=== PATIENT | female | born 1945 | race Caucasian/White ===

== ENCOUNTER 2017-05-27 17:40 | Inpatient (IN) | payer MEDICARE, BC ==
[~2017-05-27] VITALS: Ht 172.7 cm; Wt 88.5 kg
[2017-05-27] MEDS ORDERED: POLY17PO5 PO (21:57)
[2017-05-27] MEDS ORDERED: PHEN30SP8 MM (21:57)
[2017-05-27] MEDS ORDERED: CHOL10003 PO (21:57)
[2017-05-27] MEDS ORDERED: LAMO200T3 PO (21:57)
[2017-05-27] MEDS ORDERED: PILO5TAB16 PO (21:57)
[2017-05-27] MEDS ORDERED: CRESTOR40 MG PO (21:57)
[2017-05-27] MEDS ORDERED: BISA10SU2 RC (21:57)
[2017-05-27] MEDS ORDERED: CARB15DR3 OU (21:57)
[2017-05-27] MEDS ORDERED: KETO120S TP (21:57)
[2017-05-27] MEDS ORDERED: MULT1TAB52 PO (21:57)
[2017-05-27] MEDS ORDERED: CYAN10005 PO (21:57)
[2017-05-27] MEDS ORDERED: MEMA5TAB PO (21:57)
[2017-05-27] MEDS ORDERED: LOPE2CAP88 PO (21:57)
[2017-05-27] MEDS ORDERED: [UNRECOGNIZED DRUG - CODE] OU (21:57)
[2017-05-27] MEDS ORDERED: DOCU-109 PO (21:57)
[2017-05-27] MEDS ORDERED: HYDR50CA2 PO (21:57)
[2017-05-27] MEDS ORDERED: ACET325T9 PO (21:57)
[2017-05-27] MEDS ORDERED: ROPI1TAB PO (21:57)
[2017-05-27] MEDS ORDERED: ASPI81TA50 PO (21:57)
[2017-05-27] MEDS ORDERED: LINA145C PO (21:57)
[2017-05-27] MEDS ORDERED: LISI2.5T PO (21:57)
[2017-05-27] MEDS ORDERED: HYDR25CA75 PO (21:57)
[2017-05-27] MEDS ORDERED: INSU100I17 SQ (21:57)
[2017-05-27] MEDS ORDERED: TRAM50TA PO (21:57)
[2017-05-27] MEDS ORDERED: OMEG-33 PO (21:57)
[2017-05-27] MEDS ORDERED: INSU200I4 SQ (21:57)
[2017-05-27] MEDS ORDERED: LEVO175T5 PO (21:57)
[2017-05-27] MEDS ORDERED: NYST60PO TP (21:57)
[2017-05-27] MEDS ORDERED: PANT40TA5 PO (21:57)
[2017-05-27] MEDS ORDERED: BACL10TA PO (21:57)
[2017-05-27] MEDS ORDERED: HYDR-2762 PO (21:57)
[2017-05-27] MEDS ORDERED: CALC1TAB64 PO (21:57)
[2017-05-27] MEDS ORDERED: DULA1.5P SQ (21:57)
[2017-05-27] MEDS ORDERED: ENOX40DI SQ (21:57)
[2017-05-27] MEDS ORDERED: GABA-586 PO ×2 (21:57)
[2017-05-27] MEDS ORDERED: OPIU1SUP2 RC (21:57)
[2017-05-27] MEDS ORDERED: OXYB10TA PO (21:57)
[2017-05-27] MEDS: OMEGA-3 FATTY ACIDS/FISH OIL 1,000 MG CAPSULE. PO SCH ×2 (22:30→23:05)
[2017-05-27] MEDS: OXYBUTYNIN CHLORIDE 5 MG TABLET PO SCH ×2 (22:30→23:05)
[2017-05-27] MEDS: lamoTRIgine 100 MG TABLET. PO SCH ×2 (22:30→23:06)
[2017-05-27] MEDS: ATORVASTATIN CALCIUM 20 MG TABLET PO SCH ×2 (22:30→23:05)
[2017-05-27] MEDS: ENOXAPARIN 40 MG/0.4 ML DISP.SYRIN. SQ SCH ×2 (22:30→23:06)
[2017-05-27] MEDS: hydrOXYzine PAMOATE 25 MG CAPSULE PO SCH ×2 (22:30→23:04)
[2017-05-27] MEDS: rOPINIRole 2 MG TABLET. PO SCH ×2 (22:30→23:05)
[2017-05-27] MEDS: MEMANTINE 5 MG TABLET. PO SCH ×2 (22:30→23:05)
[2017-05-27] MEDS: BACLOFEN 10 MG TABLET PO SCH ×2 (22:30→23:06)
[2017-05-27] MEDS: PILOCARPINE 5 MG TABLET. PO SCH (22:30)
[2017-05-27] MEDS: GABAPENTIN 300 MG CAPSULE. PO SCH ×2 (22:30→23:05)
[2017-05-28 00:11] VITALS: BP 119/67
[2017-05-28] MEDS: OMEGA-3 FATTY ACIDS/FISH OIL 1,000 MG CAPSULE. PO SCH ×4 (00:16→21:00)
[2017-05-28] MEDS: GABAPENTIN 300 MG CAPSULE. PO SCH ×3 (00:16→20:48)
[2017-05-28] MEDS: ENOXAPARIN 40 MG/0.4 ML DISP.SYRIN. SQ SCH ×2 (00:16→20:47)
[2017-05-28] MEDS: rOPINIRole 2 MG TABLET. PO SCH ×2 (00:17→20:48)
[2017-05-28] MEDS: OXYBUTYNIN CHLORIDE 5 MG TABLET PO SCH ×3 (00:17→20:48)
[2017-05-28] MEDS: ATORVASTATIN CALCIUM 20 MG TABLET PO SCH ×2 (00:17→20:48)
[2017-05-28] MEDS: lamoTRIgine 100 MG TABLET. PO SCH ×2 (00:17→20:48)
[2017-05-28] MEDS: PILOCARPINE 5 MG TABLET. PO SCH ×4 (00:17→20:51)
[2017-05-28] MEDS: hydrOXYzine PAMOATE 25 MG CAPSULE PO SCH ×4 (00:17→20:49)
[2017-05-28] MEDS: BACLOFEN 10 MG TABLET PO SCH ×4 (00:17→20:49)
[2017-05-28] MEDS: MEMANTINE 5 MG TABLET. PO SCH ×3 (00:18→20:48)
[2017-05-28 01:17] LABS: BILIRUBIN,URINE NEG (NEG); CLARITY,URINE CLOUDY; COLOR,URINE YELLOW; GLUCOSE,URINE NEG (NEG)
[2017-05-28 01:18] LABS: NITRITE,URINE NEG (NEG); UROBILINOGEN,URINE 1 mg/dL (0.2 mg/dL)
[2017-05-28 01:19] LABS: BACTERIA,URINE FEW /HPF (0-FEW); SQUAMOUS EPITHELIAL CELL,UR FEW /LPF; WBC,URINE 20-40 /HPF (0-4)
--- NOTE | 2017-05-28 07:02 | EKG ---
[address] [address] Test Date: 2017-05-28 Test Time: 06:06:08 Pat Name: GIAN PITTMAN Department: Room: [address] [place] [address] Gender: F Shot Lighter: RACHEL : 1945 Requested By: KURT DUARTE Order Number: [id number] Reading MD: Chris Estrella MD Measurements Intervals [place] Rate: 78 P: 12 WI: 188 QRS: 7 QRSD: 74 T: 25 QT: 376 QTc: 432 Interpretive Statements SINUS RHYTHM Electronically Signed On 06-13-2017 12:03:32 CDT by Chris Estrella MD
[2017-05-28 07:08] VITALS: BP 125/72
[2017-05-28] MEDS ORDERED: LOPERAMIDE 2 MG CAPSULE PO PRN (07:30)
[2017-05-28] MEDS ORDERED: DOCUSATE SODIUM 100 MG CAPSULE PO PRN (07:30)
[2017-05-28] MEDS ORDERED: NYSTATIN TOPICAL POWDER 15GM BOTTLE. TP PRN (07:30)
[2017-05-28] MEDS ORDERED: BISACODYL 10 MG SUPP.RECT RC PRN (07:30)
[2017-05-28] MEDS ORDERED: PHENOL ORAL SPRAY 177ML BOTTLE. MM PRN ×2 (08:00→14:31)
[2017-05-28] MEDS ORDERED: POLYVINYL ALCOHOL 1.4% OPHTH SOLUTION 15ML BOTTLE. OU PRN (08:00)
[2017-05-28] MEDS ORDERED: TETRAHYDROZOLINE 0.05% OPHTH SOLUTION 15ML BOTTLE. OU PRN ×2 (08:00→14:31)
[2017-05-28 08:25] LABS: BASO % 1 % (0-3); EOS # 0.3 x10^3/uL (0.0-0.7); EOS % 5 % (0-3); HEMATOCRIT 41.9 % (36.0-47.0); HEMOGLOBIN 14.3 g/dL (12.0-15.5); LYMPH # 2.5 x10^3/uL (1.0-4.8); LYMPH % 38 % (24-48); MEAN CORPUSCULAR HEMOGLOBIN 29 pg (25-35); MEAN CORPUSCULAR HGB CONC 34 g/dL (31-37); MEAN CORPUSCULAR VOLUME 86 fL (79-100); MONO # 0.5 x10^3/uL (0.0-1.1); MONO % 7 % (0-9); NEUT # 3.4 x10^3uL (1.8-7.7); NEUT % 50 % (31-73); PLATELET COUNT 216 x10^3/uL (140-400); RED BLOOD COUNT 4.87 x10^6/uL (3.50-5.40); RED CELL DISTRIBUTION WIDTH 14.2 % (11.5-14.5); WHITE BLOOD COUNT 6.7 x10^3/uL (4.0-11.0)
[2017-05-28 08:37] LABS: ALBUMIN 2.8 g/dL (3.4-5.0); ALBUMIN/GLOBULIN RATIO 0.8 (1.0-1.7); CREATININE 0.7 mg/dL (0.6-1.0); MAGNESIUM 1.9 mg/dL (1.8-2.4); POTASSIUM 3.5 mmol/L (3.5-5.1); TOTAL BILIRUBIN 0.3 mg/dL (0.2-1.0); TOTAL PROTEIN 6.5 g/dL (6.4-8.2)
[2017-05-28] MEDS ORDERED: GABAPENTIN 300 MG CAPSULE. PO PRN (09:00)
[2017-05-28] MEDS: LEVOTHYROXINE 175 MCG TABLET PO SCH (10:33)
[2017-05-28] MEDS: LINACLOTIDE 145 MCG CAPSULE. PO SCH (10:33)
[2017-05-28] MEDS: ASPIRIN ENTERIC COATED 81 MG TABLET.DR. PO SCH (10:33)
[2017-05-28] MEDS: LISINOPRIL 2.5 MG TABLET PO SCH (10:33)
[2017-05-28] MEDS: CALCIUM CARB/VIT D3 500/200 TABLET PO SCH ×2 (10:33→17:17)
[2017-05-28] MEDS: MULTIVITAMIN with MINERAL TABLET. PO SCH (10:34)
[2017-05-28] MEDS: CHOLECALCIFEROL (VITAMIN D3) 1,000 UNIT TABLET PO SCH (10:34)
[2017-05-28 11:21] LABS: THYROID STIM HORMONE (TSH) 3.476 uIU/mL (0.358-3.740)
[2017-05-28] MEDS: INSULIN ASPART 300 UNITS/3 ML INSULN.PEN SQ SCH ×4 (12:17→17:20)
[2017-05-28] MEDS ORDERED: FOSFOMYCIN TROMETHAMINE 3 GM PACKET PO ONE ×2 (12:45→14:00)
--- NOTE | 2017-05-28 12:56 | HP ---
ADMIT DATE: 05/27/2017 MEDICAL HISTORY AND PHYSICAL FOR THE SENIOR BEHAVIORAL UNIT REASON FOR ADMISSION TO THE SENIOR BEHAVIORAL UNIT: This is a 72-year-old female who came via [facility] where she was in the ICU due to an overdose of baclofen and hydrocodone. She just got depressed and just decided to try to take her life. Her daughter tried to call and was unable to reach her and her son found her in bed last Tuesday night. PAST MEDICAL HISTORY: Bipolar disorder with osiris, pelvic organ prolapse, chronic low back pain, hip pain, chronic groin and buttock pain, anxiety, diabetes, fibromyalgia, sleep apnea, cluster headaches, hepatitis B, hyperlipidemia, irritable bowel and currently undergoing a workup for myasthenia gravis. ALLERGIES: Multiple and include NONSTEROIDALS, ADHESIVE, ASPIRIN, ESTROGEN, LATEX, LURASIDONE, METFORMIN, METOCLOPRAMIDE, OLANZAPINE, ONDANSETRON, and TRAZODONE. MEDICATIONS: Reviewed and are available on the MAR. SOCIAL HISTORY: Never smoked, never drank. 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 She has at least 2 children. REVIEW OF SYSTEMS: Pelvic floor prolapse. She has been having some problems with drooping of her left eye later in the day and is undergoing a workup. Negative fever, negative sore throat, chronic back pain and hip pain. No shortness of breath or chest pain. OBJECTIVE: VITAL SIGNS: Blood pressure 125/72, pulse 105, temperature 97.5, pulse ox 95% on room air. Height 68 inches, weight 191.63 pounds. GENERAL: Pleasant female, who looks her stated age. She is sitting quietly in the chair, able to answer questions without difficulty. She is alert and oriented. Mood is slightly depressed. She is calm and cooperative. HEENT: Hearing was normal. Her pupils were equal, round, and react to light. Extraocular muscles were intact. There was no ptosis currently. Her nose was patent. Throat was clear. Tongue was midline. NECK: Supple, without adenopathy. LUNGS: Clear to auscultation. CARDIOVASCULAR: Regular rhythm and rate. ABDOMEN: Soft and nontender. EXTREMITIES: Without edema. She passes a get up and go test, but walks with a walker. She has some weakness in the left leg from surgery and reflexes were not elicited, but she does not drag the foot and she does not have footdrop. NEUROLOGIC: Cranial nerves were intact. LABORATORY DATA: Normal CBC. Glucose is in the 200s, triglycerides 326. Urinalysis: Large amount of leukocyte esterase, 20-40 white cells, specific gravity greater than 1.030. Other studies pending. ASSESSMENT: A 72-year-old with: 1. Status post overdose of baclofen and hydrocodone. 2. Major depressive disorder. 3. Bipolar disorder. 4. Type 2 diabetes with hyperglycemia. 5. Fibromyalgia. 6. Gastroesophageal reflux disease. 7. Sleep apnea. 8. Hepatitis B. 9. Chronic low back pain. 10. Multiple allergies. 11. Polypharmacy. 12. Urinary tract infection. PLAN: Follow along with Dr. Galvez. Treat her medical conditions. SUKH LISA DO DR: ADRIAN/jayro JOB#: [id number] / [id number]
[2017-05-28 16:18] LABS: HEMOGLOBIN A1C 6.6 % (4.8-5.6); T3 TOTAL 106 ng/dL (71-180); THYROXINE 9.6 ug/dL (4.5-12.0)
[2017-05-28 16:25] VITALS: BP 114/55
[2017-05-28] MEDS: CYANOCOBALAMIN (VITAMIN B-12) 1,000 MCG TABLET. PO SCH (17:17)
[2017-05-28] MEDS: PANTOPRAZOLE 40 MG TABLET. PO SCH (20:51)
--- NOTE | 2017-05-28 21:13 | PDOC ---
Exam Note: Jens Note: Please also refer to the separate dictated note~for this date of service dictated separately.~Patient seen individually. Discussed the patient with Nursing staff reviewed the chart.~Reviewed interim history and current functioning. Reviewed vital signs,~Labs/ Radiology~and current medications noted below. Continue current treatment with the changes noted in the dictated addendum note Assessment: Vital Signs: Vital Signs Date Time Temp Pulse Resp B/P (MAP) Pulse Ox O2 Delivery O2 Flow Rate FiO2 05/28/17 16:25 97.4 99 16 114/55 (74) 97 Room Air I&O Intake and Output 05/28/17 07:00 Intake Total 120 ml Balance 120 ml Intake Oral 120 ml Labs: Laboratory Tests Test 05/28/17 00:50 05/28/17 07:40 05/28/17 07:57 05/28/17 11:56 Urine Collection Type Unknown Urine Color Yellow Urine Clarity Cloudy Urine pH 5.5 Urine Specific [place] >=1.030 Urine Protein 100 mg/dl (NEG-TRACE) Urine Glucose (UA) Neg mg/dL (NEG) Urine Ketones (Stick) Neg mg/dL (NEG) Urine Blood Mod (NEG) Urine Nitrite Neg (NEG) Urine Bilirubin Neg (NEG) Urine Urobilinogen Dipstick 1 mg/dL (0.2 mg/dL) Urine Leukocyte Esterase Large (NEG) Urine RBC 3-5 /HPF (0-2) Urine WBC 20-40 /HPF (0-4) Urine Squamous Epithelial Cells Few /LPF Urine Bacteria Few /HPF (0-FEW) Urine Mucus Slight /LPF White Blood Count 6.7 x10^3/uL (4.0-11.0) Red Blood Count 4.87 x10^6/uL (3.50-5.40) Hemoglobin 14.3 g/dL (12.0-15.5) Hematocrit 41.9 % (36.0-47.0) Mean Corpuscular Volume 86 fL (79-100) Mean Corpuscular Hemoglobin 29 pg (25-35) Mean Corpuscular Hemoglobin Concent 34 g/dL (31-37) Red Cell Distribution Width 14.2 % (11.5-14.5) Platelet Count 216 x10^3/uL (140-400) Neutrophils (%) (Auto) 50 % (31-73) Lymphocytes (%) (Auto) 38 % (24-48) Monocytes (%) (Auto) 7 % (0-9) Eosinophils (%) (Auto) 5 % (0-3) H Basophils (%) (Auto) 1 % (0-3) Neutrophils # (Auto) 3.4 x10^3uL (1.8-7.7) Lymphocytes # (Auto) 2.5 x10^3/uL (1.0-4.8) Monocytes # (Auto) 0.5 x10^3/uL (0.0-1.1) Eosinophils # (Auto) 0.3 x10^3/uL (0.0-0.7) Basophils # (Auto) 0.0 x10^3/uL (0.0-0.2) Sodium Level 139 mmol/L (136-145) Potassium Level 3.5 mmol/L (3.5-5.1) Chloride Level 102 mmol/L (98-107) Carbon Dioxide Level 30 mmol/L (21-32) Anion Gap 7 (6-14) Blood Urea Nitrogen 7 mg/dL (7-20) Creatinine 0.7 mg/dL (0.6-1.0) Estimated GFR (Cockcroft-Gault) 82.0 BUN/Creatinine Ratio 10 (6-20) Glucose Level 276 mg/dL (70-99) H Hemoglobin A1c 6.6 % (4.8-5.6) H Calcium Level 9.0 mg/dL (8.5-10.1) Magnesium Level 1.9 mg/dL (1.8-2.4) Iron Level 51 ug/dL (50-170) Total Iron Binding Capacity 351 ug/dL (250-450) Iron Saturation 15 % (15-34) Total Bilirubin 0.3 mg/dL (0.2-1.0) Aspartate Amino Transferase (AST) 27 U/L (15-37) Alanine Aminotransferase (ALT) 37 U/L (14-59) Alkaline Phosphatase 141 U/L (46-116) H Total Protein 6.5 g/dL (6.4-8.2) Albumin 2.8 g/dL (3.4-5.0) L Albumin/Globulin Ratio 0.8 (1.0-1.7) L Triglycerides Level 326 mg/dL (0-150) H Cholesterol Level 118 mg/dL (0-200) LDL Cholesterol, Calculated 32 mg/dL (0-100) VLDL Cholesterol, Calculated 65 mg/dL (0-40) H Non-HDL Cholesterol Calculated 97 mg/dL (0-129) HDL Cholesterol 21 mg/dL (40-60) L Cholesterol/HDL Ratio 5.0 Thyroid Stimulating Hormone (TSH) 3.476 uIU/mL (0.358-3.740) Thyroxine (T4) 9.6 ug/dL (4.5-12.0) Total Triiodothyronine (TT3) 106 ng/dL (71-180) Rapid Plasma Reagin Pending Glucose (Fingerstick) 246 mg/dL (70-99) H 278 mg/dL (70-99) H Test 05/28/17 17:11 05/28/17 19:12 Glucose (Fingerstick) 159 mg/dL (70-99) H 178 mg/dL (70-99) H Current Medications: Meds: Current Medications Hydroxyzine Pamoate (Vistaril) 25 mg BID@0900,1300 PO Last administered on 05/28 13:52; Start 05/28/17 at 09:00 Memantine (Namenda) 5 mg BID PO Last administered on 05/28/17 20:48; Start 05/27/17 at 22:30 Hydroxyzine Pamoate (Vistaril) 50 mg QHS PO Last administered on 05/28/17 20: 49; Start 05/27/17 at 22:30 Lamotrigine (LaMICtal) 200 mg HS PO Last administered on 05/28/17 20:48; Start 05/27/17 at 22:30 Baclofen (Lioresal) 10 mg TID PO Last administered on 05/28/17 20:49; Start at 22:30 Enoxaparin Sodium (Lovenox) 40 mg QHS SQ Last administered on 05/28/17 20:47; Start 05/27/17 at 22:30 Gabapentin (Neurontin) 600 mg QHS PO Last administered on 05/28/17 20:48; Start 05/27/17 at 22:30 Pantoprazole Sodium (Protonix) 40 mg QPM PO Last administered on 05/28/17 20: 51; Start 05/28/17 at 18:00 Pilocarpine HCl (Salagen) 5 mg TID PO Last administered on 05/28/17 20:51; Start 05/27/17 at 22:30 Ropinirole HCl (Requip) 2 mg QHS PO Last administered on 05/28/17 20:48; Start 05/27/17 at 22:30 Calcium/Vitamin D (Oscal D 500mg/ 200uts) 1 tab BIDWMEALS PO Last administered on 05/28/17 17:17; Start 05/28/17 at 08:00 Fish Oil (Fish Oil) 2,000 mg BID PO Last administered on 05/28/17 20:48; Start 05/27/17 at 22:30 Oxybutynin Chloride (Ditropan) 5 mg BID PO Last administered on 05/28/17 20:48 ; Start 05/27/17 at 22:30 Atorvastatin Calcium (Lipitor) 80 mg QHS PO Last administered on 05/28/17 20: 48; Start 05/27/17 at 22:30 Acetaminophen (Tylenol) 650 mg PRN Q4HRS PRN PO PAIN / TEMP; Start 05/28/17 at 07:30 Aspirin (Aspirin Enteric Coated) 81 mg DAILY PO Last administered on 05/28/17 10:33; Start 05/28/17 at 09:00 Bisacodyl (Dulcolax Supp) 10 mg PRN DAILY PRN RC CONSTIPATION; Start 05/28/17 at 07:30 Vitamin D (Vitamin D3) 2,000 unit DAILY PO Last administered on 05/28/17at 10:34 ; Start 05/28/17 at 09:00 Cyanocobalamin (Vitamin B-12) 1,000 mcg QODAY@1700 PO Last administered on 05/28 17:17; Start 05/28/17 at 17:00 Docusate Sodium (Colace) 100 mg PRN BID PRN PO CONSTIPATION; Start 05/28/17 at 07:30 Gabapentin (Neurontin) 300 mg BID@0900,1300 PRN PO Neuropathy; Start 05/28/17 at 09:00 Acetaminophen/ Hydrocodone Bitart (Lortab 7.5/325) 1 tab PRN Q4HRS PRN PO PAIN ; Start 05/28/17 at 07:30 Levothyroxine Sodium (Synthroid) 175 mcg DAILY06 PO Last administered on at 10:33; Start 05/28/17 at 08:00 Lisinopril (Prinivil) 2.5 mg DAILY PO Last administered on 05/28/17at 10:33; Start 05/28/17 at 09:00 Loperamide HCl (Imodium) 2 mg TID PRN PRN PO DIARRHEA; Start 05/28/17 at 07:30 Nystatin (Nystop) 1 gene PRN TID PRN TP RASH; Start 05/28/17 at 07:30 Polyethylene Glycol (miraLAX) 17 gm PRN DAILY PRN PO CONSTIPATION; Start at 07:30 Tramadol HCl (Ultram) 50 mg PRN Q4HRS PRN PO PAIN; Start 05/28/17 at 07:30 Artificial Tears (Artificial Tears) 2 drop PRN BID PRN OU DRY EYE; Start at 08:00; Stop 05/28/17 at 14:31; Status DC Non-Formulary Medication (Dulaglutide (Trulicity)) 1.5 mg QTU SQ ; Start at 16:00; Status UNV Non-Formulary Medication (Insulin Degludec (Tresiba Flextouch U-200)) 90 unit DAILY SQ ; Start 05/28/17 at 09:00; Status UNV Multivitamins/ Calcium (Thera-M Plus) 1 tab DAILY PO Last administered on at 10:34; Start 05/28/17 at 09:00 Tetrahydrozoline HCl (Murine) 1 drop PRN QID PRN OU DRY EYE; Start 05/28/17 at 08:00; Stop 05/28/17 at 14:31; Status DC Throat Lozenges (Chloraseptic) 1 spray PRN Q4HRS PRN MM SORE THROAT; Start 01/05 at 08:00; Stop 05/28/17 at 14:31; Status DC Insulin Aspart (NovoLOG) 15 units TIDAC SQ Last administered on 05/28/17at 16:30 ; Start 05/28/17 at 11:30 Insulin Aspart (NovoLOG) 0-5 UNITS TIDWMEALS SQ Last administered on 05/28/17at 17:20; Start 05/28/17 at 12:00 Fosfomycin Tromethamine (Monurol) 3 gm 1X ONCE PO ; Start 05/28/17 at 12:45; Stop 05/28/17 at 12:46; Status DC Fosfomycin Tromethamine (Monurol) 3 gm 1X ONCE PO Last administered on at 13:42; Start 05/28/17 at 14:00; Stop 05/28/17 at 14:01; Status DC Throat Lozenges (Chloraseptic) 1 spray PRN Q4HRS PRN MM SORE THROAT; Start 01/05 at 14:31 Artificial Tears (Artificial Tears) 2 drop PRN BID PRN OU DRY EYE; Start at 14:31 Tetrahydrozoline HCl (Murine) 1 drop PRN QID PRN OU DRY EYE; Start 05/28/17 at 14:31 Active Scripts Active Reported Chloraseptic Max Caruthers (Phenol/Glycerin) 30 Ml Caruthers 1 Caruthers MM PRN Q4HRS PRN Miralax (Polyethylene Glycol 3350) 17 Gm Powd.pack 17 Gm PO PRN DAILY PRN Nystop (Nystatin) 60 Gm Powder 1 Gene TP PRN TID PRN Clear Eyes Itchy Eye Rlf Drops (Naphazoline Hcl/Zn Sulf/Gly) 15 Ml Drops 1 Drop OU PRN QID PRN Imodium A-D (Loperamide HCl) 2 Mg Capsule 2 Mg PO TID PRN PRN Colace (Docusate Sodium) 100 Mg Capsule 100 Mg PO PRN BID PRN Refresh Optive Eye Drops (Carboxymethylcellulos/Glycerin) 15 Ml Drops 2 Drop OU PRN BID PRN Bisacodyl 10 Mg Supp.rect 10 Mg RC PRN DAILY PRN Belladonna-Opium 16.2-30 Supp (Opium/Belladonna Alkaloids) 1 Each Supp.rect 1 Supp RC PRN Q12HR PRN Hydrocodone-Apap 7.5-325 (Hydrocodone Bit/Acetaminophen) 1 Each Tablet 1 Tab PO PRN Q4HRS PRN Tylenol (Acetaminophen) 325 Mg Tablet 650 Mg PO PRN Q4HRS PRN Tramadol Hcl (Tramadol HCl) 50 Mg Tablet 50 Mg PO PRN Q4HRS PRN Crestor (Rosuvastatin Calcium) 40 Mg Tablet 40 Mg PO HS Requip (Ropinirole Hcl) 1 Mg Tablet 2 Mg PO QHS Pilocarpine Hcl 5 Mg Tablet 5 Mg PO TID Pantoprazole Sodium 40 Mg Tablet.dr 40 Mg PO QPM Oxybutynin Chloride Er (Oxybutynin Chloride) 10 Mg Tab.er.24 10 Mg PO QHS Multivitamins (Multivitamin) 1 Each Tablet 1 Tab PO DAILY Namenda (Memantine Hcl) 5 Mg Tablet 5 Mg PO BID Lisinopril 2.5 Mg Tablet 2.5 Mg PO DAILY Linzess (Linaclotide) 145 Mcg Capsule 145 Mcg PO DAILY Levothyroxine Sodium 175 Mcg Tablet 175 Mcg PO DAILY07 Lamictal (Lamotrigine) 200 Mg Tablet 200 Mg PO QHS Ketoconazole 120 Ml Shampoo 120 Ml TP Q3DAYS Tresiba Flextouch U-200 (Insulin Degludec) 200 Unit/1 Ml Insuln.pen 90 Unit SQ DAILY Novolog Flexpen (Insulin Aspart) 100 Unit/1 Ml Insuln.pen 0-10 Unit SQ TIDWMEALS Hydroxyzine Pamoate 50 Mg Capsule 50 Mg PO QHS Hydroxyzine Pamoate 25 Mg Capsule 25 Mg PO BID@0900,1300 Neurontin (Gabapentin) 300 Mg Capsule 300 Mg PO BID@0900,1300 PRN Neurontin (Gabapentin) 300 Mg Capsule 600 Mg PO QHS Java 3 1,000 Mg Softgel (Java-3 Fatty Acids/Fish Oil) 1 Each Capsule 2,000 Mg PO BID Lovenox (Enoxaparin Sodium) 40 Mg/0.4 Ml Disp.syrin 40 Mg SQ QHS Trulicity (Dulaglutide) 1.5 Mg/0.5 Ml Pen.injctr 1.5 Mg SQ QTU Vitamin B-12 (Cyanocobalamin (Vitamin B-12)) 1,000 Mcg Tablet 1,000 Mcg PO QODAY @1700 Vitamin D3 (Cholecalciferol (Vitamin D3)) 1,000 Unit Tablet 2,000 Unit PO DAILY Calcium 600 + Vit D 400 Tablet (Calcium Carbonate/Vitamin D3) 1 Each Tablet 1 Tab PO BID Baclofen 10 Mg Tablet 10 Mg PO TID Aspir-Low (Aspirin) 81 Mg Tablet. 81 Mg PO DAILY I have reviewed the current psychotropics carefully including drug interactions. Risk benefit ratio favors no change other than as noted in my dictated progress note. Diagnosis: Problems: (1) Bipolar affective, mixed, sev w/ psych (2) Anxiety disorder (3) Major depressive disorder, recurrent episode KURT DUARTE MD May 28, 2017 21:13
--- NOTE | 2017-05-29 05:50 | HP ---
ADMIT DATE: 05/28/2017 IDENTIFYING DATA: The patient is a 72-year-old female who was referred to us from the Intensive Care Unit at [facility] where she was admitted following a very significant overdose on baclofen and [place] in a significant suicide attempt. The patient states she has not been able to get any relief from pain and has been miserable. She was having significant lower back pain, pelvic floor pain. She states she just wanted the pain to go away resulting in this suicide attempt. She is medically stabilized, continued to be depressed, has a diagnosis of bipolar 1 disorder, depressed, and had no regular psychiatric followup in the recent past thus resulting in this referral for stabilization as an inpatient. The patient was seen individually evening of 05/28/2017. Discussed with nursing staff several times prior to the patient's admission and since admission and this evening reviewed current and past records including records from [facility]. CHIEF COMPLAINT: "I have been treated for bipolar disorder for many years, but I have had no recent followup with a psychiatrist since I moved to [place] recently." HISTORY OF PRESENT ILLNESS: The patient has a long history reportedly of bipolar 1 disorder and she describes a manic episode, perhaps single in the past. Nevertheless, most of her relapses have been depressive episodes. She admits recently to worsening symptoms of depression consequent to her chronic pain, which has been exacerbating. She has sleep and appetite changes, paranoia and thereafter decided to make a suicide attempt due to the pain, which was exacerbating. No active homicidal ideation. PAST PSYCHIATRIC HISTORY: Positive for symptoms of bipolar disorder, single episode of osiris and recurrent episodes of depression. PAST MEDICAL HISTORY: Status post overdose baclofen, [place]; low back pain, pelvic floor pain, fibromyalgia, diabetes mellitus, GERD, hyperlipidemia, irritable bowel syndrome, hepatitis B secondary to transfusion, liver disease, hypothyroidism, chronic headaches, back pain, myasthenia gravis. Accu-Cheks a.c. and at bedtime. ALLERGIES: ADHESIVE, ASPIRIN, LATEX, LATUDA, METFORMIN, NONSTEROIDAL ANTI-INFLAMMATORIES, PREMARIN, REGLAN, TRAZODONE, ZOFRAN, ZYPREXA. MEDICATIONS: Takes her medications whole. DIET: No concentrated sweet. CODE STATUS: DNR. Ambulates with walker. UA was positive. Culture is pending. FAMILY HISTORY: Noncontributory. SOCIAL HISTORY: The patient did her college education at and apparently did some postgraduate courses after that. No alcohol or drug abuse, physical, sexual or elder abuse history is noted. Not known to be a perpetrator. She states she has 5 adult children, 3 of whom are in the [place] area, 1 in [place] and that is the reason she decided to move to [place] last year. She has had a fairly active working life prior to long-term. CURRENT PSYCHOTROPICS: Namenda 5 mg b.i.d., Lamictal 200 mg at bedtime, hydroxyzine 25 mg b.i.d. and 50 mg at bedtime. REVIEW OF SYSTEMS: No CV, , pulmonary, eye, ENT system symptoms on review. MENTAL STATUS EXAM: The patient was seen individually evening of 05/28/2017. She is well oriented. Speech is coherent. Thought processes goal directed. Mood is still depressed. She is distressed with the chronic pain. Denies active suicidal ideation, somewhat paranoid, suspicious, attention span fair. Language function intact. Intellect average. Insight fair. Judgment intact to standard questioning at this time. IMPRESSION: Bipolar 1 disorder, depressed; anxiety disorder, unspecified; impulse control disorder, unspecified. Rest as above. PLAN: Admit to Geropsychiatry Unit at [facility]. I will see the patient daily individually from a psychiatric standpoint, medical followup per Dr. Rojas/Dr. Ramirez. Continue current psychotropics, but increase the Lamictal to 250 mg p.o. at bedtime, add Wellbutrin-XL 150 mg a day as she has been on this in the past and did well, consider Cymbalta as an antidepressant which might help her pain as well. Make further adjustments as clinically indicated. MAN Ellis DUARTE MD DR: ROMA/jayro JOB#: [id number] / [id number]
[2017-05-29] MEDS: LEVOTHYROXINE 175 MCG TABLET PO SCH (06:07)
[2017-05-29 06:25] VITALS: BP 126/64
[2017-05-29] MEDS: CALCIUM CARB/VIT D3 500/200 TABLET PO SCH ×2 (08:11→17:12)
[2017-05-29] MEDS: ASPIRIN ENTERIC COATED 81 MG TABLET.DR. PO SCH (08:11)
[2017-05-29] MEDS: PILOCARPINE 5 MG TABLET. PO SCH ×3 (08:11→20:53)
[2017-05-29] MEDS: OMEGA-3 FATTY ACIDS/FISH OIL 1,000 MG CAPSULE. PO SCH ×2 (08:11→20:52)
[2017-05-29] MEDS: MULTIVITAMIN with MINERAL TABLET. PO SCH (08:11)
[2017-05-29] MEDS: BACLOFEN 10 MG TABLET PO SCH ×3 (08:11→20:53)
[2017-05-29] MEDS: CHOLECALCIFEROL (VITAMIN D3) 1,000 UNIT TABLET PO SCH (08:11)
[2017-05-29] MEDS: MEMANTINE 5 MG TABLET. PO SCH ×2 (08:11→20:52)
[2017-05-29] MEDS: OXYBUTYNIN CHLORIDE 5 MG TABLET PO SCH ×2 (08:11→20:53)
[2017-05-29] MEDS: LISINOPRIL 2.5 MG TABLET PO SCH (08:12)
[2017-05-29] MEDS: GABAPENTIN 300 MG CAPSULE. PO SCH ×3 (08:12→20:53)
[2017-05-29] MEDS: LINACLOTIDE 145 MCG CAPSULE. PO SCH (08:12)
[2017-05-29] MEDS: INSULIN ASPART 300 UNITS/3 ML INSULN.PEN SQ SCH ×6 (08:13→17:13)
[2017-05-29] MEDS: hydrOXYzine PAMOATE 25 MG CAPSULE PO SCH ×3 (08:14→20:53)
[2017-05-29] MEDS: POLYETHYLENE GLYCOL 3350 17 GM PACKET. PO PRN (10:36)
[2017-05-29] MEDS: buPROPion XL 150 MG TAB.ER.24H PO SCH (10:36)
[2017-05-29] MEDS: HYDROcodone/APAP 7.5/325MG 1 TAB TABLET PO PRN ×2 (10:36→20:51)
[2017-05-29 16:19] VITALS: BP 108/72
[2017-05-29] MEDS: CYANOCOBALAMIN (VITAMIN B-12) 1,000 MCG TABLET. PO SCH (17:12)
[2017-05-29] MEDS: PANTOPRAZOLE 40 MG TABLET. PO SCH (17:15)
[2017-05-29] MEDS ORDERED: MAGNESIUM HYDROXIDE 2,400 MG/30 ML ORAL.SUSP. PO PRN (20:45)
[2017-05-29] MEDS: rOPINIRole 2 MG TABLET. PO SCH (20:52)
[2017-05-29] MEDS: lamoTRIgine 100 MG TABLET. PO SCH (20:52)
[2017-05-29] MEDS: ATORVASTATIN CALCIUM 20 MG TABLET PO SCH (20:52)
--- NOTE | 2017-05-29 21:08 | PDOC ---
Exam Note: Jens Note: Please also refer to the separate dictated note~for this date of service dictated separately.~Patient seen individually. Discussed the patient with Nursing staff reviewed the chart.~Reviewed interim history and current functioning. Reviewed vital signs,~Labs/ Radiology~and current medications noted below. Continue current treatment with the changes noted in the dictated addendum note Assessment: Vital Signs: Vital Signs Date Time Temp Pulse Resp B/P (MAP) Pulse Ox O2 Delivery O2 Flow Rate FiO2 05/29/17 20:51 20 Room Air 05/29/17 16:19 97.6 82 108/72 (84) 95 I&O Intake and Output 05/29/17 07:00 Intake Total 960 ml Balance 960 ml Intake Oral 960 ml Labs: Laboratory Tests Test 05/29/17 07:32 05/29/17 11:40 05/29/17 16:35 05/29/17 19:14 Glucose (Fingerstick) 258 mg/dL (70-99) H 345 mg/dL (70-99) H 105 mg/dL (70-99) H 175 mg/dL (70-99) H Current Medications: Meds: Current Medications Hydroxyzine Pamoate (Vistaril) 25 mg BID@0900,1300 PO Last administered on 05/29at 12:00; Start 05/28/17 at 09:00 Memantine (Namenda) 5 mg BID PO Last administered on 05/29/17at 20:52; Start 05/27/17 at 22:30 Hydroxyzine Pamoate (Vistaril) 50 mg QHS PO Last administered on 05/29/17at 20: 53; Start 05/27/17 at 22:30 Lamotrigine (LaMICtal) 200 mg HS PO Last administered on 05/28/17 20:48; Start 05/27/17 at 22:30; Stop 05/29/17 at 09:53; Status DC Baclofen (Lioresal) 10 mg TID PO Last administered on 05/29/17 20:53; Start at 22:30 Enoxaparin Sodium (Lovenox) 40 mg QHS SQ Last administered on 05/28/17at 20:47; Start 05/27/17 at 22:30; Stop 05/29/17 at 19:00; Status DC Gabapentin (Neurontin) 600 mg QHS PO Last administered on 05/29/17 20:53; Start 05/27/17 at 22:30 Pantoprazole Sodium (Protonix) 40 mg QPM PO Last administered on 05/29/17 17: 15; Start 05/28/17 at 18:00 Pilocarpine HCl (Salagen) 5 mg TID PO Last administered on 05/29/17 20:53; Start 05/27/17 at 22:30 Ropinirole HCl (Requip) 2 mg QHS PO Last administered on 05/29/17 20:52; Start 05/27/17 at 22:30 Calcium/Vitamin D (Oscal D 500mg/ 200uts) 1 tab BIDWMEALS PO Last administered on 05/29/17 17:12; Start 05/28/17 at 08:00 Fish Oil (Fish Oil) 2,000 mg BID PO Last administered on 05/29/17 20:52; Start 05/27/17 at 22:30 Oxybutynin Chloride (Ditropan) 5 mg BID PO Last administered on 05/29/17 20:53 ; Start 05/27/17 at 22:30 Atorvastatin Calcium (Lipitor) 80 mg QHS PO Last administered on 05/29/17 20: 52; Start 05/27/17 at 22:30 Acetaminophen (Tylenol) 650 mg PRN Q4HRS PRN PO PAIN / TEMP; Start 05/28/17 at 07:30 Aspirin (Aspirin Enteric Coated) 81 mg DAILY PO Last administered on 05/29/17 08:11; Start 05/28/17 at 09:00 Bisacodyl (Dulcolax Supp) 10 mg PRN DAILY PRN RC CONSTIPATION; Start 05/28/17 at 07:30 Vitamin D (Vitamin D3) 2,000 unit DAILY PO Last administered on 05/29/17 08:11 ; Start 05/28/17 at 09:00 Cyanocobalamin (Vitamin B-12) 1,000 mcg QODAY@1700 PO Last administered on 05/29 17:12; Start 05/28/17 at 17:00 Docusate Sodium (Colace) 100 mg PRN BID PRN PO CONSTIPATION; Start 05/28/17 at 07:30 Gabapentin (Neurontin) 300 mg BID@0900,1300 PRN PO Neuropathy; Start 05/28/17 at 09:00; Stop 05/29/17 at 01:26; Status DC Acetaminophen/ Hydrocodone Bitart (Lortab 7.5/325) 1 tab PRN Q4HRS PRN PO PAIN Last administered on 05/29/17at 20:51; Start 05/28/17 at 07:30 Levothyroxine Sodium (Synthroid) 175 mcg DAILY06 PO Last administered on at 06:07; Start 05/28/17 at 08:00 Lisinopril (Prinivil) 2.5 mg DAILY PO Last administered on 05/29/17at 08:12; Start 05/28/17 at 09:00 Loperamide HCl (Imodium) 2 mg TID PRN PRN PO DIARRHEA; Start 05/28/17 at 07:30 Nystatin (Nystop) 1 gene PRN TID PRN TP RASH; Start 05/28/17 at 07:30 Polyethylene Glycol (miraLAX) 17 gm PRN DAILY PRN PO CONSTIPATION Last administered on 05/29/17at 10:36; Start 05/28/17 at 07:30 Tramadol HCl (Ultram) 50 mg PRN Q4HRS PRN PO PAIN; Start 05/28/17 at 07:30 Artificial Tears (Artificial Tears) 2 drop PRN BID PRN OU DRY EYE; Start at 08:00; Stop 05/28/17 at 14:31; Status DC Non-Formulary Medication (Dulaglutide (Trulicity)) 1.5 mg QTU SQ ; Start at 16:00; Status UNV Non-Formulary Medication (Insulin Degludec (Tresiba Flextouch U-200)) 90 unit DAILY SQ ; Start 05/28/17 at 09:00 Multivitamins/ Calcium (Thera-M Plus) 1 tab DAILY PO Last administered on at 08:11; Start 05/28/17 at 09:00 Tetrahydrozoline HCl (Murine) 1 drop PRN QID PRN OU DRY EYE; Start 05/28/17 at 08:00; Stop 05/28/17 at 14:31; Status DC Throat Lozenges (Chloraseptic) 1 spray PRN Q4HRS PRN MM SORE THROAT; Start 01/05 at 08:00; Stop 05/28/17 at 14:31; Status DC Insulin Aspart (NovoLOG) 15 units TIDAC SQ Last administered on 05/29/17at 17:13 ; Start 05/28/17 at 11:30 Insulin Aspart (NovoLOG) 0-5 UNITS TIDWMEALS SQ Last administered on 05/29/17at 11:57; Start 05/28/17 at 12:00 Fosfomycin Tromethamine (Monurol) 3 gm 1X ONCE PO ; Start 05/28/17 at 12:45; Stop 05/28/17 at 12:46; Status DC Fosfomycin Tromethamine (Monurol) 3 gm 1X ONCE PO Last administered on at 13:42; Start 05/28/17 at 14:00; Stop 05/28/17 at 14:01; Status DC Throat Lozenges (Chloraseptic) 1 spray PRN Q4HRS PRN MM SORE THROAT; Start 01/05 at 14:31 Artificial Tears (Artificial Tears) 2 drop PRN BID PRN OU DRY EYE; Start at 14:31 Tetrahydrozoline HCl (Murine) 1 drop PRN QID PRN OU DRY EYE; Start 05/28/17 at 14:31 Gabapentin (Neurontin) 300 mg BID@0900,1300 PO Last administered on 05/29/17at 12:00; Start 05/29/17 at 09:00 Lamotrigine (LaMICtal) 250 mg HS PO Last administered on 05/29/17at 20:52; Start 05/29/17 at 21:00 Bupropion HCl (Wellbutrin Xl) 150 mg DAILY PO Last administered on 05/29/17at 10 :36; Start 05/29/17 at 10:30 Magnesium Hydroxide (Milk Of Magnesia) 2,400 mg PRN DAILY PRN PO CONSTIPATION Last administered on 05/29/17at 20:51; Start 05/29/17 at 20:45 Active Scripts Active Reported Chloraseptic Max [place] (Phenol/Glycerin) 30 Ml [place] 1 [place] MM PRN Q4HRS PRN Miralax (Polyethylene Glycol 3350) 17 Gm Powd.pack 17 Gm PO PRN DAILY PRN Nystop (Nystatin) 60 Gm Powder 1 Gene TP PRN TID PRN Clear Eyes Itchy Eye Rlf Drops (Naphazoline Hcl/Zn Sulf/Gly) 15 Ml Drops 1 Drop OU PRN QID PRN Imodium A-D (Loperamide HCl) 2 Mg Capsule 2 Mg PO TID PRN PRN Colace (Docusate Sodium) 100 Mg Capsule 100 Mg PO PRN BID PRN Refresh Optive Eye Drops (Carboxymethylcellulos/Glycerin) 15 Ml Drops 2 Drop OU PRN BID PRN Bisacodyl 10 Mg Supp.rect 10 Mg RC PRN DAILY PRN Belladonna-Opium 16.2-30 Supp (Opium/Belladonna Alkaloids) 1 Each Supp.rect 1 Supp RC PRN Q12HR PRN Hydrocodone-Apap 7.5-325 (Hydrocodone Bit/Acetaminophen) 1 Each Tablet 1 Tab PO PRN Q4HRS PRN Tylenol (Acetaminophen) 325 Mg Tablet 650 Mg PO PRN Q4HRS PRN Tramadol Hcl (Tramadol HCl) 50 Mg Tablet 50 Mg PO PRN Q4HRS PRN Crestor (Rosuvastatin Calcium) 40 Mg Tablet 40 Mg PO HS Requip (Ropinirole Hcl) 1 Mg Tablet 2 Mg PO QHS [place] Hcl 5 Mg Tablet 5 Mg PO TID Pantoprazole Sodium 40 Mg Tablet.dr 40 Mg PO QPM Oxybutynin Chloride Er (Oxybutynin Chloride) 10 Mg Tab.er.24 10 Mg PO QHS Multivitamins (Multivitamin) 1 Each Tablet 1 Tab PO DAILY Namenda (Memantine Hcl) 5 Mg Tablet 5 Mg PO BID Lisinopril 2.5 Mg Tablet 2.5 Mg PO DAILY Linzess (Linaclotide) 145 Mcg Capsule 145 Mcg PO DAILY Levothyroxine Sodium 175 Mcg Tablet 175 Mcg PO DAILY07 Lamictal (Lamotrigine) 200 Mg Tablet 200 Mg PO QHS Ketoconazole 120 Ml Shampoo 120 Ml TP Q3DAYS Tresiba Flextouch U-200 (Insulin Degludec) 200 Unit/1 Ml Insuln.pen 90 Unit SQ DAILY Novolog Flexpen (Insulin Aspart) 100 Unit/1 Ml Insuln.pen 0-10 Unit SQ TIDWMEALS Hydroxyzine Pamoate 50 Mg Capsule 50 Mg PO QHS Hydroxyzine Pamoate 25 Mg Capsule 25 Mg PO BID@0900,1300 Neurontin (Gabapentin) 300 Mg Capsule 300 Mg PO BID@0900,1300 Neurontin (Gabapentin) 300 Mg Capsule 600 Mg PO QHS [place] 3 1,000 Mg Softgel ([place]-3 Fatty Acids/Fish Oil) 1 Each Capsule 2,000 Mg PO BID Lovenox (Enoxaparin Sodium) 40 Mg/0.4 Ml Disp.syrin 40 Mg SQ QHS Trulicity (Dulaglutide) 1.5 Mg/0.5 Ml Pen.injctr 1.5 Mg SQ QTU Vitamin B-12 (Cyanocobalamin (Vitamin B-12)) 1,000 Mcg Tablet 1,000 Mcg PO QODAY @1700 Vitamin D3 (Cholecalciferol (Vitamin D3)) 1,000 Unit Tablet 2,000 Unit PO DAILY Calcium 600 + Vit D 400 Tablet (Calcium Carbonate/Vitamin D3) 1 Each Tablet 1 Tab PO BID Baclofen 10 Mg Tablet 10 Mg PO TID Aspir-Low (Aspirin) 81 Mg Tablet. 81 Mg PO DAILY I have reviewed the current psychotropics carefully including drug interactions. Risk benefit ratio favors no change other than as noted in my dictated progress note. Diagnosis: Problems: (1) Bipolar affective, mixed, sev w/ psych (2) Anxiety disorder (3) Major depressive disorder, recurrent episode KURT DUARTE MD May 29, 2017 21:08
[2017-05-30] MEDS: LEVOTHYROXINE 175 MCG TABLET PO SCH (05:04)
[2017-05-30 05:55] VITALS: BP 126/73
[2017-05-30] MEDS: ASPIRIN ENTERIC COATED 81 MG TABLET.DR. PO SCH (09:18)
[2017-05-30] MEDS: hydrOXYzine PAMOATE 25 MG CAPSULE PO SCH ×3 (09:18→20:51)
[2017-05-30] MEDS: MEMANTINE 5 MG TABLET. PO SCH ×2 (09:18→20:51)
[2017-05-30] MEDS: CALCIUM CARB/VIT D3 500/200 TABLET PO SCH ×2 (09:18→17:46)
[2017-05-30] MEDS: LISINOPRIL 2.5 MG TABLET PO SCH (09:18)
[2017-05-30] MEDS: BACLOFEN 10 MG TABLET PO SCH ×3 (09:19→20:51)
[2017-05-30] MEDS: CHOLECALCIFEROL (VITAMIN D3) 1,000 UNIT TABLET PO SCH (09:19)
[2017-05-30] MEDS: OMEGA-3 FATTY ACIDS/FISH OIL 1,000 MG CAPSULE. PO SCH ×2 (09:19→20:50)
[2017-05-30] MEDS: MULTIVITAMIN with MINERAL TABLET. PO SCH (09:19)
[2017-05-30] MEDS: buPROPion XL 150 MG TAB.ER.24H PO SCH (09:19)
[2017-05-30] MEDS: GABAPENTIN 300 MG CAPSULE. PO SCH ×3 (09:19→20:51)
[2017-05-30] MEDS: OXYBUTYNIN CHLORIDE 5 MG TABLET PO SCH ×2 (09:19→20:51)
[2017-05-30] MEDS: LINACLOTIDE 145 MCG CAPSULE. PO SCH (09:21)
[2017-05-30] MEDS: PILOCARPINE 5 MG TABLET. PO SCH ×3 (09:21→20:51)
[2017-05-30] MEDS: INSULIN ASPART 300 UNITS/3 ML INSULN.PEN SQ SCH ×6 (09:22→17:47)
[2017-05-30] MEDS: HYDROcodone/APAP 7.5/325MG 1 TAB TABLET PO PRN ×2 (11:32→18:20)
[2017-05-30 16:08] VITALS: BP 118/76
[2017-05-30] MEDS: PANTOPRAZOLE 40 MG TABLET. PO SCH (17:45)
--- NOTE | 2017-05-30 20:32 | PDOC ---
Exam Note: Jens Note: Please also refer to the separate dictated note~for this date of service dictated separately.~Patient seen individually. Discussed the patient with Nursing staff reviewed the chart.~Reviewed interim history and current functioning. Reviewed vital signs,~Labs/ Radiology~and current medications noted below. Continue current treatment with the changes noted in the dictated addendum note Assessment: Vital Signs: Vital Signs Date Time Temp Pulse Resp B/P (MAP) Pulse Ox O2 Delivery O2 Flow Rate FiO2 05/30/17 18:20 96 05/30/17 16:08 97.5 83 18 118/76 (90) 05/29/17 21:52 Room Air I&O Intake and Output 05/30/17 07:00 Intake Total 1200 ml Balance 1200 ml Intake Oral 1200 ml Labs: Laboratory Tests Test 05/30/17 07:29 05/30/17 11:35 05/30/17 16:48 05/30/17 19:36 Glucose (Fingerstick) 180 mg/dL (70-99) H 203 mg/dL (70-99) H 156 mg/dL (70-99) H 140 mg/dL (70-99) H Current Medications: Meds: Current Medications Hydroxyzine Pamoate (Vistaril) 25 mg BID@0900,1300 PO Last administered on 05/30 14:37; Start 05/28/17 at 09:00 Memantine (Namenda) 5 mg BID PO Last administered on 05/30/17at 09:18; Start 05/27/17 at 22:30 Hydroxyzine Pamoate (Vistaril) 50 mg QHS PO Last administered on 05/29/17at 20: 53; Start 05/27/17 at 22:30 Lamotrigine (LaMICtal) 200 mg HS PO Last administered on 05/28/17 20:48; Start 05/27/17 at 22:30; Stop 05/29/17 at 09:53; Status DC Baclofen (Lioresal) 10 mg TID PO Last administered on 05/30/17at 14:37; Start at 22:30 Enoxaparin Sodium (Lovenox) 40 mg QHS SQ Last administered on 05/28/17at 20:47; Start 05/27/17 at 22:30; Stop 05/29/17 at 19:00; Status DC Gabapentin (Neurontin) 600 mg QHS PO Last administered on 05/29/17 20:53; Start 05/27/17 at 22:30 Pantoprazole Sodium (Protonix) 40 mg QPM PO Last administered on 05/30/17 17: 45; Start 05/28/17 at 18:00 Pilocarpine HCl (Salagen) 5 mg TID PO Last administered on 05/30/17 14:36; Start 05/27/17 at 22:30 Ropinirole HCl (Requip) 2 mg QHS PO Last administered on 05/29/17 20:52; Start 05/27/17 at 22:30 Calcium/Vitamin D (Oscal D 500mg/ 200uts) 1 tab BIDWMEALS PO Last administered on 05/30/17 17:46; Start 05/28/17 at 08:00 Fish Oil (Fish Oil) 2,000 mg BID PO Last administered on 05/30/17 09:19; Start 05/27/17 at 22:30 Oxybutynin Chloride (Ditropan) 5 mg BID PO Last administered on 05/30/17 09:19 ; Start 05/27/17 at 22:30 Atorvastatin Calcium (Lipitor) 80 mg QHS PO Last administered on 05/29/17 20: 52; Start 05/27/17 at 22:30 Acetaminophen (Tylenol) 650 mg PRN Q4HRS PRN PO PAIN / TEMP; Start 05/28/17 at 07:30 Aspirin (Aspirin Enteric Coated) 81 mg DAILY PO Last administered on 05/30/17 09:18; Start 05/28/17 at 09:00 Bisacodyl (Dulcolax Supp) 10 mg PRN DAILY PRN RC CONSTIPATION; Start 05/28/17 at 07:30 Vitamin D (Vitamin D3) 2,000 unit DAILY PO Last administered on 05/30/17 09:19 ; Start 05/28/17 at 09:00 Cyanocobalamin (Vitamin B-12) 1,000 mcg QODAY@1700 PO Last administered on 05/29 17:12; Start 05/28/17 at 17:00 Docusate Sodium (Colace) 100 mg PRN BID PRN PO CONSTIPATION; Start 05/28/17 at 07:30 Gabapentin (Neurontin) 300 mg BID@0900,1300 PRN PO Neuropathy; Start 05/28/17 at 09:00; Stop 05/29/17 at 01:26; Status DC Acetaminophen/ Hydrocodone Bitart (Lortab 7.5/325) 1 tab PRN Q4HRS PRN PO PAIN Last administered on 05/30/17at 18:20; Start 05/28/17 at 07:30 Levothyroxine Sodium (Synthroid) 175 mcg DAILY06 PO Last administered on at 05:04; Start 05/28/17 at 08:00 Lisinopril (Prinivil) 2.5 mg DAILY PO Last administered on 05/30/17at 09:18; Start 05/28/17 at 09:00 Loperamide HCl (Imodium) 2 mg TID PRN PRN PO DIARRHEA; Start 05/28/17 at 07:30 Nystatin (Nystop) 1 gene PRN TID PRN TP RASH; Start 05/28/17 at 07:30 Polyethylene Glycol (miraLAX) 17 gm PRN DAILY PRN PO CONSTIPATION Last administered on 05/29/17at 10:36; Start 05/28/17 at 07:30 Tramadol HCl (Ultram) 50 mg PRN Q4HRS PRN PO PAIN; Start 05/28/17 at 07:30 Artificial Tears (Artificial Tears) 2 drop PRN BID PRN OU DRY EYE; Start at 08:00; Stop 05/28/17 at 14:31; Status DC Non-Formulary Medication (Dulaglutide (Trulicity)) 1.5 mg QTU SQ ; Start at 16:00; Status UNV Non-Formulary Medication (Insulin Degludec (Tresiba Flextouch U-200)) 90 unit DAILY SQ Last administered on 05/30/17at 09:23; Start 05/28/17 at 09:00 Multivitamins/ Calcium (Thera-M Plus) 1 tab DAILY PO Last administered on at 09:19; Start 05/28/17 at 09:00 Tetrahydrozoline HCl (Murine) 1 drop PRN QID PRN OU DRY EYE; Start 05/28/17 at 08:00; Stop 05/28/17 at 14:31; Status DC Throat Lozenges (Chloraseptic) 1 spray PRN Q4HRS PRN MM SORE THROAT; Start 01/05 at 08:00; Stop 05/28/17 at 14:31; Status DC Insulin Aspart (NovoLOG) 15 units TIDAC SQ Last administered on 05/30/17at 17:47 ; Start 05/28/17 at 11:30 Insulin Aspart (NovoLOG) 0-5 UNITS TIDWMEALS SQ Last administered on 05/30/17at 17:47; Start 05/28/17 at 12:00 Fosfomycin Tromethamine (Monurol) 3 gm 1X ONCE PO ; Start 05/28/17 at 12:45; Stop 05/28/17 at 12:46; Status DC Fosfomycin Tromethamine (Monurol) 3 gm 1X ONCE PO Last administered on at 13:42; Start 05/28/17 at 14:00; Stop 05/28/17 at 14:01; Status DC Throat Lozenges (Chloraseptic) 1 spray PRN Q4HRS PRN MM SORE THROAT; Start 01/05 at 14:31 Artificial Tears (Artificial Tears) 2 drop PRN BID PRN OU DRY EYE; Start at 14:31 Tetrahydrozoline HCl (Murine) 1 drop PRN QID PRN OU DRY EYE; Start 05/28/17 at 14:31 Gabapentin (Neurontin) 300 mg BID@0900,1300 PO Last administered on 05/30/17at 14:37; Start 05/29/17 at 09:00 Lamotrigine (LaMICtal) 250 mg HS PO Last administered on 05/29/17at 20:52; Start 05/29/17 at 21:00 Bupropion HCl (Wellbutrin Xl) 150 mg DAILY PO Last administered on 05/30/17at 09 :19; Start 05/29/17 at 10:30 Magnesium Hydroxide (Milk Of Magnesia) 2,400 mg PRN DAILY PRN PO CONSTIPATION Last administered on 05/29/17at 20:51; Start 05/29/17 at 20:45 Mirtazapine (Remeron) 7.5 mg QHS PO ; Start 05/30/17 at 21:00 Active Scripts Active Reported Chloraseptic Max [place] (Phenol/Glycerin) 30 Ml [place] 1 [place] MM PRN Q4HRS PRN Miralax (Polyethylene Glycol 3350) 17 Gm Powd.pack 17 Gm PO PRN DAILY PRN Nystop (Nystatin) 60 Gm Powder 1 Gene TP PRN TID PRN Clear Eyes Itchy Eye Rlf Drops (Naphazoline Hcl/Zn Sulf/Gly) 15 Ml Drops 1 Drop OU PRN QID PRN Imodium A-D (Loperamide HCl) 2 Mg Capsule 2 Mg PO TID PRN PRN Colace (Docusate Sodium) 100 Mg Capsule 100 Mg PO PRN BID PRN Refresh Optive Eye Drops (Carboxymethylcellulos/Glycerin) 15 Ml Drops 2 Drop OU PRN BID PRN Bisacodyl 10 Mg Supp.rect 10 Mg RC PRN DAILY PRN Belladonna-Opium 16.2-30 Supp (Opium/Belladonna Alkaloids) 1 Each Supp.rect 1 Supp RC PRN Q12HR PRN Hydrocodone-Apap 7.5-325 (Hydrocodone Bit/Acetaminophen) 1 Each Tablet 1 Tab PO PRN Q4HRS PRN Tylenol (Acetaminophen) 325 Mg Tablet 650 Mg PO PRN Q4HRS PRN Tramadol Hcl (Tramadol HCl) 50 Mg Tablet 50 Mg PO PRN Q4HRS PRN Crestor (Rosuvastatin Calcium) 40 Mg Tablet 40 Mg PO HS Requip (Ropinirole Hcl) 1 Mg Tablet 2 Mg PO QHS [place] Hcl 5 Mg Tablet 5 Mg PO TID Pantoprazole Sodium 40 Mg Tablet.dr 40 Mg PO QPM Oxybutynin Chloride Er (Oxybutynin Chloride) 10 Mg Tab.er.24 10 Mg PO QHS Multivitamins (Multivitamin) 1 Each Tablet 1 Tab PO DAILY Namenda (Memantine Hcl) 5 Mg Tablet 5 Mg PO BID Lisinopril 2.5 Mg Tablet 2.5 Mg PO DAILY Linzess (Linaclotide) 145 Mcg Capsule 145 Mcg PO DAILY Levothyroxine Sodium 175 Mcg Tablet 175 Mcg PO DAILY07 Lamictal (Lamotrigine) 200 Mg Tablet 200 Mg PO QHS Ketoconazole 120 Ml Shampoo 120 Ml TP Q3DAYS Tresiba Flextouch U-200 (Insulin Degludec) 200 Unit/1 Ml Insuln.pen 90 Unit SQ DAILY Novolog Flexpen (Insulin Aspart) 100 Unit/1 Ml Insuln.pen 0-10 Unit SQ TIDWMEALS Hydroxyzine Pamoate 50 Mg Capsule 50 Mg PO QHS Hydroxyzine Pamoate 25 Mg Capsule 25 Mg PO BID@0900,1300 Neurontin (Gabapentin) 300 Mg Capsule 300 Mg PO BID@0900,1300 Neurontin (Gabapentin) 300 Mg Capsule 600 Mg PO QHS [place] 3 1,000 Mg Softgel ([place]-3 Fatty Acids/Fish Oil) 1 Each Capsule 2,000 Mg PO BID Lovenox (Enoxaparin Sodium) 40 Mg/0.4 Ml Disp.syrin 40 Mg SQ QHS Trulicity (Dulaglutide) 1.5 Mg/0.5 Ml Pen.injctr 1.5 Mg SQ QTU Vitamin B-12 (Cyanocobalamin (Vitamin B-12)) 1,000 Mcg Tablet 1,000 Mcg PO QODAY @1700 Vitamin D3 (Cholecalciferol (Vitamin D3)) 1,000 Unit Tablet 2,000 Unit PO DAILY Calcium 600 + Vit D 400 Tablet (Calcium Carbonate/Vitamin D3) 1 Each Tablet 1 Tab PO BID Baclofen 10 Mg Tablet 10 Mg PO TID Aspir-Low (Aspirin) 81 Mg Tablet. 81 Mg PO DAILY I have reviewed the current psychotropics carefully including drug interactions. Risk benefit ratio favors no change other than as noted in my dictated progress note. Diagnosis: Problems: (1) Bipolar affective, mixed, sev w/ psych (2) Anxiety disorder (3) Major depressive disorder, recurrent episode KURT DUARTE MD May 30, 2017 20:32
[2017-05-30] MEDS: ATORVASTATIN CALCIUM 20 MG TABLET PO SCH (20:50)
[2017-05-30] MEDS: traMADol 50 MG TABLET PO PRN (20:50)
[2017-05-30] MEDS: MIRTAZAPINE 7.5 MG TABLET. PO SCH (20:51)
[2017-05-30] MEDS: rOPINIRole 2 MG TABLET. PO SCH (20:51)
[2017-05-30] MEDS: lamoTRIgine 100 MG TABLET. PO SCH (20:51)
--- NOTE | 2017-05-30 21:56 | PN ---
DATE: 05/29/2017 PSYCHIATRIC PROGRESS NOTE This is a late entry for 05/29/2017, covers elements not covered in my initial note of 05/29/2017. SUBJECTIVE: I met with the patient the evening of 05/29/2017. The patient has been somewhat more cooperative. She is still sad, depressed and told the nursing staff she is sad that her son found her indicating that she wished she had completed the suicide and was successful. Processed at length with her. She wants her Lovenox. This was stopped and we will defer to Dr. Rojas. REVIEW OF SYSTEMS: Ambulation impaired with walker. No CV, , pulmonary, eye system symptoms on review. MENTAL STATUS EXAM: Reasonably oriented. Speech is coherent, abstraction fair, computation impaired, language function intact, attention span short. Mood and affect still depressed. LABORATORY DATA: Reviewed. IMPRESSION: Bipolar 1 disorder, depressed. Rest unchanged. PLAN: Continue current psychotropics, Lamictal was increased Wellbutrin-XL 150 mg a day, added. Maintain Namenda at current dosage. MAN Ellis DUARTE MD DR: ROMA/jayro JOB#: [id number] / [id number]
[2017-05-31] MEDS: LEVOTHYROXINE 175 MCG TABLET PO SCH (05:28)
[2017-05-31 06:03] VITALS: BP 119/72
[2017-05-31] MEDS: INSULIN ASPART 300 UNITS/3 ML INSULN.PEN SQ SCH ×6 (07:30→17:00)
[2017-05-31] MEDS: LISINOPRIL 2.5 MG TABLET PO SCH (08:31)
[2017-05-31] MEDS: OXYBUTYNIN CHLORIDE 5 MG TABLET PO SCH ×2 (08:31→20:55)
[2017-05-31] MEDS: CHOLECALCIFEROL (VITAMIN D3) 1,000 UNIT TABLET PO SCH (08:31)
[2017-05-31] MEDS: CALCIUM CARB/VIT D3 500/200 TABLET PO SCH ×2 (08:31→17:00)
[2017-05-31] MEDS: PILOCARPINE 5 MG TABLET. PO SCH ×3 (08:31→20:55)
[2017-05-31] MEDS: OMEGA-3 FATTY ACIDS/FISH OIL 1,000 MG CAPSULE. PO SCH ×2 (08:31→20:52)
[2017-05-31] MEDS: MEMANTINE 5 MG TABLET. PO SCH ×2 (08:31→20:53)
[2017-05-31] MEDS: ASPIRIN ENTERIC COATED 81 MG TABLET.DR. PO SCH (08:32)
[2017-05-31] MEDS: GABAPENTIN 300 MG CAPSULE. PO SCH ×3 (08:32→20:55)
[2017-05-31] MEDS: BACLOFEN 10 MG TABLET PO SCH ×3 (08:32→20:55)
[2017-05-31] MEDS: buPROPion XL 150 MG TAB.ER.24H PO SCH (08:32)
[2017-05-31] MEDS: MULTIVITAMIN with MINERAL TABLET. PO SCH (08:32)
[2017-05-31] MEDS: hydrOXYzine PAMOATE 25 MG CAPSULE PO SCH ×3 (08:32→20:54)
[2017-05-31] MEDS: DOCUSATE SODIUM 100 MG CAPSULE PO SCH ×2 (08:32→20:52)
[2017-05-31] MEDS: HYDROcodone/APAP 7.5/325MG 1 TAB TABLET PO PRN ×2 (08:36→20:54)
[2017-05-31] MEDS ORDERED: LINACLOTIDE 145 MCG CAPSULE. PO PRN (08:45)
[2017-05-31] MEDS: LINACLOTIDE 145 MCG CAPSULE. PO SCH (08:47)
[2017-05-31 16:00] VITALS: BP 101/61
[2017-05-31] MEDS: NON FORMULARY ITEM (Dulaglutide (Trulicity) 1.5 MG) SQ SCH (16:00)
[2017-05-31] MEDS: PANTOPRAZOLE 40 MG TABLET. PO SCH (18:00)
[2017-05-31] MEDS: TETRAHYDROZOLINE 0.05% OPHTH SOLUTION 15ML BOTTLE. OU SCH (20:52)
[2017-05-31] MEDS: MELATONIN 3 MG TABLET PO SCH (20:52)
[2017-05-31] MEDS: ATORVASTATIN CALCIUM 20 MG TABLET PO SCH (20:53)
[2017-05-31] MEDS: MIRTAZAPINE 7.5 MG TABLET. PO SCH (20:54)
[2017-05-31] MEDS: rOPINIRole 2 MG TABLET. PO SCH (20:54)
[2017-05-31] MEDS: lamoTRIgine 100 MG TABLET. PO SCH (20:56)
[2017-05-31] MEDS: POLYVINYL ALCOHOL 1.4% OPHTH SOLUTION 15ML BOTTLE. OU PRN (21:48)
--- NOTE | 2017-05-31 22:25 | PDOC ---
Exam Note: Jens Note: Please also refer to the separate dictated note~for this date of service dictated separately.~Patient seen individually. Discussed the patient with Nursing staff reviewed the chart.~Reviewed interim history and current functioning. Reviewed vital signs,~Labs/ Radiology~and current medications noted below. Continue current treatment with the changes noted in the dictated addendum note Assessment: Vital Signs: Vital Signs Date Time Temp Pulse Resp B/P (MAP) Pulse Ox O2 Delivery O2 Flow Rate FiO2 05/31/17 20:54 20 Room Air 05/31/17 16:00 97.1 86 101/61 (74) 97 I&O Intake and Output 05/31/17 07:00 Intake Total 1440 ml Balance 1440 ml Intake Oral 1440 ml # Voids 2 Labs: Laboratory Tests Test 05/31/17 12:11 05/31/17 17:14 05/31/17 19:12 Glucose (Fingerstick) 166 mg/dL (70-99) H 165 mg/dL (70-99) H 122 mg/dL (70-99) H Current Medications: Meds: Current Medications Hydroxyzine Pamoate (Vistaril) 25 mg BID@0900,1300 PO Last administered on 05/31 12:32; Start 05/28/17 at 09:00 Memantine (Namenda) 5 mg BID PO Last administered on 05/31/17 20:53; Start 05/27/17 at 22:30 Hydroxyzine Pamoate (Vistaril) 50 mg QHS PO Last administered on 05/31/17 20: 54; Start 05/27/17 at 22:30 Lamotrigine (LaMICtal) 200 mg HS PO Last administered on 05/28/17 20:48; Start 05/27/17 at 22:30; Stop 05/29/17 at 09:53; Status DC Baclofen (Lioresal) 10 mg TID PO Last administered on 05/31/17 20:55; Start at 22:30 Enoxaparin Sodium (Lovenox) 40 mg QHS SQ Last administered on 05/28/17 20:47; Start 05/27/17 at 22:30; Stop 05/29/17 at 19:00; Status DC Gabapentin (Neurontin) 600 mg QHS PO Last administered on 05/31/17 20:55; Start 05/27/17 at 22:30 Pantoprazole Sodium (Protonix) 40 mg QPM PO Last administered on 05/30/17 17: 45; Start 05/28/17 at 18:00 Pilocarpine HCl (Salagen) 5 mg TID PO Last administered on 05/31/17 20:55; Start 05/27/17 at 22:30 Ropinirole HCl (Requip) 2 mg QHS PO Last administered on 05/31/17 20:54; Start 05/27/17 at 22:30 Calcium/Vitamin D (Oscal D 500mg/ 200uts) 1 tab BIDWMEALS PO Last administered on 05/31/17 08:31; Start 05/28/17 at 08:00 Fish Oil (Fish Oil) 2,000 mg BID PO Last administered on 05/31/17 20:52; Start 05/27/17 at 22:30 Oxybutynin Chloride (Ditropan) 5 mg BID PO Last administered on 05/31/17 20:55 ; Start 05/27/17 at 22:30 Atorvastatin Calcium (Lipitor) 80 mg QHS PO Last administered on 05/31/17 20: 53; Start 05/27/17 at 22:30 Acetaminophen (Tylenol) 650 mg PRN Q4HRS PRN PO PAIN / TEMP; Start 05/28/17 at 07:30 Aspirin (Aspirin Enteric Coated) 81 mg DAILY PO Last administered on 05/31/17 08:32; Start 05/28/17 at 09:00 Bisacodyl (Dulcolax Supp) 10 mg PRN DAILY PRN RC CONSTIPATION; Start 05/28/17 at 07:30 Vitamin D (Vitamin D3) 2,000 unit DAILY PO Last administered on 05/31/17 08:31 ; Start 05/28/17 at 09:00 Cyanocobalamin (Vitamin B-12) 1,000 mcg QODAY@1700 PO Last administered on 05/29at 17:12; Start 05/28/17 at 17:00 Docusate Sodium (Colace) 100 mg PRN BID PRN PO CONSTIPATION; Start 05/28/17 at 07:30; Stop 05/30/17 at 23:12; Status DC Gabapentin (Neurontin) 300 mg BID@0900,1300 PRN PO Neuropathy; Start 05/28/17 at 09:00; Stop 05/29/17 at 01:26; Status DC Acetaminophen/ Hydrocodone Bitart (Lortab 7.5/325) 1 tab PRN Q4HRS PRN PO PAIN Last administered on 05/31/17 20:54; Start 05/28/17 at 07:30 Levothyroxine Sodium (Synthroid) 175 mcg DAILY06 PO Last administered on 05:28; Start 05/28/17 at 08:00 Lisinopril (Prinivil) 2.5 mg DAILY PO Last administered on 05/31/17 08:31; Start 05/28/17 at 09:00 Loperamide HCl (Imodium) 2 mg TID PRN PRN PO DIARRHEA; Start 05/28/17 at 07:30 Nystatin (Nystop) 1 gene PRN TID PRN TP RASH; Start 05/28/17 at 07:30 Polyethylene Glycol (miraLAX) 17 gm PRN DAILY PRN PO CONSTIPATION Last administered on 05/29/17 10:36; Start 05/28/17 at 07:30 Tramadol HCl (Ultram) 50 mg PRN Q4HRS PRN PO PAIN Last administered on 20:50; Start 05/28/17 at 07:30 Artificial Tears (Artificial Tears) 2 drop PRN BID PRN OU DRY EYE; Start at 08:00; Stop 05/28/17 at 14:31; Status DC Non-Formulary Medication (Dulaglutide (Trulicity)) 1.5 mg QTU SQ ; Start at 16:00; Status UNV Non-Formulary Medication (Insulin Degludec (Tresiba Flextouch U-200)) 90 unit DAILY SQ Last administered on 05/31/17 08:40; Start 05/28/17 at 09:00 Multivitamins/ Calcium (Thera-M Plus) 1 tab DAILY PO Last administered on 08:32; Start 05/28/17 at 09:00 Tetrahydrozoline HCl (Murine) 1 drop PRN QID PRN OU DRY EYE; Start 05/28/17 at 08:00; Stop 05/28/17 at 14:31; Status DC Throat Lozenges (Chloraseptic) 1 spray PRN Q4HRS PRN MM SORE THROAT; Start 01/05 at 08:00; Stop 05/28/17 at 14:31; Status DC Insulin Aspart (NovoLOG) 15 units TIDAC SQ Last administered on 05/31/17at 12:31 ; Start 05/28/17 at 11:30 Insulin Aspart (NovoLOG) 0-5 UNITS TIDWMEALS SQ Last administered on 05/31/17at 12:00; Start 05/28/17 at 12:00 Fosfomycin Tromethamine (Monurol) 3 gm 1X ONCE PO ; Start 05/28/17 at 12:45; Stop 05/28/17 at 12:46; Status DC Fosfomycin Tromethamine (Monurol) 3 gm 1X ONCE PO Last administered on at 13:42; Start 05/28/17 at 14:00; Stop 05/28/17 at 14:01; Status DC Throat Lozenges (Chloraseptic) 1 spray PRN Q4HRS PRN MM SORE THROAT Last administered on 05/31/17at 05:28; Start 05/28/17 at 14:31 Artificial Tears (Artificial Tears) 2 drop PRN BID PRN OU DRY EYE Last administered on 05/31/17at 21:48; Start 05/28/17 at 14:31 Tetrahydrozoline HCl (Murine) 1 drop PRN QID PRN OU DRY EYE; Start 05/28/17 at 14:31; Stop 05/31/17 at 19:31; Status DC Gabapentin (Neurontin) 300 mg BID@0900,1300 PO Last administered on 05/31/17at 12:32; Start 05/29/17 at 09:00 Lamotrigine (LaMICtal) 250 mg HS PO Last administered on 05/31/17at 20:56; Start 05/29/17 at 21:00 Bupropion HCl (Wellbutrin Xl) 150 mg DAILY PO Last administered on 05/31/17at 08 :32; Start 05/29/17 at 10:30; Stop 05/31/17 at 17:04; Status DC Magnesium Hydroxide (Milk Of Magnesia) 2,400 mg PRN DAILY PRN PO CONSTIPATION Last administered on 05/29/17at 20:51; Start 05/29/17 at 20:45 Mirtazapine (Remeron) 7.5 mg QHS PO Last administered on 05/31/17at 20:54; Start 05/30/17 at 21:00 Docusate Sodium (Colace) 100 mg BID PO Last administered on 05/31/17at 20:52; Start 05/31/17 at 09:00 Bupropion HCl (Wellbutrin Xl) 300 mg DAILY PO ; Start 06/01/17 at 09:00 Melatonin 3 mg QHS PO Last administered on 05/31/17at 20:52; Start 05/31/17 at 21:00 Tetrahydrozoline HCl (Murine) 1 drop QID OU ; Start 05/31/17 at 21:00 Active Scripts Active Reported Chloraseptic Max [place] (Phenol/Glycerin) 30 Ml [place] 1 [place] MM PRN Q4HRS PRN Miralax (Polyethylene Glycol 3350) 17 Gm Powd.pack 17 Gm PO PRN DAILY PRN Nystop (Nystatin) 60 Gm Powder 1 Gene TP PRN TID PRN Clear Eyes Itchy Eye Rlf Drops (Naphazoline Hcl/Zn Sulf/Gly) 15 Ml Drops 1 Drop OU PRN QID PRN Imodium A-D (Loperamide HCl) 2 Mg Capsule 2 Mg PO TID PRN PRN Colace (Docusate Sodium) 100 Mg Capsule 100 Mg PO PRN BID PRN Refresh Optive Eye Drops (Carboxymethylcellulos/Glycerin) 15 Ml Drops 2 Drop OU PRN BID PRN Bisacodyl 10 Mg Supp.rect 10 Mg RC PRN DAILY PRN Belladonna-Opium 16.2-30 Supp (Opium/Belladonna Alkaloids) 1 Each Supp.rect 1 Supp RC PRN Q12HR PRN Hydrocodone-Apap 7.5-325 (Hydrocodone Bit/Acetaminophen) 1 Each Tablet 1 Tab PO PRN Q4HRS PRN Tylenol (Acetaminophen) 325 Mg Tablet 650 Mg PO PRN Q4HRS PRN Tramadol Hcl (Tramadol HCl) 50 Mg Tablet 50 Mg PO PRN Q4HRS PRN Crestor (Rosuvastatin Calcium) 40 Mg Tablet 40 Mg PO HS Requip (Ropinirole Hcl) 1 Mg Tablet 2 Mg PO QHS [place] Hcl 5 Mg Tablet 5 Mg PO TID Pantoprazole Sodium 40 Mg Tablet.dr 40 Mg PO QPM Oxybutynin Chloride Er (Oxybutynin Chloride) 10 Mg Tab.er.24 10 Mg PO QHS Multivitamins (Multivitamin) 1 Each Tablet 1 Tab PO DAILY Namenda (Memantine Hcl) 5 Mg Tablet 5 Mg PO BID Lisinopril 2.5 Mg Tablet 2.5 Mg PO DAILY Linzess (Linaclotide) 145 Mcg Capsule 145 Mcg PO DAILY Levothyroxine Sodium 175 Mcg Tablet 175 Mcg PO DAILY07 Lamictal (Lamotrigine) 200 Mg Tablet 200 Mg PO QHS Ketoconazole 120 Ml Shampoo 120 Ml TP Q3DAYS Tresiba Flextouch U-200 (Insulin Degludec) 200 Unit/1 Ml Insuln.pen 90 Unit SQ DAILY Novolog Flexpen (Insulin Aspart) 100 Unit/1 Ml Insuln.pen 0-10 Unit SQ TIDWMEALS Hydroxyzine Pamoate 50 Mg Capsule 50 Mg PO QHS Hydroxyzine Pamoate 25 Mg Capsule 25 Mg PO BID@0900,1300 Neurontin (Gabapentin) 300 Mg Capsule 300 Mg PO BID@0900,1300 Neurontin (Gabapentin) 300 Mg Capsule 600 Mg PO QHS [place] 3 1,000 Mg Softgel ([place]-3 Fatty Acids/Fish Oil) 1 Each Capsule 2,000 Mg PO BID Lovenox (Enoxaparin Sodium) 40 Mg/0.4 Ml Disp.syrin 40 Mg SQ QHS Trulicity (Dulaglutide) 1.5 Mg/0.5 Ml Pen.injctr 1.5 Mg SQ QTU Vitamin B-12 (Cyanocobalamin (Vitamin B-12)) 1,000 Mcg Tablet 1,000 Mcg PO QODAY @1700 Vitamin D3 (Cholecalciferol (Vitamin D3)) 1,000 Unit Tablet 2,000 Unit PO DAILY Calcium 600 + Vit D 400 Tablet (Calcium Carbonate/Vitamin D3) 1 Each Tablet 1 Tab PO BID Baclofen 10 Mg Tablet 10 Mg PO TID Aspir-Low (Aspirin) 81 Mg Tablet.dr 81 Mg PO DAILY I have reviewed the current psychotropics carefully including drug interactions. Risk benefit ratio favors no change other than as noted in my dictated progress note. Diagnosis: Problems: (1) Bipolar affective, mixed, sev w/ psych (2) Anxiety disorder (3) Major depressive disorder, recurrent episode KURT DUARTE MD May 31, 2017 22:25
--- NOTE | 2017-05-31 22:35 | PN ---
DATE: 05/30/2017 This is a late entry for 05/30/2017 covers elements not covered in my initial note of 05/30/2017. SUBJECTIVE: I met with the patient evening of 05/30/2017. The patient slept 3-1/2 hours previous evening and we will add trazodone 50 mg p.o. at bedtime, may repeat x 1. She is still actively hallucinating, states she sees children at times. Denies active suicidal ideation. We will also add Remeron 7.5 mg at bedtime to help with insomnia and anxiety. She is constantly asking for pain meds every 4 hours. REVIEW OF SYSTEMS: Positive for the chronic pain. No CV, , pulmonary, eye system symptoms on review. MENTAL STATUS EXAM: Reasonably oriented. Speech coherent, abstraction fair, computation impaired, language function intact, attention span fair. Mood and affect still dysphoric, but denies active suicidal ideation. IMPRESSION: Major depressive disorder, recurrent, in partial remission; bipolar 2 disorder, depressed. PLAN: Continue psychotropics mentioned in my initial note with the changes noted above and starting 05/31/2017. We will increase the Wellbutrin-XL to 300 mg a day. KURT DUARTE MD DR: ROMA/jayro JOB#: [id number] / [id number]
[2017-06-01 00:25] VITALS: BP 130/73
[2017-06-01 06:15] VITALS: BP 116/65
[2017-06-01 06:20] VITALS: BP 123/76
[2017-06-01] MEDS: ACETAMINOPHEN 325 MG TABLET PO PRN (06:35)
[2017-06-01] MEDS: LEVOTHYROXINE 175 MCG TABLET PO SCH (06:35)
[2017-06-01] MEDS: INSULIN ASPART 300 UNITS/3 ML INSULN.PEN SQ SCH ×6 (08:00→17:27)
--- NOTE | 2017-06-01 08:00 | RAD ---
Right wrist, 2 views, 06/01/2017: History: Fall, wrist pain No fracture or dislocation is identified. A small sclerotic focus in the lunate bone is probably a bone island. There are moderate degenerative changes at the wrist, particularly at the first CMC level. IMPRESSION: No acute bony abnormality is detected.
--- NOTE | 2017-06-01 08:04 | RAD ---
CT head without contrast Technique: Noncontrast CT imaging skull base to vertex was acquired. HISTORY: Fell and hit posterior head, headache, dizziness. FINDINGS: Mild generalized brain atrophy. Extensive cerebral white matter heterogeneous hypoattenuation is nonspecific, statistically most likely represents changes of chronic microvascular ischemic disease. Streak artifact from the skull base may decrease sensitivity to detect subtle pathology at the middle and posterior cranial fossa. No intracranial hemorrhage, mass, hydrocephalus or infarction. No acute ischemic changes evident. Imaged orbits, mastoids, paranasal sinuses and bones are unremarkable. IMPRESSION: No acute intracranial CT abnormality. Exposure: One or more of the following individualized dose reduction techniques were utilized for this examination: 1. Automated exposure control 2. Adjustment of the mA and/or kV according to patient size 3. Use of iterative reconstruction technique Electronically signed by: Colby Dominguez MD (06/01/2017 8:01 AM) [facility]
--- NOTE | 2017-06-01 08:05 | RAD ---
Pelvis with both hips, 06/01/2017: History: Fall, pain No fracture or dislocation is identified. The hip joint spaces are fairly well preserved with only mild marginal spurring. There is moderate spurring along the lateral margins of both greater trochanters. IMPRESSION: No acute bony abnormality is detected.
[2017-06-01] MEDS: DOCUSATE SODIUM 100 MG CAPSULE PO SCH ×2 (08:29→19:58)
[2017-06-01] MEDS: hydrOXYzine PAMOATE 25 MG CAPSULE PO SCH ×3 (08:30→20:01)
[2017-06-01] MEDS: CALCIUM CARB/VIT D3 500/200 TABLET PO SCH ×2 (08:30→17:26)
[2017-06-01] MEDS: MULTIVITAMIN with MINERAL TABLET. PO SCH (08:31)
[2017-06-01] MEDS: ASPIRIN ENTERIC COATED 81 MG TABLET.DR. PO SCH (08:31)
[2017-06-01] MEDS: CHOLECALCIFEROL (VITAMIN D3) 1,000 UNIT TABLET PO SCH (08:31)
[2017-06-01] MEDS: BACLOFEN 10 MG TABLET PO SCH ×3 (08:31→19:59)
[2017-06-01] MEDS: OXYBUTYNIN CHLORIDE 5 MG TABLET PO SCH ×2 (08:31→19:58)
[2017-06-01] MEDS: MEMANTINE 5 MG TABLET. PO SCH ×2 (08:31→20:00)
[2017-06-01] MEDS: GABAPENTIN 300 MG CAPSULE. PO SCH ×3 (08:31→20:00)
[2017-06-01] MEDS: LISINOPRIL 2.5 MG TABLET PO SCH (08:32)
[2017-06-01] MEDS: OMEGA-3 FATTY ACIDS/FISH OIL 1,000 MG CAPSULE. PO SCH ×2 (08:32→19:58)
[2017-06-01] MEDS: PILOCARPINE 5 MG TABLET. PO SCH ×3 (08:33→20:02)
[2017-06-01] MEDS: TETRAHYDROZOLINE 0.05% OPHTH SOLUTION 15ML BOTTLE. OU SCH ×3 (08:34→17:00)
[2017-06-01] MEDS: buPROPion XL 300 MG TAB.ER.24H. PO SCH (08:35)
[2017-06-01] MEDS: LINACLOTIDE 145 MCG CAPSULE. PO SCH (08:35)
[2017-06-01 16:32] VITALS: BP 115/67
[2017-06-01] MEDS: HYDROcodone/APAP 7.5/325MG 1 TAB TABLET PO PRN ×2 (16:48→21:00)
[2017-06-01] MEDS: CYANOCOBALAMIN (VITAMIN B-12) 1,000 MCG TABLET. PO SCH (17:26)
[2017-06-01] MEDS: PANTOPRAZOLE 40 MG TABLET. PO SCH (17:28)
[2017-06-01] MEDS: MELATONIN 3 MG TABLET PO SCH (19:58)
[2017-06-01] MEDS: lamoTRIgine 100 MG TABLET. PO SCH (19:59)
[2017-06-01] MEDS: ATORVASTATIN CALCIUM 20 MG TABLET PO SCH (20:00)
[2017-06-01] MEDS: MIRTAZAPINE 7.5 MG TABLET. PO SCH (20:00)
[2017-06-01] MEDS: rOPINIRole 2 MG TABLET. PO SCH (20:01)
--- NOTE | 2017-06-01 20:48 | PDOC ---
Exam Note: Jens Note: Please also refer to the separate dictated note~for this date of service dictated separately.~Patient seen individually. Discussed the patient with Nursing staff reviewed the chart.~Reviewed interim history and current functioning. Reviewed vital signs,~Labs/ Radiology~and current medications noted below. Continue current treatment with the changes noted in the dictated addendum note Assessment: Vital Signs: Vital Signs Date Time Temp Pulse Resp B/P (MAP) Pulse Ox O2 Delivery O2 Flow Rate FiO2 06/01/17 18:15 97 06/01/17 16:32 97.0 81 18 115/67 (83) 05/31/17 22:00 Room Air I&O Intake and Output 06/01/17 07:00 Intake Total 1200 ml Balance 1200 ml Intake Oral 1200 ml # Voids 2 # Bowel Movements 1 Labs: Laboratory Tests Test 06/01/17 00:23 06/01/17 07:47 06/01/17 11:57 06/01/17 19:14 Glucose (Fingerstick) 171 mg/dL (70-99) H 128 mg/dL (70-99) H 158 mg/dL (70-99) H 219 mg/dL (70-99) H Current Medications: Meds: Current Medications Hydroxyzine Pamoate (Vistaril) 25 mg BID@0900,1300 PO Last administered on 06/01 13:30; Start 05/28/17 at 09:00 Memantine (Namenda) 5 mg BID PO Last administered on 06/01/17at 20:00; Start 05/27/17 at 22:30 Hydroxyzine Pamoate (Vistaril) 50 mg QHS PO Last administered on 06/01/17at 20: 01; Start 05/27/17 at 22:30 Lamotrigine (LaMICtal) 200 mg HS PO Last administered on 05/28/17 20:48; Start 05/27/17 at 22:30; Stop 05/29/17 at 09:53; Status DC Baclofen (Lioresal) 10 mg TID PO Last administered on 06/01/17 19:59; Start at 22:30 Enoxaparin Sodium (Lovenox) 40 mg QHS SQ Last administered on 05/28/17at 20:47; Start 05/27/17 at 22:30; Stop 05/29/17 at 19:00; Status DC Gabapentin (Neurontin) 600 mg QHS PO Last administered on 06/01/17 20:00; Start 05/27/17 at 22:30 Pantoprazole Sodium (Protonix) 40 mg QPM PO Last administered on 06/01/17 17: 28; Start 05/28/17 at 18:00 Pilocarpine HCl (Salagen) 5 mg TID PO Last administered on 06/01/17 20:02; Start 05/27/17 at 22:30 Ropinirole HCl (Requip) 2 mg QHS PO Last administered on 06/01/17 20:01; Start 05/27/17 at 22:30 Calcium/Vitamin D (Oscal D 500mg/ 200uts) 1 tab BIDWMEALS PO Last administered on 06/01/17 17:26; Start 05/28/17 at 08:00 Fish Oil (Fish Oil) 2,000 mg BID PO Last administered on 06/01/17 19:58; Start 05/27/17 at 22:30 Oxybutynin Chloride (Ditropan) 5 mg BID PO Last administered on 06/01/17 19:58 ; Start 05/27/17 at 22:30 Atorvastatin Calcium (Lipitor) 80 mg QHS PO Last administered on 06/01/17 20: 00; Start 05/27/17 at 22:30 Acetaminophen (Tylenol) 650 mg PRN Q4HRS PRN PO PAIN / TEMP Last administered on 06/01/17 06:35; Start 05/28/17 at 07:30 Aspirin (Aspirin Enteric Coated) 81 mg DAILY PO Last administered on 06/01/17 08:31; Start 05/28/17 at 09:00 Bisacodyl (Dulcolax Supp) 10 mg PRN DAILY PRN RC CONSTIPATION; Start 05/28/17 at 07:30 Vitamin D (Vitamin D3) 2,000 unit DAILY PO Last administered on 06/01/17 08:31 ; Start 05/28/17 at 09:00 Cyanocobalamin (Vitamin B-12) 1,000 mcg QODAY@1700 PO Last administered on 06/01 17:26; Start 05/28/17 at 17:00 Docusate Sodium (Colace) 100 mg PRN BID PRN PO CONSTIPATION; Start 05/28/17 at 07:30; Stop 05/30/17 at 23:12; Status DC Gabapentin (Neurontin) 300 mg BID@0900,1300 PRN PO Neuropathy; Start 05/28/17 at 09:00; Stop 05/29/17 at 01:26; Status DC Acetaminophen/ Hydrocodone Bitart (Lortab 7.5/325) 1 tab PRN Q4HRS PRN PO PAIN Last administered on 06/01/17at 16:48; Start 05/28/17 at 07:30 Levothyroxine Sodium (Synthroid) 175 mcg DAILY06 PO Last administered on 06:35; Start 05/28/17 at 08:00 Lisinopril (Prinivil) 2.5 mg DAILY PO Last administered on 06/01/17at 08:32; Start 05/28/17 at 09:00 Loperamide HCl (Imodium) 2 mg TID PRN PRN PO DIARRHEA; Start 05/28/17 at 07:30 Nystatin (Nystop) 1 gene PRN TID PRN TP RASH; Start 05/28/17 at 07:30 Polyethylene Glycol (miraLAX) 17 gm PRN DAILY PRN PO CONSTIPATION Last administered on 05/29/17at 10:36; Start 05/28/17 at 07:30 Tramadol HCl (Ultram) 50 mg PRN Q4HRS PRN PO PAIN Last administered on at 20:50; Start 05/28/17 at 07:30 Artificial Tears (Artificial Tears) 2 drop PRN BID PRN OU DRY EYE; Start at 08:00; Stop 05/28/17 at 14:31; Status DC Non-Formulary Medication (Dulaglutide (Trulicity)) 1.5 mg QTU SQ ; Start at 16:00; Status UNV Non-Formulary Medication (Insulin Degludec (Tresiba Flextouch U-200)) 90 unit DAILY SQ Last administered on 06/01/17at 08:38; Start 05/28/17 at 09:00 Multivitamins/ Calcium (Thera-M Plus) 1 tab DAILY PO Last administered on at 08:31; Start 05/28/17 at 09:00 Tetrahydrozoline HCl (Murine) 1 drop PRN QID PRN OU DRY EYE; Start 05/28/17 at 08:00; Stop 05/28/17 at 14:31; Status DC Throat Lozenges (Chloraseptic) 1 spray PRN Q4HRS PRN MM SORE THROAT; Start 01/05 at 08:00; Stop 05/28/17 at 14:31; Status DC Insulin Aspart (NovoLOG) 15 units TIDAC SQ Last administered on 06/01/17at 17:26 ; Start 05/28/17 at 11:30 Insulin Aspart (NovoLOG) 0-5 UNITS TIDWMEALS SQ Last administered on 06/01/17at 17:27; Start 05/28/17 at 12:00 Fosfomycin Tromethamine (Monurol) 3 gm 1X ONCE PO ; Start 05/28/17 at 12:45; Stop 05/28/17 at 12:46; Status DC Fosfomycin Tromethamine (Monurol) 3 gm 1X ONCE PO Last administered on at 13:42; Start 05/28/17 at 14:00; Stop 05/28/17 at 14:01; Status DC Throat Lozenges (Chloraseptic) 1 spray PRN Q4HRS PRN MM SORE THROAT Last administered on 05/31/17at 05:28; Start 05/28/17 at 14:31 Artificial Tears (Artificial Tears) 2 drop PRN BID PRN OU DRY EYE Last administered on 05/31/17at 21:48; Start 05/28/17 at 14:31 Tetrahydrozoline HCl (Murine) 1 drop PRN QID PRN OU DRY EYE; Start 05/28/17 at 14:31; Stop 05/31/17 at 19:31; Status DC Gabapentin (Neurontin) 300 mg BID@0900,1300 PO Last administered on 06/01/17at 13:30; Start 05/29/17 at 09:00 Lamotrigine (LaMICtal) 250 mg HS PO Last administered on 06/01/17at 19:59; Start 05/29/17 at 21:00 Bupropion HCl (Wellbutrin Xl) 150 mg DAILY PO Last administered on 05/31/17at 08 :32; Start 05/29/17 at 10:30; Stop 05/31/17 at 17:04; Status DC Magnesium Hydroxide (Milk Of Magnesia) 2,400 mg PRN DAILY PRN PO CONSTIPATION Last administered on 05/29/17at 20:51; Start 05/29/17 at 20:45 Mirtazapine (Remeron) 7.5 mg QHS PO Last administered on 06/01/17at 20:00; Start 05/30/17 at 21:00 Docusate Sodium (Colace) 100 mg BID PO Last administered on 06/01/17at 19:58; Start 05/31/17 at 09:00 Bupropion HCl (Wellbutrin Xl) 300 mg DAILY PO Last administered on 06/01/17at 08 :35; Start 06/01/17 at 09:00 Melatonin 3 mg QHS PO Last administered on 06/01/17at 19:58; Start 05/31/17 at 21:00 Tetrahydrozoline HCl (Murine) 1 drop QID OU Last administered on 06/01/17at 08: 34; Start 05/31/17 at 21:00; Stop 06/01/17 at 17:24; Status DC Tetrahydrozoline HCl (Murine) 1 drop PRN QID PRN OU DRY EYE; Start 06/01/17 at 21:00 Active Scripts Active Reported Chloraseptic Max [place] (Phenol/Glycerin) 30 Ml [place] 1 [place] MM PRN Q4HRS PRN Miralax (Polyethylene Glycol 3350) 17 Gm Powd.pack 17 Gm PO PRN DAILY PRN Nystop (Nystatin) 60 Gm Powder 1 Gene TP PRN TID PRN Clear Eyes Itchy Eye Rlf Drops (Naphazoline Hcl/Zn Sulf/Gly) 15 Ml Drops 1 Drop OU PRN QID PRN Imodium A-D (Loperamide HCl) 2 Mg Capsule 2 Mg PO TID PRN PRN Colace (Docusate Sodium) 100 Mg Capsule 100 Mg PO PRN BID PRN Refresh Optive Eye Drops (Carboxymethylcellulos/Glycerin) 15 Ml Drops 2 Drop OU PRN BID PRN Bisacodyl 10 Mg Supp.rect 10 Mg RC PRN DAILY PRN Belladonna-Opium 16.2-30 Supp (Opium/Belladonna Alkaloids) 1 Each Supp.rect 1 Supp RC PRN Q12HR PRN Hydrocodone-Apap 7.5-325 (Hydrocodone Bit/Acetaminophen) 1 Each Tablet 1 Tab PO PRN Q4HRS PRN Tylenol (Acetaminophen) 325 Mg Tablet 650 Mg PO PRN Q4HRS PRN Tramadol Hcl (Tramadol HCl) 50 Mg Tablet 50 Mg PO PRN Q4HRS PRN Crestor (Rosuvastatin Calcium) 40 Mg Tablet 40 Mg PO HS Requip (Ropinirole Hcl) 1 Mg Tablet 2 Mg PO QHS [place] Hcl 5 Mg Tablet 5 Mg PO TID Pantoprazole Sodium 40 Mg Tablet.dr 40 Mg PO QPM Oxybutynin Chloride Er (Oxybutynin Chloride) 10 Mg Tab.er.24 10 Mg PO QHS Multivitamins (Multivitamin) 1 Each Tablet 1 Tab PO DAILY Namenda (Memantine Hcl) 5 Mg Tablet 5 Mg PO BID Lisinopril 2.5 Mg Tablet 2.5 Mg PO DAILY Linzess (Linaclotide) 145 Mcg Capsule 145 Mcg PO DAILY Levothyroxine Sodium 175 Mcg Tablet 175 Mcg PO DAILY07 Lamictal (Lamotrigine) 200 Mg Tablet 200 Mg PO QHS Ketoconazole 120 Ml Shampoo 120 Ml TP Q3DAYS Tresiba Flextouch U-200 (Insulin Degludec) 200 Unit/1 Ml Insuln.pen 90 Unit SQ DAILY Novolog Flexpen (Insulin Aspart) 100 Unit/1 Ml Insuln.pen 0-10 Unit SQ TIDWMEALS Hydroxyzine Pamoate 50 Mg Capsule 50 Mg PO QHS Hydroxyzine Pamoate 25 Mg Capsule 25 Mg PO BID@0900,1300 Neurontin (Gabapentin) 300 Mg Capsule 300 Mg PO BID@0900,1300 Neurontin (Gabapentin) 300 Mg Capsule 600 Mg PO QHS [place] 3 1,000 Mg Softgel ([place]-3 Fatty Acids/Fish Oil) 1 Each Capsule 2,000 Mg PO BID Lovenox (Enoxaparin Sodium) 40 Mg/0.4 Ml Disp.syrin 40 Mg SQ QHS Trulicity (Dulaglutide) 1.5 Mg/0.5 Ml Pen.injctr 1.5 Mg SQ QTU Vitamin B-12 (Cyanocobalamin (Vitamin B-12)) 1,000 Mcg Tablet 1,000 Mcg PO QODAY @1700 Vitamin D3 (Cholecalciferol (Vitamin D3)) 1,000 Unit Tablet 2,000 Unit PO DAILY Calcium 600 + Vit D 400 Tablet (Calcium Carbonate/Vitamin D3) 1 Each Tablet 1 Tab PO BID Baclofen 10 Mg Tablet 10 Mg PO TID Aspir-Low (Aspirin) 81 Mg Tablet. 81 Mg PO DAILY I have reviewed the current psychotropics carefully including drug interactions. Risk benefit ratio favors no change other than as noted in my dictated progress note. Diagnosis: Problems: (1) Bipolar affective, mixed, sev w/ psych (2) Anxiety disorder (3) Major depressive disorder, recurrent episode KURT DUARTE MD Jun 01, 2017 20:48
[2017-06-01] MEDS ORDERED: TETRAHYDROZOLINE 0.05% OPHTH SOLUTION 15ML BOTTLE. OU PRN (21:00)
[2017-06-02] MEDS: LEVOTHYROXINE 175 MCG TABLET PO SCH (05:08)
[2017-06-02 06:22] VITALS: BP 124/66
[2017-06-02] MEDS: INSULIN ASPART 300 UNITS/3 ML INSULN.PEN SQ SCH ×6 (08:12→17:29)
[2017-06-02] MEDS: MULTIVITAMIN with MINERAL TABLET. PO SCH (08:13)
[2017-06-02] MEDS: buPROPion XL 300 MG TAB.ER.24H. PO SCH (08:14)
[2017-06-02] MEDS: LISINOPRIL 2.5 MG TABLET PO SCH (08:14)
[2017-06-02] MEDS: OXYBUTYNIN CHLORIDE 5 MG TABLET PO SCH ×2 (08:14→21:38)
[2017-06-02] MEDS: BACLOFEN 10 MG TABLET PO SCH ×3 (08:14→21:39)
[2017-06-02] MEDS: CALCIUM CARB/VIT D3 500/200 TABLET PO SCH ×3 (08:15→17:14)
[2017-06-02] MEDS: OMEGA-3 FATTY ACIDS/FISH OIL 1,000 MG CAPSULE. PO SCH ×2 (08:15→21:38)
[2017-06-02] MEDS: CHOLECALCIFEROL (VITAMIN D3) 1,000 UNIT TABLET PO SCH (08:15)
[2017-06-02] MEDS: DOCUSATE SODIUM 100 MG CAPSULE PO SCH ×2 (08:15→21:37)
[2017-06-02] MEDS: GABAPENTIN 300 MG CAPSULE. PO SCH ×3 (08:15→21:39)
[2017-06-02] MEDS: hydrOXYzine PAMOATE 25 MG CAPSULE PO SCH ×3 (08:16→21:40)
[2017-06-02] MEDS: ASPIRIN ENTERIC COATED 81 MG TABLET.DR. PO SCH (08:16)
[2017-06-02] MEDS: MEMANTINE 5 MG TABLET. PO SCH ×2 (08:16→21:39)
[2017-06-02] MEDS: LINACLOTIDE 145 MCG CAPSULE. PO SCH (08:17)
[2017-06-02] MEDS: PILOCARPINE 5 MG TABLET. PO SCH ×3 (08:18→21:44)
[2017-06-02 16:29] VITALS: BP 154/68
[2017-06-02] MEDS: PANTOPRAZOLE 40 MG TABLET. PO SCH (17:33)
--- NOTE | 2017-06-02 20:32 | PDOC ---
Exam Note: Jens Note: Please also refer to the separate dictated note~for this date of service dictated separately.~Patient seen individually. Discussed the patient with Nursing staff reviewed the chart.~Reviewed interim history and current functioning. Reviewed vital signs,~Labs/ Radiology~and current medications noted below. Continue current treatment with the changes noted in the dictated addendum note Assessment: Vital Signs: Vital Signs Date Time Temp Pulse Resp B/P (MAP) Pulse Ox O2 Delivery O2 Flow Rate FiO2 06/02/17 16:29 97.3 88 16 154/68 (96) 98 Room Air I&O Intake and Output 06/02/17 07:00 Intake Total 960 ml Balance 960 ml Intake Oral 960 ml # Voids 2 Labs: Laboratory Tests Test 06/02/17 07:34 06/02/17 11:49 06/02/17 16:54 06/02/17 19:25 Glucose (Fingerstick) 155 mg/dL (70-99) H 172 mg/dL (70-99) H 121 mg/dL (70-99) H 142 mg/dL (70-99) H Current Medications: Meds: Current Medications Hydroxyzine Pamoate (Vistaril) 25 mg BID@0900,1300 PO Last administered on 06/02 14:01; Start 05/28/17 at 09:00 Memantine (Namenda) 5 mg BID PO Last administered on 06/02/17at 08:16; Start 05/27/17 at 22:30 Hydroxyzine Pamoate (Vistaril) 50 mg QHS PO Last administered on 06/01/17at 20: 01; Start 05/27/17 at 22:30 Lamotrigine (LaMICtal) 200 mg HS PO Last administered on 05/28/17 20:48; Start 05/27/17 at 22:30; Stop 05/29/17 at 09:53; Status DC Baclofen (Lioresal) 10 mg TID PO Last administered on 06/02/17 14:02; Start at 22:30 Enoxaparin Sodium (Lovenox) 40 mg QHS SQ Last administered on 05/28/17at 20:47; Start 05/27/17 at 22:30; Stop 05/29/17 at 19:00; Status DC Gabapentin (Neurontin) 600 mg QHS PO Last administered on 06/01/17 20:00; Start 05/27/17 at 22:30 Pantoprazole Sodium (Protonix) 40 mg QPM PO Last administered on 06/02/17 17: 33; Start 05/28/17 at 18:00 Pilocarpine HCl (Salagen) 5 mg TID PO Last administered on 06/02/17 14:02; Start 05/27/17 at 22:30 Ropinirole HCl (Requip) 2 mg QHS PO Last administered on 06/01/17 20:01; Start 05/27/17 at 22:30 Calcium/Vitamin D (Oscal D 500mg/ 200uts) 1 tab BIDWMEALS PO Last administered on 06/02/17 17:14; Start 05/28/17 at 08:00 Fish Oil (Fish Oil) 2,000 mg BID PO Last administered on 06/02/17 08:15; Start 05/27/17 at 22:30 Oxybutynin Chloride (Ditropan) 5 mg BID PO Last administered on 06/02/17 08:14 ; Start 05/27/17 at 22:30 Atorvastatin Calcium (Lipitor) 80 mg QHS PO Last administered on 06/01/17 20: 00; Start 05/27/17 at 22:30 Acetaminophen (Tylenol) 650 mg PRN Q4HRS PRN PO PAIN / TEMP Last administered on 06/01/17 06:35; Start 05/28/17 at 07:30 Aspirin (Aspirin Enteric Coated) 81 mg DAILY PO Last administered on 06/02/17 08:16; Start 05/28/17 at 09:00 Bisacodyl (Dulcolax Supp) 10 mg PRN DAILY PRN RC CONSTIPATION; Start 05/28/17 at 07:30 Vitamin D (Vitamin D3) 2,000 unit DAILY PO Last administered on 06/02/17 08:15 ; Start 05/28/17 at 09:00 Cyanocobalamin (Vitamin B-12) 1,000 mcg QODAY@1700 PO Last administered on 06/01 17:26; Start 05/28/17 at 17:00 Docusate Sodium (Colace) 100 mg PRN BID PRN PO CONSTIPATION; Start 05/28/17 at 07:30; Stop 05/30/17 at 23:12; Status DC Gabapentin (Neurontin) 300 mg BID@0900,1300 PRN PO Neuropathy; Start 05/28/17 at 09:00; Stop 05/29/17 at 01:26; Status DC Acetaminophen/ Hydrocodone Bitart (Lortab 7.5/325) 1 tab PRN Q4HRS PRN PO PAIN Last administered on 06/01/17at 21:00; Start 05/28/17 at 07:30 Levothyroxine Sodium (Synthroid) 175 mcg DAILY06 PO Last administered on at 05:08; Start 05/28/17 at 08:00 Lisinopril (Prinivil) 2.5 mg DAILY PO Last administered on 06/02/17at 08:14; Start 05/28/17 at 09:00 Loperamide HCl (Imodium) 2 mg TID PRN PRN PO DIARRHEA; Start 05/28/17 at 07:30 Nystatin (Nystop) 1 gene PRN TID PRN TP RASH; Start 05/28/17 at 07:30 Polyethylene Glycol (miraLAX) 17 gm PRN DAILY PRN PO CONSTIPATION Last administered on 05/29/17at 10:36; Start 05/28/17 at 07:30 Tramadol HCl (Ultram) 50 mg PRN Q4HRS PRN PO PAIN Last administered on at 20:50; Start 05/28/17 at 07:30 Artificial Tears (Artificial Tears) 2 drop PRN BID PRN OU DRY EYE; Start at 08:00; Stop 05/28/17 at 14:31; Status DC Non-Formulary Medication (Dulaglutide (Trulicity)) 1.5 mg QTU SQ ; Start at 16:00; Status UNV Non-Formulary Medication (Insulin Degludec (Tresiba Flextouch U-200)) 90 unit DAILY SQ Last administered on 06/02/17at 08:28; Start 05/28/17 at 09:00 Multivitamins/ Calcium (Thera-M Plus) 1 tab DAILY PO Last administered on at 08:13; Start 05/28/17 at 09:00 Tetrahydrozoline HCl (Murine) 1 drop PRN QID PRN OU DRY EYE; Start 05/28/17 at 08:00; Stop 05/28/17 at 14:31; Status DC Throat Lozenges (Chloraseptic) 1 spray PRN Q4HRS PRN MM SORE THROAT; Start 01/05 at 08:00; Stop 05/28/17 at 14:31; Status DC Insulin Aspart (NovoLOG) 15 units TIDAC SQ Last administered on 06/02/17at 17:29 ; Start 05/28/17 at 11:30 Insulin Aspart (NovoLOG) 0-5 UNITS TIDWMEALS SQ Last administered on 06/02/17at 12:31; Start 05/28/17 at 12:00 Fosfomycin Tromethamine (Monurol) 3 gm 1X ONCE PO ; Start 05/28/17 at 12:45; Stop 05/28/17 at 12:46; Status DC Fosfomycin Tromethamine (Monurol) 3 gm 1X ONCE PO Last administered on at 13:42; Start 05/28/17 at 14:00; Stop 05/28/17 at 14:01; Status DC Throat Lozenges (Chloraseptic) 1 spray PRN Q4HRS PRN MM SORE THROAT Last administered on 05/31/17at 05:28; Start 05/28/17 at 14:31 Artificial Tears (Artificial Tears) 2 drop PRN BID PRN OU DRY EYE Last administered on 05/31/17at 21:48; Start 05/28/17 at 14:31 Tetrahydrozoline HCl (Murine) 1 drop PRN QID PRN OU DRY EYE; Start 05/28/17 at 14:31; Stop 05/31/17 at 19:31; Status DC Gabapentin (Neurontin) 300 mg BID@0900,1300 PO Last administered on 06/02/17at 14:01; Start 05/29/17 at 09:00 Lamotrigine (LaMICtal) 250 mg HS PO Last administered on 06/01/17at 19:59; Start 05/29/17 at 21:00 Bupropion HCl (Wellbutrin Xl) 150 mg DAILY PO Last administered on 05/31/17at 08 :32; Start 05/29/17 at 10:30; Stop 05/31/17 at 17:04; Status DC Magnesium Hydroxide (Milk Of Magnesia) 2,400 mg PRN DAILY PRN PO CONSTIPATION Last administered on 05/29/17at 20:51; Start 05/29/17 at 20:45 Mirtazapine (Remeron) 7.5 mg QHS PO Last administered on 06/01/17at 20:00; Start 05/30/17 at 21:00 Docusate Sodium (Colace) 100 mg BID PO Last administered on 06/02/17at 08:15; Start 05/31/17 at 09:00 Bupropion HCl (Wellbutrin Xl) 300 mg DAILY PO Last administered on 06/02/17at 08 :14; Start 06/01/17 at 09:00 Melatonin 3 mg QHS PO Last administered on 06/01/17at 19:58; Start 05/31/17 at 21:00; Stop 06/02/17 at 10:09; Status DC Tetrahydrozoline HCl (Murine) 1 drop QID OU Last administered on 06/01/17at 08: 34; Start 05/31/17 at 21:00; Stop 06/01/17 at 17:24; Status DC Tetrahydrozoline HCl (Murine) 1 drop PRN QID PRN OU DRY EYE; Start 06/01/17 at 21:00 Melatonin 3 mg PRN QHS PRN PO insomnia; Start 06/02/17 at 21:00 Amoxicillin (Amoxil) 500 mg [id number] PO ; Start 06/02/17 at 21:00 Active Scripts Active Reported Chloraseptic Max [place] (Phenol/Glycerin) 30 Ml [place] 1 [place] MM PRN Q4HRS PRN Miralax (Polyethylene Glycol 3350) 17 Gm Powd.pack 17 Gm PO PRN DAILY PRN Nystop (Nystatin) 60 Gm Powder 1 Gene TP PRN TID PRN Clear Eyes Itchy Eye Rlf Drops (Naphazoline Hcl/Zn Sulf/Gly) 15 Ml Drops 1 Drop OU PRN QID PRN Imodium A-D (Loperamide HCl) 2 Mg Capsule 2 Mg PO TID PRN PRN Colace (Docusate Sodium) 100 Mg Capsule 100 Mg PO PRN BID PRN Refresh Optive Eye Drops (Carboxymethylcellulos/Glycerin) 15 Ml Drops 2 Drop OU PRN BID PRN Bisacodyl 10 Mg Supp.rect 10 Mg RC PRN DAILY PRN Belladonna-Opium 16.2-30 Supp (Opium/Belladonna Alkaloids) 1 Each Supp.rect 1 Supp RC PRN Q12HR PRN Hydrocodone-Apap 7.5-325 (Hydrocodone Bit/Acetaminophen) 1 Each Tablet 1 Tab PO PRN Q4HRS PRN Tylenol (Acetaminophen) 325 Mg Tablet 650 Mg PO PRN Q4HRS PRN Tramadol Hcl (Tramadol HCl) 50 Mg Tablet 50 Mg PO PRN Q4HRS PRN Crestor (Rosuvastatin Calcium) 40 Mg Tablet 40 Mg PO HS Requip (Ropinirole Hcl) 1 Mg Tablet 2 Mg PO QHS [place]arp[place] Hcl 5 Mg Tablet 5 Mg PO TID Pantoprazole Sodium 40 Mg Tablet.dr 40 Mg PO QPM Oxybutynin Chloride Er (Oxybutynin Chloride) 10 Mg Tab.er.24 10 Mg PO QHS Multivitamins (Multivitamin) 1 Each Tablet 1 Tab PO DAILY Namenda (Memantine Hcl) 5 Mg Tablet 5 Mg PO BID Lisinopril 2.5 Mg Tablet 2.5 Mg PO DAILY Linzess (Linaclotide) 145 Mcg Capsule 145 Mcg PO DAILY Levothyroxine Sodium 175 Mcg Tablet 175 Mcg PO DAILY07 Lamictal (Lamotrigine) 200 Mg Tablet 200 Mg PO QHS Ketoconazole 120 Ml Shampoo 120 Ml TP Q3DAYS Tresiba Flextouch U-200 (Insulin Degludec) 200 Unit/1 Ml Insuln.pen 90 Unit SQ DAILY Novolog Flexpen (Insulin Aspart) 100 Unit/1 Ml Insuln.pen 0-10 Unit SQ TIDWMEALS Hydroxyzine Pamoate 50 Mg Capsule 50 Mg PO QHS Hydroxyzine Pamoate 25 Mg Capsule 25 Mg PO BID@0900,1300 Neurontin (Gabapentin) 300 Mg Capsule 300 Mg PO BID@0900,1300 Neurontin (Gabapentin) 300 Mg Capsule 600 Mg PO QHS [place] 3 1,000 Mg Softgel ([place]-3 Fatty Acids/Fish Oil) 1 Each Capsule 2,000 Mg PO BID Lovenox (Enoxaparin Sodium) 40 Mg/0.4 Ml Disp.syrin 40 Mg SQ QHS Trulicity (Dulaglutide) 1.5 Mg/0.5 Ml Pen.injctr 1.5 Mg SQ QTU Vitamin B-12 (Cyanocobalamin (Vitamin B-12)) 1,000 Mcg Tablet 1,000 Mcg PO QODAY @1700 Vitamin D3 (Cholecalciferol (Vitamin D3)) 1,000 Unit Tablet 2,000 Unit PO DAILY Calcium 600 + Vit D 400 Tablet (Calcium Carbonate/Vitamin D3) 1 Each Tablet 1 Tab PO BID Baclofen 10 Mg Tablet 10 Mg PO TID Aspir-Low (Aspirin) 81 Mg Tablet. 81 Mg PO DAILY I have reviewed the current psychotropics carefully including drug interactions. Risk benefit ratio favors no change other than as noted in my dictated progress note. Diagnosis: Problems: (1) Bipolar affective, mixed, sev w/ psych (2) Anxiety disorder (3) Major depressive disorder, recurrent episode KURT DUARTE MD Jun 02, 2017 20:32
[2017-06-02] MEDS ORDERED: MELATONIN 3 MG TABLET PO PRN (21:00)
[2017-06-02] MEDS: AMOXICILLIN 250 MG CAPSULE PO SCH (21:36)
[2017-06-02] MEDS: lamoTRIgine 100 MG TABLET. PO SCH (21:38)
[2017-06-02] MEDS: ATORVASTATIN CALCIUM 20 MG TABLET PO SCH (21:39)
[2017-06-02] MEDS: rOPINIRole 2 MG TABLET. PO SCH (21:39)
[2017-06-02] MEDS: MIRTAZAPINE 7.5 MG TABLET. PO SCH (21:39)
--- NOTE | 2017-06-02 21:47 | PN ---
DATE: 05/31/2017 This late entry of 05/31/2017 covers the elements not covered in my initial note 05/31/2017. I met with the patient in the evening of 05/31/2017 in her room individually. The patient remains somewhat anxious, labile, refused dinner. Nursing staff note, she has been quite anxious, a little paranoid about her medications questioning lot of things including procedures and protocols on the unit, sleeping poorly at night. REVIEW OF SYSTEMS: No CV, , pulmonary, eye system symptoms on review. MENTAL STATUS EXAM: The patient is reasonably oriented. Speech is coherent, abstraction fair, computation impaired, language function intact. Attention span. Denies active suicidal ideation. Discussed discharge plans and [facility] program as opposed to placement options and outpatient at [facility]. IMPRESSION: Unchanged from initial note. PLAN: Start melatonin 3 mg at bedtime for her insomnia. Increase Wellbutrin-XL to 300 mg a day. Continue Namenda, Lamictal along with hydroxyzine. KURT DUARTE MD DR: ROMA/jayro JOB#: [id number] / [id number]
[2017-06-03] MEDS: LEVOTHYROXINE 175 MCG TABLET PO SCH (05:32)
[2017-06-03 06:06] VITALS: BP 127/65
[2017-06-03] MEDS: INSULIN ASPART 300 UNITS/3 ML INSULN.PEN SQ SCH ×6 (08:00→17:36)
[2017-06-03] MEDS: AMOXICILLIN 250 MG CAPSULE PO SCH ×3 (09:35→19:08)
[2017-06-03] MEDS: OMEGA-3 FATTY ACIDS/FISH OIL 1,000 MG CAPSULE. PO SCH ×2 (09:35→19:08)
[2017-06-03] MEDS: GABAPENTIN 300 MG CAPSULE. PO SCH ×3 (09:35→19:09)
[2017-06-03] MEDS: buPROPion XL 300 MG TAB.ER.24H. PO SCH (09:35)
[2017-06-03] MEDS: ASPIRIN ENTERIC COATED 81 MG TABLET.DR. PO SCH (09:35)
[2017-06-03] MEDS: BACLOFEN 10 MG TABLET PO SCH ×3 (09:36→19:10)
[2017-06-03] MEDS: hydrOXYzine PAMOATE 25 MG CAPSULE PO SCH ×3 (09:36→19:10)
[2017-06-03] MEDS: CHOLECALCIFEROL (VITAMIN D3) 1,000 UNIT TABLET PO SCH (09:36)
[2017-06-03] MEDS: DOCUSATE SODIUM 100 MG CAPSULE PO SCH ×2 (09:36→19:10)
[2017-06-03] MEDS: LISINOPRIL 2.5 MG TABLET PO SCH (09:36)
[2017-06-03] MEDS: MEMANTINE 5 MG TABLET. PO SCH ×2 (09:36→19:09)
[2017-06-03] MEDS: OXYBUTYNIN CHLORIDE 5 MG TABLET PO SCH ×2 (09:36→19:09)
[2017-06-03] MEDS: CALCIUM CARB/VIT D3 500/200 TABLET PO SCH ×2 (09:36→17:17)
[2017-06-03] MEDS: MULTIVITAMIN with MINERAL TABLET. PO SCH (09:36)
[2017-06-03] MEDS: LACTOBACILLUS RHAMNOSUS GG 1 CAPSULE. PO SCH ×2 (09:41→19:10)
[2017-06-03] MEDS: HYDROcodone/APAP 7.5/325MG 1 TAB TABLET PO PRN (09:41)
[2017-06-03] MEDS: LINACLOTIDE 145 MCG CAPSULE. PO SCH (09:46)
[2017-06-03] MEDS: PILOCARPINE 5 MG TABLET. PO SCH ×3 (09:46→19:12)
[2017-06-03 16:05] VITALS: BP 112/63
[2017-06-03] MEDS: PANTOPRAZOLE 40 MG TABLET. PO SCH (17:17)
[2017-06-03] MEDS: CYANOCOBALAMIN (VITAMIN B-12) 1,000 MCG TABLET. PO SCH (17:18)
[2017-06-03] MEDS: lamoTRIgine 100 MG TABLET. PO SCH (19:08)
[2017-06-03] MEDS: rOPINIRole 2 MG TABLET. PO SCH (19:09)
[2017-06-03] MEDS: MIRTAZAPINE 7.5 MG TABLET. PO SCH (19:09)
[2017-06-03] MEDS: ATORVASTATIN CALCIUM 20 MG TABLET PO SCH (19:10)
--- NOTE | 2017-06-03 20:38 | PDOC ---
Exam Note: Jens Note: Please also refer to the separate dictated note~for this date of service dictated separately.~Patient seen individually. Discussed the patient with Nursing staff reviewed the chart.~Reviewed interim history and current functioning. Reviewed vital signs,~Labs/ Radiology~and current medications noted below. Continue current treatment with the changes noted in the dictated addendum note Assessment: Vital Signs: Vital Signs Date Time Temp Pulse Resp B/P (MAP) Pulse Ox O2 Delivery O2 Flow Rate FiO2 06/03/17 16:05 98.1 84 18 112/63 (79) 96 06/03/17 11:00 Room Air I&O Intake and Output 06/03/17 07:00 Intake Total 1320 ml Balance 1320 ml Intake Oral 1320 ml # Voids 2 # Bowel Movements 1 Labs: Laboratory Tests Test 06/03/17 07:32 06/03/17 11:47 06/03/17 17:07 06/03/17 19:29 Glucose (Fingerstick) 122 mg/dL (70-99) H 188 mg/dL (70-99) H 135 mg/dL (70-99) H 163 mg/dL (70-99) H Current Medications: Meds: Current Medications Hydroxyzine Pamoate (Vistaril) 25 mg BID@0900,1300 PO Last administered on 06/03at 14:09; Start 05/28/17 at 09:00 Memantine (Namenda) 5 mg BID PO Last administered on 06/03/17at 19:09; Start 05/27/17 at 22:30 Hydroxyzine Pamoate (Vistaril) 50 mg QHS PO Last administered on 06/03/17 19: 10; Start 05/27/17 at 22:30 Lamotrigine (LaMICtal) 200 mg HS PO Last administered on 05/28/17 20:48; Start 05/27/17 at 22:30; Stop 05/29/17 at 09:53; Status DC Baclofen (Lioresal) 10 mg TID PO Last administered on 06/03/17 19:10; Start at 22:30 Enoxaparin Sodium (Lovenox) 40 mg QHS SQ Last administered on 05/28/17at 20:47; Start 05/27/17 at 22:30; Stop 05/29/17 at 19:00; Status DC Gabapentin (Neurontin) 600 mg QHS PO Last administered on 06/03/17 19:09; Start 05/27/17 at 22:30 Pantoprazole Sodium (Protonix) 40 mg QPM PO Last administered on 06/03/17 17: 17; Start 05/28/17 at 18:00 Pilocarpine HCl (Salagen) 5 mg TID PO Last administered on 06/03/17 19:12; Start 05/27/17 at 22:30 Ropinirole HCl (Requip) 2 mg QHS PO Last administered on 06/03/17 19:09; Start 05/27/17 at 22:30 Calcium/Vitamin D (Oscal D 500mg/ 200uts) 1 tab BIDWMEALS PO Last administered on 06/03/17 17:17; Start 05/28/17 at 08:00 Fish Oil (Fish Oil) 2,000 mg BID PO Last administered on 06/03/17 19:08; Start 05/27/17 at 22:30 Oxybutynin Chloride (Ditropan) 5 mg BID PO Last administered on 06/03/17 19:09 ; Start 05/27/17 at 22:30 Atorvastatin Calcium (Lipitor) 80 mg QHS PO Last administered on 06/03/17 19: 10; Start 05/27/17 at 22:30 Acetaminophen (Tylenol) 650 mg PRN Q4HRS PRN PO PAIN / TEMP Last administered on 06/01/17 06:35; Start 05/28/17 at 07:30 Aspirin (Aspirin Enteric Coated) 81 mg DAILY PO Last administered on 06/03/17 09:35; Start 05/28/17 at 09:00 Bisacodyl (Dulcolax Supp) 10 mg PRN DAILY PRN RC CONSTIPATION; Start 05/28/17 at 07:30 Vitamin D (Vitamin D3) 2,000 unit DAILY PO Last administered on 06/03/17 09:36 ; Start 05/28/17 at 09:00 Cyanocobalamin (Vitamin B-12) 1,000 mcg QODAY@1700 PO Last administered on 06/03 17:18; Start 05/28/17 at 17:00 Docusate Sodium (Colace) 100 mg PRN BID PRN PO CONSTIPATION; Start 05/28/17 at 07:30; Stop 05/30/17 at 23:12; Status DC Gabapentin (Neurontin) 300 mg BID@0900,1300 PRN PO Neuropathy; Start 05/28/17 at 09:00; Stop 05/29/17 at 01:26; Status DC Acetaminophen/ Hydrocodone Bitart (Lortab 7.5/325) 1 tab PRN Q4HRS PRN PO PAIN Last administered on 06/03/17at 09:41; Start 05/28/17 at 07:30 Levothyroxine Sodium (Synthroid) 175 mcg DAILY06 PO Last administered on at 05:32; Start 05/28/17 at 08:00 Lisinopril (Prinivil) 2.5 mg DAILY PO Last administered on 06/03/17at 09:36; Start 05/28/17 at 09:00 Loperamide HCl (Imodium) 2 mg TID PRN PRN PO DIARRHEA; Start 05/28/17 at 07:30 Nystatin (Nystop) 1 gene PRN TID PRN TP RASH; Start 05/28/17 at 07:30 Polyethylene Glycol (miraLAX) 17 gm PRN DAILY PRN PO CONSTIPATION Last administered on 05/29/17at 10:36; Start 05/28/17 at 07:30 Tramadol HCl (Ultram) 50 mg PRN Q4HRS PRN PO PAIN Last administered on at 20:50; Start 05/28/17 at 07:30 Artificial Tears (Artificial Tears) 2 drop PRN BID PRN OU DRY EYE; Start at 08:00; Stop 05/28/17 at 14:31; Status DC Non-Formulary Medication (Dulaglutide (Trulicity)) 1.5 mg QTU SQ ; Start at 16:00; Status UNV Non-Formulary Medication (Insulin Degludec (Tresiba Flextouch U-200)) 90 unit DAILY SQ Last administered on 06/03/17at 09:42; Start 05/28/17 at 09:00 Multivitamins/ Calcium (Thera-M Plus) 1 tab DAILY PO Last administered on at 09:36; Start 05/28/17 at 09:00 Tetrahydrozoline HCl (Murine) 1 drop PRN QID PRN OU DRY EYE; Start 05/28/17 at 08:00; Stop 05/28/17 at 14:31; Status DC Throat Lozenges (Chloraseptic) 1 spray PRN Q4HRS PRN MM SORE THROAT; Start 01/05 at 08:00; Stop 05/28/17 at 14:31; Status DC Insulin Aspart (NovoLOG) 15 units TIDAC SQ Last administered on 06/03/17at 17:36 ; Start 05/28/17 at 11:30 Insulin Aspart (NovoLOG) 0-5 UNITS TIDWMEALS SQ Last administered on 06/03/17at 17:35; Start 05/28/17 at 12:00 Fosfomycin Tromethamine (Monurol) 3 gm 1X ONCE PO ; Start 05/28/17 at 12:45; Stop 05/28/17 at 12:46; Status DC Fosfomycin Tromethamine (Monurol) 3 gm 1X ONCE PO Last administered on at 13:42; Start 05/28/17 at 14:00; Stop 05/28/17 at 14:01; Status DC Throat Lozenges (Chloraseptic) 1 spray PRN Q4HRS PRN MM SORE THROAT Last administered on 05/31/17at 05:28; Start 05/28/17 at 14:31 Artificial Tears (Artificial Tears) 2 drop PRN BID PRN OU DRY EYE Last administered on 05/31/17at 21:48; Start 05/28/17 at 14:31 Tetrahydrozoline HCl (Murine) 1 drop PRN QID PRN OU DRY EYE; Start 05/28/17 at 14:31; Stop 05/31/17 at 19:31; Status DC Gabapentin (Neurontin) 300 mg BID@0900,1300 PO Last administered on 06/03/17at 14:08; Start 05/29/17 at 09:00 Lamotrigine (LaMICtal) 250 mg HS PO Last administered on 06/03/17at 19:08; Start 05/29/17 at 21:00 Bupropion HCl (Wellbutrin Xl) 150 mg DAILY PO Last administered on 05/31/17at 08 :32; Start 05/29/17 at 10:30; Stop 05/31/17 at 17:04; Status DC Magnesium Hydroxide (Milk Of Magnesia) 2,400 mg PRN DAILY PRN PO CONSTIPATION Last administered on 05/29/17at 20:51; Start 05/29/17 at 20:45 Mirtazapine (Remeron) 7.5 mg QHS PO Last administered on 06/03/17 19:09; Start 05/30/17 at 21:00 Docusate Sodium (Colace) 100 mg BID PO Last administered on 06/03/17 19:10; Start 05/31/17 at 09:00 Bupropion HCl (Wellbutrin Xl) 300 mg DAILY PO Last administered on 06/03/17 09 :35; Start 06/01/17 at 09:00 Melatonin 3 mg QHS PO Last administered on 06/01/17 19:58; Start 05/31/17 at 21:00; Stop 06/02/17 at 10:09; Status DC Tetrahydrozoline HCl (Murine) 1 drop QID OU Last administered on 06/01/17at 08: 34; Start 05/31/17 at 21:00; Stop 06/01/17 at 17:24; Status DC Tetrahydrozoline HCl (Murine) 1 drop PRN QID PRN OU DRY EYE; Start 06/01/17 at 21:00 Melatonin 3 mg PRN QHS PRN PO insomnia; Start 06/02/17 at 21:00 Amoxicillin (Amoxil) 500 mg [id number] PO Last administered on 06/03/17 19:08; Start 06/02/17 at 21:00 Lactobacillus Rhamnosus (Culturelle) 1 cap BID PO Last administered on at 19:10; Start 06/03/17 at 09:00 Active Scripts Active Reported Chloraseptic Max [place] (Phenol/Glycerin) 30 Ml [place] 1 [place] MM PRN Q4HRS PRN Miralax (Polyethylene Glycol 3350) 17 Gm Powd.pack 17 Gm PO PRN DAILY PRN Nystop (Nystatin) 60 Gm Powder 1 Gene TP PRN TID PRN Clear Eyes Itchy Eye Rlf Drops (Naphazoline Hcl/Zn Sulf/Gly) 15 Ml Drops 1 Drop OU PRN QID PRN Imodium A-D (Loperamide HCl) 2 Mg Capsule 2 Mg PO TID PRN PRN Colace (Docusate Sodium) 100 Mg Capsule 100 Mg PO PRN BID PRN Refresh Optive Eye Drops (Carboxymethylcellulos/Glycerin) 15 Ml Drops 2 Drop OU PRN BID PRN Bisacodyl 10 Mg Supp.rect 10 Mg RC PRN DAILY PRN Belladonna-Opium 16.2-30 Supp (Opium/Belladonna Alkaloids) 1 Each Supp.rect 1 Supp RC PRN Q12HR PRN Hydrocodone-Apap 7.5-325 (Hydrocodone Bit/Acetaminophen) 1 Each Tablet 1 Tab PO PRN Q4HRS PRN Tylenol (Acetaminophen) 325 Mg Tablet 650 Mg PO PRN Q4HRS PRN Tramadol Hcl (Tramadol HCl) 50 Mg Tablet 50 Mg PO PRN Q4HRS PRN Crestor (Rosuvastatin Calcium) 40 Mg Tablet 40 Mg PO HS Requip (Ropinirole Hcl) 1 Mg Tablet 2 Mg PO QHS [place] Hcl 5 Mg Tablet 5 Mg PO TID Pantoprazole Sodium 40 Mg Tablet.dr 40 Mg PO QPM Oxybutynin Chloride Er (Oxybutynin Chloride) 10 Mg Tab.er.24 10 Mg PO QHS Multivitamins (Multivitamin) 1 Each Tablet 1 Tab PO DAILY Namenda (Memantine Hcl) 5 Mg Tablet 5 Mg PO BID Lisinopril 2.5 Mg Tablet 2.5 Mg PO DAILY Linzess (Linaclotide) 145 Mcg Capsule 145 Mcg PO DAILY Levothyroxine Sodium 175 Mcg Tablet 175 Mcg PO DAILY07 Lamictal (Lamotrigine) 200 Mg Tablet 200 Mg PO QHS Ketoconazole 120 Ml Shampoo 120 Ml TP Q3DAYS Tresiba Flextouch U-200 (Insulin Degludec) 200 Unit/1 Ml Insuln.pen 90 Unit SQ DAILY Novolog Flexpen (Insulin Aspart) 100 Unit/1 Ml Insuln.pen 0-10 Unit SQ TIDWMEALS Hydroxyzine Pamoate 50 Mg Capsule 50 Mg PO QHS Hydroxyzine Pamoate 25 Mg Capsule 25 Mg PO BID@0900,1300 Neurontin (Gabapentin) 300 Mg Capsule 300 Mg PO BID@0900,1300 Neurontin (Gabapentin) 300 Mg Capsule 600 Mg PO QHS [place] 3 1,000 Mg Softgel ([place]-3 Fatty Acids/Fish Oil) 1 Each Capsule 2,000 Mg PO BID Lovenox (Enoxaparin Sodium) 40 Mg/0.4 Ml Disp.syrin 40 Mg SQ QHS Trulicity (Dulaglutide) 1.5 Mg/0.5 Ml Pen.injctr 1.5 Mg SQ QTU Vitamin B-12 (Cyanocobalamin (Vitamin B-12)) 1,000 Mcg Tablet 1,000 Mcg PO QODAY @1700 Vitamin D3 (Cholecalciferol (Vitamin D3)) 1,000 Unit Tablet 2,000 Unit PO DAILY Calcium 600 + Vit D 400 Tablet (Calcium Carbonate/Vitamin D3) 1 Each Tablet 1 Tab PO BID Baclofen 10 Mg Tablet 10 Mg PO TID Aspir-Low (Aspirin) 81 Mg Tablet. 81 Mg PO DAILY I have reviewed the current psychotropics carefully including drug interactions. Risk benefit ratio favors no change other than as noted in my dictated progress note. Diagnosis: Problems: (1) Bipolar affective, mixed, sev w/ psych (2) Anxiety disorder (3) Major depressive disorder, recurrent episode KURT DUARTE MD Jun 03, 2017 20:38
[2017-06-04] MEDS: traMADol 50 MG TABLET PO PRN ×3 (00:31→21:55)
--- NOTE | 2017-06-04 03:50 | PN ---
DATE: 06/01/2017 This is a late entry for 06/01/2017 covers elements not covered in my initial note of 06/01/2017. SUBJECTIVE: I met with the patient at some length in her room. She has been quite withdrawn. She did have a fall and x-ray was negative. At times, she is somewhat short and irritable then apologizes to nursing staff. States she is still depressed, gets to crying at times, slept for 3/4 hours previous evening. REVIEW OF SYSTEMS: Ambulation impaired with walker. No CV, , pulmonary, eye system symptoms on review, somewhat suspicious, refused the Seroquel. We will start melatonin for insomnia. MENTAL STATUS EXAM: Reasonably oriented. Speech is coherent, has some latency. Abstraction fair, computation impaired, language function intact. Attention span short, somewhat obsessive, anxious. LABORATORY DATA: Reviewed. No suicidal or homicidal ideation. IMPRESSION: Unchanged from initial note. PLAN: Continue psychotropics mentioned in my initial note. Adjust as clinically indicated. KURT DUARTE MD DR: ROMA/jayro JOB#: [id number] / [id number]
[2017-06-04 06:11] VITALS: BP 120/65
[2017-06-04] MEDS: LEVOTHYROXINE 175 MCG TABLET PO SCH (06:16)
[2017-06-04] MEDS: INSULIN ASPART 300 UNITS/3 ML INSULN.PEN SQ SCH ×6 (07:46→17:30)
[2017-06-04] MEDS: CALCIUM CARB/VIT D3 500/200 TABLET PO SCH ×2 (08:03→17:31)
[2017-06-04] MEDS: AMOXICILLIN 250 MG CAPSULE PO SCH ×3 (08:03→21:24)
[2017-06-04] MEDS: LACTOBACILLUS RHAMNOSUS GG 1 CAPSULE. PO SCH ×2 (08:03→21:24)
[2017-06-04] MEDS: DOCUSATE SODIUM 100 MG CAPSULE PO SCH ×2 (08:03→21:25)
[2017-06-04] MEDS: OXYBUTYNIN CHLORIDE 5 MG TABLET PO SCH ×2 (08:03→21:24)
[2017-06-04] MEDS: ASPIRIN ENTERIC COATED 81 MG TABLET.DR. PO SCH (08:03)
[2017-06-04] MEDS: OMEGA-3 FATTY ACIDS/FISH OIL 1,000 MG CAPSULE. PO SCH ×2 (08:04→21:24)
[2017-06-04] MEDS: GABAPENTIN 300 MG CAPSULE. PO SCH ×3 (08:05→21:24)
[2017-06-04] MEDS: MEMANTINE 5 MG TABLET. PO SCH ×2 (08:05→21:24)
[2017-06-04] MEDS: BACLOFEN 10 MG TABLET PO SCH ×3 (08:05→21:23)
[2017-06-04] MEDS: LINACLOTIDE 145 MCG CAPSULE. PO SCH (08:05)
[2017-06-04] MEDS: MULTIVITAMIN with MINERAL TABLET. PO SCH (08:08)
[2017-06-04] MEDS: LISINOPRIL 2.5 MG TABLET PO SCH (08:08)
[2017-06-04] MEDS: PILOCARPINE 5 MG TABLET. PO SCH ×3 (08:08→21:26)
[2017-06-04] MEDS: CHOLECALCIFEROL (VITAMIN D3) 1,000 UNIT TABLET PO SCH (08:09)
[2017-06-04] MEDS: hydrOXYzine PAMOATE 25 MG CAPSULE PO SCH ×3 (08:09→21:25)
[2017-06-04] MEDS: buPROPion XL 300 MG TAB.ER.24H. PO SCH (08:09)
[2017-06-04 09:41] LABS: BASO % 1 % (0-3); EOS # 0.2 x10^3/uL (0.0-0.7); EOS % 3 % (0-3); HEMATOCRIT 42.3 % (36.0-47.0); HEMOGLOBIN 14.4 g/dL (12.0-15.5); LYMPH # 2.5 x10^3/uL (1.0-4.8); LYMPH % 34 % (24-48); MEAN CORPUSCULAR HEMOGLOBIN 30 pg (25-35); MEAN CORPUSCULAR HGB CONC 34 g/dL (31-37); MEAN CORPUSCULAR VOLUME 87 fL (79-100); MONO # 0.4 x10^3/uL (0.0-1.1); MONO % 6 % (0-9); NEUT # 4.1 x10^3uL (1.8-7.7); NEUT % 56 % (31-73); PLATELET COUNT 228 x10^3/uL (140-400); RED BLOOD COUNT 4.88 x10^6/uL (3.50-5.40); RED CELL DISTRIBUTION WIDTH 14.4 % (11.5-14.5); WHITE BLOOD COUNT 7.3 x10^3/uL (4.0-11.0)
[2017-06-04 09:53] LABS: ALBUMIN 3.6 g/dL (3.4-5.0); ALBUMIN/GLOBULIN RATIO 0.9 (1.0-1.7); CALCIUM 9.6 mg/dL (8.5-10.1); CREATININE 0.7 mg/dL (0.6-1.0); POTASSIUM 3.9 mmol/L (3.5-5.1); TOTAL BILIRUBIN 0.6 mg/dL (0.2-1.0); TOTAL PROTEIN 7.5 g/dL (6.4-8.2)
[2017-06-04 16:01] VITALS: BP 102/68
[2017-06-04] MEDS: PANTOPRAZOLE 40 MG TABLET. PO SCH (17:31)
[2017-06-04] MEDS: MIRTAZAPINE 7.5 MG TABLET. PO SCH (21:24)
[2017-06-04] MEDS: rOPINIRole 2 MG TABLET. PO SCH (21:24)
[2017-06-04] MEDS: ATORVASTATIN CALCIUM 20 MG TABLET PO SCH (21:25)
[2017-06-04] MEDS: lamoTRIgine 100 MG TABLET. PO SCH (21:25)
--- NOTE | 2017-06-04 22:52 | PDOC ---
Exam Note: Jens Note: Please also refer to the separate dictated note~for this date of service dictated separately.~Patient seen individually. Discussed the patient with Nursing staff reviewed the chart.~Reviewed interim history and current functioning. Reviewed vital signs,~Labs/ Radiology~and current medications noted below. Continue current treatment with the changes noted in the dictated addendum note Assessment: Vital Signs: Vital Signs Date Time Temp Pulse Resp B/P (MAP) Pulse Ox O2 Delivery O2 Flow Rate FiO2 06/04/17 21:55 18 Room Air 06/04/17 16:01 97.6 79 102/68 (79) 99 I&O Intake and Output 06/04/17 07:00 Intake Total 960 ml Balance 960 ml Intake Oral 960 ml Labs: Laboratory Tests Test 06/04/17 07:25 06/04/17 09:25 06/04/17 11:28 06/04/17 16:21 Glucose (Fingerstick) 147 mg/dL (70-99) H 189 mg/dL (70-99) H 166 mg/dL (70-99) H White Blood Count 7.3 x10^3/uL (4.0-11.0) Red Blood Count 4.88 x10^6/uL (3.50-5.40) Hemoglobin 14.4 g/dL (12.0-15.5) Hematocrit 42.3 % (36.0-47.0) Mean Corpuscular Volume 87 fL (79-100) Mean Corpuscular Hemoglobin 30 pg (25-35) Mean Corpuscular Hemoglobin Concent 34 g/dL (31-37) Red Cell Distribution Width 14.4 % (11.5-14.5) Platelet Count 228 x10^3/uL (140-400) Neutrophils (%) (Auto) 56 % (31-73) Lymphocytes (%) (Auto) 34 % (24-48) Monocytes (%) (Auto) 6 % (0-9) Eosinophils (%) (Auto) 3 % (0-3) Basophils (%) (Auto) 1 % (0-3) Neutrophils # (Auto) 4.1 x10^3uL (1.8-7.7) Lymphocytes # (Auto) 2.5 x10^3/uL (1.0-4.8) Monocytes # (Auto) 0.4 x10^3/uL (0.0-1.1) Eosinophils # (Auto) 0.2 x10^3/uL (0.0-0.7) Basophils # (Auto) 0.0 x10^3/uL (0.0-0.2) Sodium Level 139 mmol/L (136-145) Potassium Level 3.9 mmol/L (3.5-5.1) Chloride Level 101 mmol/L (98-107) Carbon Dioxide Level 31 mmol/L (21-32) Anion Gap 7 (6-14) Blood Urea Nitrogen 10 mg/dL (7-20) Creatinine 0.7 mg/dL (0.6-1.0) Estimated GFR (Cockcroft-Gault) 82.0 BUN/Creatinine Ratio 14 (6-20) Glucose Level 167 mg/dL (70-99) H Calcium Level 9.6 mg/dL (8.5-10.1) Total Bilirubin 0.6 mg/dL (0.2-1.0) Aspartate Amino Transferase (AST) 32 U/L (15-37) Alanine Aminotransferase (ALT) 32 U/L (14-59) Alkaline Phosphatase 143 U/L (46-116) H Total Protein 7.5 g/dL (6.4-8.2) Albumin 3.6 g/dL (3.4-5.0) Albumin/Globulin Ratio 0.9 (1.0-1.7) L Test 06/04/17 19:10 Glucose (Fingerstick) 141 mg/dL (70-99) H Current Medications: Meds: Current Medications Hydroxyzine Pamoate (Vistaril) 25 mg BID@0900,1300 PO Last administered on 06/04at 13:40; Start 05/28/17 at 09:00 Memantine (Namenda) 5 mg BID PO Last administered on 06/04/17at 21:24; Start 05/27/17 at 22:30 Hydroxyzine Pamoate (Vistaril) 50 mg QHS PO Last administered on 06/04/17at 21: 25; Start 05/27/17 at 22:30 Lamotrigine (LaMICtal) 200 mg HS PO Last administered on 05/28/17at 20:48; Start 05/27/17 at 22:30; Stop 05/29/17 at 09:53; Status DC Baclofen (Lioresal) 10 mg TID PO Last administered on 06/04/17 21:23; Start at 22:30 Enoxaparin Sodium (Lovenox) 40 mg QHS SQ Last administered on 05/28/17 20:47; Start 05/27/17 at 22:30; Stop 05/29/17 at 19:00; Status DC Gabapentin (Neurontin) 600 mg QHS PO Last administered on 06/04/17 21:24; Start 05/27/17 at 22:30 Pantoprazole Sodium (Protonix) 40 mg QPM PO Last administered on 06/04/17 17: 31; Start 05/28/17 at 18:00 Pilocarpine HCl (Salagen) 5 mg TID PO Last administered on 06/04/17 21:26; Start 05/27/17 at 22:30 Ropinirole HCl (Requip) 2 mg QHS PO Last administered on 06/04/17 21:24; Start 05/27/17 at 22:30 Calcium/Vitamin D (Oscal D 500mg/ 200uts) 1 tab BIDWMEALS PO Last administered on 06/04/17 17:31; Start 05/28/17 at 08:00 Fish Oil (Fish Oil) 2,000 mg BID PO Last administered on 06/04/17 21:24; Start 05/27/17 at 22:30 Oxybutynin Chloride (Ditropan) 5 mg BID PO Last administered on 06/04/17 21:24 ; Start 05/27/17 at 22:30 Atorvastatin Calcium (Lipitor) 80 mg QHS PO Last administered on 06/04/17 21: 25; Start 05/27/17 at 22:30 Acetaminophen (Tylenol) 650 mg PRN Q4HRS PRN PO PAIN / TEMP Last administered on 06/01/17 06:35; Start 05/28/17 at 07:30 Aspirin (Aspirin Enteric Coated) 81 mg DAILY PO Last administered on 06/04/17 08:03; Start 05/28/17 at 09:00 Bisacodyl (Dulcolax Supp) 10 mg PRN DAILY PRN RC CONSTIPATION; Start 05/28/17 at 07:30 Vitamin D (Vitamin D3) 2,000 unit DAILY PO Last administered on 06/04/17at 08:09 ; Start 05/28/17 at 09:00 Cyanocobalamin (Vitamin B-12) 1,000 mcg QODAY@1700 PO Last administered on 06/03at 17:18; Start 05/28/17 at 17:00 Docusate Sodium (Colace) 100 mg PRN BID PRN PO CONSTIPATION; Start 05/28/17 at 07:30; Stop 05/30/17 at 23:12; Status DC Gabapentin (Neurontin) 300 mg BID@0900,1300 PRN PO Neuropathy; Start 05/28/17 at 09:00; Stop 05/29/17 at 01:26; Status DC Acetaminophen/ Hydrocodone Bitart (Lortab 7.5/325) 1 tab PRN Q4HRS PRN PO PAIN Last administered on 06/03/17at 09:41; Start 05/28/17 at 07:30 Levothyroxine Sodium (Synthroid) 175 mcg DAILY06 PO Last administered on at 06:16; Start 05/28/17 at 08:00 Lisinopril (Prinivil) 2.5 mg DAILY PO Last administered on 06/04/17at 08:08; Start 05/28/17 at 09:00 Loperamide HCl (Imodium) 2 mg TID PRN PRN PO DIARRHEA; Start 05/28/17 at 07:30 Nystatin (Nystop) 1 gene PRN TID PRN TP RASH; Start 05/28/17 at 07:30 Polyethylene Glycol (miraLAX) 17 gm PRN DAILY PRN PO CONSTIPATION Last administered on 05/29/17at 10:36; Start 05/28/17 at 07:30 Tramadol HCl (Ultram) 50 mg PRN Q4HRS PRN PO PAIN Last administered on at 21:55; Start 05/28/17 at 07:30 Artificial Tears (Artificial Tears) 2 drop PRN BID PRN OU DRY EYE; Start at 08:00; Stop 05/28/17 at 14:31; Status DC Non-Formulary Medication (Dulaglutide (Trulicity)) 1.5 mg QTU SQ ; Start at 16:00; Status UNV Non-Formulary Medication (Insulin Degludec (Tresiba Flextouch U-200)) 90 unit DAILY SQ Last administered on 06/04/17at 08:00; Start 05/28/17 at 09:00 Multivitamins/ Calcium (Thera-M Plus) 1 tab DAILY PO Last administered on at 08:08; Start 05/28/17 at 09:00 Tetrahydrozoline HCl (Murine) 1 drop PRN QID PRN OU DRY EYE; Start 05/28/17 at 08:00; Stop 05/28/17 at 14:31; Status DC Throat Lozenges (Chloraseptic) 1 spray PRN Q4HRS PRN MM SORE THROAT; Start 01/05 at 08:00; Stop 05/28/17 at 14:31; Status DC Insulin Aspart (NovoLOG) 15 units TIDAC SQ Last administered on 06/04/17at 17:30 ; Start 05/28/17 at 11:30 Insulin Aspart (NovoLOG) 0-5 UNITS TIDWMEALS SQ Last administered on 06/04/17at 17:30; Start 05/28/17 at 12:00 Fosfomycin Tromethamine (Monurol) 3 gm 1X ONCE PO ; Start 05/28/17 at 12:45; Stop 05/28/17 at 12:46; Status DC Fosfomycin Tromethamine (Monurol) 3 gm 1X ONCE PO Last administered on at 13:42; Start 05/28/17 at 14:00; Stop 05/28/17 at 14:01; Status DC Throat Lozenges (Chloraseptic) 1 spray PRN Q4HRS PRN MM SORE THROAT Last administered on 05/31/17at 05:28; Start 05/28/17 at 14:31 Artificial Tears (Artificial Tears) 2 drop PRN BID PRN OU DRY EYE Last administered on 05/31/17at 21:48; Start 05/28/17 at 14:31 Tetrahydrozoline HCl (Murine) 1 drop PRN QID PRN OU DRY EYE; Start 05/28/17 at 14:31; Stop 05/31/17 at 19:31; Status DC Gabapentin (Neurontin) 300 mg BID@0900,1300 PO Last administered on 06/04/17at 13:40; Start 05/29/17 at 09:00 Lamotrigine (LaMICtal) 250 mg HS PO Last administered on 06/04/17 21:25; Start 05/29/17 at 21:00 Bupropion HCl (Wellbutrin Xl) 150 mg DAILY PO Last administered on 05/31/17at 08 :32; Start 05/29/17 at 10:30; Stop 05/31/17 at 17:04; Status DC Magnesium Hydroxide (Milk Of Magnesia) 2,400 mg PRN DAILY PRN PO CONSTIPATION Last administered on 05/29/17at 20:51; Start 05/29/17 at 20:45 Mirtazapine (Remeron) 7.5 mg QHS PO Last administered on 06/04/17 21:24; Start 05/30/17 at 21:00 Docusate Sodium (Colace) 100 mg BID PO Last administered on 06/04/17 21:25; Start 05/31/17 at 09:00 Bupropion HCl (Wellbutrin Xl) 300 mg DAILY PO Last administered on 06/04/17at 08 :09; Start 06/01/17 at 09:00 Melatonin 3 mg QHS PO Last administered on 06/01/17at 19:58; Start 05/31/17 at 21:00; Stop 06/02/17 at 10:09; Status DC Tetrahydrozoline HCl (Murine) 1 drop QID OU Last administered on 06/01/17at 08: 34; Start 05/31/17 at 21:00; Stop 06/01/17 at 17:24; Status DC Tetrahydrozoline HCl (Murine) 1 drop PRN QID PRN OU DRY EYE; Start 06/01/17 at 21:00 Melatonin 3 mg PRN QHS PRN PO insomnia; Start 06/02/17 at 21:00 Amoxicillin (Amoxil) 500 mg [id number] PO Last administered on 06/04/17at 21:24; Start 06/02/17 at 21:00 Lactobacillus Rhamnosus (Culturelle) 1 cap BID PO Last administered on at 21:24; Start 06/03/17 at 09:00 Active Scripts Active Reported Chloraseptic Max Julian (Phenol/Glycerin) 30 Ml Julian 1 Julian MM PRN Q4HRS PRN Miralax (Polyethylene Glycol 3350) 17 Gm Powd.pack 17 Gm PO PRN DAILY PRN Nystop (Nystatin) 60 Gm Powder 1 Gene TP PRN TID PRN Clear Eyes Itchy Eye Rlf Drops (Naphazoline Hcl/Zn Sulf/Gly) 15 Ml Drops 1 Drop OU PRN QID PRN Imodium A-D (Loperamide HCl) 2 Mg Capsule 2 Mg PO TID PRN PRN Colace (Docusate Sodium) 100 Mg Capsule 100 Mg PO PRN BID PRN Refresh Optive Eye Drops (Carboxymethylcellulos/Glycerin) 15 Ml Drops 2 Drop OU PRN BID PRN Bisacodyl 10 Mg Supp.rect 10 Mg RC PRN DAILY PRN Belladonna-Opium 16.2-30 Supp (Opium/Belladonna Alkaloids) 1 Each Supp.rect 1 Supp RC PRN Q12HR PRN Hydrocodone-Apap 7.5-325 (Hydrocodone Bit/Acetaminophen) 1 Each Tablet 1 Tab PO PRN Q4HRS PRN Tylenol (Acetaminophen) 325 Mg Tablet 650 Mg PO PRN Q4HRS PRN Tramadol Hcl (Tramadol HCl) 50 Mg Tablet 50 Mg PO PRN Q4HRS PRN Crestor (Rosuvastatin Calcium) 40 Mg Tablet 40 Mg PO HS Requip (Ropinirole Hcl) 1 Mg Tablet 2 Mg PO QHS [place]arp[place] Hcl 5 Mg Tablet 5 Mg PO TID Pantoprazole Sodium 40 Mg Tablet.dr 40 Mg PO QPM Oxybutynin Chloride Er (Oxybutynin Chloride) 10 Mg Tab.er.24 10 Mg PO QHS Multivitamins (Multivitamin) 1 Each Tablet 1 Tab PO DAILY Namenda (Memantine Hcl) 5 Mg Tablet 5 Mg PO BID Lisinopril 2.5 Mg Tablet 2.5 Mg PO DAILY Linzess (Linaclotide) 145 Mcg Capsule 145 Mcg PO DAILY Levothyroxine Sodium 175 Mcg Tablet 175 Mcg PO DAILY07 Lamictal (Lamotrigine) 200 Mg Tablet 200 Mg PO QHS Ketoconazole 120 Ml Shampoo 120 Ml TP Q3DAYS Tresiba Flextouch U-200 (Insulin Degludec) 200 Unit/1 Ml Insuln.pen 90 Unit SQ DAILY Novolog Flexpen (Insulin Aspart) 100 Unit/1 Ml Insuln.pen 0-10 Unit SQ TIDWMEALS Hydroxyzine Pamoate 50 Mg Capsule 50 Mg PO QHS Hydroxyzine Pamoate 25 Mg Capsule 25 Mg PO BID@0900,1300 Neurontin (Gabapentin) 300 Mg Capsule 300 Mg PO BID@0900,1300 Neurontin (Gabapentin) 300 Mg Capsule 600 Mg PO QHS [place] 3 1,000 Mg Softgel ([place]-3 Fatty Acids/Fish Oil) 1 Each Capsule 2,000 Mg PO BID Lovenox (Enoxaparin Sodium) 40 Mg/0.4 Ml Disp.syrin 40 Mg SQ QHS Trulicity (Dulaglutide) 1.5 Mg/0.5 Ml Pen.injctr 1.5 Mg SQ QTU Vitamin B-12 (Cyanocobalamin (Vitamin B-12)) 1,000 Mcg Tablet 1,000 Mcg PO QODAY @1700 Vitamin D3 (Cholecalciferol (Vitamin D3)) 1,000 Unit Tablet 2,000 Unit PO DAILY Calcium 600 + Vit D 400 Tablet (Calcium Carbonate/Vitamin D3) 1 Each Tablet 1 Tab PO BID Baclofen 10 Mg Tablet 10 Mg PO TID Aspir-Low (Aspirin) 81 Mg Tablet. 81 Mg PO DAILY I have reviewed the current psychotropics carefully including drug interactions. Risk benefit ratio favors no change other than as noted in my dictated progress note. Diagnosis: Problems: (1) Bipolar affective, mixed, sev w/ psych (2) Anxiety disorder (3) Major depressive disorder, recurrent episode KURT DUARTE MD Jun 04, 2017 22:52
--- NOTE | 2017-06-04 23:41 | PN ---
DATE: 06/02/2017 This is a late entry, 06/02/2017, covers the elements not covered in my initial note, 06/02/2017. SUBJECTIVE: The patient was staffed at the treatment team meeting with the entire team in the morning and seen individually in her room at some length in the evening. She is quite suspicious of her medications, checking, rechecking, and again checking with the nursing staff before she takes any medications, only takes them if they are still in the packing. She did take the melatonin the previous evening, complains of being dizzy with that. Refuses to take anymore and we will change it to p.r.n. Get suspicious belief people are going into her room, no one is . We discussed adding Seroquel, but she is not agreeable to it as I processed with her at length individually and nursing staff did as well. REVIEW OF SYSTEMS: No CV, , pulmonary, eye system symptoms on review. MENTAL STATUS EXAM: Reasonably oriented. Speech coherent, abstraction fair, computation impaired, language function intact. Mood and affect somewhat anxious, labile, slightly obsessive at times. LABORATORY DATA: Reviewed. IMPRESSION: Unchanged from initial note. PLAN: No change from an initial note. Seroquel has been refused and melatonin will be changed to as needed. KURT DUARTE MD DR: ROMA/jayro JOB#: [id number] / [id number]
[2017-06-05] MEDS: LEVOTHYROXINE 175 MCG TABLET PO SCH (05:57)
[2017-06-05 06:03] VITALS: BP 137/53
--- NOTE | 2017-06-05 07:42 | PN ---
DATE: 06/03/2017 This late entry, 06/03/2017, covers elements not covered in my initial note of 06/03/2017. SUBJECTIVE: The patient slept 4-1/2 hours previous evening. Has been demanding, anxious, repeatedly wants to know about her medications, questions the menu of the food, manipulative per nursing staff, interactive with another demented patient. Does have UTI, started on Amoxil. REVIEW OF SYSTEMS: No CV, , pulmonary, eye system symptoms on review. MENTAL STATUS EXAM: Reasonably oriented. Speech is coherent, abstraction fair, computation impaired, language function intact. Attention span short. Mood and affect still somewhat anxious, labile, but showing improvement. LABORATORY DATA: Reviewed. IMPRESSION: Major depressive disorder, recurrent; anxiety disorder, unspecified; urinary tract infection. Rest unchanged. PLAN: Treat the UTI. Continue rest unchanged per initial note. MAN Ellis DUARTE MD DR: ROMA/jayro JOB#: [id number] / [id number]
[2017-06-05] MEDS: INSULIN ASPART 300 UNITS/3 ML INSULN.PEN SQ SCH ×6 (08:00→17:32)
[2017-06-05] MEDS: buPROPion XL 300 MG TAB.ER.24H. PO SCH (09:31)
[2017-06-05] MEDS: AMOXICILLIN 250 MG CAPSULE PO SCH ×3 (09:31→19:51)
[2017-06-05] MEDS: MEMANTINE 5 MG TABLET. PO SCH ×2 (09:32→19:53)
[2017-06-05] MEDS: hydrOXYzine PAMOATE 25 MG CAPSULE PO SCH ×3 (09:32→19:53)
[2017-06-05] MEDS: OMEGA-3 FATTY ACIDS/FISH OIL 1,000 MG CAPSULE. PO SCH ×2 (09:32→19:51)
[2017-06-05] MEDS: LACTOBACILLUS RHAMNOSUS GG 1 CAPSULE. PO SCH ×2 (09:32→19:52)
[2017-06-05] MEDS: OXYBUTYNIN CHLORIDE 5 MG TABLET PO SCH ×2 (09:32→19:54)
[2017-06-05] MEDS: CHOLECALCIFEROL (VITAMIN D3) 1,000 UNIT TABLET PO SCH (09:32)
[2017-06-05] MEDS: MULTIVITAMIN with MINERAL TABLET. PO SCH (09:32)
[2017-06-05] MEDS: LISINOPRIL 2.5 MG TABLET PO SCH (09:33)
[2017-06-05] MEDS: CALCIUM CARB/VIT D3 500/200 TABLET PO SCH ×2 (09:33→17:30)
[2017-06-05] MEDS: DOCUSATE SODIUM 100 MG CAPSULE PO SCH ×2 (09:33→19:53)
[2017-06-05] MEDS: BACLOFEN 10 MG TABLET PO SCH ×3 (09:33→19:53)
[2017-06-05] MEDS: ASPIRIN ENTERIC COATED 81 MG TABLET.DR. PO SCH (09:33)
[2017-06-05] MEDS: GABAPENTIN 300 MG CAPSULE. PO SCH ×3 (09:33→19:52)
[2017-06-05] MEDS: PILOCARPINE 5 MG TABLET. PO SCH ×3 (09:35→19:57)
[2017-06-05] MEDS: LINACLOTIDE 145 MCG CAPSULE. PO SCH (09:36)
[2017-06-05] MEDS: traMADol 50 MG TABLET PO PRN (10:09)
[2017-06-05] MEDS: POLYVINYL ALCOHOL 1.4% OPHTH SOLUTION 15ML BOTTLE. OU PRN (10:09)
--- NOTE | 2017-06-05 12:53 | RAD ---
Ultrasound venous Doppler Indication:left lower extremity swelling Technique: Grayscale, color Doppler and spectral waveform ultrasound images of the left lower extremity deep veins. Comparison: None Findings: The interrogated lower extremity veins are compressible and demonstrate evidence of blood flow with normal respiratory variation and response to augmentation. Impression: No sonographic evidence of acute DVT of the interrogated lower extremity deep veins.
[2017-06-05] MEDS: HYDROcodone/APAP 7.5/325MG 1 TAB TABLET PO PRN (15:52)
[2017-06-05 16:07] VITALS: BP 116/64
[2017-06-05] MEDS: CYANOCOBALAMIN (VITAMIN B-12) 1,000 MCG TABLET. PO SCH (17:30)
[2017-06-05] MEDS: PANTOPRAZOLE 40 MG TABLET. PO SCH (17:30)
[2017-06-05] MEDS: lamoTRIgine 100 MG TABLET. PO SCH (19:52)
[2017-06-05] MEDS: rOPINIRole 2 MG TABLET. PO SCH (19:52)
[2017-06-05] MEDS: ATORVASTATIN CALCIUM 20 MG TABLET PO SCH (19:52)
[2017-06-05] MEDS: MIRTAZAPINE 7.5 MG TABLET. PO SCH (19:53)
--- NOTE | 2017-06-05 20:51 | PDOC ---
Exam Note: Jens Note: Please also refer to the separate dictated note~for this date of service dictated separately.~Patient seen individually. Discussed the patient with Nursing staff reviewed the chart.~Reviewed interim history and current functioning. Reviewed vital signs,~Labs/ Radiology~and current medications noted below. Continue current treatment with the changes noted in the dictated addendum note Assessment: Vital Signs: Vital Signs Date Time Temp Pulse Resp B/P (MAP) Pulse Ox O2 Delivery O2 Flow Rate FiO2 06/05/17 17:40 16 99 06/05/17 16:07 97.7 86 116/64 (81) 06/04/17 22:55 Room Air I&O Intake and Output 06/05/17 07:00 Intake Total 600 ml Balance 600 ml Intake Oral 600 ml Labs: Laboratory Tests Test 06/05/17 07:28 06/05/17 12:32 06/05/17 17:19 06/05/17 19:15 Glucose (Fingerstick) 111 mg/dL (70-99) H 122 mg/dL (70-99) H 128 mg/dL (70-99) H 124 mg/dL (70-99) H Current Medications: Meds: Current Medications Hydroxyzine Pamoate (Vistaril) 25 mg BID@0900,1300 PO Last administered on 06/05at 12:25; Start 05/28/17 at 09:00 Memantine (Namenda) 5 mg BID PO Last administered on 06/05/17at 19:53; Start 05/27/17 at 22:30 Hydroxyzine Pamoate (Vistaril) 50 mg QHS PO Last administered on 06/05/17 19: 53; Start 05/27/17 at 22:30 Lamotrigine (LaMICtal) 200 mg HS PO Last administered on 05/28/17 20:48; Start 05/27/17 at 22:30; Stop 05/29/17 at 09:53; Status DC Baclofen (Lioresal) 10 mg TID PO Last administered on 06/05/17 19:53; Start at 22:30 Enoxaparin Sodium (Lovenox) 40 mg QHS SQ Last administered on 05/28/17at 20:47; Start 05/27/17 at 22:30; Stop 05/29/17 at 19:00; Status DC Gabapentin (Neurontin) 600 mg QHS PO Last administered on 06/05/17 19:52; Start 05/27/17 at 22:30 Pantoprazole Sodium (Protonix) 40 mg QPM PO Last administered on 06/05/17 17: 30; Start 05/28/17 at 18:00 Pilocarpine HCl (Salagen) 5 mg TID PO Last administered on 06/05/17 19:57; Start 05/27/17 at 22:30 Ropinirole HCl (Requip) 2 mg QHS PO Last administered on 06/05/17 19:52; Start 05/27/17 at 22:30 Calcium/Vitamin D (Oscal D 500mg/ 200uts) 1 tab BIDWMEALS PO Last administered on 06/05/17 17:30; Start 05/28/17 at 08:00 Fish Oil (Fish Oil) 2,000 mg BID PO Last administered on 06/05/17 19:51; Start 05/27/17 at 22:30 Oxybutynin Chloride (Ditropan) 5 mg BID PO Last administered on 06/05/17 19:54 ; Start 05/27/17 at 22:30 Atorvastatin Calcium (Lipitor) 80 mg QHS PO Last administered on 06/05/17 19: 52; Start 05/27/17 at 22:30 Acetaminophen (Tylenol) 650 mg PRN Q4HRS PRN PO PAIN / TEMP Last administered on 06/01/17at 06:35; Start 05/28/17 at 07:30 Aspirin (Aspirin Enteric Coated) 81 mg DAILY PO Last administered on 06/05/17at 09:33; Start 05/28/17 at 09:00 Bisacodyl (Dulcolax Supp) 10 mg PRN DAILY PRN RC CONSTIPATION; Start 05/28/17 at 07:30 Vitamin D (Vitamin D3) 2,000 unit DAILY PO Last administered on 06/05/17at 09:32 ; Start 05/28/17 at 09:00 Cyanocobalamin (Vitamin B-12) 1,000 mcg QODAY@1700 PO Last administered on 06/05 17:30; Start 05/28/17 at 17:00 Docusate Sodium (Colace) 100 mg PRN BID PRN PO CONSTIPATION; Start 05/28/17 at 07:30; Stop 05/30/17 at 23:12; Status DC Gabapentin (Neurontin) 300 mg BID@0900,1300 PRN PO Neuropathy; Start 05/28/17 at 09:00; Stop 05/29/17 at 01:26; Status DC Acetaminophen/ Hydrocodone Bitart (Lortab 7.5/325) 1 tab PRN Q4HRS PRN PO PAIN Last administered on 06/05/17at 15:52; Start 05/28/17 at 07:30 Levothyroxine Sodium (Synthroid) 175 mcg DAILY06 PO Last administered on at 05:57; Start 05/28/17 at 08:00 Lisinopril (Prinivil) 2.5 mg DAILY PO Last administered on 06/05/17at 09:33; Start 05/28/17 at 09:00 Loperamide HCl (Imodium) 2 mg TID PRN PRN PO DIARRHEA; Start 05/28/17 at 07:30 Nystatin (Nystop) 1 gene PRN TID PRN TP RASH; Start 05/28/17 at 07:30 Polyethylene Glycol (miraLAX) 17 gm PRN DAILY PRN PO CONSTIPATION Last administered on 05/29/17at 10:36; Start 05/28/17 at 07:30 Tramadol HCl (Ultram) 50 mg PRN Q4HRS PRN PO PAIN Last administered on at 10:09; Start 05/28/17 at 07:30 Artificial Tears (Artificial Tears) 2 drop PRN BID PRN OU DRY EYE; Start at 08:00; Stop 05/28/17 at 14:31; Status DC Non-Formulary Medication (Dulaglutide (Trulicity)) 1.5 mg QTU SQ ; Start at 16:00; Status UNV Non-Formulary Medication (Insulin Degludec (Tresiba Flextouch U-200)) 90 unit DAILY SQ Last administered on 06/05/17at 09:43; Start 05/28/17 at 09:00 Multivitamins/ Calcium (Thera-M Plus) 1 tab DAILY PO Last administered on at 09:32; Start 05/28/17 at 09:00 Tetrahydrozoline HCl (Murine) 1 drop PRN QID PRN OU DRY EYE; Start 05/28/17 at 08:00; Stop 05/28/17 at 14:31; Status DC Throat Lozenges (Chloraseptic) 1 spray PRN Q4HRS PRN MM SORE THROAT; Start 01/05 at 08:00; Stop 05/28/17 at 14:31; Status DC Insulin Aspart (NovoLOG) 15 units TIDAC SQ Last administered on 06/05/17at 17:32 ; Start 05/28/17 at 11:30 Insulin Aspart (NovoLOG) 0-5 UNITS TIDWMEALS SQ Last administered on 06/04/17at 17:30; Start 05/28/17 at 12:00 Fosfomycin Tromethamine (Monurol) 3 gm 1X ONCE PO ; Start 05/28/17 at 12:45; Stop 05/28/17 at 12:46; Status DC Fosfomycin Tromethamine (Monurol) 3 gm 1X ONCE PO Last administered on at 13:42; Start 05/28/17 at 14:00; Stop 05/28/17 at 14:01; Status DC Throat Lozenges (Chloraseptic) 1 spray PRN Q4HRS PRN MM SORE THROAT Last administered on 05/31/17at 05:28; Start 05/28/17 at 14:31 Artificial Tears (Artificial Tears) 2 drop PRN BID PRN OU DRY EYE Last administered on 06/05/17at 10:09; Start 05/28/17 at 14:31 Tetrahydrozoline HCl (Murine) 1 drop PRN QID PRN OU DRY EYE; Start 05/28/17 at 14:31; Stop 05/31/17 at 19:31; Status DC Gabapentin (Neurontin) 300 mg BID@0900,1300 PO Last administered on 06/05/17at 12:25; Start 05/29/17 at 09:00 Lamotrigine (LaMICtal) 250 mg HS PO Last administered on 06/05/17at 19:52; Start 05/29/17 at 21:00 Bupropion HCl (Wellbutrin Xl) 150 mg DAILY PO Last administered on 05/31/17at 08 :32; Start 05/29/17 at 10:30; Stop 05/31/17 at 17:04; Status DC Magnesium Hydroxide (Milk Of Magnesia) 2,400 mg PRN DAILY PRN PO CONSTIPATION Last administered on 05/29/17at 20:51; Start 05/29/17 at 20:45 Mirtazapine (Remeron) 7.5 mg QHS PO Last administered on 06/05/17 19:53; Start 05/30/17 at 21:00 Docusate Sodium (Colace) 100 mg BID PO Last administered on 06/05/17 19:53; Start 05/31/17 at 09:00 Bupropion HCl (Wellbutrin Xl) 300 mg DAILY PO Last administered on 06/05/17 09 :31; Start 06/01/17 at 09:00 Melatonin 3 mg QHS PO Last administered on 06/01/17 19:58; Start 05/31/17 at 21:00; Stop 06/02/17 at 10:09; Status DC Tetrahydrozoline HCl (Murine) 1 drop QID OU Last administered on 06/01/17at 08: 34; Start 05/31/17 at 21:00; Stop 06/01/17 at 17:24; Status DC Tetrahydrozoline HCl (Murine) 1 drop PRN QID PRN OU DRY EYE; Start 06/01/17 at 21:00 Melatonin 3 mg PRN QHS PRN PO insomnia; Start 06/02/17 at 21:00 Amoxicillin (Amoxil) 500 mg [id number] PO Last administered on 06/05/17 19:51; Start 06/02/17 at 21:00 Lactobacillus Rhamnosus (Culturelle) 1 cap BID PO Last administered on 19:52; Start 06/03/17 at 09:00 Active Scripts Active Reported Chloraseptic Max [place] (Phenol/Glycerin) 30 Ml [place] 1 [place] MM PRN Q4HRS PRN Miralax (Polyethylene Glycol 3350) 17 Gm Powd.pack 17 Gm PO PRN DAILY PRN Nystop (Nystatin) 60 Gm Powder 1 Gene TP PRN TID PRN Clear Eyes Itchy Eye Rlf Drops (Naphazoline Hcl/Zn Sulf/Gly) 15 Ml Drops 1 Drop OU PRN QID PRN Imodium A-D (Loperamide HCl) 2 Mg Capsule 2 Mg PO TID PRN PRN Colace (Docusate Sodium) 100 Mg Capsule 100 Mg PO PRN BID PRN Refresh Optive Eye Drops (Carboxymethylcellulos/Glycerin) 15 Ml Drops 2 Drop OU PRN BID PRN Bisacodyl 10 Mg Supp.rect 10 Mg RC PRN DAILY PRN Belladonna-Opium 16.2-30 Supp (Opium/Belladonna Alkaloids) 1 Each Supp.rect 1 Supp RC PRN Q12HR PRN Hydrocodone-Apap 7.5-325 (Hydrocodone Bit/Acetaminophen) 1 Each Tablet 1 Tab PO PRN Q4HRS PRN Tylenol (Acetaminophen) 325 Mg Tablet 650 Mg PO PRN Q4HRS PRN Tramadol Hcl (Tramadol HCl) 50 Mg Tablet 50 Mg PO PRN Q4HRS PRN Crestor (Rosuvastatin Calcium) 40 Mg Tablet 40 Mg PO HS Requip (Ropinirole Hcl) 1 Mg Tablet 2 Mg PO QHS [place] Hcl 5 Mg Tablet 5 Mg PO TID Pantoprazole Sodium 40 Mg Tablet.dr 40 Mg PO QPM Oxybutynin Chloride Er (Oxybutynin Chloride) 10 Mg Tab.er.24 10 Mg PO QHS Multivitamins (Multivitamin) 1 Each Tablet 1 Tab PO DAILY Namenda (Memantine Hcl) 5 Mg Tablet 5 Mg PO BID Lisinopril 2.5 Mg Tablet 2.5 Mg PO DAILY Linzess (Linaclotide) 145 Mcg Capsule 145 Mcg PO DAILY Levothyroxine Sodium 175 Mcg Tablet 175 Mcg PO DAILY07 Lamictal (Lamotrigine) 200 Mg Tablet 200 Mg PO QHS Ketoconazole 120 Ml Shampoo 120 Ml TP Q3DAYS Tresiba Flextouch U-200 (Insulin Degludec) 200 Unit/1 Ml Insuln.pen 90 Unit SQ DAILY Novolog Flexpen (Insulin Aspart) 100 Unit/1 Ml Insuln.pen 0-10 Unit SQ TIDWMEALS Hydroxyzine Pamoate 50 Mg Capsule 50 Mg PO QHS Hydroxyzine Pamoate 25 Mg Capsule 25 Mg PO BID@0900,1300 Neurontin (Gabapentin) 300 Mg Capsule 300 Mg PO BID@0900,1300 Neurontin (Gabapentin) 300 Mg Capsule 600 Mg PO QHS [place] 3 1,000 Mg Softgel ([place]-3 Fatty Acids/Fish Oil) 1 Each Capsule 2,000 Mg PO BID Lovenox (Enoxaparin Sodium) 40 Mg/0.4 Ml Disp.syrin 40 Mg SQ QHS Trulicity (Dulaglutide) 1.5 Mg/0.5 Ml Pen.injctr 1.5 Mg SQ QTU Vitamin B-12 (Cyanocobalamin (Vitamin B-12)) 1,000 Mcg Tablet 1,000 Mcg PO QODAY @1700 Vitamin D3 (Cholecalciferol (Vitamin D3)) 1,000 Unit Tablet 2,000 Unit PO DAILY Calcium 600 + Vit D 400 Tablet (Calcium Carbonate/Vitamin D3) 1 Each Tablet 1 Tab PO BID Baclofen 10 Mg Tablet 10 Mg PO TID Aspir-Low (Aspirin) 81 Mg Tablet. 81 Mg PO DAILY I have reviewed the current psychotropics carefully including drug interactions. Risk benefit ratio favors no change other than as noted in my dictated progress note. Diagnosis: Problems: (1) Bipolar affective, mixed, sev w/ psych (2) Anxiety disorder (3) Major depressive disorder, recurrent episode KURT DUARTE MD Jun 05, 2017 20:51
--- NOTE | 2017-06-05 21:31 | PN ---
DATE: 06/04/2017 PSYCHIATRIC PROGRESS NOTE This late entry 06/04/2017 covers elements not covered in my initial note of 06/04/2017. SUBJECTIVE: Met with the patient at length in her room. The patient did well. The previous evening had a good day, per nursing report, less withdrawn, coming out more for groups, less irritable, still little anxious, obsessive, but we processed this during the individual visit. She was very appreciative of me sitting down with her, somewhat ruminative about being at the same level then we talked and prefers to not feel intimidated. We processed how her perception of certain situations might make her interpretation of the situations much worse than they are and she showed some insight. REVIEW OF SYSTEMS: No CV, , pulmonary, eye system symptoms on review. MENTAL STATUS EXAM: Reasonably oriented. Speech is coherent, abstraction fair, computation impaired, language function intact, attention is span short. Mood and affect is improved. IMPRESSION: Major depressive disorder, recurrent, in partial remission; anxiety disorder, unspecified. PLAN: Continue psychotropics mentioned in my initial note. MAN Ellis DUARTE MD DR: ROMA/jayro JOB#: [id number] / [id number]
[2017-06-06] MEDS: HYDROcodone/APAP 7.5/325MG 1 TAB TABLET PO PRN ×2 (02:19→15:32)
[2017-06-06] MEDS: LEVOTHYROXINE 175 MCG TABLET PO SCH (05:50)
[2017-06-06 06:18] VITALS: BP 134/72
[2017-06-06] MEDS: INSULIN ASPART 300 UNITS/3 ML INSULN.PEN SQ SCH ×6 (08:00→17:10)
--- NOTE | 2017-06-06 08:35 | RAD ---
Left ankle, 3 views, 06/06/2017: History: Ankle swelling There is mild patchy bony demineralization. No fracture or dislocation is identified. There is mild spurring at the ankle joint. Mild degenerative changes are present midfoot level. There is a small inferior calcaneal spur. Moderate diffuse soft tissue swelling is present. IMPRESSION: 1. Mild degenerative change. 2. No acute bony abnormality is detected.
[2017-06-06] MEDS: CHOLECALCIFEROL (VITAMIN D3) 1,000 UNIT TABLET PO SCH (08:55)
[2017-06-06] MEDS: CALCIUM CARB/VIT D3 500/200 TABLET PO SCH ×2 (08:55→16:59)
[2017-06-06] MEDS: OMEGA-3 FATTY ACIDS/FISH OIL 1,000 MG CAPSULE. PO SCH ×2 (08:55→19:24)
[2017-06-06] MEDS: AMOXICILLIN 250 MG CAPSULE PO SCH ×3 (08:55→19:23)
[2017-06-06] MEDS: GABAPENTIN 300 MG CAPSULE. PO SCH ×3 (08:56→19:25)
[2017-06-06] MEDS: BACLOFEN 10 MG TABLET PO SCH ×3 (08:56→19:25)
[2017-06-06] MEDS: MULTIVITAMIN with MINERAL TABLET. PO SCH (08:56)
[2017-06-06] MEDS: DOCUSATE SODIUM 100 MG CAPSULE PO SCH ×2 (08:56→19:23)
[2017-06-06] MEDS: MEMANTINE 5 MG TABLET. PO SCH ×2 (08:56→19:25)
[2017-06-06] MEDS: OXYBUTYNIN CHLORIDE 5 MG TABLET PO SCH ×2 (08:56→19:23)
[2017-06-06] MEDS: ASPIRIN ENTERIC COATED 81 MG TABLET.DR. PO SCH (08:56)
[2017-06-06] MEDS: hydrOXYzine PAMOATE 25 MG CAPSULE PO SCH ×3 (08:56→19:26)
[2017-06-06] MEDS: buPROPion XL 300 MG TAB.ER.24H. PO SCH (08:56)
[2017-06-06] MEDS: LISINOPRIL 2.5 MG TABLET PO SCH (08:57)
[2017-06-06] MEDS: LINACLOTIDE 145 MCG CAPSULE. PO SCH (08:57)
[2017-06-06] MEDS: PILOCARPINE 5 MG TABLET. PO SCH ×3 (08:57→19:26)
[2017-06-06] MEDS: LACTOBACILLUS RHAMNOSUS GG 1 CAPSULE. PO SCH ×2 (09:03→19:23)
[2017-06-06 15:18] VITALS: BP 121/80
[2017-06-06] MEDS: PANTOPRAZOLE 40 MG TABLET. PO SCH (17:51)
[2017-06-06] MEDS: lamoTRIgine 100 MG TABLET. PO SCH (19:25)
[2017-06-06] MEDS: rOPINIRole 2 MG TABLET. PO SCH (19:25)
[2017-06-06] MEDS: ATORVASTATIN CALCIUM 20 MG TABLET PO SCH (19:25)
[2017-06-06] MEDS: MIRTAZAPINE 7.5 MG TABLET. PO SCH (19:25)
--- NOTE | 2017-06-06 20:42 | PN ---
DATE: 06/05/2017 This is a late entry for 06/05/2017 and covers the elements not covered in my initial note of 06/05/2017. SUBJECTIVE: I met with the patient in the evening of 06/05/2017 at length in her room. The patient had a reasonable day, but in the evening she was extremely agitated, angry, upset at staff for having brought everyone into the day room for medication administration. She felt this was totally unfair, they should come to her room and given her medications. She did have lower extremity Doppler per Dr. Ramirez for VTE and this is negative. She does complain of swelling, left ankle. We will have an x-ray done. REVIEW OF SYSTEMS: Ambulation impaired. No CV, , pulmonary, eye system symptoms on review. MENTAL STATUS EXAM: Reasonably oriented. Speech is coherent, very verbal, angry, labile initially during the visit, much calmer at the end. Abstraction fair, computation impaired, language function intact. Mood and affect remains labile. LABORATORY DATA: Reviewed. IMPRESSION: Unchanged from initial note. PLAN: Continue current psychotropics and x-ray as noted. MAN Ellis DUARTE MD DR: ROMA/jayro JOB#: [id number] / [id number]
--- NOTE | 2017-06-06 20:59 | PDOC ---
Exam Note: Jens Note: Please also refer to the separate dictated note~for this date of service dictated separately.~Patient seen individually. Discussed the patient with Nursing staff reviewed the chart.~Reviewed interim history and current functioning. Reviewed vital signs,~Labs/ Radiology~and current medications noted below. Continue current treatment with the changes noted in the dictated addendum note Assessment: Vital Signs: Vital Signs Date Time Temp Pulse Resp B/P (MAP) Pulse Ox O2 Delivery O2 Flow Rate FiO2 06/06/17 17:46 16 97 06/06/17 15:18 96.9 79 121/80 (94) Room Air I&O Intake and Output 06/06/17 07:00 Intake Total 1320 ml Balance 1320 ml Intake Oral 1320 ml # Bowel Movements 1 Labs: Laboratory Tests Test 06/06/17 07:23 06/06/17 11:46 06/06/17 16:28 06/06/17 19:17 Glucose (Fingerstick) 142 mg/dL (70-99) H 66 mg/dL (70-99) L 152 mg/dL (70-99) H 170 mg/dL (70-99) H Current Medications: Meds: Current Medications Hydroxyzine Pamoate (Vistaril) 25 mg BID@0900,1300 PO Last administered on 06/06at 12:36; Start 05/28/17 at 09:00 Memantine (Namenda) 5 mg BID PO Last administered on 06/06/17at 19:25; Start 05/27/17 at 22:30 Hydroxyzine Pamoate (Vistaril) 50 mg QHS PO Last administered on 06/06/17at 19: 26; Start 05/27/17 at 22:30 Lamotrigine (LaMICtal) 200 mg HS PO Last administered on 05/28/17 20:48; Start 05/27/17 at 22:30; Stop 05/29/17 at 09:53; Status DC Baclofen (Lioresal) 10 mg TID PO Last administered on 06/06/17at 19:25; Start at 22:30 Enoxaparin Sodium (Lovenox) 40 mg QHS SQ Last administered on 05/28/17at 20:47; Start 05/27/17 at 22:30; Stop 05/29/17 at 19:00; Status DC Gabapentin (Neurontin) 600 mg QHS PO Last administered on 06/06/17 19:25; Start 05/27/17 at 22:30 Pantoprazole Sodium (Protonix) 40 mg QPM PO Last administered on 06/06/17 17: 51; Start 05/28/17 at 18:00 Pilocarpine HCl (Salagen) 5 mg TID PO Last administered on 06/06/17 19:26; Start 05/27/17 at 22:30 Ropinirole HCl (Requip) 2 mg QHS PO Last administered on 06/06/17 19:25; Start 05/27/17 at 22:30 Calcium/Vitamin D (Oscal D 500mg/ 200uts) 1 tab BIDWMEALS PO Last administered on 06/06/17 16:59; Start 05/28/17 at 08:00 Fish Oil (Fish Oil) 2,000 mg BID PO Last administered on 06/06/17 19:24; Start 05/27/17 at 22:30 Oxybutynin Chloride (Ditropan) 5 mg BID PO Last administered on 06/06/17 19:23 ; Start 05/27/17 at 22:30 Atorvastatin Calcium (Lipitor) 80 mg QHS PO Last administered on 06/06/17 19: 25; Start 05/27/17 at 22:30 Acetaminophen (Tylenol) 650 mg PRN Q4HRS PRN PO PAIN / TEMP Last administered on 06/01/17 06:35; Start 05/28/17 at 07:30 Aspirin (Aspirin Enteric Coated) 81 mg DAILY PO Last administered on 06/06/17 08:56; Start 05/28/17 at 09:00 Bisacodyl (Dulcolax Supp) 10 mg PRN DAILY PRN RC CONSTIPATION; Start 05/28/17 at 07:30 Vitamin D (Vitamin D3) 2,000 unit DAILY PO Last administered on 06/06/17 08:55 ; Start 05/28/17 at 09:00 Cyanocobalamin (Vitamin B-12) 1,000 mcg QODAY@1700 PO Last administered on 06/05 17:30; Start 05/28/17 at 17:00 Docusate Sodium (Colace) 100 mg PRN BID PRN PO CONSTIPATION; Start 05/28/17 at 07:30; Stop 05/30/17 at 23:12; Status DC Gabapentin (Neurontin) 300 mg BID@0900,1300 PRN PO Neuropathy; Start 05/28/17 at 09:00; Stop 05/29/17 at 01:26; Status DC Acetaminophen/ Hydrocodone Bitart (Lortab 7.5/325) 1 tab PRN Q4HRS PRN PO PAIN Last administered on 06/06/17at 15:32; Start 05/28/17 at 07:30 Levothyroxine Sodium (Synthroid) 175 mcg DAILY06 PO Last administered on at 05:50; Start 05/28/17 at 08:00 Lisinopril (Prinivil) 2.5 mg DAILY PO Last administered on 06/06/17at 08:57; Start 05/28/17 at 09:00 Loperamide HCl (Imodium) 2 mg TID PRN PRN PO DIARRHEA; Start 05/28/17 at 07:30 Nystatin (Nystop) 1 gene PRN TID PRN TP RASH; Start 05/28/17 at 07:30 Polyethylene Glycol (miraLAX) 17 gm PRN DAILY PRN PO CONSTIPATION Last administered on 05/29/17at 10:36; Start 05/28/17 at 07:30 Tramadol HCl (Ultram) 50 mg PRN Q4HRS PRN PO PAIN Last administered on at 10:09; Start 05/28/17 at 07:30 Artificial Tears (Artificial Tears) 2 drop PRN BID PRN OU DRY EYE; Start at 08:00; Stop 05/28/17 at 14:31; Status DC Non-Formulary Medication (Dulaglutide (Trulicity)) 1.5 mg QTU SQ ; Start at 16:00; Status UNV Non-Formulary Medication (Insulin Degludec (Tresiba Flextouch U-200)) 90 unit DAILY SQ Last administered on 06/06/17at 09:04; Start 05/28/17 at 09:00 Multivitamins/ Calcium (Thera-M Plus) 1 tab DAILY PO Last administered on at 08:56; Start 05/28/17 at 09:00 Tetrahydrozoline HCl (Murine) 1 drop PRN QID PRN OU DRY EYE; Start 05/28/17 at 08:00; Stop 05/28/17 at 14:31; Status DC Throat Lozenges (Chloraseptic) 1 spray PRN Q4HRS PRN MM SORE THROAT; Start 01/05 at 08:00; Stop 05/28/17 at 14:31; Status DC Insulin Aspart (NovoLOG) 15 units TIDAC SQ Last administered on 06/06/17at 17:09 ; Start 05/28/17 at 11:30 Insulin Aspart (NovoLOG) 0-5 UNITS TIDWMEALS SQ Last administered on 06/06/17at 17:10; Start 05/28/17 at 12:00 Fosfomycin Tromethamine (Monurol) 3 gm 1X ONCE PO ; Start 05/28/17 at 12:45; Stop 05/28/17 at 12:46; Status DC Fosfomycin Tromethamine (Monurol) 3 gm 1X ONCE PO Last administered on at 13:42; Start 05/28/17 at 14:00; Stop 05/28/17 at 14:01; Status DC Throat Lozenges (Chloraseptic) 1 spray PRN Q4HRS PRN MM SORE THROAT Last administered on 05/31/17at 05:28; Start 05/28/17 at 14:31 Artificial Tears (Artificial Tears) 2 drop PRN BID PRN OU DRY EYE Last administered on 06/05/17at 10:09; Start 05/28/17 at 14:31 Tetrahydrozoline HCl (Murine) 1 drop PRN QID PRN OU DRY EYE; Start 05/28/17 at 14:31; Stop 05/31/17 at 19:31; Status DC Gabapentin (Neurontin) 300 mg BID@0900,1300 PO Last administered on 06/06/17at 12:36; Start 05/29/17 at 09:00 Lamotrigine (LaMICtal) 250 mg HS PO Last administered on 06/06/17at 19:25; Start 05/29/17 at 21:00 Bupropion HCl (Wellbutrin Xl) 150 mg DAILY PO Last administered on 05/31/17at 08 :32; Start 05/29/17 at 10:30; Stop 05/31/17 at 17:04; Status DC Magnesium Hydroxide (Milk Of Magnesia) 2,400 mg PRN DAILY PRN PO CONSTIPATION Last administered on 05/29/17at 20:51; Start 05/29/17 at 20:45 Mirtazapine (Remeron) 7.5 mg QHS PO Last administered on 06/06/17 19:25; Start 05/30/17 at 21:00 Docusate Sodium (Colace) 100 mg BID PO Last administered on 06/06/17 19:23; Start 05/31/17 at 09:00 Bupropion HCl (Wellbutrin Xl) 300 mg DAILY PO Last administered on 06/06/17 08 :56; Start 06/01/17 at 09:00 Melatonin 3 mg QHS PO Last administered on 06/01/17 19:58; Start 05/31/17 at 21:00; Stop 06/02/17 at 10:09; Status DC Tetrahydrozoline HCl (Murine) 1 drop QID OU Last administered on 06/01/17at 08: 34; Start 05/31/17 at 21:00; Stop 06/01/17 at 17:24; Status DC Tetrahydrozoline HCl (Murine) 1 drop PRN QID PRN OU DRY EYE; Start 06/01/17 at 21:00 Melatonin 3 mg PRN QHS PRN PO insomnia; Start 06/02/17 at 21:00 Amoxicillin (Amoxil) 500 mg PSH654 PO Last administered on 06/06/17 19:23; Start 06/02/17 at 21:00 Lactobacillus Rhamnosus (Culturelle) 1 cap BID PO Last administered on 19:23; Start 06/03/17 at 09:00 Active Scripts Active Reported Chloraseptic Max Dutton (Phenol/Glycerin) 30 Ml Dutton 1 Dutton MM PRN Q4HRS PRN Miralax (Polyethylene Glycol 3350) 17 Gm Powd.pack 17 Gm PO PRN DAILY PRN Nystop (Nystatin) 60 Gm Powder 1 Gene TP PRN TID PRN Clear Eyes Itchy Eye Rlf Drops (Naphazoline Hcl/Zn Sulf/Gly) 15 Ml Drops 1 Drop OU PRN QID PRN Imodium A-D (Loperamide HCl) 2 Mg Capsule 2 Mg PO TID PRN PRN Colace (Docusate Sodium) 100 Mg Capsule 100 Mg PO PRN BID PRN Refresh Optive Eye Drops (Carboxymethylcellulos/Glycerin) 15 Ml Drops 2 Drop OU PRN BID PRN Bisacodyl 10 Mg Supp.rect 10 Mg RC PRN DAILY PRN Belladonna-Opium 16.2-30 Supp (Opium/Belladonna Alkaloids) 1 Each Supp.rect 1 Supp RC PRN Q12HR PRN Hydrocodone-Apap 7.5-325 (Hydrocodone Bit/Acetaminophen) 1 Each Tablet 1 Tab PO PRN Q4HRS PRN Tylenol (Acetaminophen) 325 Mg Tablet 650 Mg PO PRN Q4HRS PRN Tramadol Hcl (Tramadol HCl) 50 Mg Tablet 50 Mg PO PRN Q4HRS PRN Crestor (Rosuvastatin Calcium) 40 Mg Tablet 40 Mg PO HS Requip (Ropinirole Hcl) 1 Mg Tablet 2 Mg PO QHS Pilocarpine Hcl 5 Mg Tablet 5 Mg PO TID Pantoprazole Sodium 40 Mg Tablet.dr 40 Mg PO QPM Oxybutynin Chloride Er (Oxybutynin Chloride) 10 Mg Tab.er.24 10 Mg PO QHS Multivitamins (Multivitamin) 1 Each Tablet 1 Tab PO DAILY Namenda (Memantine Hcl) 5 Mg Tablet 5 Mg PO BID Lisinopril 2.5 Mg Tablet 2.5 Mg PO DAILY Linzess (Linaclotide) 145 Mcg Capsule 145 Mcg PO DAILY Levothyroxine Sodium 175 Mcg Tablet 175 Mcg PO DAILY07 Lamictal (Lamotrigine) 200 Mg Tablet 200 Mg PO QHS Ketoconazole 120 Ml Shampoo 120 Ml TP Q3DAYS Tresiba Flextouch U-200 (Insulin Degludec) 200 Unit/1 Ml Insuln.pen 90 Unit SQ DAILY Novolog Flexpen (Insulin Aspart) 100 Unit/1 Ml Insuln.pen 0-10 Unit SQ TIDWMEALS Hydroxyzine Pamoate 50 Mg Capsule 50 Mg PO QHS Hydroxyzine Pamoate 25 Mg Capsule 25 Mg PO BID@0900,1300 Neurontin (Gabapentin) 300 Mg Capsule 300 Mg PO BID@0900,1300 Neurontin (Gabapentin) 300 Mg Capsule 600 Mg PO QHS Bryan 3 1,000 Mg Softgel (Bryan-3 Fatty Acids/Fish Oil) 1 Each Capsule 2,000 Mg PO BID Lovenox (Enoxaparin Sodium) 40 Mg/0.4 Ml Disp.syrin 40 Mg SQ QHS Trulicity (Dulaglutide) 1.5 Mg/0.5 Ml Pen.injctr 1.5 Mg SQ QTU Vitamin B-12 (Cyanocobalamin (Vitamin B-12)) 1,000 Mcg Tablet 1,000 Mcg PO QODAY @1700 Vitamin D3 (Cholecalciferol (Vitamin D3)) 1,000 Unit Tablet 2,000 Unit PO DAILY Calcium 600 + Vit D 400 Tablet (Calcium Carbonate/Vitamin D3) 1 Each Tablet 1 Tab PO BID Baclofen 10 Mg Tablet 10 Mg PO TID Aspir-Low (Aspirin) 81 Mg Tablet. 81 Mg PO DAILY I have reviewed the current psychotropics carefully including drug interactions. Risk benefit ratio favors no change other than as noted in my dictated progress note. Diagnosis: Problems: (1) Bipolar affective, mixed, sev w/ psych (2) Anxiety disorder (3) Major depressive disorder, recurrent episode KURT DUARTE MD Jun 06, 2017 20:59
[2017-06-07] MEDS: HYDROcodone/APAP 7.5/325MG 1 TAB TABLET PO PRN ×2 (00:17→22:38)
[2017-06-07] MEDS: traMADol 50 MG TABLET PO PRN (03:17)
[2017-06-07] MEDS: LEVOTHYROXINE 175 MCG TABLET PO SCH (05:41)
[2017-06-07 05:47] VITALS: BP 125/87
[2017-06-07 05:52] VITALS: BP 125/87
[2017-06-07 05:56] VITALS: BP 136/66
[2017-06-07] MEDS: INSULIN ASPART 300 UNITS/3 ML INSULN.PEN SQ SCH ×6 (08:00→16:59)
[2017-06-07] MEDS: AMOXICILLIN 250 MG CAPSULE PO SCH ×3 (08:47→19:29)
[2017-06-07] MEDS: LISINOPRIL 2.5 MG TABLET PO SCH (08:50)
[2017-06-07] MEDS: OMEGA-3 FATTY ACIDS/FISH OIL 1,000 MG CAPSULE. PO SCH ×2 (08:50→19:31)
[2017-06-07] MEDS: BACLOFEN 10 MG TABLET PO SCH ×3 (08:50→19:32)
[2017-06-07] MEDS: buPROPion XL 300 MG TAB.ER.24H. PO SCH (08:51)
[2017-06-07] MEDS: MEMANTINE 5 MG TABLET. PO SCH (08:51)
[2017-06-07] MEDS: ASPIRIN ENTERIC COATED 81 MG TABLET.DR. PO SCH (08:51)
[2017-06-07] MEDS: GABAPENTIN 300 MG CAPSULE. PO SCH ×3 (08:51→19:34)
[2017-06-07] MEDS: OXYBUTYNIN CHLORIDE 5 MG TABLET PO SCH ×2 (08:51→19:31)
[2017-06-07] MEDS: LACTOBACILLUS RHAMNOSUS GG 1 CAPSULE. PO SCH ×2 (08:51→19:30)
[2017-06-07] MEDS: DOCUSATE SODIUM 100 MG CAPSULE PO SCH ×2 (08:51→19:30)
[2017-06-07] MEDS: CALCIUM CARB/VIT D3 500/200 TABLET PO SCH ×2 (08:51→16:56)
[2017-06-07] MEDS: MULTIVITAMIN with MINERAL TABLET. PO SCH (08:51)
[2017-06-07] MEDS: hydrOXYzine PAMOATE 25 MG CAPSULE PO SCH ×3 (08:51→19:34)
[2017-06-07] MEDS: CHOLECALCIFEROL (VITAMIN D3) 1,000 UNIT TABLET PO SCH (08:51)
[2017-06-07] MEDS: PILOCARPINE 5 MG TABLET. PO SCH ×3 (08:52→19:36)
[2017-06-07] MEDS: LINACLOTIDE 145 MCG CAPSULE. PO SCH (08:52)
[2017-06-07 15:48] VITALS: BP 117/72
[2017-06-07] MEDS: NON FORMULARY ITEM (Dulaglutide (Trulicity) 1.5 MG) SQ SCH (15:57)
[2017-06-07] MEDS: CYANOCOBALAMIN (VITAMIN B-12) 1,000 MCG TABLET. PO SCH (16:56)
[2017-06-07] MEDS: PANTOPRAZOLE 40 MG TABLET. PO SCH (16:56)
--- NOTE | 2017-06-07 17:56 | PN ---
DATE: 06/06/2017 This is a late entry, 06/06/2017, covers the elements not covered in my initial note, 06/06/2017. SUBJECTIVE: I met with the patient in the evening of 06/06/2017. The patient is compliant with her medications per nursing report and assessments. Towards the evening per nursing report, she was somewhat rude. I met with her at length in her room and sat on her bed as part of the visit. Earlier in the day, I did also discussed with social service staff about possible returning home with [facility] services to be initiated after medicate comes through. The patient has been more cooperative on the unit. REVIEW OF SYSTEMS: No CV, , pulmonary, eye system symptoms on review. Ambulation impaired with a walker. MENTAL STATUS EXAM: Oriented, reasonably well. Speech is coherent, abstraction fair, computation somewhat impaired, language function intact, attention span short. Mood and affect is improved. No suicidal or homicidal ideation. LABORATORY DATA: Reviewed. IMPRESSION: Major depressive disorder with psychotic features; anxiety disorder, unspecified. PLAN: X-ray left ankle shows degenerative changes, no acute fracture. The patient is somewhat ruminating about getting records from Dr. Robel LYLE for her myasthenia Nursing staff informed me they have requested these records, none received so far as they do not have a record in the system. We will be recommending the patient follow up with a neurologist post-discharge anyway. We will continue current psychotropics as mentioned in my initial note. Transition plans being coordinated by social service staff with the patient. KURT DUARTE MD DR: ROMA/jayro JOB#: [id number] / [id number]
[2017-06-07] MEDS: SALIVA STIMULANT AGENT 44ML SPRAY BOTTLE. PO PRN (18:46)
[2017-06-07] MEDS: lamoTRIgine 100 MG TABLET. PO SCH (19:31)
[2017-06-07] MEDS: ATORVASTATIN CALCIUM 20 MG TABLET PO SCH (19:32)
[2017-06-07] MEDS: rOPINIRole 2 MG TABLET. PO SCH (19:34)
[2017-06-07] MEDS: MEMANTINE 10 MG TABLET. PO SCH (19:36)
[2017-06-07] MEDS: MIRTAZAPINE 15 MG TABLET PO SCH (19:36)
--- NOTE | 2017-06-07 20:41 | PDOC ---
Exam Note: Jens Note: Please also refer to the separate dictated note~for this date of service dictated separately.~Patient seen individually. Discussed the patient with Nursing staff reviewed the chart.~Reviewed interim history and current functioning. Reviewed vital signs,~Labs/ Radiology~and current medications noted below. Continue current treatment with the changes noted in the dictated addendum note Assessment: Vital Signs: Vital Signs Date Time Temp Pulse Resp B/P (MAP) Pulse Ox O2 Delivery O2 Flow Rate FiO2 06/07/17 15:48 97.0 89 18 117/72 (87) 100 06/07/17 04:17 Room Air I&O Intake and Output 06/07/17 07:00 Intake Total 1320 ml Balance 1320 ml Intake Oral 1320 ml Labs: Laboratory Tests Test 06/07/17 01:16 06/07/17 07:10 06/07/17 11:41 06/07/17 16:21 Glucose (Fingerstick) 127 mg/dL (70-99) H 149 mg/dL (70-99) H 154 mg/dL (70-99) H 152 mg/dL (70-99) H Test 06/07/17 19:15 Glucose (Fingerstick) 117 mg/dL (70-99) H Current Medications: Meds: Current Medications Hydroxyzine Pamoate (Vistaril) 25 mg BID@0900,1300 PO Last administered on 06/07at 14:11; Start 05/28/17 at 09:00 Memantine (Namenda) 5 mg BID PO Last administered on 06/07/17at 08:51; Start 05/27/17 at 22:30; Stop 06/07/17 at 18:22; Status DC Hydroxyzine Pamoate (Vistaril) 50 mg QHS PO Last administered on 06/07/17at 19: 34; Start 05/27/17 at 22:30 Lamotrigine (LaMICtal) 200 mg HS PO Last administered on 05/28/17at 20:48; Start 05/27/17 at 22:30; Stop 05/29/17 at 09:53; Status DC Baclofen (Lioresal) 10 mg TID PO Last administered on 06/07/17at 19:32; Start at 22:30 Enoxaparin Sodium (Lovenox) 40 mg QHS SQ Last administered on 05/28/17 20:47; Start 05/27/17 at 22:30; Stop 05/29/17 at 19:00; Status DC Gabapentin (Neurontin) 600 mg QHS PO Last administered on 06/07/17 19:34; Start 05/27/17 at 22:30 Pantoprazole Sodium (Protonix) 40 mg QPM PO Last administered on 06/07/17 16: 56; Start 05/28/17 at 18:00 [place] HCl (Salagen) 5 mg TID PO Last administered on 06/07/17 19:36; Start 05/27/17 at 22:30 Ropinirole HCl (Requip) 2 mg QHS PO Last administered on 06/07/17 19:34; Start 05/27/17 at 22:30 Calcium/Vitamin D (Oscal D 500mg/ 200uts) 1 tab BIDWMEALS PO Last administered on 06/07/17 16:56; Start 05/28/17 at 08:00 Fish Oil (Fish Oil) 2,000 mg BID PO Last administered on 06/07/17 19:31; Start 05/27/17 at 22:30 Oxybutynin Chloride (Ditropan) 5 mg BID PO Last administered on 06/07/17 19:31 ; Start 05/27/17 at 22:30 Atorvastatin Calcium (Lipitor) 80 mg QHS PO Last administered on 06/07/17 19: 32; Start 05/27/17 at 22:30 Acetaminophen (Tylenol) 650 mg PRN Q4HRS PRN PO PAIN / TEMP Last administered on 06/01/17 06:35; Start 05/28/17 at 07:30 Aspirin (Aspirin Enteric Coated) 81 mg DAILY PO Last administered on 06/07/17 08:51; Start 05/28/17 at 09:00 Bisacodyl (Dulcolax Supp) 10 mg PRN DAILY PRN RC CONSTIPATION; Start 05/28/17 at 07:30 Vitamin D (Vitamin D3) 2,000 unit DAILY PO Last administered on 06/07/17 08:51 ; Start 05/28/17 at 09:00 Cyanocobalamin (Vitamin B-12) 1,000 mcg QODAY@1700 PO Last administered on 3/20 /18at 16:56; Start 05/28/17 at 17:00 Docusate Sodium (Colace) 100 mg PRN BID PRN PO CONSTIPATION; Start 05/28/17 at 07:30; Stop 05/30/17 at 23:12; Status DC Gabapentin (Neurontin) 300 mg BID@0900,1300 PRN PO Neuropathy; Start 05/28/17 at 09:00; Stop 05/29/17 at 01:26; Status DC Acetaminophen/ Hydrocodone Bitart (Lortab 7.5/325) 1 tab PRN Q4HRS PRN PO PAIN Last administered on 06/07/17at 00:17; Start 05/28/17 at 07:30 Levothyroxine Sodium (Synthroid) 175 mcg DAILY06 PO Last administered on at 05:41; Start 05/28/17 at 08:00 Lisinopril (Prinivil) 2.5 mg DAILY PO Last administered on 06/07/17at 08:50; Start 05/28/17 at 09:00 Loperamide HCl (Imodium) 2 mg TID PRN PRN PO DIARRHEA; Start 05/28/17 at 07:30 Nystatin (Nystop) 1 gene PRN TID PRN TP RASH; Start 05/28/17 at 07:30 Polyethylene Glycol (miraLAX) 17 gm PRN DAILY PRN PO CONSTIPATION Last administered on 05/29/17at 10:36; Start 05/28/17 at 07:30 Tramadol HCl (Ultram) 50 mg PRN Q4HRS PRN PO PAIN Last administered on at 03:17; Start 05/28/17 at 07:30 Artificial Tears (Artificial Tears) 2 drop PRN BID PRN OU DRY EYE; Start at 08:00; Stop 05/28/17 at 14:31; Status DC Non-Formulary Medication (Dulaglutide (Trulicity)) 1.5 mg QTU SQ ; Start at 16:00; Status UNV Non-Formulary Medication (Insulin Degludec (Tresiba Flextouch U-200)) 90 unit DAILY SQ Last administered on 06/07/17at 08:54; Start 05/28/17 at 09:00 Multivitamins/ Calcium (Thera-M Plus) 1 tab DAILY PO Last administered on at 08:51; Start 05/28/17 at 09:00 Tetrahydrozoline HCl (Murine) 1 drop PRN QID PRN OU DRY EYE; Start 05/28/17 at 08:00; Stop 05/28/17 at 14:31; Status DC Throat Lozenges (Chloraseptic) 1 spray PRN Q4HRS PRN MM SORE THROAT; Start 01/05 at 08:00; Stop 05/28/17 at 14:31; Status DC Insulin Aspart (NovoLOG) 15 units TIDAC SQ Last administered on 06/07/17at 16:57 ; Start 05/28/17 at 11:30 Insulin Aspart (NovoLOG) 0-5 UNITS TIDWMEALS SQ Last administered on 06/07/17at 16:59; Start 05/28/17 at 12:00 Fosfomycin Tromethamine (Monurol) 3 gm 1X ONCE PO ; Start 05/28/17 at 12:45; Stop 05/28/17 at 12:46; Status DC Fosfomycin Tromethamine (Monurol) 3 gm 1X ONCE PO Last administered on at 13:42; Start 05/28/17 at 14:00; Stop 05/28/17 at 14:01; Status DC Throat Lozenges (Chloraseptic) 1 spray PRN Q4HRS PRN MM SORE THROAT Last administered on 05/31/17at 05:28; Start 05/28/17 at 14:31 Artificial Tears (Artificial Tears) 2 drop PRN BID PRN OU DRY EYE Last administered on 06/05/17at 10:09; Start 05/28/17 at 14:31 Tetrahydrozoline HCl (Murine) 1 drop PRN QID PRN OU DRY EYE; Start 05/28/17 at 14:31; Stop 05/31/17 at 19:31; Status DC Gabapentin (Neurontin) 300 mg BID@0900,1300 PO Last administered on 06/07/17at 14:11; Start 05/29/17 at 09:00 Lamotrigine (LaMICtal) 250 mg HS PO Last administered on 06/07/17at 19:31; Start 05/29/17 at 21:00 Bupropion HCl (Wellbutrin Xl) 150 mg DAILY PO Last administered on 05/31/17 08 :32; Start 05/29/17 at 10:30; Stop 05/31/17 at 17:04; Status DC Magnesium Hydroxide (Milk Of Magnesia) 2,400 mg PRN DAILY PRN PO CONSTIPATION Last administered on 05/29/17 20:51; Start 05/29/17 at 20:45 Mirtazapine (Remeron) 7.5 mg QHS PO Last administered on 06/06/17 19:25; Start 05/30/17 at 21:00; Stop 06/07/17 at 18:22; Status DC Docusate Sodium (Colace) 100 mg BID PO Last administered on 06/07/17 19:30; Start 05/31/17 at 09:00 Bupropion HCl (Wellbutrin Xl) 300 mg DAILY PO Last administered on 06/07/17 08 :51; Start 06/01/17 at 09:00 Melatonin 3 mg QHS PO Last administered on 06/01/17 19:58; Start 05/31/17 at 21:00; Stop 06/02/17 at 10:09; Status DC Tetrahydrozoline HCl (Murine) 1 drop QID OU Last administered on 06/01/17 08: 34; Start 05/31/17 at 21:00; Stop 06/01/17 at 17:24; Status DC Tetrahydrozoline HCl (Murine) 1 drop PRN QID PRN OU DRY EYE Last administered on 06/07/17at 09:30; Start 06/01/17 at 21:00 Melatonin 3 mg PRN QHS PRN PO insomnia; Start 06/02/17 at 21:00 Amoxicillin (Amoxil) 500 mg [id number] PO Last administered on 06/07/17 19:29; Start 06/02/17 at 21:00; Stop 06/12/17 at 23:59 Lactobacillus Rhamnosus (Culturelle) 1 cap BID PO Last administered on at 19:30; Start 06/03/17 at 09:00 Saliva Substitute (Biotene Moisturizing Mouth) 2 spray PRN Q15MIN PRN PO DRY MOUTH Last administered on 06/07/17at 18:46; Start 06/07/17 at 15:00 Memantine (Namenda) 10 mg BID PO Last administered on 06/07/17at 19:36; Start at 21:00 Mirtazapine (Remeron) 15 mg QHS PO Last administered on 06/07/17at 19:36; Start 06/07/17 at 21:00 Active Scripts Active Reported Chloraseptic Max [place] (Phenol/Glycerin) 30 Ml [place] 1 [place] MM PRN Q4HRS PRN Miralax (Polyethylene Glycol 3350) 17 Gm Powd.pack 17 Gm PO PRN DAILY PRN Nystop (Nystatin) 60 Gm Powder 1 Gene TP PRN TID PRN Clear Eyes Itchy Eye Rlf Drops (Naphazoline Hcl/Zn Sulf/Gly) 15 Ml Drops 1 Drop OU PRN QID PRN Imodium A-D (Loperamide HCl) 2 Mg Capsule 2 Mg PO TID PRN PRN Colace (Docusate Sodium) 100 Mg Capsule 100 Mg PO PRN BID PRN Refresh Optive Eye Drops (Carboxymethylcellulos/Glycerin) 15 Ml Drops 2 Drop OU PRN BID PRN Bisacodyl 10 Mg Supp.rect 10 Mg RC PRN DAILY PRN Belladonna-Opium 16.2-30 Supp (Opium/Belladonna Alkaloids) 1 Each Supp.rect 1 Supp RC PRN Q12HR PRN Hydrocodone-Apap 7.5-325 (Hydrocodone Bit/Acetaminophen) 1 Each Tablet 1 Tab PO PRN Q4HRS PRN Tylenol (Acetaminophen) 325 Mg Tablet 650 Mg PO PRN Q4HRS PRN Tramadol Hcl (Tramadol HCl) 50 Mg Tablet 50 Mg PO PRN Q4HRS PRN Crestor (Rosuvastatin Calcium) 40 Mg Tablet 40 Mg PO HS Requip (Ropinirole Hcl) 1 Mg Tablet 2 Mg PO QHS [place] Hcl 5 Mg Tablet 5 Mg PO TID Pantoprazole Sodium 40 Mg Tablet.dr 40 Mg PO QPM Oxybutynin Chloride Er (Oxybutynin Chloride) 10 Mg Tab.er.24 10 Mg PO QHS Multivitamins (Multivitamin) 1 Each Tablet 1 Tab PO DAILY Namenda (Memantine Hcl) 5 Mg Tablet 5 Mg PO BID Lisinopril 2.5 Mg Tablet 2.5 Mg PO DAILY Linzess (Linaclotide) 145 Mcg Capsule 145 Mcg PO DAILY Levothyroxine Sodium 175 Mcg Tablet 175 Mcg PO DAILY07 Lamictal (Lamotrigine) 200 Mg Tablet 200 Mg PO QHS Ketoconazole 120 Ml Shampoo 120 Ml TP Q3DAYS Tresiba Flextouch U-200 (Insulin Degludec) 200 Unit/1 Ml Insuln.pen 90 Unit SQ DAILY Novolog Flexpen (Insulin Aspart) 100 Unit/1 Ml Insuln.pen 0-10 Unit SQ TIDWMEALS Hydroxyzine Pamoate 50 Mg Capsule 50 Mg PO QHS Hydroxyzine Pamoate 25 Mg Capsule 25 Mg PO BID@0900,1300 Neurontin (Gabapentin) 300 Mg Capsule 300 Mg PO BID@0900,1300 Neurontin (Gabapentin) 300 Mg Capsule 600 Mg PO QHS [place] 3 1,000 Mg Softgel ([place]-3 Fatty Acids/Fish Oil) 1 Each Capsule 2,000 Mg PO BID Lovenox (Enoxaparin Sodium) 40 Mg/0.4 Ml Disp.syrin 40 Mg SQ QHS Trulicity (Dulaglutide) 1.5 Mg/0.5 Ml Pen.injctr 1.5 Mg SQ QTU Vitamin B-12 (Cyanocobalamin (Vitamin B-12)) 1,000 Mcg Tablet 1,000 Mcg PO QODAY @1700 Vitamin D3 (Cholecalciferol (Vitamin D3)) 1,000 Unit Tablet 2,000 Unit PO DAILY Calcium 600 + Vit D 400 Tablet (Calcium Carbonate/Vitamin D3) 1 Each Tablet 1 Tab PO BID Baclofen 10 Mg Tablet 10 Mg PO TID Aspir-Low (Aspirin) 81 Mg Tablet. 81 Mg PO DAILY I have reviewed the current psychotropics carefully including drug interactions. Risk benefit ratio favors no change other than as noted in my dictated progress note. KURT DUARTE MD Jun 07, 2017 20:41
[2017-06-08] MEDS: ACETAMINOPHEN 325 MG TABLET PO PRN (04:39)
[2017-06-08] MEDS: traMADol 50 MG TABLET PO PRN (04:45)
[2017-06-08] MEDS: LEVOTHYROXINE 175 MCG TABLET PO SCH (05:30)
[2017-06-08 05:41] VITALS: BP 129/69
[2017-06-08] MEDS: SALIVA STIMULANT AGENT 44ML SPRAY BOTTLE. PO PRN (07:10)
[2017-06-08] MEDS: INSULIN ASPART 300 UNITS/3 ML INSULN.PEN SQ SCH ×6 (08:00→17:03)
[2017-06-08] MEDS: ASPIRIN ENTERIC COATED 81 MG TABLET.DR. PO SCH (08:20)
[2017-06-08] MEDS: DOCUSATE SODIUM 100 MG CAPSULE PO SCH ×2 (08:20→19:58)
[2017-06-08] MEDS: BACLOFEN 10 MG TABLET PO SCH ×3 (08:20→19:59)
[2017-06-08] MEDS: MEMANTINE 10 MG TABLET. PO SCH ×2 (08:21→20:00)
[2017-06-08] MEDS: MULTIVITAMIN with MINERAL TABLET. PO SCH (08:21)
[2017-06-08] MEDS: LISINOPRIL 2.5 MG TABLET PO SCH (08:21)
[2017-06-08] MEDS: hydrOXYzine PAMOATE 25 MG CAPSULE PO SCH ×3 (08:21→20:01)
[2017-06-08] MEDS: AMOXICILLIN 250 MG CAPSULE PO SCH ×3 (08:21→19:58)
[2017-06-08] MEDS: OMEGA-3 FATTY ACIDS/FISH OIL 1,000 MG CAPSULE. PO SCH ×2 (08:21→19:59)
[2017-06-08] MEDS: CHOLECALCIFEROL (VITAMIN D3) 1,000 UNIT TABLET PO SCH (08:21)
[2017-06-08] MEDS: CALCIUM CARB/VIT D3 500/200 TABLET PO SCH ×2 (08:21→17:03)
[2017-06-08] MEDS: LACTOBACILLUS RHAMNOSUS GG 1 CAPSULE. PO SCH ×2 (08:22→19:58)
[2017-06-08] MEDS: buPROPion XL 300 MG TAB.ER.24H. PO SCH (08:22)
[2017-06-08] MEDS: GABAPENTIN 300 MG CAPSULE. PO SCH ×3 (08:22→20:00)
[2017-06-08] MEDS: PILOCARPINE 5 MG TABLET. PO SCH ×3 (08:27→20:00)
[2017-06-08] MEDS: LINACLOTIDE 145 MCG CAPSULE. PO SCH (08:27)
[2017-06-08] MEDS: OXYBUTYNIN CHLORIDE 5 MG TABLET PO SCH ×2 (09:00→19:59)
[2017-06-08] MEDS: POLYETHYLENE GLYCOL 3350 17 GM PACKET. PO PRN (09:02)
[2017-06-08] MEDS: HYDROcodone/APAP 7.5/325MG 1 TAB TABLET PO PRN ×2 (11:25→21:55)
[2017-06-08 15:51] VITALS: BP 124/71
[2017-06-08] MEDS: PANTOPRAZOLE 40 MG TABLET. PO SCH ×2 (17:03→20:02)
[2017-06-08] MEDS: lamoTRIgine 100 MG TABLET. PO SCH (19:59)
[2017-06-08] MEDS: ATORVASTATIN CALCIUM 20 MG TABLET PO SCH (20:00)
[2017-06-08] MEDS: rOPINIRole 2 MG TABLET. PO SCH (20:00)
[2017-06-08] MEDS: MIRTAZAPINE 15 MG TABLET PO SCH (20:00)
--- NOTE | 2017-06-08 20:29 | PN ---
DATE: 06/07/2017 PSYCHIATRIC PROGRESS NOTE This is a late entry for date of service 06/07/2017, covers elements not covered in my initial note of 06/07/2017. SUBJECTIVE: Per nursing report, the patient has had a better day, but towards the evening, she was extremely attention-seeking. She slept just 2 hours previous evening, was disturbed by her roommate and her room has been changed; also discussed with social service staff earlier in the day about discharge plans. The patient was seen at length in her room. She is quite agitated, angry at me for not seeing me before I met with the nursing staff to get the nursing report. In fact, she was in the dining room having her supper, and I had given her extra time to finish a supper while I took a nursing report, but then she was back in her room before I finished the nursing report with the nurses and she was angry that did not attend to her right away. I addressed this at great length with her, trying to have her balance her expectations and frustrations it may result if these are not met, especially if she raises these expectations very high. REVIEW OF SYSTEMS: No CV, , pulmonary, eye system symptoms on review. Ambulates with a walker. MENTAL STATUS EXAM: Reasonably oriented. Speech is coherent. She is angry, irritable, twisting of fingers and pain in her hand with poor eye contact because she was upset at me for not attending to her as noted above right when she wanted that to happen. No suicidal or homicidal ideation, remains somewhat anxious, labile, inattentive. LABORATORY DATA: Reviewed. IMPRESSION: Unchanged. PLAN: We will increase the Remeron to 15 mg at bedtime. She refuses to take Seroquel or the melatonin. We will also increase Namenda to 10 mg b.i.d., continue Lamictal, hydroxyzine, Wellbutrin and Neurontin at current dosage. Adjust as clinically indicated. KURT DUARTE MD DR: ROMA/jayro JOB#: [id number] / [id number]
--- NOTE | 2017-06-08 20:49 | PDOC ---
Exam Note: Jens Note: Please also refer to the separate dictated note~for this date of service dictated separately.~Patient seen individually. Discussed the patient with Nursing staff reviewed the chart.~Reviewed interim history and current functioning. Reviewed vital signs,~Labs/ Radiology~and current medications noted below. Continue current treatment with the changes noted in the dictated addendum note Assessment: Vital Signs: Vital Signs Date Time Temp Pulse Resp B/P (MAP) Pulse Ox O2 Delivery O2 Flow Rate FiO2 06/08/17 15:51 97.5 86 18 124/71 (88) 96 06/08/17 14:28 Room Air I&O Intake and Output 06/08/17 07:00 Intake Total 1200 ml Balance 1200 ml Intake Oral 1200 ml Labs: Laboratory Tests Test 06/08/17 07:23 06/08/17 11:45 06/08/17 16:52 06/08/17 19:24 Glucose (Fingerstick) 150 mg/dL (70-99) H 95 mg/dL (70-99) 122 mg/dL (70-99) H 151 mg/dL (70-99) H Current Medications: Meds: Current Medications Hydroxyzine Pamoate (Vistaril) 25 mg BID@0900,1300 PO Last administered on 06/08at 13:44; Start 05/28/17 at 09:00 Memantine (Namenda) 5 mg BID PO Last administered on 06/07/17at 08:51; Start 05/27/17 at 22:30; Stop 06/07/17 at 18:22; Status DC Hydroxyzine Pamoate (Vistaril) 50 mg QHS PO Last administered on 06/08/17at 20: 01; Start 05/27/17 at 22:30 Lamotrigine (LaMICtal) 200 mg HS PO Last administered on 05/28/17at 20:48; Start 05/27/17 at 22:30; Stop 05/29/17 at 09:53; Status DC Baclofen (Lioresal) 10 mg TID PO Last administered on 06/08/17at 19:59; Start at 22:30 Enoxaparin Sodium (Lovenox) 40 mg QHS SQ Last administered on 05/28/17at 20:47; Start 05/27/17 at 22:30; Stop 05/29/17 at 19:00; Status DC Gabapentin (Neurontin) 600 mg QHS PO Last administered on 06/08/17 20:00; Start 05/27/17 at 22:30 Pantoprazole Sodium (Protonix) 40 mg QPM PO Last administered on 06/08/17 20: 02; Start 05/28/17 at 18:00 Pilocarpine HCl (Salagen) 5 mg TID PO Last administered on 06/08/17 20:00; Start 05/27/17 at 22:30 Ropinirole HCl (Requip) 2 mg QHS PO Last administered on 06/08/17 20:00; Start 05/27/17 at 22:30 Calcium/Vitamin D (Oscal D 500mg/ 200uts) 1 tab BIDWMEALS PO Last administered on 06/08/17 17:03; Start 05/28/17 at 08:00 Fish Oil (Fish Oil) 2,000 mg BID PO Last administered on 06/08/17 19:59; Start 05/27/17 at 22:30 Oxybutynin Chloride (Ditropan) 5 mg BID PO Last administered on 06/07/17 19:31 ; Start 05/27/17 at 22:30; Stop 06/08/17 at 16:11; Status DC Atorvastatin Calcium (Lipitor) 80 mg QHS PO Last administered on 06/08/17 20: 00; Start 05/27/17 at 22:30 Acetaminophen (Tylenol) 650 mg PRN Q4HRS PRN PO PAIN / TEMP Last administered on 06/01/17 06:35; Start 05/28/17 at 07:30 Aspirin (Aspirin Enteric Coated) 81 mg DAILY PO Last administered on 06/08/17 08:20; Start 05/28/17 at 09:00 Bisacodyl (Dulcolax Supp) 10 mg PRN DAILY PRN RC CONSTIPATION; Start 05/28/17 at 07:30 Vitamin D (Vitamin D3) 2,000 unit DAILY PO Last administered on 06/08/17 08:21 ; Start 05/28/17 at 09:00 Cyanocobalamin (Vitamin B-12) 1,000 mcg QODAY@1700 PO Last administered on 06/07 16:56; Start 05/28/17 at 17:00 Docusate Sodium (Colace) 100 mg PRN BID PRN PO CONSTIPATION; Start 05/28/17 at 07:30; Stop 05/30/17 at 23:12; Status DC Gabapentin (Neurontin) 300 mg BID@0900,1300 PRN PO Neuropathy; Start 05/28/17 at 09:00; Stop 05/29/17 at 01:26; Status DC Acetaminophen/ Hydrocodone Bitart (Lortab 7.5/325) 1 tab PRN Q4HRS PRN PO PAIN Last administered on 06/08/17at 11:25; Start 05/28/17 at 07:30 Levothyroxine Sodium (Synthroid) 175 mcg DAILY06 PO Last administered on at 05:30; Start 05/28/17 at 08:00 Lisinopril (Prinivil) 2.5 mg DAILY PO Last administered on 06/08/17at 08:21; Start 05/28/17 at 09:00 Loperamide HCl (Imodium) 2 mg TID PRN PRN PO DIARRHEA; Start 05/28/17 at 07:30 Nystatin (Nystop) 1 gene PRN TID PRN TP RASH; Start 05/28/17 at 07:30 Polyethylene Glycol (miraLAX) 17 gm PRN DAILY PRN PO CONSTIPATION Last administered on 06/08/17at 09:02; Start 05/28/17 at 07:30 Tramadol HCl (Ultram) 50 mg PRN Q4HRS PRN PO PAIN Last administered on at 04:45; Start 05/28/17 at 07:30 Artificial Tears (Artificial Tears) 2 drop PRN BID PRN OU DRY EYE; Start at 08:00; Stop 05/28/17 at 14:31; Status DC Non-Formulary Medication (Dulaglutide (Trulicity)) 1.5 mg QTU SQ ; Start at 16:00; Stop 06/08/17 at 16:20; Status DC Non-Formulary Medication (Insulin Degludec (Tresiba Flextouch U-200)) 90 unit DAILY SQ Last administered on 06/08/17at 08:31; Start 05/28/17 at 09:00 Multivitamins/ Calcium (Thera-M Plus) 1 tab DAILY PO Last administered on at 08:21; Start 05/28/17 at 09:00 Tetrahydrozoline HCl (Murine) 1 drop PRN QID PRN OU DRY EYE; Start 05/28/17 at 08:00; Stop 05/28/17 at 14:31; Status DC Throat Lozenges (Chloraseptic) 1 spray PRN Q4HRS PRN MM SORE THROAT; Start 01/05 at 08:00; Stop 05/28/17 at 14:31; Status DC Insulin Aspart (NovoLOG) 15 units TIDAC SQ Last administered on 06/08/17at 17:03 ; Start 05/28/17 at 11:30 Insulin Aspart (NovoLOG) 0-5 UNITS TIDWMEALS SQ Last administered on 06/07/17at 16:59; Start 05/28/17 at 12:00 Fosfomycin Tromethamine (Monurol) 3 gm 1X ONCE PO ; Start 05/28/17 at 12:45; Stop 05/28/17 at 12:46; Status DC Fosfomycin Tromethamine (Monurol) 3 gm 1X ONCE PO Last administered on at 13:42; Start 05/28/17 at 14:00; Stop 05/28/17 at 14:01; Status DC Throat Lozenges (Chloraseptic) 1 spray PRN Q4HRS PRN MM SORE THROAT Last administered on 05/31/17at 05:28; Start 05/28/17 at 14:31 Artificial Tears (Artificial Tears) 2 drop PRN BID PRN OU DRY EYE Last administered on 06/05/17at 10:09; Start 05/28/17 at 14:31 Tetrahydrozoline HCl (Murine) 1 drop PRN QID PRN OU DRY EYE; Start 05/28/17 at 14:31; Stop 05/31/17 at 19:31; Status DC Gabapentin (Neurontin) 300 mg BID@0900,1300 PO Last administered on 06/08/17at 13:44; Start 05/29/17 at 09:00 Lamotrigine (LaMICtal) 250 mg HS PO Last administered on 06/08/17at 19:59; Start 05/29/17 at 21:00 Bupropion HCl (Wellbutrin Xl) 150 mg DAILY PO Last administered on 05/31/17 08 :32; Start 05/29/17 at 10:30; Stop 05/31/17 at 17:04; Status DC Magnesium Hydroxide (Milk Of Magnesia) 2,400 mg PRN DAILY PRN PO CONSTIPATION Last administered on 05/29/17at 20:51; Start 05/29/17 at 20:45 Mirtazapine (Remeron) 7.5 mg QHS PO Last administered on 06/06/17 19:25; Start 05/30/17 at 21:00; Stop 06/07/17 at 18:22; Status DC Docusate Sodium (Colace) 100 mg BID PO Last administered on 06/08/17 19:58; Start 05/31/17 at 09:00 Bupropion HCl (Wellbutrin Xl) 300 mg DAILY PO Last administered on 06/08/17 08 :22; Start 06/01/17 at 09:00 Melatonin 3 mg QHS PO Last administered on 06/01/17 19:58; Start 05/31/17 at 21:00; Stop 06/02/17 at 10:09; Status DC Tetrahydrozoline HCl (Murine) 1 drop QID OU Last administered on 06/01/17at 08: 34; Start 05/31/17 at 21:00; Stop 06/01/17 at 17:24; Status DC Tetrahydrozoline HCl (Murine) 1 drop PRN QID PRN OU DRY EYE Last administered on 06/07/17at 09:30; Start 06/01/17 at 21:00 Melatonin 3 mg PRN QHS PRN PO insomnia; Start 06/02/17 at 21:00 Amoxicillin (Amoxil) 500 mg PPM242 PO Last administered on 06/08/17 19:58; Start 06/02/17 at 21:00; Stop 06/12/17 at 23:59 Lactobacillus Rhamnosus (Culturelle) 1 cap BID PO Last administered on at 19:58; Start 06/03/17 at 09:00 Saliva Substitute (Biotene Moisturizing Mouth) 2 spray PRN Q15MIN PRN PO DRY MOUTH Last administered on 06/08/17at 07:10; Start 06/07/17 at 15:00 Memantine (Namenda) 10 mg BID PO Last administered on 06/08/17at 20:00; Start at 21:00 Mirtazapine (Remeron) 15 mg QHS PO Last administered on 06/08/17at 20:00; Start 06/07/17 at 21:00 Oxybutynin Chloride (Ditropan) 5 mg QHS PO Last administered on 06/08/17at 19:59 ; Start 06/08/17 at 21:00 Active Scripts Active Reported Chloraseptic Max [place] (Phenol/Glycerin) 30 Ml [place] 1 [place] MM PRN Q4HRS PRN Miralax (Polyethylene Glycol 3350) 17 Gm Powd.pack 17 Gm PO PRN DAILY PRN Nystop (Nystatin) 60 Gm Powder 1 Gene TP PRN TID PRN Clear Eyes Itchy Eye Rlf Drops (Naphazoline Hcl/Zn Sulf/Gly) 15 Ml Drops 1 Drop OU PRN QID PRN Imodium A-D (Loperamide HCl) 2 Mg Capsule 2 Mg PO TID PRN PRN Colace (Docusate Sodium) 100 Mg Capsule 100 Mg PO PRN BID PRN Refresh Optive Eye Drops (Carboxymethylcellulos/Glycerin) 15 Ml Drops 2 Drop OU PRN BID PRN Bisacodyl 10 Mg Supp.rect 10 Mg RC PRN DAILY PRN Belladonna-Opium 16.2-30 Supp (Opium/Belladonna Alkaloids) 1 Each Supp.rect 1 Supp RC PRN Q12HR PRN Hydrocodone-Apap 7.5-325 (Hydrocodone Bit/Acetaminophen) 1 Each Tablet 1 Tab PO PRN Q4HRS PRN Tylenol (Acetaminophen) 325 Mg Tablet 650 Mg PO PRN Q4HRS PRN Tramadol Hcl (Tramadol HCl) 50 Mg Tablet 50 Mg PO PRN Q4HRS PRN Crestor (Rosuvastatin Calcium) 40 Mg Tablet 40 Mg PO HS Requip (Ropinirole Hcl) 1 Mg Tablet 2 Mg PO QHS [place] Hcl 5 Mg Tablet 5 Mg PO TID Pantoprazole Sodium 40 Mg Tablet.dr 40 Mg PO QPM Oxybutynin Chloride Er (Oxybutynin Chloride) 10 Mg Tab.er.24 10 Mg PO QHS Multivitamins (Multivitamin) 1 Each Tablet 1 Tab PO DAILY Namenda (Memantine Hcl) 5 Mg Tablet 5 Mg PO BID Lisinopril 2.5 Mg Tablet 2.5 Mg PO DAILY Linzess (Linaclotide) 145 Mcg Capsule 145 Mcg PO DAILY Levothyroxine Sodium 175 Mcg Tablet 175 Mcg PO DAILY07 Lamictal (Lamotrigine) 200 Mg Tablet 200 Mg PO QHS Ketoconazole 120 Ml Shampoo 120 Ml TP Q3DAYS Tresiba Flextouch U-200 (Insulin Degludec) 200 Unit/1 Ml Insuln.pen 90 Unit SQ DAILY Novolog Flexpen (Insulin Aspart) 100 Unit/1 Ml Insuln.pen 0-10 Unit SQ TIDWMEALS Hydroxyzine Pamoate 50 Mg Capsule 50 Mg PO QHS Hydroxyzine Pamoate 25 Mg Capsule 25 Mg PO BID@0900,1300 Neurontin (Gabapentin) 300 Mg Capsule 300 Mg PO BID@0900,1300 Neurontin (Gabapentin) 300 Mg Capsule 600 Mg PO QHS [place] 3 1,000 Mg Softgel ([place]-3 Fatty Acids/Fish Oil) 1 Each Capsule 2,000 Mg PO BID Lovenox (Enoxaparin Sodium) 40 Mg/0.4 Ml Disp.syrin 40 Mg SQ QHS Trulicity (Dulaglutide) 1.5 Mg/0.5 Ml Pen.injctr 1.5 Mg SQ QTU Vitamin B-12 (Cyanocobalamin (Vitamin B-12)) 1,000 Mcg Tablet 1,000 Mcg PO QODAY @1700 Vitamin D3 (Cholecalciferol (Vitamin D3)) 1,000 Unit Tablet 2,000 Unit PO DAILY Calcium 600 + Vit D 400 Tablet (Calcium Carbonate/Vitamin D3) 1 Each Tablet 1 Tab PO BID Baclofen 10 Mg Tablet 10 Mg PO TID Aspir-Low (Aspirin) 81 Mg Tablet.dr 81 Mg PO DAILY I have reviewed the current psychotropics carefully including drug interactions. Risk benefit ratio favors no change other than as noted in my dictated progress note. Diagnosis: Problems: (1) Bipolar affective, mixed, sev w/ psych (2) Anxiety disorder (3) Major depressive disorder, recurrent episode KURT DUARTE MD Jun 08, 2017 20:49
[2017-06-09] MEDS: traMADol 50 MG TABLET PO PRN ×2 (00:16→06:08)
[2017-06-09] MEDS: SALIVA STIMULANT AGENT 44ML SPRAY BOTTLE. PO PRN (04:07)
[2017-06-09 05:45] VITALS: BP 117/65
[2017-06-09] MEDS: LEVOTHYROXINE 175 MCG TABLET PO SCH (06:05)
[2017-06-09] MEDS: INSULIN ASPART 300 UNITS/3 ML INSULN.PEN SQ SCH ×6 (08:00→17:01)
[2017-06-09] MEDS: CALCIUM CARB/VIT D3 500/200 TABLET PO SCH ×2 (08:15→16:59)
[2017-06-09] MEDS: buPROPion XL 300 MG TAB.ER.24H. PO SCH (08:15)
[2017-06-09] MEDS: OMEGA-3 FATTY ACIDS/FISH OIL 1,000 MG CAPSULE. PO SCH ×2 (08:15→21:31)
[2017-06-09] MEDS: MULTIVITAMIN with MINERAL TABLET. PO SCH (08:16)
[2017-06-09] MEDS: hydrOXYzine PAMOATE 25 MG CAPSULE PO SCH ×3 (08:16→21:35)
[2017-06-09] MEDS: BACLOFEN 10 MG TABLET PO SCH ×3 (08:20→21:34)
[2017-06-09] MEDS: MEMANTINE 10 MG TABLET. PO SCH ×2 (08:20→21:34)
[2017-06-09] MEDS: AMOXICILLIN 250 MG CAPSULE PO SCH ×3 (08:20→21:31)
[2017-06-09] MEDS: LISINOPRIL 2.5 MG TABLET PO SCH (08:20)
[2017-06-09] MEDS: ASPIRIN ENTERIC COATED 81 MG TABLET.DR. PO SCH (08:20)
[2017-06-09] MEDS: DOCUSATE SODIUM 100 MG CAPSULE PO SCH ×2 (08:20→21:32)
[2017-06-09] MEDS: PILOCARPINE 5 MG TABLET. PO SCH ×3 (08:21→21:37)
[2017-06-09] MEDS: LACTOBACILLUS RHAMNOSUS GG 1 CAPSULE. PO SCH ×2 (08:21→21:32)
[2017-06-09] MEDS: GABAPENTIN 300 MG CAPSULE. PO SCH ×3 (08:21→21:32)
[2017-06-09] MEDS: CHOLECALCIFEROL (VITAMIN D3) 1,000 UNIT TABLET PO SCH (08:21)
[2017-06-09] MEDS: LINACLOTIDE 145 MCG CAPSULE. PO SCH (08:22)
--- NOTE | 2017-06-09 11:33 | PDOC ---
PROGRESS NOTES Assessment 1. Bilateral LE edema: Pt reports she usually has her feet up in a recline at home. Exam does not show sign of cellulitis. XRay on Tuesday was negative for anything other than OA. Doppler on Tuesday neg for DVT. Recommend compression stockings and elevate feet when possible. Pt being d/c'd tomorrow, may need to d/w PCP about cutting back gabapentin, which is known to cause edema. Pt has no other sx's of heart failure like SOA or JVD. Problems: Plan of Care: see other orders Subjective Asked to see pt due to c/o BLE edema and pain. Had xray Tuesday that was negative and doppler Tuesday that was also negative. Denies SOA, weight gain. Pt states she normally puts her feet up in a recliner at home, but has her feet down all the time here. Pt able to walk w/ a walker without obvious pain or limping. Objective Vital Signs Date Time Temp Pulse Resp B/P (MAP) Pulse Ox O2 Delivery O2 Flow Rate FiO2 06/09/17 08:20 76 117/65 06/09/17 07:09 18 94 Room Air 06/09/17 05:45 97.3 Intake and Output 06/09/17 07:00 Intake Total 940 ml Balance 940 ml Intake Oral 940 ml Abdomen: Soft, No tenderness Heart: Regular rate, Normal S1, Normal S2, No murmurs Extremities: Other (Mild ankle edema bilaterally, more lateral than medial, no redness, induration, or open sores.) General: Alert, Cooperative, No acute distress HEENT: Mucous membr. moist/pink Lungs: Clear to auscultation, Normal air movement Neck: No JVD Neuro: Normal gait (walks w/ walker), Normal tone Psych/Mental Status: Mood NL Skin: No rashes, No breakdown Review of Relevant I have reviewed the following items yue (where applicable) has been applied. Labs Laboratory Tests Test 06/07/17 11:41 06/07/17 16:21 06/07/17 19:15 06/08/17 07:23 Glucose (Fingerstick) 154 mg/dL (70-99) 152 mg/dL (70-99) 117 mg/dL (70-99) 150 mg/dL (70-99) Test 06/08/17 11:45 06/08/17 16:52 06/08/17 19:24 06/09/17 07:19 Glucose (Fingerstick) 95 mg/dL (70-99) 122 mg/dL (70-99) 151 mg/dL (70-99) 127 mg/dL (70-99) Microbiology 05/28/17 Urine Culture - Final, Complete 05/28/17 Urine Culture Result 1 (MERT) - Final, Complete 05/28/17 Antimicrobic Susceptibility - Final, Complete Medications Current Medications Hydroxyzine Pamoate (Vistaril) 25 mg BID@0900,1300 PO Last administered on 06/09 08:16; Start 05/28/17 at 09:00 Memantine (Namenda) 5 mg BID PO Last administered on 06/07/17 08:51; Start 05/27/17 at 22:30; Stop 06/07/17 at 18:22; Status DC Hydroxyzine Pamoate (Vistaril) 50 mg QHS PO Last administered on 06/08/17 20: 01; Start 05/27/17 at 22:30 Lamotrigine (LaMICtal) 200 mg HS PO Last administered on 05/28/17 20:48; Start 05/27/17 at 22:30; Stop 05/29/17 at 09:53; Status DC Baclofen (Lioresal) 10 mg TID PO Last administered on 06/09/17 08:20; Start at 22:30 Enoxaparin Sodium (Lovenox) 40 mg QHS SQ Last administered on 05/28/17 20:47; Start 05/27/17 at 22:30; Stop 05/29/17 at 19:00; Status DC Gabapentin (Neurontin) 600 mg QHS PO Last administered on 06/08/17 20:00; Start 05/27/17 at 22:30 Pantoprazole Sodium (Protonix) 40 mg QPM PO Last administered on 06/08/17 20: 02; Start 05/28/17 at 18:00 Pilocarpine HCl (Salagen) 5 mg TID PO Last administered on 06/09/17 08:21; Start 05/27/17 at 22:30 Ropinirole HCl (Requip) 2 mg QHS PO Last administered on 06/08/17 20:00; Start 05/27/17 at 22:30 Calcium/Vitamin D (Oscal D 500mg/ 200uts) 1 tab BIDWMEALS PO Last administered on 06/09/17 08:15; Start 05/28/17 at 08:00 Fish Oil (Fish Oil) 2,000 mg BID PO Last administered on 06/09/17 08:15; Start 05/27/17 at 22:30 Oxybutynin Chloride (Ditropan) 5 mg BID PO Last administered on 06/07/17 19:31 ; Start 05/27/17 at 22:30; Stop 06/08/17 at 16:11; Status DC Atorvastatin Calcium (Lipitor) 80 mg QHS PO Last administered on 06/08/17at 20: 00; Start 05/27/17 at 22:30 Acetaminophen (Tylenol) 650 mg PRN Q4HRS PRN PO PAIN / TEMP Last administered on 06/01/17at 06:35; Start 05/28/17 at 07:30 Aspirin (Aspirin Enteric Coated) 81 mg DAILY PO Last administered on 06/09/17at 08:20; Start 05/28/17 at 09:00 Bisacodyl (Dulcolax Supp) 10 mg PRN DAILY PRN RC CONSTIPATION; Start 05/28/17 at 07:30 Vitamin D (Vitamin D3) 2,000 unit DAILY PO Last administered on 06/09/17at 08:21 ; Start 05/28/17 at 09:00 Cyanocobalamin (Vitamin B-12) 1,000 mcg QODAY@1700 PO Last administered on 06/07at 16:56; Start 05/28/17 at 17:00 Docusate Sodium (Colace) 100 mg PRN BID PRN PO CONSTIPATION; Start 05/28/17 at 07:30; Stop 05/30/17 at 23:12; Status DC Gabapentin (Neurontin) 300 mg BID@0900,1300 PRN PO Neuropathy; Start 05/28/17 at 09:00; Stop 05/29/17 at 01:26; Status DC Acetaminophen/ Hydrocodone Bitart (Lortab 7.5/325) 1 tab PRN Q4HRS PRN PO PAIN Last administered on 06/08/17at 21:55; Start 05/28/17 at 07:30 Levothyroxine Sodium (Synthroid) 175 mcg DAILY06 PO Last administered on at 06:05; Start 05/28/17 at 08:00 Lisinopril (Prinivil) 2.5 mg DAILY PO Last administered on 06/09/17at 08:20; Start 05/28/17 at 09:00 Loperamide HCl (Imodium) 2 mg TID PRN PRN PO DIARRHEA; Start 05/28/17 at 07:30 Nystatin (Nystop) 1 gene PRN TID PRN TP RASH; Start 05/28/17 at 07:30 Polyethylene Glycol (miraLAX) 17 gm PRN DAILY PRN PO CONSTIPATION Last administered on 06/08/17at 09:02; Start 05/28/17 at 07:30 Tramadol HCl (Ultram) 50 mg PRN Q4HRS PRN PO PAIN Last administered on at 06:08; Start 05/28/17 at 07:30 Artificial Tears (Artificial Tears) 2 drop PRN BID PRN OU DRY EYE; Start at 08:00; Stop 05/28/17 at 14:31; Status DC Non-Formulary Medication (Dulaglutide (Trulicity)) 1.5 mg QTU SQ ; Start at 16:00; Stop 06/08/17 at 16:20; Status DC Non-Formulary Medication (Insulin Degludec (Tresiba Flextouch U-200)) 90 unit DAILY SQ Last administered on 06/09/17at 08:23; Start 05/28/17 at 09:00 Multivitamins/ Calcium (Thera-M Plus) 1 tab DAILY PO Last administered on at 08:16; Start 05/28/17 at 09:00 Tetrahydrozoline HCl (Murine) 1 drop PRN QID PRN OU DRY EYE; Start 05/28/17 at 08:00; Stop 05/28/17 at 14:31; Status DC Throat Lozenges (Chloraseptic) 1 spray PRN Q4HRS PRN MM SORE THROAT; Start 01/05 at 08:00; Stop 05/28/17 at 14:31; Status DC Insulin Aspart (NovoLOG) 15 units TIDAC SQ Last administered on 06/09/17at 08:15 ; Start 05/28/17 at 11:30 Insulin Aspart (NovoLOG) 0-5 UNITS TIDWMEALS SQ Last administered on 06/07/17at 16:59; Start 05/28/17 at 12:00 Fosfomycin Tromethamine (Monurol) 3 gm 1X ONCE PO ; Start 05/28/17 at 12:45; Stop 05/28/17 at 12:46; Status DC Fosfomycin Tromethamine (Monurol) 3 gm 1X ONCE PO Last administered on at 13:42; Start 05/28/17 at 14:00; Stop 05/28/17 at 14:01; Status DC Throat Lozenges (Chloraseptic) 1 spray PRN Q4HRS PRN MM SORE THROAT Last administered on 05/31/17at 05:28; Start 05/28/17 at 14:31 Artificial Tears (Artificial Tears) 2 drop PRN BID PRN OU DRY EYE Last administered on 06/05/17at 10:09; Start 05/28/17 at 14:31 Tetrahydrozoline HCl (Murine) 1 drop PRN QID PRN OU DRY EYE; Start 05/28/17 at 14:31; Stop 05/31/17 at 19:31; Status DC Gabapentin (Neurontin) 300 mg BID@0900,1300 PO Last administered on 06/09/17at 08:21; Start 05/29/17 at 09:00 Lamotrigine (LaMICtal) 250 mg HS PO Last administered on 06/08/17at 19:59; Start 05/29/17 at 21:00 Bupropion HCl (Wellbutrin Xl) 150 mg DAILY PO Last administered on 05/31/17at 08 :32; Start 05/29/17 at 10:30; Stop 05/31/17 at 17:04; Status DC Magnesium Hydroxide (Milk Of Magnesia) 2,400 mg PRN DAILY PRN PO CONSTIPATION Last administered on 05/29/17at 20:51; Start 05/29/17 at 20:45 Mirtazapine (Remeron) 7.5 mg QHS PO Last administered on 06/06/17at 19:25; Start 05/30/17 at 21:00; Stop 06/07/17 at 18:22; Status DC Docusate Sodium (Colace) 100 mg BID PO Last administered on 06/09/17 08:20; Start 05/31/17 at 09:00 Bupropion HCl (Wellbutrin Xl) 300 mg DAILY PO Last administered on 06/09/17 08 :15; Start 06/01/17 at 09:00 Melatonin 3 mg QHS PO Last administered on 06/01/17 19:58; Start 05/31/17 at 21:00; Stop 06/02/17 at 10:09; Status DC Tetrahydrozoline HCl (Murine) 1 drop QID OU Last administered on 06/01/17 08: 34; Start 05/31/17 at 21:00; Stop 06/01/17 at 17:24; Status DC Tetrahydrozoline HCl (Murine) 1 drop PRN QID PRN OU DRY EYE Last administered on 06/07/17 09:30; Start 06/01/17 at 21:00 Melatonin 3 mg PRN QHS PRN PO insomnia; Start 06/02/17 at 21:00 Amoxicillin (Amoxil) 500 mg [id number] PO Last administered on 06/09/17 08:20; Start 06/02/17 at 21:00; Stop 06/12/17 at 23:59 Lactobacillus Rhamnosus (Culturelle) 1 cap BID PO Last administered on 08:21; Start 06/03/17 at 09:00 Saliva Substitute (Biotene Moisturizing Mouth) 2 spray PRN Q15MIN PRN PO DRY MOUTH Last administered on 06/09/17 04:07; Start 06/07/17 at 15:00 Memantine (Namenda) 10 mg BID PO Last administered on 06/09/17 08:20; Start at 21:00 Mirtazapine (Remeron) 15 mg QHS PO Last administered on 06/08/17 20:00; Start 06/07/17 at 21:00 Oxybutynin Chloride (Ditropan) 5 mg QHS PO Last administered on 06/08/17at 19:59 ; Start 06/08/17 at 21:00 Active Scripts Active Reported Chloraseptic Max [place] (Phenol/Glycerin) 30 Ml [place] 1 [place] MM PRN Q4HRS PRN Miralax (Polyethylene Glycol 3350) 17 Gm Powd.pack 17 Gm PO PRN DAILY PRN Nystop (Nystatin) 60 Gm Powder 1 Gene TP PRN TID PRN Clear Eyes Itchy Eye Rlf Drops (Naphazoline Hcl/Zn Sulf/Gly) 15 Ml Drops 1 Drop OU PRN QID PRN Imodium A-D (Loperamide HCl) 2 Mg Capsule 2 Mg PO TID PRN PRN Colace (Docusate Sodium) 100 Mg Capsule 100 Mg PO PRN BID PRN Refresh Optive Eye Drops (Carboxymethylcellulos/Glycerin) 15 Ml Drops 2 Drop OU PRN BID PRN Bisacodyl 10 Mg Supp.rect 10 Mg RC PRN DAILY PRN Belladonna-Opium 16.2-30 Supp (Opium/Belladonna Alkaloids) 1 Each Supp.rect 1 Supp RC PRN Q12HR PRN Hydrocodone-Apap 7.5-325 (Hydrocodone Bit/Acetaminophen) 1 Each Tablet 1 Tab PO PRN Q4HRS PRN Tylenol (Acetaminophen) 325 Mg Tablet 650 Mg PO PRN Q4HRS PRN Tramadol Hcl (Tramadol HCl) 50 Mg Tablet 50 Mg PO PRN Q4HRS PRN Crestor (Rosuvastatin Calcium) 40 Mg Tablet 40 Mg PO HS Requip (Ropinirole Hcl) 1 Mg Tablet 2 Mg PO QHS [place] Hcl 5 Mg Tablet 5 Mg PO TID Pantoprazole Sodium 40 Mg Tablet.dr 40 Mg PO QPM Oxybutynin Chloride Er (Oxybutynin Chloride) 10 Mg Tab.er.24 10 Mg PO QHS Multivitamins (Multivitamin) 1 Each Tablet 1 Tab PO DAILY Namenda (Memantine Hcl) 5 Mg Tablet 5 Mg PO BID Lisinopril 2.5 Mg Tablet 2.5 Mg PO DAILY Linzess (Linaclotide) 145 Mcg Capsule 145 Mcg PO DAILY Levothyroxine Sodium 175 Mcg Tablet 175 Mcg PO DAILY07 Lamictal (Lamotrigine) 200 Mg Tablet 200 Mg PO QHS Ketoconazole 120 Ml Shampoo 120 Ml TP Q3DAYS Tresiba Flextouch U-200 (Insulin Degludec) 200 Unit/1 Ml Insuln.pen 90 Unit SQ DAILY Novolog Flexpen (Insulin Aspart) 100 Unit/1 Ml Insuln.pen 0-10 Unit SQ TIDWMEALS Hydroxyzine Pamoate 50 Mg Capsule 50 Mg PO QHS Hydroxyzine Pamoate 25 Mg Capsule 25 Mg PO BID@0900,1300 Neurontin (Gabapentin) 300 Mg Capsule 300 Mg PO BID@0900,1300 Neurontin (Gabapentin) 300 Mg Capsule 600 Mg PO QHS [place] 3 1,000 Mg Softgel ([place]-3 Fatty Acids/Fish Oil) 1 Each Capsule 2,000 Mg PO BID Lovenox (Enoxaparin Sodium) 40 Mg/0.4 Ml Disp.syrin 40 Mg SQ QHS Trulicity (Dulaglutide) 1.5 Mg/0.5 Ml Pen.injctr 1.5 Mg SQ QTU Vitamin B-12 (Cyanocobalamin (Vitamin B-12)) 1,000 Mcg Tablet 1,000 Mcg PO QODAY @1700 Vitamin D3 (Cholecalciferol (Vitamin D3)) 1,000 Unit Tablet 2,000 Unit PO DAILY Calcium 600 + Vit D 400 Tablet (Calcium Carbonate/Vitamin D3) 1 Each Tablet 1 Tab PO BID Baclofen 10 Mg Tablet 10 Mg PO TID Aspir-Low (Aspirin) 81 Mg Tablet.dr 81 Mg PO DAILY Vitals/I & O Vital Sign - Last 24 Hours 06/08/17 06/08/17 06/08/17 06/08/17 14:28 15:51 21:55 22:55 Temp 97.5 Pulse 86 Resp 18 18 20 B/P (MAP) 124/71 (88) Pulse Ox 96 96 96 O2 Delivery Room Air Room Air 06/09/17 06/09/17 06/09/17 06/09/17 00:16 05:45 06:08 07:09 Temp 97.3 Pulse 76 Resp 18 20 20 18 B/P (MAP) 117/65 (82) Pulse Ox 96 94 94 O2 Delivery Room Air Room Air Room Air 06/09/17 08:20 Pulse 76 B/P (MAP) 117/65 Intake and Output 06/08/17 06/08/17 06/09/17 15:00 23:00 07:00 Intake Total 220 ml 480 ml 240 ml Balance 220 ml 480 ml 240 ml REJI DRUMMOND MD Jun 09, 2017 11:32
[2017-06-09] MEDS: HYDROcodone/APAP 7.5/325MG 1 TAB TABLET PO PRN ×2 (11:44→21:38)
[2017-06-09 15:57] VITALS: BP 125/83
[2017-06-09] MEDS: CYANOCOBALAMIN (VITAMIN B-12) 1,000 MCG TABLET. PO SCH (16:59)
--- NOTE | 2017-06-09 20:52 | PDOC ---
Exam Note: Jens Note: Please also refer to the separate dictated note~for this date of service dictated separately.~Patient seen individually. Discussed the patient with Nursing staff reviewed the chart.~Reviewed interim history and current functioning. Reviewed vital signs,~Labs/ Radiology~and current medications noted below. Continue current treatment with the changes noted in the dictated addendum note Assessment: Vital Signs: Vital Signs Date Time Temp Pulse Resp B/P (MAP) Pulse Ox O2 Delivery O2 Flow Rate FiO2 06/09/17 15:57 96.3 72 18 125/83 (97) 97 06/09/17 14:20 Room Air I&O Intake and Output 06/09/17 07:00 Intake Total 940 ml Balance 940 ml Intake Oral 940 ml Labs: Laboratory Tests Test 06/09/17 07:19 06/09/17 11:27 06/09/17 16:57 06/09/17 19:00 Glucose (Fingerstick) 127 mg/dL (70-99) H 157 mg/dL (70-99) H 145 mg/dL (70-99) H 219 mg/dL (70-99) H Current Medications: Meds: Current Medications Hydroxyzine Pamoate (Vistaril) 25 mg BID@0900,1300 PO Last administered on 06/09at 14:05; Start 05/28/17 at 09:00 Memantine (Namenda) 5 mg BID PO Last administered on 06/07/17at 08:51; Start 05/27/17 at 22:30; Stop 06/07/17 at 18:22; Status DC Hydroxyzine Pamoate (Vistaril) 50 mg QHS PO Last administered on 06/08/17at 20: 01; Start 05/27/17 at 22:30 Lamotrigine (LaMICtal) 200 mg HS PO Last administered on 05/28/17at 20:48; Start 05/27/17 at 22:30; Stop 05/29/17 at 09:53; Status DC Baclofen (Lioresal) 10 mg TID PO Last administered on 06/09/17at 14:06; Start at 22:30 Enoxaparin Sodium (Lovenox) 40 mg QHS SQ Last administered on 05/28/17at 20:47; Start 05/27/17 at 22:30; Stop 05/29/17 at 19:00; Status DC Gabapentin (Neurontin) 600 mg QHS PO Last administered on 06/08/17 20:00; Start 05/27/17 at 22:30 Pantoprazole Sodium (Protonix) 40 mg QPM PO Last administered on 06/08/17 20: 02; Start 05/28/17 at 18:00 Pilocarpine HCl (Salagen) 5 mg TID PO Last administered on 06/09/17 14:05; Start 05/27/17 at 22:30 Ropinirole HCl (Requip) 2 mg QHS PO Last administered on 06/08/17 20:00; Start 05/27/17 at 22:30 Calcium/Vitamin D (Oscal D 500mg/ 200uts) 1 tab BIDWMEALS PO Last administered on 06/09/17 16:59; Start 05/28/17 at 08:00 Fish Oil (Fish Oil) 2,000 mg BID PO Last administered on 06/09/17 08:15; Start 05/27/17 at 22:30 Oxybutynin Chloride (Ditropan) 5 mg BID PO Last administered on 06/07/17 19:31 ; Start 05/27/17 at 22:30; Stop 06/08/17 at 16:11; Status DC Atorvastatin Calcium (Lipitor) 80 mg QHS PO Last administered on 06/08/17 20: 00; Start 05/27/17 at 22:30 Acetaminophen (Tylenol) 650 mg PRN Q4HRS PRN PO PAIN / TEMP Last administered on 06/01/17at 06:35; Start 05/28/17 at 07:30 Aspirin (Aspirin Enteric Coated) 81 mg DAILY PO Last administered on 06/09/17 08:20; Start 05/28/17 at 09:00 Bisacodyl (Dulcolax Supp) 10 mg PRN DAILY PRN RC CONSTIPATION; Start 05/28/17 at 07:30 Vitamin D (Vitamin D3) 2,000 unit DAILY PO Last administered on 06/09/17 08:21 ; Start 05/28/17 at 09:00 Cyanocobalamin (Vitamin B-12) 1,000 mcg QODAY@1700 PO Last administered on 06/09 16:59; Start 05/28/17 at 17:00 Docusate Sodium (Colace) 100 mg PRN BID PRN PO CONSTIPATION; Start 05/28/17 at 07:30; Stop 05/30/17 at 23:12; Status DC Gabapentin (Neurontin) 300 mg BID@0900,1300 PRN PO Neuropathy; Start 05/28/17 at 09:00; Stop 05/29/17 at 01:26; Status DC Acetaminophen/ Hydrocodone Bitart (Lortab 7.5/325) 1 tab PRN Q4HRS PRN PO PAIN Last administered on 06/09/17at 11:44; Start 05/28/17 at 07:30 Levothyroxine Sodium (Synthroid) 175 mcg DAILY06 PO Last administered on at 06:05; Start 05/28/17 at 08:00 Lisinopril (Prinivil) 2.5 mg DAILY PO Last administered on 06/09/17at 08:20; Start 05/28/17 at 09:00 Loperamide HCl (Imodium) 2 mg TID PRN PRN PO DIARRHEA; Start 05/28/17 at 07:30 Nystatin (Nystop) 1 gene PRN TID PRN TP RASH; Start 05/28/17 at 07:30 Polyethylene Glycol (miraLAX) 17 gm PRN DAILY PRN PO CONSTIPATION Last administered on 06/08/17at 09:02; Start 05/28/17 at 07:30 Tramadol HCl (Ultram) 50 mg PRN Q4HRS PRN PO PAIN Last administered on at 06:08; Start 05/28/17 at 07:30 Artificial Tears (Artificial Tears) 2 drop PRN BID PRN OU DRY EYE; Start at 08:00; Stop 05/28/17 at 14:31; Status DC Non-Formulary Medication (Dulaglutide (Trulicity)) 1.5 mg QTU SQ ; Start at 16:00; Stop 06/08/17 at 16:20; Status DC Non-Formulary Medication (Insulin Degludec (Tresiba Flextouch U-200)) 90 unit DAILY SQ Last administered on 06/09/17at 08:23; Start 05/28/17 at 09:00 Multivitamins/ Calcium (Thera-M Plus) 1 tab DAILY PO Last administered on at 08:16; Start 05/28/17 at 09:00 Tetrahydrozoline HCl (Murine) 1 drop PRN QID PRN OU DRY EYE; Start 05/28/17 at 08:00; Stop 05/28/17 at 14:31; Status DC Throat Lozenges (Chloraseptic) 1 spray PRN Q4HRS PRN MM SORE THROAT; Start 01/05 at 08:00; Stop 05/28/17 at 14:31; Status DC Insulin Aspart (NovoLOG) 15 units TIDAC SQ Last administered on 06/09/17at 17:01 ; Start 05/28/17 at 11:30 Insulin Aspart (NovoLOG) 0-5 UNITS TIDWMEALS SQ Last administered on 06/09/17at 11:48; Start 05/28/17 at 12:00 Fosfomycin Tromethamine (Monurol) 3 gm 1X ONCE PO ; Start 05/28/17 at 12:45; Stop 05/28/17 at 12:46; Status DC Fosfomycin Tromethamine (Monurol) 3 gm 1X ONCE PO Last administered on at 13:42; Start 05/28/17 at 14:00; Stop 05/28/17 at 14:01; Status DC Throat Lozenges (Chloraseptic) 1 spray PRN Q4HRS PRN MM SORE THROAT Last administered on 05/31/17at 05:28; Start 05/28/17 at 14:31 Artificial Tears (Artificial Tears) 2 drop PRN BID PRN OU DRY EYE Last administered on 06/05/17at 10:09; Start 05/28/17 at 14:31 Tetrahydrozoline HCl (Murine) 1 drop PRN QID PRN OU DRY EYE; Start 05/28/17 at 14:31; Stop 05/31/17 at 19:31; Status DC Gabapentin (Neurontin) 300 mg BID@0900,1300 PO Last administered on 06/09/17at 14:06; Start 05/29/17 at 09:00 Lamotrigine (LaMICtal) 250 mg HS PO Last administered on 06/08/17at 19:59; Start 05/29/17 at 21:00 Bupropion HCl (Wellbutrin Xl) 150 mg DAILY PO Last administered on 05/31/17 08 :32; Start 05/29/17 at 10:30; Stop 05/31/17 at 17:04; Status DC Magnesium Hydroxide (Milk Of Magnesia) 2,400 mg PRN DAILY PRN PO CONSTIPATION Last administered on 05/29/17 20:51; Start 05/29/17 at 20:45 Mirtazapine (Remeron) 7.5 mg QHS PO Last administered on 06/06/17at 19:25; Start 05/30/17 at 21:00; Stop 06/07/17 at 18:22; Status DC Docusate Sodium (Colace) 100 mg BID PO Last administered on 06/09/17 08:20; Start 05/31/17 at 09:00 Bupropion HCl (Wellbutrin Xl) 300 mg DAILY PO Last administered on 06/09/17 08 :15; Start 06/01/17 at 09:00 Melatonin 3 mg QHS PO Last administered on 06/01/17at 19:58; Start 05/31/17 at 21:00; Stop 06/02/17 at 10:09; Status DC Tetrahydrozoline HCl (Murine) 1 drop QID OU Last administered on 06/01/17 08: 34; Start 05/31/17 at 21:00; Stop 06/01/17 at 17:24; Status DC Tetrahydrozoline HCl (Murine) 1 drop PRN QID PRN OU DRY EYE Last administered on 06/07/17at 09:30; Start 06/01/17 at 21:00 Melatonin 3 mg PRN QHS PRN PO insomnia; Start 06/02/17 at 21:00 Amoxicillin (Amoxil) 500 mg [id number] PO Last administered on 06/09/17at 14:05; Start 06/02/17 at 21:00; Stop 06/12/17 at 23:59 Lactobacillus Rhamnosus (Culturelle) 1 cap BID PO Last administered on at 08:21; Start 06/03/17 at 09:00 Saliva Substitute (Biotene Moisturizing Mouth) 2 spray PRN Q15MIN PRN PO DRY MOUTH Last administered on 06/09/17at 04:07; Start 06/07/17 at 15:00 Memantine (Namenda) 10 mg BID PO Last administered on 06/09/17at 08:20; Start at 21:00 Mirtazapine (Remeron) 15 mg QHS PO Last administered on 06/08/17at 20:00; Start 06/07/17 at 21:00 Oxybutynin Chloride (Ditropan) 5 mg QHS PO Last administered on 06/08/17at 19:59 ; Start 06/08/17 at 21:00 Active Scripts Active Reported Chloraseptic Max [place] (Phenol/Glycerin) 30 Ml [place] 1 [place] MM PRN Q4HRS PRN Miralax (Polyethylene Glycol 3350) 17 Gm Powd.pack 17 Gm PO PRN DAILY PRN Nystop (Nystatin) 60 Gm Powder 1 Gene TP PRN TID PRN Clear Eyes Itchy Eye Rlf Drops (Naphazoline Hcl/Zn Sulf/Gly) 15 Ml Drops 1 Drop OU PRN QID PRN Imodium A-D (Loperamide HCl) 2 Mg Capsule 2 Mg PO TID PRN PRN Colace (Docusate Sodium) 100 Mg Capsule 100 Mg PO PRN BID PRN Refresh Optive Eye Drops (Carboxymethylcellulos/Glycerin) 15 Ml Drops 2 Drop OU PRN BID PRN Bisacodyl 10 Mg Supp.rect 10 Mg RC PRN DAILY PRN Belladonna-Opium 16.2-30 Supp (Opium/Belladonna Alkaloids) 1 Each Supp.rect 1 Supp RC PRN Q12HR PRN Hydrocodone-Apap 7.5-325 (Hydrocodone Bit/Acetaminophen) 1 Each Tablet 1 Tab PO PRN Q4HRS PRN Tylenol (Acetaminophen) 325 Mg Tablet 650 Mg PO PRN Q4HRS PRN Tramadol Hcl (Tramadol HCl) 50 Mg Tablet 50 Mg PO PRN Q4HRS PRN Crestor (Rosuvastatin Calcium) 40 Mg Tablet 40 Mg PO HS Requip (Ropinirole Hcl) 1 Mg Tablet 2 Mg PO QHS [place] Hcl 5 Mg Tablet 5 Mg PO TID Pantoprazole Sodium 40 Mg Tablet.dr 40 Mg PO QPM Oxybutynin Chloride Er (Oxybutynin Chloride) 10 Mg Tab.er.24 10 Mg PO QHS Multivitamins (Multivitamin) 1 Each Tablet 1 Tab PO DAILY Namenda (Memantine Hcl) 5 Mg Tablet 5 Mg PO BID Lisinopril 2.5 Mg Tablet 2.5 Mg PO DAILY Linzess (Linaclotide) 145 Mcg Capsule 145 Mcg PO DAILY Levothyroxine Sodium 175 Mcg Tablet 175 Mcg PO DAILY07 Lamictal (Lamotrigine) 200 Mg Tablet 200 Mg PO QHS Ketoconazole 120 Ml Shampoo 120 Ml TP Q3DAYS Tresiba Flextouch U-200 (Insulin Degludec) 200 Unit/1 Ml Insuln.pen 90 Unit SQ DAILY Novolog Flexpen (Insulin Aspart) 100 Unit/1 Ml Insuln.pen 0-10 Unit SQ TIDWMEALS Hydroxyzine Pamoate 50 Mg Capsule 50 Mg PO QHS Hydroxyzine Pamoate 25 Mg Capsule 25 Mg PO BID@0900,1300 Neurontin (Gabapentin) 300 Mg Capsule 300 Mg PO BID@0900,1300 Neurontin (Gabapentin) 300 Mg Capsule 600 Mg PO QHS [place] 3 1,000 Mg Softgel ([place]-3 Fatty Acids/Fish Oil) 1 Each Capsule 2,000 Mg PO BID Lovenox (Enoxaparin Sodium) 40 Mg/0.4 Ml Disp.syrin 40 Mg SQ QHS Trulicity (Dulaglutide) 1.5 Mg/0.5 Ml Pen.injctr 1.5 Mg SQ QTU Vitamin B-12 (Cyanocobalamin (Vitamin B-12)) 1,000 Mcg Tablet 1,000 Mcg PO QODAY @1700 Vitamin D3 (Cholecalciferol (Vitamin D3)) 1,000 Unit Tablet 2,000 Unit PO DAILY Calcium 600 + Vit D 400 Tablet (Calcium Carbonate/Vitamin D3) 1 Each Tablet 1 Tab PO BID Baclofen 10 Mg Tablet 10 Mg PO TID Aspir-Low (Aspirin) 81 Mg Tablet.dr 81 Mg PO DAILY I have reviewed the current psychotropics carefully including drug interactions. Risk benefit ratio favors no change other than as noted in my dictated progress note. Diagnosis: Problems: (1) Bipolar affective, mixed, sev w/ psych (2) Anxiety disorder (3) Major depressive disorder, recurrent episode KURT DUARTE MD Jun 09, 2017 20:52
[2017-06-09] MEDS: ATORVASTATIN CALCIUM 20 MG TABLET PO SCH (21:31)
[2017-06-09] MEDS: OXYBUTYNIN CHLORIDE 5 MG TABLET PO SCH (21:32)
[2017-06-09] MEDS: MIRTAZAPINE 15 MG TABLET PO SCH (21:32)
[2017-06-09] MEDS: rOPINIRole 2 MG TABLET. PO SCH (21:32)
[2017-06-09] MEDS: lamoTRIgine 100 MG TABLET. PO SCH (21:33)
[2017-06-10] MEDS ORDERED: AMOX500C PO (03:53)
[2017-06-10] MEDS ORDERED: ATORVASTATIN CA80 MG PO (03:54)
[2017-06-10] MEDS ORDERED: LACT1CAP21 PO (04:14)
[2017-06-10] MEDS ORDERED: MELA3TAB2 PO (04:19)
[2017-06-10] MEDS ORDERED: MEMA10TA PO (04:21)
[2017-06-10] MEDS ORDERED: MIRT15TA3 PO (04:22)
[2017-06-10] MEDS ORDERED: BUPR300T3 PO (04:26)
[2017-06-10 05:43] VITALS: BP 124/70
[2017-06-10] MEDS: LEVOTHYROXINE 175 MCG TABLET PO SCH (05:47)
[2017-06-10] MEDS: INSULIN ASPART 300 UNITS/3 ML INSULN.PEN SQ SCH ×4 (08:00→11:52)
[2017-06-10 08:08] VITALS: BP 124/70
[2017-06-10] MEDS: AMOXICILLIN 250 MG CAPSULE PO SCH ×2 (08:08→13:24)
[2017-06-10] MEDS: LISINOPRIL 2.5 MG TABLET PO SCH (08:08)
[2017-06-10] MEDS: buPROPion XL 300 MG TAB.ER.24H. PO SCH (08:09)
[2017-06-10] MEDS: OMEGA-3 FATTY ACIDS/FISH OIL 1,000 MG CAPSULE. PO SCH (08:09)
[2017-06-10] MEDS: DOCUSATE SODIUM 100 MG CAPSULE PO SCH (08:09)
[2017-06-10] MEDS: LACTOBACILLUS RHAMNOSUS GG 1 CAPSULE. PO SCH (08:09)
[2017-06-10] MEDS: CHOLECALCIFEROL (VITAMIN D3) 1,000 UNIT TABLET PO SCH (08:09)
[2017-06-10] MEDS: GABAPENTIN 300 MG CAPSULE. PO SCH ×2 (08:09→13:24)
[2017-06-10] MEDS: MULTIVITAMIN with MINERAL TABLET. PO SCH (08:09)
[2017-06-10] MEDS: hydrOXYzine PAMOATE 25 MG CAPSULE PO SCH ×2 (08:09→13:25)
[2017-06-10] MEDS: MEMANTINE 10 MG TABLET. PO SCH (08:10)
[2017-06-10] MEDS: BACLOFEN 10 MG TABLET PO SCH ×2 (08:10→13:24)
[2017-06-10] MEDS: CALCIUM CARB/VIT D3 500/200 TABLET PO SCH (08:10)
[2017-06-10] MEDS: ASPIRIN ENTERIC COATED 81 MG TABLET.DR. PO SCH (08:10)
[2017-06-10] MEDS: LINACLOTIDE 145 MCG CAPSULE. PO SCH (08:12)
[2017-06-10] MEDS: PILOCARPINE 5 MG TABLET. PO SCH ×2 (08:12→13:24)
--- NOTE | 2017-06-10 09:27 | PN ---
DATE: 06/08/2017 This late entry, 06/08/2017, covers elements not covered in my initial note of 06/08/2017. SUBJECTIVE: I met with the patient the evening of 06/08/2017. The patient slept 3-1/4 hours previous evening. The patient remains somewhat withdrawn, comes out for some groups at times. In the evening, she stormed out of the day room per nursing staff. He was irritated because one of the other patients was making bird noises. I met with her individually at some length in her room. She was irritable that I had not come to see her on rounds before I met with the nursing staff to get the nursing report and I explained to her that this was the situation where the nurses were free to give the reports and therefore my visit was with her right after the nursing report. She had a difficult time understanding initially, but later accepted it. Processed at length. MENTAL STATUS EXAM: Speech is coherent, abstraction fair, computation reasonable, language function intact, attention span short. Mood and affect showing improvement. Otherwise, no active suicidal or homicidal: ideations. REVIEW OF SYSTEMS: Ambulation is impaired with walker. No CV, , pulmonary, eye system symptoms on review. IMPRESSION: Unchanged from initial note. PLAN: Continue current psychotropics. She prefers not using anything different for the insomnia and we have gone ahead and increased the Remeron to 15 mg at bedtime, but she refuses the Seroquel or melatonin. Namenda was also increased to 10 mg twice a day. KURT DUARTE MD DR: ROMA/jayro JOB#: [id number] / [id number]
--- NOTE | 2017-06-10 12:53 | PN ---
DATE: 06/09/2017 This late entry 06/09/2017 covers elements not covered in my initial note of 06/09/2017. SUBJECTIVE: I met with the patient at length individually in her room, evening of 06/09/2017. The patient slept 2-1/4 hours previous evening, but states she does not want anything different for her insomnia and believes this was a consequence of her anxiety about discharge back home and should stabilize when she is home. She also has some pain symptoms at night that awaken her and I will defer to Dr. Durbin. REVIEW OF SYSTEMS: Ambulation impaired with walker. No CV, , pulmonary, eye system symptoms on review. MENTAL STATUS EXAM: Reasonably oriented. Speech is coherent, quite interactive, less anxious. Abstraction fair, computation impaired, language function intact. Mood and affect improved. We discussed at length activity she can do to keep herself active and busy at home. She is not much into gardening, but was able to elaborate several specific activities and games she will be involving herself in to keep her mind busy rather than ruminating about negative ____ ideation whatsoever. No homicidal ideation, no psychotic symptoms. Mood is improved. Affect is much brighter, less anxious. IMPRESSION: Unchanged from initial note. PLAN: Continue current psychotropics. Possible discharge home with outpatient followup at [facility] starting 06/10/2017. I have discussed with Maryjo, social service staff and nursing staff that she should just have 3 days of her medications available to her at home at any one time and the family should dispense it every 3 days rather than every week. When she starts at the [facility], they can decide to increase this duration. MAN Ellis DUARTE MD DR: ROMA/jayro JOB#: [id number] / [id number]
[2017-06-10] MEDS: HYDROcodone/APAP 7.5/325MG 1 TAB TABLET PO PRN (14:49)
--- NOTE | 2017-06-10 17:58 | PDOC ---
Exam Note: Jens Note: Please also refer to the separate dictated note~for this date of service dictated separately.~Patient seen individually. Discussed the patient with Nursing staff reviewed the chart.~Reviewed interim history and current functioning. Reviewed vital signs,~Labs/ Radiology~and current medications noted below. Continue current treatment with the changes noted in the dictated addendum note Assessment: Vital Signs: Vital Signs Date Time Temp Pulse Resp B/P (MAP) Pulse Ox O2 Delivery O2 Flow Rate FiO2 06/10/17 14:49 18 96 Room Air 06/10/17 08:08 82 124/70 06/10/17 05:43 97.0 I&O Intake and Output 06/10/17 07:00 Intake Total 1440 ml Balance 1440 ml Intake Oral 1440 ml Labs: Laboratory Tests Test 06/09/17 19:00 06/10/17 07:28 06/10/17 11:36 Glucose (Fingerstick) 219 mg/dL (70-99) H 132 mg/dL (70-99) H 120 mg/dL (70-99) H Current Medications: Meds: Current Medications Hydroxyzine Pamoate (Vistaril) 25 mg BID@0900,1300 PO Last administered on 06/10at 13:25; Start 05/28/17 at 09:00; Stop 06/10/17 at 15:44; Status DC Memantine (Namenda) 5 mg BID PO Last administered on 06/07/17at 08:51; Start 05/27/17 at 22:30; Stop 06/07/17 at 18:22; Status DC Hydroxyzine Pamoate (Vistaril) 50 mg QHS PO Last administered on 06/09/17at 21: 35; Start 05/27/17 at 22:30; Stop 06/10/17 at 15:44; Status DC Lamotrigine (LaMICtal) 200 mg HS PO Last administered on 05/28/17at 20:48; Start 05/27/17 at 22:30; Stop 05/29/17 at 09:53; Status DC Baclofen (Lioresal) 10 mg TID PO Last administered on 06/10/17at 13:24; Start at 22:30; Stop 06/10/17 at 15:44; Status DC Enoxaparin Sodium (Lovenox) 40 mg QHS SQ Last administered on 05/28/17at 20:47; Start 05/27/17 at 22:30; Stop 05/29/17 at 19:00; Status DC Gabapentin (Neurontin) 600 mg QHS PO Last administered on 06/09/17at 21:32; Start 05/27/17 at 22:30; Stop 06/10/17 at 15:44; Status DC Pantoprazole Sodium (Protonix) 40 mg QPM PO Last administered on 06/08/17 20: 02; Start 05/28/17 at 18:00; Stop 06/10/17 at 15:44; Status DC Pilocarpine HCl (Salagen) 5 mg TID PO Last administered on 06/10/17 13:24; Start 05/27/17 at 22:30; Stop 06/10/17 at 15:44; Status DC Ropinirole HCl (Requip) 2 mg QHS PO Last administered on 06/09/17 21:32; Start 05/27/17 at 22:30; Stop 06/10/17 at 15:44; Status DC Calcium/Vitamin D (Oscal D 500mg/ 200uts) 1 tab BIDWMEALS PO Last administered on 06/10/17 08:10; Start 05/28/17 at 08:00; Stop 06/10/17 at 15:44; Status DC Fish Oil (Fish Oil) 2,000 mg BID PO Last administered on 06/10/17 08:09; Start 05/27/17 at 22:30; Stop 06/10/17 at 15:44; Status DC Oxybutynin Chloride (Ditropan) 5 mg BID PO Last administered on 06/07/17at 19:31 ; Start 05/27/17 at 22:30; Stop 06/08/17 at 16:11; Status DC Atorvastatin Calcium (Lipitor) 80 mg QHS PO Last administered on 06/09/17 21: 31; Start 05/27/17 at 22:30; Stop 06/10/17 at 15:44; Status DC Acetaminophen (Tylenol) 650 mg PRN Q4HRS PRN PO PAIN / TEMP Last administered on 06/01/17at 06:35; Start 05/28/17 at 07:30; Stop 06/10/17 at 15:44; Status DC Aspirin (Aspirin Enteric Coated) 81 mg DAILY PO Last administered on 06/10/17at 08:10; Start 05/28/17 at 09:00; Stop 06/10/17 at 15:44; Status DC Bisacodyl (Dulcolax Supp) 10 mg PRN DAILY PRN RC CONSTIPATION; Start 05/28/17 at 07:30; Stop 06/10/17 at 15:44; Status DC Vitamin D (Vitamin D3) 2,000 unit DAILY PO Last administered on 06/10/17at 08:09 ; Start 05/28/17 at 09:00; Stop 06/10/17 at 15:44; Status DC Cyanocobalamin (Vitamin B-12) 1,000 mcg QODAY@1700 PO Last administered on 06/09at 16:59; Start 05/28/17 at 17:00; Stop 06/10/17 at 15:44; Status DC Docusate Sodium (Colace) 100 mg PRN BID PRN PO CONSTIPATION; Start 05/28/17 at 07:30; Stop 05/30/17 at 23:12; Status DC Gabapentin (Neurontin) 300 mg BID@0900,1300 PRN PO Neuropathy; Start 05/28/17 at 09:00; Stop 05/29/17 at 01:26; Status DC Acetaminophen/ Hydrocodone Bitart (Lortab 7.5/325) 1 tab PRN Q4HRS PRN PO PAIN Last administered on 06/10/17at 14:49; Start 05/28/17 at 07:30; Stop 06/10/17 at 15:44; Status DC Levothyroxine Sodium (Synthroid) 175 mcg DAILY06 PO Last administered on at 05:47; Start 05/28/17 at 08:00; Stop 06/10/17 at 15:44; Status DC Lisinopril (Prinivil) 2.5 mg DAILY PO Last administered on 06/10/17at 08:08; Start 05/28/17 at 09:00; Stop 06/10/17 at 15:44; Status DC Loperamide HCl (Imodium) 2 mg TID PRN PRN PO DIARRHEA; Start 05/28/17 at 07:30 ; Stop 06/10/17 at 15:44; Status DC Nystatin (Nystop) 1 gene PRN TID PRN TP RASH; Start 05/28/17 at 07:30; Stop at 15:44; Status DC Polyethylene Glycol (miraLAX) 17 gm PRN DAILY PRN PO CONSTIPATION Last administered on 06/08/17at 09:02; Start 05/28/17 at 07:30; Stop 06/10/17 at 15:44 ; Status DC Tramadol HCl (Ultram) 50 mg PRN Q4HRS PRN PO PAIN Last administered on at 06:08; Start 05/28/17 at 07:30; Stop 06/10/17 at 15:44; Status DC Artificial Tears (Artificial Tears) 2 drop PRN BID PRN OU DRY EYE; Start at 08:00; Stop 05/28/17 at 14:31; Status DC Non-Formulary Medication (Dulaglutide (Trulicity)) 1.5 mg QTU SQ ; Start at 16:00; Stop 06/08/17 at 16:20; Status DC Non-Formulary Medication (Insulin Degludec (Tresiba Flextouch U-200)) 90 unit DAILY SQ Last administered on 06/10/17at 08:11; Start 05/28/17 at 09:00; Stop at 15:44; Status DC Multivitamins/ Calcium (Thera-M Plus) 1 tab DAILY PO Last administered on at 08:09; Start 05/28/17 at 09:00; Stop 06/10/17 at 15:44; Status DC Tetrahydrozoline HCl (Murine) 1 drop PRN QID PRN OU DRY EYE; Start 05/28/17 at 08:00; Stop 05/28/17 at 14:31; Status DC Throat Lozenges (Chloraseptic) 1 spray PRN Q4HRS PRN MM SORE THROAT; Start 01/05 at 08:00; Stop 05/28/17 at 14:31; Status DC Insulin Aspart (NovoLOG) 15 units TIDAC SQ Last administered on 06/10/17at 11:30 ; Start 05/28/17 at 11:30; Stop 06/10/17 at 15:44; Status DC Insulin Aspart (NovoLOG) 0-5 UNITS TIDWMEALS SQ Last administered on 06/09/17at 11:48; Start 05/28/17 at 12:00; Stop 06/10/17 at 15:44; Status DC Fosfomycin Tromethamine (Monurol) 3 gm 1X ONCE PO ; Start 05/28/17 at 12:45; Stop 05/28/17 at 12:46; Status DC Fosfomycin Tromethamine (Monurol) 3 gm 1X ONCE PO Last administered on at 13:42; Start 05/28/17 at 14:00; Stop 05/28/17 at 14:01; Status DC Throat Lozenges (Chloraseptic) 1 spray PRN Q4HRS PRN MM SORE THROAT Last administered on 05/31/17at 05:28; Start 05/28/17 at 14:31; Stop 06/10/17 at 15:44 ; Status DC Artificial Tears (Artificial Tears) 2 drop PRN BID PRN OU DRY EYE Last administered on 06/05/17at 10:09; Start 05/28/17 at 14:31; Stop 06/10/17 at 15:44 ; Status DC Tetrahydrozoline HCl (Murine) 1 drop PRN QID PRN OU DRY EYE; Start 05/28/17 at 14:31; Stop 05/31/17 at 19:31; Status DC Gabapentin (Neurontin) 300 mg BID@0900,1300 PO Last administered on 06/10/17at 13:24; Start 05/29/17 at 09:00; Stop 06/10/17 at 15:44; Status DC Lamotrigine (LaMICtal) 250 mg HS PO Last administered on 06/09/17at 21:33; Start 05/29/17 at 21:00; Stop 06/10/17 at 15:44; Status DC Bupropion HCl (Wellbutrin Xl) 150 mg DAILY PO Last administered on 05/31/17at 08 :32; Start 05/29/17 at 10:30; Stop 05/31/17 at 17:04; Status DC Magnesium Hydroxide (Milk Of Magnesia) 2,400 mg PRN DAILY PRN PO CONSTIPATION Last administered on 05/29/17at 20:51; Start 05/29/17 at 20:45; Stop 06/10/17 at 15:44; Status DC Mirtazapine (Remeron) 7.5 mg QHS PO Last administered on 06/06/17at 19:25; Start 05/30/17 at 21:00; Stop 06/07/17 at 18:22; Status DC Docusate Sodium (Colace) 100 mg BID PO Last administered on 06/10/17at 08:09; Start 05/31/17 at 09:00; Stop 06/10/17 at 15:44; Status DC Bupropion HCl (Wellbutrin Xl) 300 mg DAILY PO Last administered on 06/10/17at 08 :09; Start 06/01/17 at 09:00; Stop 06/10/17 at 15:44; Status DC Melatonin 3 mg QHS PO Last administered on 06/01/17at 19:58; Start 05/31/17 at 21:00; Stop 06/02/17 at 10:09; Status DC Tetrahydrozoline HCl (Murine) 1 drop QID OU Last administered on 06/01/17at 08: 34; Start 05/31/17 at 21:00; Stop 06/01/17 at 17:24; Status DC Tetrahydrozoline HCl (Murine) 1 drop PRN QID PRN OU DRY EYE Last administered on 06/07/17at 09:30; Start 06/01/17 at 21:00; Stop 06/10/17 at 15:44; Status DC Melatonin 3 mg PRN QHS PRN PO insomnia; Start 06/02/17 at 21:00; Stop 06/10/17 at 15:44; Status DC Amoxicillin (Amoxil) 500 mg HRO177 PO Last administered on 06/10/17at 13:24; Start 06/02/17 at 21:00; Stop 06/10/17 at 15:44; Status DC Lactobacillus Rhamnosus (Culturelle) 1 cap BID PO Last administered on at 08:09; Start 06/03/17 at 09:00; Stop 06/10/17 at 15:44; Status DC Saliva Substitute (Biotene Moisturizing Mouth) 2 spray PRN Q15MIN PRN PO DRY MOUTH Last administered on 06/09/17at 04:07; Start 06/07/17 at 15:00; Stop at 15:44; Status DC Memantine (Namenda) 10 mg BID PO Last administered on 06/10/17at 08:10; Start at 21:00; Stop 06/10/17 at 15:44; Status DC Mirtazapine (Remeron) 15 mg QHS PO Last administered on 06/09/17at 21:32; Start 06/07/17 at 21:00; Stop 06/10/17 at 15:44; Status DC Oxybutynin Chloride (Ditropan) 5 mg QHS PO Last administered on 06/09/17at 21:32 ; Start 06/08/17 at 21:00; Stop 06/10/17 at 15:44; Status DC Active Scripts Active Reported Wellbutrin Xl (Bupropion Hcl) 300 Mg Tab.er.24h 300 Mg PO DAILY Mirtazapine 15 Mg Tablet 15 Mg PO QHS Namenda (Memantine Hcl) 10 Mg Tablet 10 Mg PO BID Melatonin 3 Mg Tablet 3 Mg PO PRN QHS PRN Culturelle (Lactobacillus Rhamnosus Gg) 1 Each Capsule 1 Cap PO BID Amoxicillin 500 Mg Capsule 500 Mg PO [id number] Last dose 06/12/17 evening. Chloraseptic [place] (Phenol/Glycerin) 30 Ml [place] 1 [place] MM PRN Q4HRS PRN Miralax (Polyethylene Glycol 3350) 17 Gm Powd.pack 17 Gm PO PRN DAILY PRN Nystop (Nystatin) 60 Gm Powder 1 Gene TP PRN TID PRN Clear Eyes Itchy Eye Rlf Drops (Naphazoline Hcl/Zn Sulf/Gly) 15 Ml Drops 1 Drop OU PRN QID PRN Imodium A-D (Loperamide HCl) 2 Mg Capsule 2 Mg PO TID PRN PRN Colace (Docusate Sodium) 100 Mg Capsule 100 Mg PO PRN BID PRN Refresh Optive Eye Drops (Carboxymethylcellulos/Glycerin) 15 Ml Drops 2 Drop OU PRN BID PRN Bisacodyl 10 Mg Supp.rect 10 Mg RC PRN DAILY PRN Hydrocodone-Apap 7.5-325 (Hydrocodone Bit/Acetaminophen) 1 Each Tablet 1 Tab PO PRN Q4HRS PRN Tylenol (Acetaminophen) 325 Mg Tablet 650 Mg PO PRN Q4HRS PRN Tramadol Hcl (Tramadol HCl) 50 Mg Tablet 50 Mg PO PRN Q4HRS PRN Crestor (Rosuvastatin Calcium) 40 Mg Tablet 40 Mg PO HS Requip (Ropinirole Hcl) 1 Mg Tablet 2 Mg PO QHS Pilocarpine Hcl 5 Mg Tablet 5 Mg PO TID Pantoprazole Sodium 40 Mg Tablet.dr 40 Mg PO QPM Oxybutynin Chloride Er (Oxybutynin Chloride) 10 Mg Tab.er.24 10 Mg PO QHS Multivitamins (Multivitamin) 1 Each Tablet 1 Tab PO DAILY Lisinopril 2.5 Mg Tablet 2.5 Mg PO DAILY Linzess (Linaclotide) 145 Mcg Capsule 145 Mcg PO DAILY Levothyroxine Sodium 175 Mcg Tablet 175 Mcg PO DAILY07 Lamictal (Lamotrigine) 200 Mg Tablet 250 Mg PO QHS Tresiba Flextouch U-200 (Insulin Degludec) 200 Unit/1 Ml Insuln.pen 90 Unit SQ DAILY Novolog Flexpen (Insulin Aspart) 100 Unit/1 Ml Insuln.pen 0-10 Unit SQ TIDWMEALS Hydroxyzine Pamoate 50 Mg Capsule 50 Mg PO QHS Hydroxyzine Pamoate 25 Mg Capsule 25 Mg PO BID@0900,1300 Neurontin (Gabapentin) 300 Mg Capsule 300 Mg PO BID@0900,1300 Neurontin (Gabapentin) 300 Mg Capsule 600 Mg PO QHS [place] 3 1,000 Mg Softgel ([place]-3 Fatty Acids/Fish Oil) 1 Each Capsule 2,000 Mg PO BID Lovenox (Enoxaparin Sodium) 40 Mg/0.4 Ml Disp.syrin 40 Mg SQ QHS Trulicity (Dulaglutide) 1.5 Mg/0.5 Ml Pen.injctr 1.5 Mg SQ QTU Vitamin B-12 (Cyanocobalamin (Vitamin B-12)) 1,000 Mcg Tablet 1,000 Mcg PO QODAY @1700 Vitamin D3 (Cholecalciferol (Vitamin D3)) 1,000 Unit Tablet 2,000 Unit PO DAILY Calcium 600 + Vit D 400 Tablet (Calcium Carbonate/Vitamin D3) 1 Each Tablet 1 Tab PO BID Baclofen 10 Mg Tablet 10 Mg PO TID Aspir-Low (Aspirin) 81 Mg Tablet. 81 Mg PO DAILY I have reviewed the current psychotropics carefully including drug interactions. Risk benefit ratio favors no change other than as noted in my dictated progress note. Diagnosis: Problems: (1) Major depressive disorder, recurrent episode (2) Anxiety disorder (3) Bipolar affective, mixed, sev w/ psych KURT DUARTE MD Jun 10, 2017 17:58
--- NOTE | 2017-06-11 13:37 | DS ---
DATE OF DISCHARGE: 06/10/2017 DISCHARGE SUMMARY/PSYCHIATRIC PROGRESS NOTE REASON FOR ADMISSION: Please refer to the admission history for details. Briefly, the patient is a 72-year-old female who was admitted from [facility] where she was hospitalized after a very significant overdose with a suicide attempt on baclofen and [place]. Reportedly, the patient had not been able to get any relief from pain, said she was miserable, decided to end her life, took a heavy overdose in an attempt to end her life. She was hospitalized, medically stabilized, felt to need inpatient psychiatric stabilization and then referred to us. She has a history of significant low back pain, pelvic floor pain and stated she just wanted to get away from the pain. SIGNIFICANT FINDINGS AND CLINICAL COURSE: Following admission, the patient was seen daily individually in her room by myself, followed medically by Dr. Ramirez, Dr. Rojas/Dr Durbin. She was quite depressed, anxious, somewhat paranoid, suspicious. Adjustments were made in her psychotropics and she seemed to do better on a combination of Lamictal 250 mg at bedtime, which was adjusted as she was taking this previously for diagnosis of bipolar 2 disorder along with hydroxyzine 25 mg twice a day and 50 mg at bedtime, Wellbutrin-XL 300 mg in the morning, melatonin 3 mg at bedtime p.r.n., which she preferred not to take because of dizziness, Remeron 15 mg at bedtime, Neurontin 300 mg b.i.d. and 600 mg at bedtime, Namenda 10 mg b.i.d. Gradually, her mood appeared to improve. She was much less anxious, able to come up with the discharge, aftercare plans, especially activities that could keep herself busy and being involved with the [facility]. We had recommended that the family keep all her medications and only dispense 3 days at a time to her since she lives alone. She had explored attending the [facility], but said this involved her getting and qualifying for Medicaid then she would be paying $600 each month out of pocket and she was not sure if she would be able to do that. Nevertheless, the social service staff addressed all of this at length prior to discharge. REVIEW OF SYSTEMS: Ambulation impaired with walker. Still complains of some pain, but better. No CV, , pulmonary, eye system symptoms on review. MENTAL STATUS EXAM: Reasonably oriented. Speech coherent, abstraction fair, computation reasonable, language function intact, attention span fair. Mood and affect is improved. No suicidal or homicidal ideation at discharge. The patient was assessed very carefully for any ongoing suicidal ideation, none was evident at discharge. CONDITION AT DISCHARGE: Improved. FINAL DIAGNOSES: Bipolar 2 disorder, depressed, in partial remission; history of major depressive disorder; anxiety disorder, unspecified. Rest unchanged from admission. DISCHARGE MEDICATIONS: Please refer to the MRAD. DISCHARGE INSTRUCTIONS: Outpatient psychiatric followup at [facility]. Medical follow up with the primary care physician. Time for discharge day management greater than 30 minutes. KURT DUARTE MD DR: ROMA/jayro JOB#: [id number] / [id number]
== END 2017-06-10 15:30 | disposition home or self-care (01) | DRG 885 ==
LOC: GEROPSY 20:46
PROVIDERS: ADMIT Psychiatry & Neurology Psychiatry; ATTEND Psychiatry & Neurology Psychiatry
DX: F31.81 Bipolar II disorder (principal); E11.65 Type 2 diabetes mellitus with hyperglycemia; G70.00 Myasthenia gravis without (acute) exacerbation; B19.10 Unspecified viral hepatitis B without hepatic coma; N39.0 Urinary tract infection, site not specified; F41.9 Anxiety disorder, unspecified; G89.29 Other chronic pain; M79.7 Fibromyalgia; G47.30 Sleep apnea, unspecified; E78.5 Hyperlipidemia, unspecified; M54.5 Low back pain; K58.9 Irritable bowel syndrome, unspecified; E03.9 Hypothyroidism, unspecified; K21.9 Gastro-esophageal reflux disease without esophagitis; F63.9 Impulse disorder, unspecified; G47.00 Insomnia, unspecified; R60.0 Localized edema; Z66 Do not resuscitate; Z79.899 Other long term (current) drug therapy; Z91.5 Personal history of self-harm; Z88.8 Allergy status to other drugs, medicaments and biological substances; Z88.6 Allergy status to analgesic agent; Z91.040 Latex allergy status
CPT/HCPCS: 36415; 70450; 73100; 73521; 73610; 80053; 80061; 81001; 82306; 82607; 82947; 83036; 83540; 83550; 83735; 84436; 84443; 84480; 85025; 86593; 87086; 87186; 93005; 93971; J1650; J1815; Q0177

== ENCOUNTER 2019-04-29 02:24 | Inpatient (IN) | payer MEDICARE ==
[~2019-04-29] VITALS: Ht 162.6 cm; Wt 91.6 kg
[~2019-04-29 02:24] MED LIST: ACET325T9 PO; AMOX500C PO; ASPI81TA50 PO; ATORVASTATIN CA80 MG PO; BACL10TA PO; BISA10SU4 RC; BUPR300T3 PO; CALC1TAB64 PO; CARB15DR3 OU; CHOL10003 PO; CRESTOR40 MG PO; CYAN-25 PO; DOCU-109 PO; DULA1.5P SQ; ENOX40DI SQ; GABA-586 PO; HYDR-2765 PO; HYDR25CA75 PO; HYDR50CA2 PO; INSU100I17 SQ; INSU200I4 SQ; KETO120S2 TP; LACT1CAP21 PO; LAMO200T3 PO; LEVO175T5 PO; LINA145C PO; LISI2.5T PO; LOPE-101 PO; MELA3TAB56 PO; MEMA10TA PO; MEMA5TAB PO; MIRT15TA3 PO; MULT1TAB52 PO; NYST60PO TP; OMEG-33 PO; OPIU1SUP2 RC; OXYB10TA26 PO; PANT40TA5 PO; PHEN30SP8 MM; PILO5TAB16 PO; POLY17PO5 PO; ROPI1TAB PO; TRAM50TA PO; [UNRECOGNIZED DRUG - CODE] OU
[2019-04-29] MEDS ORDERED: LAMO50TA3 PO (02:54)
[2019-04-29] MEDS ORDERED: TRAM1TAB56 PO (03:01)
[2019-04-29] MEDS ORDERED: LEVE10007 PO (03:01)
[2019-04-29] MEDS ORDERED: INSU100V31 SQ (03:01)
[2019-04-29] MEDS ORDERED: NORT10CA PO (03:01)
[2019-04-29] MEDS ORDERED: PRAV20TA2 PO (03:01)
[2019-04-29] MEDS ORDERED: BEPO10DR EACHEYE (03:01)
[2019-04-29] MEDS ORDERED: DULO60CA6 PO (03:01)
[2019-04-29] MEDS ORDERED: MAGN250T9 PO (03:01)
[2019-04-29] MEDS ORDERED: DICL100G28 TP (03:01)
[2019-04-29] MEDS ORDERED: FENO160T PO (03:01)
[2019-04-29] MEDS ORDERED: ROPI0.5T4 PO (03:01)
[2019-04-29 09:06] VITALS: BP 127/70
[2019-04-29] MEDS ORDERED: MAGNESIUM HYDROXIDE 2,400 MG/30 ML ORAL.SUSP. PO PRN (09:30)
[2019-04-29] MEDS ORDERED: MAG HYDROX/AL HYDROX/SIMETH 30 ML ORAL.SUSP PO PRN (09:30)
[2019-04-29] MEDS ORDERED: traMADol 50 MG TABLET PO PRN (10:00)
[2019-04-29] MEDS ORDERED: FLU VAX QS 2019-20 (36MOS+)/PF 0.5 ML SYRINGE. VAX IM ONE (10:00)
[2019-04-29] MEDS ORDERED: ACETAMINOPHEN PO PRN (10:00)
[2019-04-29] MEDS ORDERED: TRAMADOL HCL PO PRN (10:00)
[2019-04-29] MEDS ORDERED: DEXTROSE 50% 25 GM / 50ML DISP.SYRIN. IV PRN (10:15)
[2019-04-29] MEDS ORDERED: POLYVINYL ALCOHOL/POVIDONE/PF OPHTH SOLUTION DROPERETTE. OU PRN (10:30)
--- NOTE | 2019-04-29 11:12 | RAD ---
Exam performed: CT scan of the head without contrast. Date of Service: August 28, 2019. Comparison: None available. Clinical History: Change in mental status. Technique: Helical acquisitions are obtained from the foramen magnum to the vertex without intravenous administration of contrast. Findings: The ventricles are midline without evidence of dilatation. Normal rocha-white differentiation is maintained. There is no extra axial fluid collection, intraparenchymal hemorrhage or mass lesion. The visualized portions of the orbits, paranasal sinuses and the mastoid air cells appear clear. The calvarium is intact. Impression: 1. No acute intracranial process detected. PQRS Compliance Statement: One or more of the following individualized dose reduction techniques were utilized for this examination: 1. Automated exposure control 2. Adjustment of the mA and/or kV according to patient size 3. Use of iterative reconstruction technique Electronically signed by: Belia Jiang MD (04/29/2019 11:09 AM) [facility]
[2019-04-29] MEDS: rOPINIRole 0.5 MG TABLET. PO SCH (12:00)
[2019-04-29] MEDS: INSULIN LISPRO 300 UNITS/3 ML VIAL. SQ SCH ×3 (12:00→17:00)
[2019-04-29] MEDS: DICLOFENAC SODIUM 1% TOPICAL GEL 100GM TUBE. TP SCH ×3 (12:44→20:54)
[2019-04-29 16:02] VITALS: BP 111/71
[2019-04-29] MEDS ORDERED: lamoTRIgine 25 MG TABLET. PO SCH (17:00)
[2019-04-29] MEDS: levETIRAcetam 500 MG TABLET PO SCH (17:00)
--- NOTE | 2019-04-29 17:34 | EKG ---
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
[2019-04-29] MEDS: ATORVASTATIN CALCIUM 10 MG TABLET. PO SCH (20:52)
[2019-04-29] MEDS: NORTRIPTYLINE 10 MG CAPSULE PO SCH (20:52)
[2019-04-29] MEDS: GABAPENTIN 300 MG CAPSULE. PO SCH (20:53)
[2019-04-29] MEDS: CROMOLYN 4% OPHTH SOLUTION 10ML BOTTLE. OU SCH (20:53)
[2019-04-29] MEDS: rOPINIRole 1 MG TABLET. PO SCH (20:53)
[2019-04-29] MEDS ORDERED: BEPOTASTINE BESILATE EACHEYE SCH (21:00)
[2019-04-29] MEDS: ACETAMINOPHEN 325 MG TABLET PO PRN (21:16)
--- NOTE | 2019-04-29 21:55 | PDOC ---
Exam Note: Jens Note: Please also refer to the separate dictated note~for this date of service dictated separately. Discussed the patient with Nursing staff reviewed the chart.~Reviewed interim history and current functioning. Reviewed vital signs,~Labs/ Radiology~and current medications noted below. Continue current treatment with the changes noted in the dictated addendum note Assessment: Vital Signs/I&O: Vital Signs Date Time Temp Pulse Resp B/P (MAP) Pulse Ox O2 Delivery O2 Flow Rate FiO2 04/29/19 16:02 98.2 68 18 111/71 (84) 97 Labs: Laboratory Tests Test 04/29/19 12:06 04/29/19 17:05 04/29/19 20:11 Glucose (Fingerstick) 297 mg/dL (70-99) H 262 mg/dL (70-99) H 186 mg/dL (70-99) H Current Medications: Meds: Current Medications Medications (Trade) Dose Ordered Sig/Shannan Route PRN Reason Start Time Stop Time Status Last Admin Dose Admin Acetaminophen (Tylenol) 650 mg PRN Q6HRS PRN PO PAIN / TEMP 04/29/19 09:30 04/29/19 21:16 Influenza Virus Vaccine Quadrival (Afluria Quad 2019-20 (3yr Up) Syringe) 0.5 ml ONCE ONCE VAX IM 04/29/19 10:00 04/29/19 10:04 DC 04/29/19 10:00 Diclofenac Sodium (Voltaren) 1 gina QID TP 04/29/19 13:00 04/29/19 20:54 Gabapentin (Neurontin) 600 mg QHS PO 04/29/19 21:00 04/29/19 20:53 Nortriptyline HCl (Pamelor) 10 mg HS PO 04/29/19 21:00 04/29/19 20:52 Ropinirole HCl (Requip) 0.5 mg DAILYWLUN PO 04/29/19 12:00 04/29/19 12:00 Ropinirole HCl (Requip) 2 mg QHS PO 04/29/19 21:00 04/29/19 20:53 Insulin Human Lispro (HumaLOG) 12 units BIDWMEALS SQ 04/29/19 17:00 04/29/19 17:00 Lamotrigine (LaMICtal) 50 mg DAILYWSUP PO 04/29/19 17:00 04/29/19 17:00 Levetiracetam (Keppra) 1,000 mg BIDWMEALS PO 04/29/19 17:00 04/29/19 17:00 Atorvastatin Calcium (Lipitor) 5 mg QHS PO 04/29/19 21:00 04/29/19 20:52 Insulin Human Lispro (HumaLOG) 0-9 UNITS TIDWMEALS SQ 04/29/19 12:00 04/29/19 17:00 Cromolyn Sodium (Opticrom) 1 drop BID OU 04/29/19 21:00 04/29/19 20:53 I have reviewed the current psychotropics carefully including drug interactions. Risk benefit ratio favors no change other than as noted in my dictated progress note. Diagnosis: Problems: (1) Bipolar affective, mixed, sev w/ psych (2) Anxiety disorder (3) Major depressive disorder, recurrent episode KURT DUARTE MD Apr 29, 2019 21:55
[2019-04-30] MEDS: LEVOTHYROXINE 175 MCG TABLET PO SCH (05:45)
[2019-04-30 06:31] VITALS: BP 117/71
[2019-04-30 06:43] LABS: BASO % 1 % (0-3); EOS # 0.2 x10^3/uL (0.0-0.7); EOS % 3 % (0-3); HEMATOCRIT 46.3 % (36.0-47.0); HEMOGLOBIN 15.2 g/dL (12.0-15.5); LYMPH # 3.2 x10^3/uL (1.0-4.8); LYMPH % 50 % (24-48); MEAN CORPUSCULAR HEMOGLOBIN 29 pg (25-35); MEAN CORPUSCULAR HGB CONC 33 g/dL (31-37); MEAN CORPUSCULAR VOLUME 89 fL (79-100); MONO # 0.4 x10^3/uL (0.0-1.1); MONO % 6 % (0-9); NEUT # 2.6 x10^3uL (1.8-7.7); NEUT % 40 % (31-73); PLATELET COUNT 193 x10^3/uL (140-400); RED BLOOD COUNT 5.23 x10^6/uL (3.50-5.40); RED CELL DISTRIBUTION WIDTH 14.2 % (11.5-14.5); WHITE BLOOD COUNT 6.5 x10^3/uL (4.0-11.0)
[2019-04-30 07:00] LABS: ALBUMIN 3.6 g/dL (3.4-5.0); ALBUMIN/GLOBULIN RATIO 0.9 (1.0-1.7); CALCIUM 9.1 mg/dL (8.5-10.1); CREATININE 0.6 mg/dL (0.6-1.0); GFR 97.5; MAGNESIUM 1.9 mg/dL (1.8-2.4); POTASSIUM 3.7 mmol/L (3.5-5.1); TOTAL BILIRUBIN 0.5 mg/dL (0.2-1.0); TOTAL PROTEIN 7.5 g/dL (6.4-8.2)
[2019-04-30] MEDS: FENOFIBRATE NANOCRYSTALLIZED 145 MG TABLET PO SCH (08:58)
[2019-04-30] MEDS: CROMOLYN 4% OPHTH SOLUTION 10ML BOTTLE. OU SCH ×2 (08:59→19:36)
[2019-04-30] MEDS: DULoxetine HCL 60 MG CAPSULE.DR PO SCH (08:59)
[2019-04-30] MEDS: MAGNESIUM OXIDE 400 MG TABLET PO SCH (08:59)
[2019-04-30] MEDS: LACTOBACILLUS RHAMNOSUS GG 1 CAPSULE. PO SCH (08:59)
[2019-04-30] MEDS: levETIRAcetam 500 MG TABLET PO SCH ×2 (09:01→17:23)
[2019-04-30] MEDS: DICLOFENAC SODIUM 1% TOPICAL GEL 100GM TUBE. TP SCH ×4 (09:02→19:36)
[2019-04-30] MEDS: INSULIN LISPRO 300 UNITS/3 ML VIAL. SQ SCH ×5 (09:04→17:31)
[2019-04-30] MEDS: INSULIN GLARGINE SYRINGE. SQ SCH (09:33)
[2019-04-30] MEDS: rOPINIRole 0.5 MG TABLET. PO SCH (12:33)
[2019-04-30 14:55] LABS: THYROID STIM HORMONE (TSH) 5.849 uIU/mL (0.358-3.740)
--- NOTE | 2019-04-30 15:55 | CONS ---
DATE OF CONSULTATION: 04/30/2019 REASON FOR CONSULTATION: Medical management. HISTORY OF PRESENT ILLNESS: The patient is a 74-year-old female patient who resides in [facility] and who was apparently evaluated at [facility] and was admitted to [facility] in [facility]. She reportedly attempted suicide on , 04/26/2019 by taking 70-80 tramadol and all this in a background of bipolar affective mixed, severe with psychosis, anxiety disorder, major depressive disorder, recurrent episode. PAST MEDICAL HISTORY: Significant for type 2 diabetes mellitus; gastroesophageal reflux disease; myasthenia gravis; irritable bowel syndrome; hyperlipidemia; sleep apnea; hepatitis B; fibromyalgia; chronic low back pain; hip, groin and buttock pain; cluster headache and pelvic prolapse. PAST PSYCHIATRIC HISTORY: Significant for anxiety, major depressive disorder, bipolar disorder. PAST SURGICAL HISTORY: Significant for numerous surgical procedures including cervical laminectomy, multiple back surgeries, nerve stimulator placement. ALLERGIES: She is allergic to NONSTEROIDAL ANTI-INFLAMMATORY MEDICATION, ADHESIVES, ASPIRIN, ESTROGEN, CONJUGATED LATEX, LATUDA, METFORMIN, METOCLOPRAMIDE, OLANZAPINE, ONDANSETRON and TRAZODONE. MEDICATIONS: She is currently on following medications: She is on fenofibrate 160 mg once a day, pravastatin sodium 20 mg at bedtime, diclofenac sodium 100 grams gel 1 gram topically 4 times a day. She is on tramadol 100 mg every 12 hours, tramadol/acetaminophen 1 tablet every 12 hours and gabapentin 600 mg at bedtime. She is on lamotrigine 50 mg with supper, Keppra 1000 mg twice a day, duloxetine 60 mg for Cymbalta daily, nortriptyline 10 mg at bedtime. She is on Requip 2 mg at bedtime, Requip 0.5 mg daily. She was on bepotastine besilate 10 mg 1 drop to both eyes twice a day. She is on carboxymethylcellulose for Refresh optic eyedrops 1 drop to both eyes twice a day. She is on magnesium oxide ____ mg once a day, lactobacillus rhamnosus 1 capsule daily. She is on NovoLog FlexPen 0-10 units before meals and NovoLog 12 units twice a day scheduled, and Tresiba FlexTouch 40 units daily. She is on levothyroxine sodium 175 mcg once a day. FAMILY HISTORY: Noncontributory. SOCIAL HISTORY: She lives alone. She has 5 children. She never smoked, does not drink alcohol. 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 PHYSICAL EXAMINATION: GENERAL: When I examined her, she was sitting comfortably in her chair, in no apparent respiratory distress, slightly pale, but no jaundice, cyanosis or thyromegaly. No jugular venous distention. No limb edema. VITAL SIGNS: Her heart rate was 80, blood pressure 117/71, temperature 97.1, respiratory rate was 16, and oxygen saturation was 95% on room air. HEAD, EYES, EARS, NOSE AND THROAT: Normocephalic, atraumatic. NECK: Supple. HEART: Showed normal first and second heart sounds. No gallop or murmur. CHEST: Clear to auscultation. No crepitation or rhonchi. ABDOMEN: Distended, soft, nontender. NEUROLOGIC: She is awake, alert, responding appropriately. EXTREMITIES: Cranial nerves intact. She moves extremities without difficulty. She ambulates with a walker. LABORATORY DATA: Her lab work on admission showed a white cell count of 6500, hemoglobin 15, hematocrit 46, MCV 89 and platelet count of 193,000. Her chemistry showed a serum sodium 140, potassium 3.7, chloride 104, bicarbonate 26, anion gap of 10, BUN 15, creatinine 0.6, estimated GFR was 97 mL per minute. Her glucose was 102, calcium was 9.1, magnesium was 1.9. Total bilirubin, AST, ALT, alkaline phosphatase were normal. Her total protein 7.5, albumin was 3.6. IMPRESSION: In summary, this is a 74-year-old female patient who was admitted to [facility] on account of attempting suicide on , 04/26/2019 by taking 70-80 tramadol tablets, all this in a background of bipolar affective mixed, severe with psychosis, anxiety disorder, major depressive disorder, recurrent episode. Medically, she has multiple medical problems including hyperlipidemia, type 2 diabetes, myasthenia gravis, gastroesophageal reflux disease, obstructive sleep apnea, hepatitis B, fibromyalgia, chronic lower back pain and cluster headaches. Past psychiatric history is significant for anxiety, major depressive disorder and bipolar disorder. Medically, all in all, she seemed to be stable. Her vital signs are within acceptable range. Her lab works are all within acceptable range. PLAN: My plan is obviously to follow all her lab work that are still pending at the time of this dictation and make any necessary recommendation. Thank you, Dr. Galvez, for allowing me to participate in the care of this patient. URSULA VALERO MD DR: PINEDA/jayro JOB#: [id number] / [id number]
[2019-04-30 16:07] VITALS: BP 122/7
[2019-04-30] MEDS: lamoTRIgine 25 MG TABLET. PO SCH (17:26)
--- NOTE | 2019-04-30 17:43 | HP ---
ADMIT DATE: 04/29/2019 PSYCHIATRIC ADMISSION HISTORY AND EVALUATION This late entry date of service 04/29/2019 covers elements not covered in my initial note. I met with the patient evening of 04/29/2019 previously, discussed with nursing staff. IDENTIFYING DATA: The patient is a 74-year-old female, referred back to us from [facility] where she presented from home after attempting suicide on 04/26/2019 by taking 70-80 tramadol. She has a diagnosis of bipolar disorder, lives alone in an apartment by herself, has been recently more depressed, hopeless, helpless, worthless and paranoid. Additionally, she has a personality disorder diagnosis, which complicates her presentation. Nevertheless, she has failed outpatient psychiatric interventions, potential danger to herself as noted, referred for inpatient psychiatric stabilization. CHIEF COMPLAINT: "I have been upset about my health issues. There have been a lot of problems. I can't go on like this." HISTORY OF PRESENT ILLNESS: The patient has a history of bipolar disorder. She has a history of mood swings with periods of elation, racing thoughts alternating with being depressed. More recently, she has been feeling more helpless, hopeless, worthless with sleep and appetite changes, worsening paranoia, decreased ability to take care of herself at home. She had failed outpatient psychiatric interventions resulting in this referral, status post overdose in a suicide attempt. PAST PSYCHIATRIC HISTORY: As above. MEDICAL HISTORY: Positive for diabetes mellitus, UTI, GERD, myasthenia gravis, irritable bowel syndrome, hyperlipidemia, sleep apnea, hepatitis B positive, fibromyalgia, low back pain, groin and buttock pains, cluster headaches, pelvic prolapse. ACCU-CHEKS: A.c and at bedtime. DIET: Regular, diabetic. ALLERGIES: NONSTEROIDAL ANTI-INFLAMMATORY DRUGS, ASPIRIN, TRAZODONE, ADHESIVE, LATEX, ESTROGEN, LATUDA, ZYPREXA, ZOFRAN, REGLAN. Ambulates with a walker. CURRENT PSYCHOTROPICS: Cymbalta 60 mg a day, Lamictal 50 mg a day. FAMILY HISTORY: Noncontributory. SOCIAL HISTORY: The patient lives alone in an apartment and states she gets home health to help with her including other services. She has family members in the vicinity who assist as well. No physical, sexual or elder abuse history is noted. She is not known to be a perpetrator. REACTION TO HOSPITALIZATION: The patient accepting of it. ASSETS: Supportive living at home with outpatient treatment. REVIEW OF SYSTEMS: Ambulation impaired with walker. No CV, , pulmonary, eye system symptoms on review. MENTAL STATUS EXAMINATION: The patient is reasonably oriented. Speech coherent, abstraction fair, computation impaired, language function intact, attention span short. Mood and affect depressed. She is somewhat paranoid, suspicious. Does have some mood lability, both consistent with a primary psychiatric disorder and personality disorder. No active suicidal or homicidal ideation when I interviewed her evening of 04/29/2019. IMPRESSION: Bipolar disorder, depressed, with history of psychotic features; anxiety disorder, unspecified; impulse control disorder, unspecified. Rest unchanged from admission. PLAN: Admit to Geropsychiatry Unit at [facility]. I will see the patient daily individually from a psychiatric standpoint. Medical followup per Dr. Ramirez. Continue the patient on her current medications, consider increasing the Lamictal, get past psychiatric records. She has been with us in the past and I will review those records as well additionally from other facilities and outpatient treatment. Estimated length of stay 10-12 days. DISPOSITION PLANS: Possibly home with outpatient services or a higher level of care depending on how she responds to inpatient treatment. KURT DUARTE MD DR: ROMA/jayro JOB#: [id number] / [id number]
[2019-04-30 18:07] LABS: THYROXINE 7.3 ug/dL (4.5-12.0)
[2019-04-30 18:31] LABS: CLARITY,URINE CLEAR; COLOR,URINE AMBER
[2019-04-30 18:32] LABS: BACTERIA,URINE 0 /HPF (0-FEW); BILIRUBIN,URINE NEG (NEG); GLUCOSE,URINE >=1000 mg/dL (NEG); NITRITE,URINE NEG (NEG); RBC,URINE RARE /HPF (0-2); SQUAMOUS EPITHELIAL CELL,UR FEW /LPF; UROBILINOGEN,URINE 0.2 mg/dL (0.2 mg/dL); YEAST,URINE PRESENT /HPF
[2019-04-30] MEDS: GABAPENTIN 300 MG CAPSULE. PO SCH (19:36)
[2019-04-30] MEDS: rOPINIRole 1 MG TABLET. PO SCH (19:36)
[2019-04-30] MEDS: ATORVASTATIN CALCIUM 10 MG TABLET. PO SCH (19:37)
[2019-04-30] MEDS: NORTRIPTYLINE 10 MG CAPSULE PO SCH (19:37)
--- NOTE | 2019-04-30 21:23 | PDOC ---
Exam Note: Jens Note: Please also refer to the separate dictated note~for this date of service dictated separately.~Patient seen individually. Discussed the patient with Nursing staff reviewed the chart.~Reviewed interim history and current functioning. Reviewed vital signs,~Labs/ Radiology~and current medications noted below. Continue current treatment with the changes noted in the dictated addendum note Assessment: Vital Signs/I&O: Vital Signs Date Time Temp Pulse Resp B/P (MAP) Pulse Ox O2 Delivery O2 Flow Rate FiO2 04/30/19 16:07 98.2 88 16 122/7 (45) 98 I & O 04/29/19 04/29/19 04/30/19 15:00 23:00 07:00 Intake Total 720 ml 360 ml Balance 720 ml 360 ml Labs: Laboratory Tests Test 04/30/19 06:20 04/30/19 07:44 04/30/19 11:55 04/30/19 17:00 White Blood Count 6.5 x10^3/uL (4.0-11.0) Red Blood Count 5.23 x10^6/uL (3.50-5.40) Hemoglobin 15.2 g/dL (12.0-15.5) Hematocrit 46.3 % (36.0-47.0) Mean Corpuscular Volume 89 fL (79-100) Mean Corpuscular Hemoglobin 29 pg (25-35) Mean Corpuscular Hemoglobin Concent 33 g/dL (31-37) Red Cell Distribution Width 14.2 % (11.5-14.5) Platelet Count 193 x10^3/uL (140-400) Neutrophils (%) (Auto) 40 % (31-73) Lymphocytes (%) (Auto) 50 % (24-48) H Monocytes (%) (Auto) 6 % (0-9) Eosinophils (%) (Auto) 3 % (0-3) Basophils (%) (Auto) 1 % (0-3) Neutrophils # (Auto) 2.6 x10^3uL (1.8-7.7) Lymphocytes # (Auto) 3.2 x10^3/uL (1.0-4.8) Monocytes # (Auto) 0.4 x10^3/uL (0.0-1.1) Eosinophils # (Auto) 0.2 x10^3/uL (0.0-0.7) Basophils # (Auto) 0.0 x10^3/uL (0.0-0.2) Sodium Level 140 mmol/L (136-145) Potassium Level 3.7 mmol/L (3.5-5.1) Chloride Level 104 mmol/L (98-107) Carbon Dioxide Level 26 mmol/L (21-32) Anion Gap 10 (6-14) Blood Urea Nitrogen 15 mg/dL (7-20) Creatinine 0.6 mg/dL (0.6-1.0) Estimated GFR (Cockcroft-Gault) 97.5 BUN/Creatinine Ratio 25 (6-20) H Glucose Level 202 mg/dL (70-99) H Calcium Level 9.1 mg/dL (8.5-10.1) Magnesium Level 1.9 mg/dL (1.8-2.4) Iron Level 81 ug/dL (50-170) Total Iron Binding Capacity 446 ug/dL (250-450) Iron Saturation 18 % (15-34) Total Bilirubin 0.5 mg/dL (0.2-1.0) Aspartate Amino Transferase (AST) 28 U/L (15-37) Alanine Aminotransferase (ALT) 51 U/L (14-59) Alkaline Phosphatase 100 U/L (46-116) Total Protein 7.5 g/dL (6.4-8.2) Albumin 3.6 g/dL (3.4-5.0) Albumin/Globulin Ratio 0.9 (1.0-1.7) L Triglycerides Level 396 mg/dL (0-150) H Cholesterol Level 220 mg/dL (0-200) H LDL Cholesterol, Calculated 114 mg/dL (0-100) H VLDL Cholesterol, Calculated 79 mg/dL (0-40) H Non-HDL Cholesterol Calculated 193 mg/dL (0-129) H HDL Cholesterol 27 mg/dL (40-60) L Cholesterol/HDL Ratio 8.0 Vitamin B12 Level 659 pg/mL (247-911) 25-Hydroxy Vitamin D Total 15.8 ng/mL (30-100) L Thyroid Stimulating Hormone (TSH) 5.849 uIU/mL (0.358-3.740) Thyroxine (T4) 7.3 ug/dL (4.5-12.0) Total Triiodothyronine (TT3) 80 ng/dL (71-180) Treponema pallidum Antibody Nonreactive (Nonreactive) Glucose (Fingerstick) 267 mg/dL (70-99) H 197 mg/dL (70-99) H 201 mg/dL (70-99) H Test 04/30/19 18:15 04/30/19 19:11 Urine Collection Type Unknown Urine Color Livier Urine Clarity Clear Urine pH 5.5 Urine Specific [place] 1.025 Urine Protein Neg (NEG-TRACE) Urine Glucose (UA) >=1000 mg/dL (NEG) Urine Ketones (Stick) Trace mg/dL (NEG) Urine Blood Neg (NEG) Urine Nitrite Neg (NEG) Urine Bilirubin Neg (NEG) Urine Urobilinogen Dipstick 0.2 mg/dL (0.2 mg/dL) Urine Leukocyte Esterase Neg (NEG) Urine RBC Rare /HPF (0-2) Urine WBC 5-10 /HPF (0-4) Urine Squamous Epithelial Cells Few /LPF Urine Bacteria 0 /HPF (0-FEW) Urine Mucus Slight /LPF Urine Yeast Present /HPF Glucose (Fingerstick) 235 mg/dL (70-99) H Current Medications: Meds: Current Medications Medications (Trade) Dose Ordered Sig/Shannan Route PRN Reason Start Time Stop Time Status Last Admin Dose Admin Duloxetine HCl (Cymbalta) 60 mg DAILY PO 04/30/19 09:00 04/30/19 08:59 Levothyroxine Sodium (Synthroid) 175 mcg DAILY06 PO 04/30/19 06:00 04/30/19 05:45 Fenofibrate (Tricor) 145 mg DAILY PO 04/30/19 09:00 04/30/19 08:58 Insulin Glargine (Lantus Syringe) 40 unit DAILY SQ 04/30/19 09:00 04/30/19 09:33 Lactobacillus Rhamnosus (Culturelle) 1 cap DAILY PO 04/30/19 09:00 04/30/19 08:59 Magnesium Oxide (Magnesium Oxide) 200 mg DAILY PO 04/30/19 09:00 04/30/19 08:59 Lamotrigine (LaMICtal) 75 mg DAILYWSUP PO 04/30/19 17:00 04/30/19 17:26 I have reviewed the current psychotropics carefully including drug interactions. Risk benefit ratio favors no change other than as noted in my dictated progress note. Diagnosis: Problems: (1) Bipolar affective, mixed, sev w/ psych (2) Anxiety disorder (3) Major depressive disorder, recurrent episode (4) Impulse control disorder KURT DUARTE MD Apr 30, 2019 21:23
[2019-04-30 23:06] LABS: HEMOGLOBIN A1C 9.5 % (4.8-5.6)
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
[2019-05-01] MEDS: LEVOTHYROXINE 175 MCG TABLET PO SCH (05:08)
[2019-05-01 05:57] VITALS: BP 107/60
[2019-05-01] MEDS: CROMOLYN 4% OPHTH SOLUTION 10ML BOTTLE. OU SCH ×2 (08:18→20:02)
[2019-05-01] MEDS: DICLOFENAC SODIUM 1% TOPICAL GEL 100GM TUBE. TP SCH ×4 (08:18→20:03)
[2019-05-01] MEDS: FENOFIBRATE NANOCRYSTALLIZED 145 MG TABLET PO SCH (08:19)
[2019-05-01] MEDS: levETIRAcetam 500 MG TABLET PO SCH ×2 (08:19→17:32)
[2019-05-01] MEDS: GABAPENTIN 300 MG CAPSULE. PO SCH ×2 (08:20→20:00)
[2019-05-01] MEDS: MAGNESIUM OXIDE 400 MG TABLET PO SCH (08:20)
[2019-05-01] MEDS: LACTOBACILLUS RHAMNOSUS GG 1 CAPSULE. PO SCH (08:21)
[2019-05-01] MEDS: DULoxetine HCL 60 MG CAPSULE.DR PO SCH (08:21)
[2019-05-01] MEDS: INSULIN LISPRO 300 UNITS/3 ML VIAL. SQ SCH ×5 (08:26→17:38)
[2019-05-01] MEDS: INSULIN GLARGINE SYRINGE. SQ SCH (08:27)
[2019-05-01] MEDS ORDERED: traMADol 50 MG TABLET PO SCH (09:00)
--- NOTE | 2019-05-01 09:26 | PN ---
DATE: 04/30/2019 PSYCHIATRIC PROGRESS NOTE This late entry of 04/30 covers elements not covered in my initial note. SUBJECTIVE: I met with the patient the evening of 04/30. Per nursing report, the patient slept 6-3/4 hours the previous night. She denies active suicidal ideation, compliant with her medications. REVIEW OF SYSTEMS: Ambulation impaired, with walker. Complains of pain around her arm and shoulder, but no CV, , pulmonary, eye, ENT system symptoms on review. She continues to have some mood lability. MENTAL STATUS EXAMINATION: Oriented reasonably. Speech coherent, less pressured. Abstraction fair, computation somewhat impaired, language function intact, attention span fair. Mood and affect remain somewhat anxious, labile at times. The patient was wanting daily individual psychotherapy with me in a private setting. I addressed with her that social service staff would be seeing her for individual visits as appropriate, and I could certainly see her in a private setting, but would not be doing the 1 hour psychotherapy sessions as she was expecting to be done. She denies active suicidal ideation. Continues to have some mood lability. LABORATORY DATA: Reviewed. IMPRESSION: Bipolar disorder, mixed with psychotic features, in partial remission; anxiety disorder, unspecified; history of major depressive disorder. PLAN: Continue psychotropics from initial note. Lamictal is 50 mg daily; we will increase to 75 mg daily and then gradually weekly up to about 150 mg a day. Maintain Cymbalta 60 mg a day. Rest unchanged for now. KURT DUARTE MD DR: ROMA/jayro JOB#: [id number] / [id number]
[2019-05-01] MEDS: rOPINIRole 0.5 MG TABLET. PO SCH (12:30)
[2019-05-01] MEDS ORDERED: NYSTATIN TOPICAL POWDER 15GM BOTTLE. TP SCH (15:30)
[2019-05-01 15:46] VITALS: BP 96/60
[2019-05-01] MEDS: traMADol 50 MG TABLET PO SCH (17:31)
[2019-05-01] MEDS: lamoTRIgine 25 MG TABLET. PO SCH (17:32)
[2019-05-01] MEDS: NORTRIPTYLINE 10 MG CAPSULE PO SCH (20:00)
[2019-05-01] MEDS: rOPINIRole 1 MG TABLET. PO SCH (20:01)
[2019-05-01] MEDS: ATORVASTATIN CALCIUM 10 MG TABLET. PO SCH (20:01)
--- NOTE | 2019-05-01 21:15 | PDOC ---
Exam Note: Jens Note: Please also refer to the separate dictated note~for this date of service dictated separately.~Patient seen individually. Discussed the patient with Nursing staff reviewed the chart.~Reviewed interim history and current functioning. Reviewed vital signs,~Labs/ Radiology~and current medications noted below. Continue current treatment with the changes noted in the dictated addendum note Assessment: Vital Signs/I&O: Vital Signs Date Time Temp Pulse Resp B/P (MAP) Pulse Ox O2 Delivery O2 Flow Rate FiO2 05/01/19 18:32 94 05/01/19 15:46 97.8 88 16 96/60 (72) I & O 04/30/19 04/30/19 05/01/19 15:00 23:00 07:00 Intake Total 720 ml 480 ml Balance 720 ml 480 ml Labs: Laboratory Tests Test 05/01/19 06:33 05/01/19 07:49 05/01/19 11:47 05/01/19 17:10 Creatine Kinase 49 U/L (26-192) Glucose (Fingerstick) 156 mg/dL (70-99) H 192 mg/dL (70-99) H 219 mg/dL (70-99) H Test 05/01/19 19:36 Glucose (Fingerstick) 227 mg/dL (70-99) H Current Medications: Meds: Current Medications Medications (Trade) Dose Ordered Sig/Shannan Route PRN Reason Start Time Stop Time Status Last Admin Dose Admin Tramadol HCl (Ultram) 100 mg BID PO 05/01/19 09:00 05/01/19 15:25 DC 05/01/19 08:19 Gabapentin (Neurontin) 300 mg DAILY PO 05/01/19 09:00 05/01/19 08:20 Tramadol HCl (Ultram) 100 mg BIDWMEALS PO 05/01/19 17:00 05/01/19 17:31 I have reviewed the current psychotropics carefully including drug interactions. Risk benefit ratio favors no change other than as noted in my dictated progress note. Diagnosis: Problems: (1) Impulse control disorder (2) Bipolar affective, mixed, sev w/ psych (3) Anxiety disorder (4) Major depressive disorder, recurrent episode KURT DUARTE MD May 01, 2019 21:15
[2019-05-02] MEDS: LEVOTHYROXINE 175 MCG TABLET PO SCH (05:30)
[2019-05-02 05:41] VITALS: BP 105/65
[2019-05-02] MEDS: levETIRAcetam 500 MG TABLET PO SCH ×2 (08:11→17:35)
[2019-05-02] MEDS: LACTOBACILLUS RHAMNOSUS GG 1 CAPSULE. PO SCH (08:11)
[2019-05-02] MEDS: GABAPENTIN 300 MG CAPSULE. PO SCH ×2 (08:11→20:37)
[2019-05-02] MEDS: DICLOFENAC SODIUM 1% TOPICAL GEL 100GM TUBE. TP SCH ×4 (08:11→20:40)
[2019-05-02] MEDS: FENOFIBRATE NANOCRYSTALLIZED 145 MG TABLET PO SCH (08:11)
[2019-05-02] MEDS: DULoxetine HCL 60 MG CAPSULE.DR PO SCH (08:12)
[2019-05-02] MEDS: traMADol 50 MG TABLET PO SCH ×2 (08:12→17:35)
[2019-05-02] MEDS: CROMOLYN 4% OPHTH SOLUTION 10ML BOTTLE. OU SCH ×2 (08:12→20:34)
[2019-05-02] MEDS: MAGNESIUM OXIDE 400 MG TABLET PO SCH (08:12)
[2019-05-02] MEDS: INSULIN LISPRO 300 UNITS/3 ML VIAL. SQ SCH ×5 (08:21→17:40)
[2019-05-02] MEDS: INSULIN GLARGINE SYRINGE. SQ SCH (08:24)
[2019-05-02] MEDS: rOPINIRole 1 MG TABLET. PO SCH ×2 (12:13→20:36)
[2019-05-02 15:50] VITALS: BP 99/63
[2019-05-02] MEDS ORDERED: traZODone 50 MG TABLET. PO PRN (17:15)
[2019-05-02] MEDS: lamoTRIgine 25 MG TABLET. PO SCH (17:34)
[2019-05-02] MEDS: MIRTAZAPINE 7.5 MG TABLET. PO SCH (20:36)
[2019-05-02] MEDS: NORTRIPTYLINE 10 MG CAPSULE PO SCH (20:36)
[2019-05-02] MEDS: ATORVASTATIN CALCIUM 10 MG TABLET. PO SCH (20:38)
--- NOTE | 2019-05-02 21:18 | PDOC ---
Exam Note: Jens Note: Please also refer to the separate dictated note~for this date of service dictated separately.~Patient seen individually. Discussed the patient with Nursing staff reviewed the chart.~Reviewed interim history and current functioning. Reviewed vital signs,~Labs/ Radiology~and current medications noted below. Continue current treatment with the changes noted in the dictated addendum note Assessment: Vital Signs/I&O: Vital Signs Date Time Temp Pulse Resp B/P (MAP) Pulse Ox O2 Delivery O2 Flow Rate FiO2 05/02/19 18:35 94 05/02/19 15:50 98.6 82 16 99/63 (75) I & O 05/01/19 05/01/19 05/02/19 15:00 23:00 07:00 Intake Total 720 ml 480 ml Balance 720 ml 480 ml Labs: Laboratory Tests Test 05/02/19 07:19 05/02/19 12:04 05/02/19 17:13 05/02/19 19:06 Glucose (Fingerstick) 153 mg/dL (70-99) H 165 mg/dL (70-99) H 233 mg/dL (70-99) H 272 mg/dL (70-99) H Current Medications: Meds: Current Medications Medications (Trade) Dose Ordered Sig/Shannan Route PRN Reason Start Time Stop Time Status Last Admin Dose Admin Ropinirole HCl (Requip) 1 mg DAILYWLUN PO 05/02/19 12:00 05/02/19 12:13 Mirtazapine (Remeron) 7.5 mg QHS PO 05/02/19 21:00 05/02/19 20:36 I have reviewed the current psychotropics carefully including drug interactions. Risk benefit ratio favors no change other than as noted in my dictated progress note. Diagnosis: Problems: (1) Impulse control disorder (2) Bipolar affective, mixed, sev w/ psych (3) Anxiety disorder (4) Major depressive disorder, recurrent episode KURT DUARTE MD May 02, 2019 21:18
--- NOTE | 2019-05-02 22:15 | PN ---
DATE: 05/01/2019 PSYCHIATRIC PROGRESS NOTE This late entry 05/01/2019 covers elements not covered in my initial note. SUBJECTIVE: I met with the patient evening of 05/01/2019. Per MINGO Martinez, the patient slept 5-1/4 hours previous night. Overall, she has been doing a little bit somewhat anxious, still gets labile, depressed at times. Denies active suicidal ideation. She is wanting her Requip changed to the noontime and increase dosage for her restless leg since she states this is what she was taking at home. We will increase the Requip from 0.5 mg to 1 mg at noon. REVIEW OF SYSTEMS: Other than the restless leg symptoms, impaired ambulation with walker, no CV, , pulmonary, eye, ENT system symptoms on review. MENTAL STATUS EXAM: Reasonably oriented. Speech is coherent, abstraction fair, computation impaired, language function intact, attention span short. Mood and affect is improved. No suicidal ideation. LABORATORY DATA: Reviewed. IMPRESSION: Bipolar disorder, mixed with psychotic features. Rest unchanged. PLAN: Increase Lamictal to 100 mg a day after she has been on 75 mg for 5 days. Increase the Requip as noted. Maintain Neurontin and Cymbalta for now. Adjust further as clinically indicated. KURT DUARTE MD DR: ROMA/jayro JOB#: [id number] / [id number]
[2019-05-03] MEDS: traMADol 50 MG TABLET PO PRN (00:41)
[2019-05-03] MEDS: LEVOTHYROXINE 175 MCG TABLET PO SCH (05:35)
[2019-05-03 06:04] VITALS: BP 119/70
[2019-05-03] MEDS: INSULIN LISPRO 300 UNITS/3 ML VIAL. SQ SCH ×5 (07:41→17:37)
[2019-05-03] MEDS: FENOFIBRATE NANOCRYSTALLIZED 145 MG TABLET PO SCH (08:17)
[2019-05-03] MEDS: LACTOBACILLUS RHAMNOSUS GG 1 CAPSULE. PO SCH (08:18)
[2019-05-03] MEDS: MAGNESIUM OXIDE 400 MG TABLET PO SCH (08:18)
[2019-05-03] MEDS: GABAPENTIN 300 MG CAPSULE. PO SCH ×3 (08:18→20:52)
[2019-05-03] MEDS: DULoxetine HCL 60 MG CAPSULE.DR PO SCH (08:18)
[2019-05-03] MEDS: traMADol 50 MG TABLET PO SCH ×2 (08:18→17:32)
[2019-05-03] MEDS: levETIRAcetam 500 MG TABLET PO SCH ×2 (08:18→17:32)
[2019-05-03] MEDS: POLYETHYLENE GLYCOL 3350 17 GM PACKET. PO SCH (08:19)
[2019-05-03] MEDS: CROMOLYN 4% OPHTH SOLUTION 10ML BOTTLE. OU SCH ×3 (08:20→20:52)
[2019-05-03] MEDS: INSULIN GLARGINE SYRINGE. SQ SCH (08:27)
[2019-05-03] MEDS: DICLOFENAC SODIUM 1% TOPICAL GEL 100GM TUBE. TP SCH ×4 (09:14→20:52)
--- NOTE | 2019-05-03 11:58 | TX PLAN ---
Interdisciplinary Tx Plan Admission Information Apr 29, 2019 at 08:51 Legal Status (on Admission): Voluntary, DPOA DPOA/Guardian Name: Elva Laureano-daughter Contact Other Contact Verified Code Status: DNR Allergies: Coded Allergies: NSAIDS (Non-Steroidal Anti-Inflamma (Verified Allergy, Intermediate, 05/28/17) adhesive (Verified Allergy, Intermediate, 05/28/17) aspirin (Verified Allergy, Intermediate, 05/28/17) estrogens, conjugated (Verified Allergy, Intermediate, 05/28/17) latex (Verified Allergy, Intermediate, 05/28/17) lurasidone (Verified Allergy, Intermediate, 05/28/17) metformin (Verified Allergy, Intermediate, 05/28/17) metoclopramide (Verified Allergy, Intermediate, 05/28/17) olanzapine (Verified Allergy, Intermediate, 05/28/17) ondansetron (Verified Allergy, Intermediate, 05/28/17) trazodone (Verified Allergy, Intermediate, 05/28/17) Diagnoses Primary Diagnosis: Bipolar affective, mixed, severe with psychosis, anxiety d/o, MDD recurrent episode Reasons for Admission: Depressed, Sig. Change Appetite, Sig. Change Sleep, Suicidal attempt, Suicidal ideation, Isolating Problem in Patient's Words: Jessica reports she had not slet for four nights and the overdose brought her to the [facility]. Additional Admission Comments: Per intake record, Pt. claims to have taken 70-80 Tramadol on 04/26/19, [facility] picked up on 04/27/19, Pt. called ambulance [facility] (04/28/19) to transport to [facility]. Problems Active Problems: depressed mood anxious recent overdose Inactive Problems: medication compliant Pt Strengths/Limitations Ability for Ciales: Fair Cognitive Functioning/Ability: Good Communication Skills/Ability: Good Financial Resources: Poor Insight/Judgement: Fair Intellectual Ability: Good Physical Health: Fair Social Skills: Good Stability in Family: Fair Verbal Skills: Good Discharge Criteria Discharge Criteria: Able meet basic life need, No need for close observ., Able to meet health needs, Adequate arrangements @DC, Verbal commit aftercare, Improved mood/thought Preliminary Discharge Plan Preliminary DC Plan: Home Special Precautions Special Precautions: Suicide Risk Fall Risk: High Initial D/C Plan Jessica prefers to return to her apartment with the supports of [facility] program. Identified Discharge Needs: Continued services and support through [facility] program, f/u with [facility] for medication management and counseling, and f/u with PCP. Additional Needs Jessica will be attending a weekly DBT group therapy session thru [facility]. Jessica will need to have a medication administration system in place to ensure safety. Currently Utilized Resources Currently Utilized Resources/P: [facility] program, [facility] day program, [facility] homemaking support PCP, Dr. Loo, thru [facility] Counseling and medication management thru [facility] Support with meals and weekend visit from family and mandaen family Referrals Community Resources: Follow up appointments to be scheduled at time of d/c with PCP, therapist, and medication prescriber at [facility]. Identified Problems/Hx/Goals Objectives/Short-Term Goals Short Term Goals: Decrease Isolation, Dec. Symp. Depression, Medication Stabilization, Monitor Med Effects, No Suicidal/Kayleigh. ideation, Promote Coping Skill Short Term Goals in Patient's: "To be stable, not suicidal." Interventions/Frequency Staff Interventions/Frequency&: Nursing to provide routine safety checks, medication adminstration, suport with adl's, and assessments Psychiatrist to visit 3-5 times per week. SW support twice weekly. SW and recerational therapy groups as Jessica will participate. 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 Education: Jessica graduated high school. Later in life, she obtained an associates degree in social work. Community Follow-up PCP, [facility], [facility] program Community Provider/Family Inpu: Jessica participated in treatment team meeting on 05/03/19. Treatment Plan Explained Patient/Ski Maker Wood had this treatment plan explained to him/her as indicated by the signature below and has been given the opportunity to ask questions and make suggestions: Date: Patient/Ski Maker Wood Signature: CHRISTI ORTEGA May 03, 2019 11:58
[2019-05-03] MEDS: rOPINIRole 1 MG TABLET. PO SCH ×2 (12:33→20:52)
[2019-05-03 16:13] VITALS: BP 116/72
[2019-05-03] MEDS: lamoTRIgine 25 MG TABLET. PO SCH (17:32)
[2019-05-03] MEDS: ATORVASTATIN CALCIUM 10 MG TABLET. PO SCH (20:51)
[2019-05-03] MEDS: MIRTAZAPINE 7.5 MG TABLET. PO SCH (20:51)
--- NOTE | 2019-05-03 21:25 | PDOC ---
Exam Note: Jens Note: Please also refer to the separate dictated note~for this date of service dictated separately.~Patient seen individually. Discussed the patient with Nursing staff reviewed the chart.~Reviewed interim history and current functioning. Reviewed vital signs,~Labs/ Radiology~and current medications noted below. Continue current treatment with the changes noted in the dictated addendum note Assessment: Vital Signs/I&O: Vital Signs Date Time Temp Pulse Resp B/P (MAP) Pulse Ox O2 Delivery O2 Flow Rate FiO2 05/03/19 17:32 97 05/03/19 16:13 97.6 86 16 116/72 (87) 05/03/19 01:41 Room Air I & O 05/02/19 05/02/19 05/03/19 15:00 23:00 07:00 Intake Total 960 ml 480 ml Balance 960 ml 480 ml Labs: Laboratory Tests Test 05/03/19 07:33 05/03/19 12:08 05/03/19 17:07 05/03/19 19:37 Glucose (Fingerstick) 144 mg/dL (70-99) H 210 mg/dL (70-99) H 231 mg/dL (70-99) H 327 mg/dL (70-99) H Current Medications: Meds: Current Medications Medications (Trade) Dose Ordered Sig/Shannan Route PRN Reason Start Time Stop Time Status Last Admin Dose Admin Gabapentin (Neurontin) 300 mg BID92 PO 05/03/19 09:00 05/03/19 14:16 Polyethylene Glycol (miraLAX) 17 gm DAILY PO 05/03/19 09:00 05/03/19 08:19 I have reviewed the current psychotropics carefully including drug interactions. Risk benefit ratio favors no change other than as noted in my dictated progress note. Diagnosis: Problems: (1) Impulse control disorder (2) Bipolar affective, mixed, sev w/ psych (3) Anxiety disorder (4) Major depressive disorder, recurrent episode KURT DUARTE MD May 03, 2019 21:25
[2019-05-04] MEDS: LEVOTHYROXINE 175 MCG TABLET PO SCH (05:47)
[2019-05-04 06:13] VITALS: BP 102/51
[2019-05-04] MEDS: POLYETHYLENE GLYCOL 3350 17 GM PACKET. PO SCH (08:55)
[2019-05-04] MEDS: DICLOFENAC SODIUM 1% TOPICAL GEL 100GM TUBE. TP SCH ×4 (08:55→20:30)
[2019-05-04] MEDS: FENOFIBRATE NANOCRYSTALLIZED 145 MG TABLET PO SCH (08:56)
[2019-05-04] MEDS: LACTOBACILLUS RHAMNOSUS GG 1 CAPSULE. PO SCH (08:56)
[2019-05-04] MEDS: traMADol 50 MG TABLET PO SCH ×2 (08:56→17:20)
[2019-05-04] MEDS: GABAPENTIN 300 MG CAPSULE. PO SCH ×3 (08:56→20:29)
[2019-05-04] MEDS: DULoxetine HCL 60 MG CAPSULE.DR PO SCH (08:56)
[2019-05-04] MEDS: levETIRAcetam 500 MG TABLET PO SCH ×2 (08:58→17:20)
[2019-05-04] MEDS: MAGNESIUM OXIDE 400 MG TABLET PO SCH (08:58)
[2019-05-04] MEDS: INSULIN GLARGINE SYRINGE. SQ SCH (08:59)
[2019-05-04] MEDS: CROMOLYN 4% OPHTH SOLUTION 10ML BOTTLE. OU SCH ×3 (09:00→20:34)
[2019-05-04] MEDS: INSULIN LISPRO 300 UNITS/3 ML VIAL. SQ SCH ×5 (09:02→17:38)
[2019-05-04] MEDS: rOPINIRole 1 MG TABLET. PO SCH ×2 (12:14→20:29)
[2019-05-04] MEDS: ACETAMINOPHEN 325 MG TABLET PO PRN ×2 (13:35→22:27)
[2019-05-04 16:06] VITALS: BP 130/73
[2019-05-04] MEDS: lamoTRIgine 25 MG TABLET. PO SCH (17:19)
--- NOTE | 2019-05-04 19:42 | PN ---
DATE: 05/02/2019 PSYCHIATRIC PROGRESS NOTE This late entry 05/02/2019 covers the elements not covered in my initial note. SUBJECTIVE: I met with the patient in the evening. Per MINGO Martinez, the patient slept 3 hours previous night, though she subjectively states she slept fine. The director of the [facility] services and social service staff had met with her on the unit and this is going to be an integral part of her outpatient followup. [facility] [place] [facility]. REVIEW OF SYSTEMS: Ambulation impaired with walker. No CV, , pulmonary, eye, ENT system symptoms on review. MENTAL STATUS EXAM: Oriented reasonably. Speech is coherent, abstraction fair, computation impaired, language function intact, attention span short. Mood and affect remain somewhat anxious, labile. LABORATORY DATA: Reviewed. IMPRESSION: Bipolar disorder, mixed with psychotic features, anxiety disorder, unspecified; impulse control disorder, unspecified. Rest unchanged. PLAN: She does complain of pedal edema bilaterally and has been raising her legs to compensate for this. We will use the knee high DANIEL hose, which is something she has done at the home. She has had some insomnia. I wanted to start her on trazodone, but she has an allergy to it and was hypotensive on it in the past. We will change it to Remeron 7.5 mg at bedtime. Continue Cymbalta, Lamictal, and Neurontin at current dosage. Lamictal is being gradually increased. KURT DUARTE MD DR: ROMA/jayro JOB#: [id number] / [id number]
--- NOTE | 2019-05-04 19:54 | PN ---
DATE: 05/03/2019 This late entry, 05/03, covers elements not covered in my initial note. SUBJECTIVE: I met with the patient evening of 05/03 and staffed at a treatment team meeting with the entire team in the morning and the patient attended the treatment team meeting. We had a lengthy review of her history. She has been followed at [facility] in [place] and has the [facility] services program providing for her 4 times a week. She has been reportedly on pain medication since 02/2019 and sees a therapist weekly. She gave a history that she had been stockpiling her pain medications again since 02/2019 with a plan to overdose at home. We have discussed at length how the family should keep her medications and she should be administered her medications in front of family or staff from the [facility] services or other agencies and not have the option of keeping any of her medications to be taken later which she tends to stockpile. Also addressed this at length with the patient and reasons for this. She states she has been suicidal since her teenage years and that is part of her personality. REVIEW OF SYSTEMS: Ambulation impaired with walker. No CV, , pulmonary, eye system symptoms on review, still complains of some pedal edema. MENTAL STATUS EXAM: Reasonably oriented. Speech is coherent, abstraction fair, computation impaired, language function intact, attention span short. Mood and affect still labile, but improved. No active suicidal ideation. LABORATORY DATA: Reviewed. IMPRESSION: Bipolar disorder, mixed with psychotic features, in partial remission; anxiety disorder, unspecified; personality disorder; impulse control disorder. PLAN: Continue psychotropics from initial note. Gradually increase the Lamictal. Maintain Neurontin. Continue Cymbalta. Remeron was added for insomnia. She has been on nortriptyline at night for insomnia and we will stop it. Adjust further as clinically indicated. May need to increase Remeron if insomnia persists despite the above. She slept 5 hours previous night, which is an improvement. MAN Ellis DUARTE MD DR: ROMA/jayro JOB#: [id number] / [id number]
[2019-05-04] MEDS: MIRTAZAPINE 15 MG TABLET PO SCH (20:28)
[2019-05-04] MEDS: ATORVASTATIN CALCIUM 10 MG TABLET. PO SCH (20:28)
--- NOTE | 2019-05-04 22:31 | PDOC ---
Exam Note: Jens Note: Please also refer to the separate dictated note~for this date of service dictated separately.~Patient seen individually. Discussed the patient with Nursing staff reviewed the chart.~Reviewed interim history and current functioning. Reviewed vital signs,~Labs/ Radiology~and current medications noted below. Continue current treatment with the changes noted in the dictated addendum note Assessment: Vital Signs/I&O: Vital Signs Date Time Temp Pulse Resp B/P (MAP) Pulse Ox O2 Delivery O2 Flow Rate FiO2 05/04/19 17:20 96 05/04/19 16:06 97.9 100 18 130/73 (92) Room Air 98.0 I & O 05/03/19 05/03/19 05/04/19 15:00 23:00 07:00 Intake Total 240 ml 240 ml 240 ml Balance 240 ml 240 ml 240 ml Labs: Laboratory Tests Test 05/04/19 07:05 05/04/19 11:37 05/04/19 16:58 05/04/19 19:21 Glucose (Fingerstick) 261 mg/dL (70-99) H 252 mg/dL (70-99) H 272 mg/dL (70-99) H 324 mg/dL (70-99) H Current Medications: Meds: Current Medications Medications (Trade) Dose Ordered Sig/Shannan Route PRN Reason Start Time Stop Time Status Last Admin Dose Admin Mirtazapine (Remeron) 15 mg QHS PO 05/04/19 21:00 05/04/19 20:28 I have reviewed the current psychotropics carefully including drug interactions. Risk benefit ratio favors no change other than as noted in my dictated progress note. Diagnosis: Problems: (1) Impulse control disorder (2) Bipolar affective, mixed, sev w/ psych (3) Anxiety disorder (4) Major depressive disorder, recurrent episode KURT DUARTE MD May 04, 2019 22:31
[2019-05-05] MEDS: traMADol 50 MG TABLET PO PRN (00:16)
[2019-05-05 05:29] VITALS: BP 133/74
[2019-05-05] MEDS: LEVOTHYROXINE 175 MCG TABLET PO SCH (05:34)
[2019-05-05] MEDS: levETIRAcetam 500 MG TABLET PO SCH ×2 (08:00→17:36)
[2019-05-05] MEDS: POLYETHYLENE GLYCOL 3350 17 GM PACKET. PO SCH (08:39)
[2019-05-05] MEDS: LACTOBACILLUS RHAMNOSUS GG 1 CAPSULE. PO SCH (08:39)
[2019-05-05] MEDS: GABAPENTIN 300 MG CAPSULE. PO SCH ×3 (08:40→20:01)
[2019-05-05] MEDS: FENOFIBRATE NANOCRYSTALLIZED 145 MG TABLET PO SCH (08:40)
[2019-05-05] MEDS: traMADol 50 MG TABLET PO SCH ×2 (08:40→17:36)
[2019-05-05] MEDS: DULoxetine HCL 60 MG CAPSULE.DR PO SCH (08:40)
[2019-05-05] MEDS: MAGNESIUM OXIDE 400 MG TABLET PO SCH (08:40)
[2019-05-05] MEDS: DICLOFENAC SODIUM 1% TOPICAL GEL 100GM TUBE. TP SCH ×4 (08:41→20:01)
[2019-05-05] MEDS: INSULIN LISPRO 300 UNITS/3 ML VIAL. SQ SCH ×5 (08:49→17:42)
[2019-05-05] MEDS: CROMOLYN 4% OPHTH SOLUTION 10ML BOTTLE. OU SCH ×2 (09:00→20:01)
[2019-05-05] MEDS: INSULIN GLARGINE SYRINGE. SQ SCH (10:01)
[2019-05-05] MEDS: rOPINIRole 1 MG TABLET. PO SCH ×2 (12:24→20:00)
[2019-05-05 15:41] VITALS: BP 103/66
[2019-05-05] MEDS: lamoTRIgine 100 MG TABLET. PO SCH (17:37)
[2019-05-05] MEDS: MIRTAZAPINE 15 MG TABLET PO SCH (20:00)
[2019-05-05] MEDS: ATORVASTATIN CALCIUM 10 MG TABLET. PO SCH (20:00)
--- NOTE | 2019-05-05 21:19 | PDOC ---
Exam Note: Jens Note: Please also refer to the separate dictated note~for this date of service dictated separately.~Patient seen individually. Discussed the patient with Nursing staff reviewed the chart.~Reviewed interim history and current functioning. Reviewed vital signs,~Labs/ Radiology~and current medications noted below. Continue current treatment with the changes noted in the dictated addendum note Assessment: Vital Signs/I&O: Vital Signs Date Time Temp Pulse Resp B/P (MAP) Pulse Ox O2 Delivery O2 Flow Rate FiO2 05/05/19 19:17 94 05/05/19 15:41 97.5 90 16 103/66 (78) 05/04/19 16:06 Room Air 98.0 I & O 05/04/19 05/04/19 05/05/19 15:00 23:00 07:00 Intake Total 840 ml 480 ml Balance 840 ml 480 ml Labs: Laboratory Tests Test 05/05/19 07:51 05/05/19 11:57 05/05/19 17:20 05/05/19 19:26 Glucose (Fingerstick) 225 mg/dL (70-99) H 305 mg/dL (70-99) H 280 mg/dL (70-99) H 306 mg/dL (70-99) H Current Medications: Meds: Current Medications Medications (Trade) Dose Ordered Sig/Shannan Route PRN Reason Start Time Stop Time Status Last Admin Dose Admin Lamotrigine (LaMICtal) 100 mg DAILYWSUP PO 05/05/19 17:00 05/05/19 17:37 I have reviewed the current psychotropics carefully including drug interactions. Risk benefit ratio favors no change other than as noted in my dictated progress note. Diagnosis: Problems: (1) Impulse control disorder (2) Bipolar affective, mixed, sev w/ psych (3) Anxiety disorder (4) Major depressive disorder, recurrent episode KURT DUARTE MD May 05, 2019 21:19
[2019-05-06] MEDS: traMADol 50 MG TABLET PO PRN (00:58)
[2019-05-06 05:38] VITALS: BP 130/72
[2019-05-06] MEDS: LEVOTHYROXINE 175 MCG TABLET PO SCH (05:53)
[2019-05-06] MEDS: INSULIN LISPRO 300 UNITS/3 ML VIAL. SQ SCH ×5 (08:53→17:41)
[2019-05-06] MEDS: INSULIN GLARGINE SYRINGE. SQ SCH (08:55)
[2019-05-06] MEDS: LACTOBACILLUS RHAMNOSUS GG 1 CAPSULE. PO SCH (08:59)
[2019-05-06] MEDS: POLYETHYLENE GLYCOL 3350 17 GM PACKET. PO SCH (08:59)
[2019-05-06] MEDS: GABAPENTIN 300 MG CAPSULE. PO SCH ×3 (08:59→20:44)
[2019-05-06] MEDS: MAGNESIUM OXIDE 400 MG TABLET PO SCH (08:59)
[2019-05-06] MEDS: DULoxetine HCL 60 MG CAPSULE.DR PO SCH (08:59)
[2019-05-06] MEDS: FENOFIBRATE NANOCRYSTALLIZED 145 MG TABLET PO SCH (08:59)
[2019-05-06] MEDS: DICLOFENAC SODIUM 1% TOPICAL GEL 100GM TUBE. TP SCH ×4 (09:00→20:44)
[2019-05-06] MEDS: traMADol 50 MG TABLET PO SCH ×2 (09:00→17:38)
[2019-05-06] MEDS: levETIRAcetam 500 MG TABLET PO SCH ×2 (09:00→17:37)
[2019-05-06] MEDS: CROMOLYN 4% OPHTH SOLUTION 10ML BOTTLE. OU SCH (09:00)
[2019-05-06] MEDS: POLYVINYL ALCOHOL/POVIDONE/PF OPHTH SOLUTION DROPERETTE. OU SCH ×2 (10:33→20:43)
[2019-05-06] MEDS: rOPINIRole 1 MG TABLET. PO SCH ×2 (12:51→20:44)
[2019-05-06 15:24] VITALS: BP 116/72
[2019-05-06] MEDS: lamoTRIgine 100 MG TABLET. PO SCH (17:37)
[2019-05-06] MEDS: MIRTAZAPINE 15 MG TABLET PO SCH (20:43)
[2019-05-06] MEDS: ATORVASTATIN CALCIUM 10 MG TABLET. PO SCH (20:43)
[2019-05-06] MEDS: ACETAMINOPHEN 325 MG TABLET PO PRN (20:56)
--- NOTE | 2019-05-06 21:14 | PDOC ---
Exam Note: Jens Note: Please also refer to the separate dictated note~for this date of service dictated separately.~Patient seen individually. Discussed the patient with Nursing staff reviewed the chart.~Reviewed interim history and current functioning. Reviewed vital signs,~Labs/ Radiology~and current medications noted below. Continue current treatment with the changes noted in the dictated addendum note Assessment: Vital Signs/I&O: Vital Signs Date Time Temp Pulse Resp B/P (MAP) Pulse Ox O2 Delivery O2 Flow Rate FiO2 05/06/19 18:38 100 05/06/19 15:24 97.1 93 16 116/72 (87) 05/04/19 16:06 Room Air 98.0 I & O 05/05/19 05/05/19 05/06/19 15:00 23:00 07:00 Intake Total 840 ml 740 ml Balance 840 ml 740 ml Labs: Laboratory Tests Test 05/06/19 07:18 05/06/19 12:05 05/06/19 17:07 05/06/19 19:15 Glucose (Fingerstick) 192 mg/dL (70-99) H 237 mg/dL (70-99) H 245 mg/dL (70-99) H 303 mg/dL (70-99) H Current Medications: Meds: Current Medications Medications (Trade) Dose Ordered Sig/Shannan Route PRN Reason Start Time Stop Time Status Last Admin Dose Admin Artificial Tears (Refresh Classic) 1 drop BID OU 05/06/19 09:00 05/06/19 20:43 I have reviewed the current psychotropics carefully including drug interactions. Risk benefit ratio favors no change other than as noted in my dictated progress note. Diagnosis: Problems: (1) Impulse control disorder (2) Bipolar affective, mixed, sev w/ psych (3) Anxiety disorder (4) Major depressive disorder, recurrent episode KURT DUARTE MD May 06, 2019 21:14
--- NOTE | 2019-05-06 22:19 | PN ---
DATE: 05/05/2019 PSYCHIATRIC PROGRESS NOTE This late entry 05/05/2019 covers elements not covered in my initial note. SUBJECTIVE: I met with the patient in the evening of 05/05/2019. The patient slept 4-1/2 hours previous night. She remains somewhat anxious with fewer dissociative episodes on 05/05/2019 as compared to the day earlier. REVIEW OF SYSTEMS: Ambulation impaired with walker. No CV, , pulmonary, eye system symptoms on review. MENTAL STATUS EXAM: Reasonably oriented. Speech is coherent, abstraction fair, computation impaired, language function intact, and attention span short. Mood and affect somewhat anxious, labile at times. LABORATORY DATA: Reviewed. IMPRESSION: Unchanged from initial note. PLAN: No change from initial note. KURT DUARTE MD DR: ROMA/jayro JOB#: [id number] / [id number]
--- NOTE | 2019-05-06 22:20 | PN ---
DATE: 05/04/2019 PSYCHIATRIC PROGRESS NOTE This late entry 05/04/2019 covers elements not covered in my initial note. SUBJECTIVE: I met with the patient evening of 05/04/2019. Per Lana RN, the patient slept 4 hours previous night. I was called by the nursing staff as an emergency during the day as the patient stated she was dissociating. She is talking about having 3 personalities, upset regarding having to go to an assisted living, stating she had difficulty writing, which was part of her other personalities. We did add Zyprexa p.r.n. REVIEW OF SYSTEMS: Ambulation impaired with walker. No CV, , pulmonary, eye system symptoms on review. MENTAL STATUS EXAM: Oriented reasonably. Speech is coherent, abstraction fair, computation impaired, language function intact, attention span short. Mood and affect remain somewhat labile. LABORATORY DATA: Reviewed. IMPRESSION: Bipolar disorder, mixed with psychotic features, rule out dissociative identity disorder; major depressive disorder, recurrent; anxiety disorder, unspecified. PLAN: The patient is sleeping poorly. We will increase Remeron from 7.5 mg at bedtime to 15 mg at bedtime, use the Zyprexa p.r.n. for psychosis. Continue rest of the psychotropics. Discussed at length with the patient. KURT DUARTE MD DR: ROMA/jayro JOB#: [id number] / [id number]
[2019-05-07] MEDS: traMADol 50 MG TABLET PO PRN (00:41)
[2019-05-07] MEDS: LEVOTHYROXINE 175 MCG TABLET PO SCH (05:36)
[2019-05-07 06:13] VITALS: BP 95/56
[2019-05-07 07:01] LABS: BASO % 1 % (0-3); EOS # 0.2 x10^3/uL (0.0-0.7); EOS % 4 % (0-3); HEMATOCRIT 39.7 % (36.0-47.0); LYMPH # 2.5 x10^3/uL (1.0-4.8); LYMPH % 49 % (24-48); MEAN CORPUSCULAR HEMOGLOBIN 29 pg (25-35); MEAN CORPUSCULAR HGB CONC 33 g/dL (31-37); MEAN CORPUSCULAR VOLUME 89 fL (79-100); MONO # 0.4 x10^3/uL (0.0-1.1); MONO % 8 % (0-9); NEUT % 39 % (31-73); PLATELET COUNT 171 x10^3/uL (140-400); RED BLOOD COUNT 4.45 x10^6/uL (3.50-5.40); RED CELL DISTRIBUTION WIDTH 14.4 % (11.5-14.5); WHITE BLOOD COUNT 5.1 x10^3/uL (4.0-11.0)
[2019-05-07 07:29] LABS: ALBUMIN 3.2 g/dL (3.4-5.0); ALBUMIN/GLOBULIN RATIO 0.9 (1.0-1.7); CALCIUM 8.9 mg/dL (8.5-10.1); CREATININE 0.7 mg/dL (0.6-1.0); GFR 81.6; POTASSIUM 4.2 mmol/L (3.5-5.1); TOTAL BILIRUBIN 0.3 mg/dL (0.2-1.0); TOTAL PROTEIN 6.7 g/dL (6.4-8.2)
[2019-05-07] MEDS ORDERED: INSULIN LISPRO 300 UNITS/3 ML VIAL. SQ SCH (08:00)
[2019-05-07] MEDS: FENOFIBRATE NANOCRYSTALLIZED 145 MG TABLET PO SCH (08:08)
[2019-05-07] MEDS: levETIRAcetam 500 MG TABLET PO SCH ×2 (08:08→17:24)
[2019-05-07] MEDS: DULoxetine HCL 60 MG CAPSULE.DR PO SCH (08:08)
[2019-05-07] MEDS: POLYETHYLENE GLYCOL 3350 17 GM PACKET. PO SCH (08:08)
[2019-05-07] MEDS: MAGNESIUM OXIDE 400 MG TABLET PO SCH (08:09)
[2019-05-07] MEDS: GABAPENTIN 300 MG CAPSULE. PO SCH ×3 (08:09→21:11)
[2019-05-07] MEDS: LACTOBACILLUS RHAMNOSUS GG 1 CAPSULE. PO SCH (08:09)
[2019-05-07] MEDS: POLYVINYL ALCOHOL/POVIDONE/PF OPHTH SOLUTION DROPERETTE. OU SCH ×2 (08:10→21:11)
[2019-05-07] MEDS: DICLOFENAC SODIUM 1% TOPICAL GEL 100GM TUBE. TP SCH ×4 (08:11→21:12)
[2019-05-07] MEDS: traMADol 50 MG TABLET PO SCH ×2 (09:20→17:24)
[2019-05-07] MEDS: INSULIN LISPRO 300 UNITS/3 ML VIAL. SQ SCH ×5 (09:23→17:30)
[2019-05-07] MEDS: INSULIN GLARGINE SYRINGE. SQ SCH (09:25)
[2019-05-07] MEDS: rOPINIRole 1 MG TABLET. PO SCH ×2 (12:47→21:11)
[2019-05-07 16:06] VITALS: BP 116/71
[2019-05-07] MEDS: lamoTRIgine 100 MG TABLET. PO SCH (17:24)
[2019-05-07] MEDS: MIRTAZAPINE 15 MG TABLET PO SCH (21:11)
[2019-05-07] MEDS: ATORVASTATIN CALCIUM 10 MG TABLET. PO SCH (21:11)
--- NOTE | 2019-05-07 21:36 | PDOC ---
Exam Note: Jens Note: Please also refer to the separate dictated note~for this date of service dictated separately.~Patient seen individually. Discussed the patient with Nursing staff reviewed the chart.~Reviewed interim history and current functioning. Reviewed vital signs,~Labs/ Radiology~and current medications noted below. Continue current treatment with the changes noted in the dictated addendum note Assessment: Vital Signs/I&O: Vital Signs Date Time Temp Pulse Resp B/P (MAP) Pulse Ox O2 Delivery O2 Flow Rate FiO2 05/07/19 16:06 98.5 92 20 116/71 (86) 94 05/04/19 16:06 Room Air 98.0 I & O 05/06/19 05/06/19 05/07/19 15:00 23:00 07:00 Intake Total 1080 ml 480 ml 360 ml Balance 1080 ml 480 ml 360 ml Labs: Laboratory Tests Test 05/07/19 06:19 05/07/19 07:30 05/07/19 12:11 05/07/19 16:37 White Blood Count 5.1 x10^3/uL (4.0-11.0) Red Blood Count 4.45 x10^6/uL (3.50-5.40) Hemoglobin 13.0 g/dL (12.0-15.5) Hematocrit 39.7 % (36.0-47.0) Mean Corpuscular Volume 89 fL (79-100) Mean Corpuscular Hemoglobin 29 pg (25-35) Mean Corpuscular Hemoglobin Concent 33 g/dL (31-37) Red Cell Distribution Width 14.4 % (11.5-14.5) Platelet Count 171 x10^3/uL (140-400) Neutrophils (%) (Auto) 39 % (31-73) Lymphocytes (%) (Auto) 49 % (24-48) H Monocytes (%) (Auto) 8 % (0-9) Eosinophils (%) (Auto) 4 % (0-3) H Basophils (%) (Auto) 1 % (0-3) Neutrophils # (Auto) 2.0 x10^3uL (1.8-7.7) Lymphocytes # (Auto) 2.5 x10^3/uL (1.0-4.8) Monocytes # (Auto) 0.4 x10^3/uL (0.0-1.1) Eosinophils # (Auto) 0.2 x10^3/uL (0.0-0.7) Basophils # (Auto) 0.0 x10^3/uL (0.0-0.2) Sodium Level 143 mmol/L (136-145) Potassium Level 4.2 mmol/L (3.5-5.1) Chloride Level 106 mmol/L (98-107) Carbon Dioxide Level 29 mmol/L (21-32) Anion Gap 8 (6-14) Blood Urea Nitrogen 10 mg/dL (7-20) Creatinine 0.7 mg/dL (0.6-1.0) Estimated GFR (Cockcroft-Gault) 81.6 BUN/Creatinine Ratio 14 (6-20) Glucose Level 198 mg/dL (70-99) H Calcium Level 8.9 mg/dL (8.5-10.1) Total Bilirubin 0.3 mg/dL (0.2-1.0) Aspartate Amino Transferase (AST) 36 U/L (15-37) Alanine Aminotransferase (ALT) 43 U/L (14-59) Alkaline Phosphatase 113 U/L (46-116) Total Protein 6.7 g/dL (6.4-8.2) Albumin 3.2 g/dL (3.4-5.0) L Albumin/Globulin Ratio 0.9 (1.0-1.7) L Glucose (Fingerstick) 271 mg/dL (70-99) H 221 mg/dL (70-99) H 160 mg/dL (70-99) H Test 05/07/19 19:18 Glucose (Fingerstick) 203 mg/dL (70-99) H Current Medications: Meds: Current Medications Medications (Trade) Dose Ordered Sig/Shnanan Route PRN Reason Start Time Stop Time Status Last Admin Dose Admin Insulin Human Lispro (HumaLOG) 12 units BIDWMEALS SQ 05/07/19 08:00 05/07/19 17:30 I have reviewed the current psychotropics carefully including drug interactions. Risk benefit ratio favors no change other than as noted in my dictated progress note. Diagnosis: Problems: (1) Impulse control disorder (2) Bipolar affective, mixed, sev w/ psych (3) Anxiety disorder (4) Major depressive disorder, recurrent episode KURT DUARTE MD May 07, 2019 21:36
--- NOTE | 2019-05-08 00:24 | PN ---
DATE: 05/06/2019 PSYCHIATRIC PROGRESS NOTE. This late entry of 05/06/2019 covers the elements not covered in my initial note. SUBJECTIVE: I met with the patient in the evening of 05/06/2019. The patient was somewhat irritable previous night per MINGO Duke. No suicidal ideation. She had some difficulty with sleep at night and we will start her on trazodone 50 mg at bedtime p.r.n. insomnia, may repeat x 1. REVIEW OF SYSTEMS: Positive for impaired ambulation with walker and pedal edema. No CV, , pulmonary, eye system symptoms on review. MENTAL STATUS EXAM: Reasonably oriented. Speech is coherent, pleasant, verbal. Abstraction fair, computation impaired, language function intact, attention span short. Mood and affect, grandiosity and lability is improved. LABORATORY DATA: Reviewed. IMPRESSION: Bipolar disorder, mixed with psychotic features. Rest unchanged. PLAN: Continue psychotropics from initial note. MAN Ellis DUARTE MD DR: ROMA/jayro JOB#: [id number] / [id number]
[2019-05-08] MEDS: LEVOTHYROXINE 175 MCG TABLET PO SCH (06:17)
[2019-05-08 06:30] VITALS: BP 102/62
[2019-05-08] MEDS: LACTOBACILLUS RHAMNOSUS GG 1 CAPSULE. PO SCH (08:27)
[2019-05-08] MEDS: POLYETHYLENE GLYCOL 3350 17 GM PACKET. PO SCH (08:27)
[2019-05-08] MEDS: FENOFIBRATE NANOCRYSTALLIZED 145 MG TABLET PO SCH (08:28)
[2019-05-08] MEDS: DULoxetine HCL 60 MG CAPSULE.DR PO SCH (08:28)
[2019-05-08] MEDS: GABAPENTIN 300 MG CAPSULE. PO SCH ×3 (08:28→20:39)
[2019-05-08] MEDS: MAGNESIUM OXIDE 400 MG TABLET PO SCH (08:28)
[2019-05-08] MEDS: levETIRAcetam 500 MG TABLET PO SCH ×2 (08:28→17:29)
[2019-05-08] MEDS: traMADol 50 MG TABLET PO SCH ×2 (08:29→17:29)
[2019-05-08] MEDS: POLYVINYL ALCOHOL/POVIDONE/PF OPHTH SOLUTION DROPERETTE. OU SCH ×2 (08:29→20:38)
[2019-05-08] MEDS: DICLOFENAC SODIUM 1% TOPICAL GEL 100GM TUBE. TP SCH ×4 (08:30→20:48)
[2019-05-08] MEDS: INSULIN LISPRO 300 UNITS/3 ML VIAL. SQ SCH ×5 (08:39→17:36)
[2019-05-08] MEDS: INSULIN GLARGINE SYRINGE. SQ SCH (08:41)
[2019-05-08] MEDS: rOPINIRole 1 MG TABLET. PO SCH ×2 (12:16→20:39)
[2019-05-08 15:38] VITALS: BP 107/60
[2019-05-08] MEDS: lamoTRIgine 25 MG TABLET. PO SCH (17:29)
[2019-05-08] MEDS: lamoTRIgine 100 MG TABLET. PO SCH (17:29)
[2019-05-08] MEDS ORDERED: hydrOXYzine HCL 25 MG TABLET PO PRN (18:00)
[2019-05-08] MEDS: MELATONIN 3 MG TABLET PO SCH (20:38)
[2019-05-08] MEDS: MIRTAZAPINE 15 MG TABLET PO SCH (20:38)
[2019-05-08] MEDS: ATORVASTATIN CALCIUM 10 MG TABLET. PO SCH (20:38)
--- NOTE | 2019-05-08 21:17 | PDOC ---
Exam Note: Jens Note: Please also refer to the separate dictated note~for this date of service dictated separately.~Patient seen individually. Discussed the patient with Nursing staff reviewed the chart.~Reviewed interim history and current functioning. Reviewed vital signs,~Labs/ Radiology~and current medications noted below. Continue current treatment with the changes noted in the dictated addendum note Assessment: Vital Signs/I&O: Vital Signs Date Time Temp Pulse Resp B/P (MAP) Pulse Ox O2 Delivery O2 Flow Rate FiO2 05/08/19 20:19 94 05/08/19 15:38 98.0 95 20 107/60 (76) 05/04/19 16:06 Room Air 98.0 I & O 05/07/19 05/07/19 05/08/19 15:00 23:00 07:00 Intake Total 600 ml 960 ml Balance 600 ml 960 ml Labs: Laboratory Tests Test 05/08/19 07:38 05/08/19 11:43 Glucose (Fingerstick) 187 mg/dL (70-99) H 211 mg/dL (70-99) H Current Medications: Meds: Current Medications Medications (Trade) Dose Ordered Sig/Shannan Route PRN Reason Start Time Stop Time Status Last Admin Dose Admin Lamotrigine (LaMICtal) 100 mg DAILYWSUP PO 05/08/19 17:00 05/08/19 17:29 Melatonin (Melatonin) 6 mg QHS PO 05/08/19 21:00 05/08/19 20:38 Lamotrigine (LaMICtal) 25 mg DAILYWSUP PO 05/08/19 17:00 05/08/19 17:29 I have reviewed the current psychotropics carefully including drug interactions. Risk benefit ratio favors no change other than as noted in my dictated progress note. Diagnosis: Problems: (1) Impulse control disorder (2) Bipolar affective, mixed, sev w/ psych (3) Anxiety disorder (4) Major depressive disorder, recurrent episode KURT DUARTE MD May 08, 2019 21:17
--- NOTE | 2019-05-08 23:25 | PN ---
DATE: 05/07/2019 PSYCHIATRIC PROGRESS NOTE This late entry 05/07/2019 covers elements not covered in my initial note. SUBJECTIVE: I met with the patient evening of 05/07/2019. Per MINGO Duke, the patient slept 3-3/4 hours previous night. She was somewhat agitated with nursing staff earlier in the day because she could not sit in the day room with her legs raised since this was taking up extra space that the other patients needed. She complains of pedal edema. Therefore, the need to raise her feet and she was arguing with nursing staff about this, slept 3-3/4 hours. REVIEW OF SYSTEMS: In addition to above, impaired ambulation with walker. No CV, , pulmonary, eye system symptoms on review. MENTAL STATUS EXAMINATION: Oriented reasonably. Speech is coherent, abstraction fair, computation impaired, language function intact, attention span short. Mood and affect remain somewhat labile, anxious. LABORATORY DATA: Reviewed. IMPRESSION: Bipolar disorder, mixed with psychotic features; anxiety disorder, unspecified. Rest unchanged. PLAN: Increase Lamictal from 100 mg a day to 125 mg a day and melatonin 6 mg at bedtime. Maintain Neurontin 300 mg a.m. and 600 at bedtime, Remeron 15 mg at bedtime, Cymbalta 60 mg a day, Zyprexa p.r.n. Adjust further as clinically indicated. MAN Ellis DUARTE MD DR: ROMA/jayro JOB#: [id number] / [id number]
[2019-05-08] MEDS: LORazepam 0.5 MG TABLET PO PRN (23:49)
[2019-05-09] MEDS: LEVOTHYROXINE 175 MCG TABLET PO SCH (05:13)
[2019-05-09 05:52] VITALS: BP 114/73
[2019-05-09] MEDS: MAGNESIUM OXIDE 400 MG TABLET PO SCH (08:32)
[2019-05-09] MEDS: LACTOBACILLUS RHAMNOSUS GG 1 CAPSULE. PO SCH (08:32)
[2019-05-09] MEDS: LORazepam 0.5 MG TABLET PO PRN ×2 (08:33→22:35)
[2019-05-09] MEDS: levETIRAcetam 500 MG TABLET PO SCH ×2 (08:33→17:32)
[2019-05-09] MEDS: FENOFIBRATE NANOCRYSTALLIZED 145 MG TABLET PO SCH (08:33)
[2019-05-09] MEDS: DULoxetine HCL 60 MG CAPSULE.DR PO SCH (08:33)
[2019-05-09] MEDS: GABAPENTIN 300 MG CAPSULE. PO SCH ×3 (08:33→22:04)
[2019-05-09] MEDS: traMADol 50 MG TABLET PO SCH ×2 (08:34→17:34)
[2019-05-09] MEDS: POLYVINYL ALCOHOL/POVIDONE/PF OPHTH SOLUTION DROPERETTE. OU SCH ×2 (08:35→22:05)
[2019-05-09] MEDS: POLYETHYLENE GLYCOL 3350 17 GM PACKET. PO SCH (08:35)
[2019-05-09] MEDS: DICLOFENAC SODIUM 1% TOPICAL GEL 100GM TUBE. TP SCH ×4 (08:35→22:04)
[2019-05-09] MEDS: INSULIN LISPRO 300 UNITS/3 ML VIAL. SQ SCH ×5 (08:39→17:39)
[2019-05-09] MEDS: INSULIN GLARGINE SYRINGE. SQ SCH (10:03)
[2019-05-09] MEDS: rOPINIRole 1 MG TABLET. PO SCH ×2 (13:07→22:04)
[2019-05-09 15:47] VITALS: BP 102/63
[2019-05-09] MEDS: lamoTRIgine 25 MG TABLET. PO SCH (17:32)
[2019-05-09] MEDS: lamoTRIgine 100 MG TABLET. PO SCH (17:33)
[2019-05-09] MEDS ORDERED: QUEtiapine 25 MG TABLET. PO SCH (21:00)
--- NOTE | 2019-05-09 21:43 | PDOC ---
Exam Note: Jens Note: Please also refer to the separate dictated note~for this date of service dictated separately.~Patient seen individually. Discussed the patient with Nursing staff reviewed the chart.~Reviewed interim history and current functioning. Reviewed vital signs,~Labs/ Radiology~and current medications noted below. Continue current treatment with the changes noted in the dictated addendum note Assessment: Vital Signs/I&O: Vital Signs Date Time Temp Pulse Resp B/P (MAP) Pulse Ox O2 Delivery O2 Flow Rate FiO2 05/09/19 17:34 94 05/09/19 15:47 97.6 91 16 102/63 (76) 05/09/19 05:52 Room Air 05/04/19 16:06 98.0 I & O 05/08/19 05/08/19 05/09/19 15:00 23:00 07:00 Intake Total 1140 ml 480 ml Balance 1140 ml 480 ml Current Medications: I have reviewed the current psychotropics carefully including drug interactions. Risk benefit ratio favors no change other than as noted in my dictated progress note. Diagnosis: Problems: (1) Impulse control disorder (2) Bipolar affective, mixed, sev w/ psych (3) Anxiety disorder (4) Major depressive disorder, recurrent episode KURT DUARTE MD May 09, 2019 21:43
[2019-05-09] MEDS: MELATONIN 3 MG TABLET PO SCH (22:04)
[2019-05-09] MEDS: ATORVASTATIN CALCIUM 10 MG TABLET. PO SCH (22:04)
[2019-05-09] MEDS: MIRTAZAPINE 15 MG TABLET PO SCH (22:04)
[2019-05-09] MEDS: BENZOCAINE/MENTHOL LOZNGE 18'S BOX. PO PRN (22:34)
--- NOTE | 2019-05-09 23:09 | PN ---
DATE: 05/08/2019 PSYCHIATRIC PROGRESS NOTE This late entry of 05/08/2019 covers elements not covered in my initial note. SUBJECTIVE: I met with the patient in the evening of 05/08/2019. Per MINGO Martinez, the patient slept 3-3/4 hours previous night. She was irritable last evening, pleasant in the morning, later reportedly, she "threw a fit" per nursing report around shower time. She gets very anxious, apprehensive and nursing staff had called me. We will add Ativan 0.5 mg q. 2 hour p.r.n. anxiety, max 1.5 mg in 24 hours. We will also add hydroxyzine 50 mg at bedtime p.r.n. for insomnia as she is already on Remeron 15 mg at bedtime and is allergic to trazodone. REVIEW OF SYSTEMS: Positive for impaired ambulation with walker. Pedal edema. No CV, , pulmonary, eye system symptoms on review. MENTAL STATUS EXAM: Reasonably oriented. Speech is coherent, abstraction fair, computation impaired, language function intact, attention span short. She is quite irritable as I met with her in the evening, depressed, withdrawn. No active suicidal ideation. IMPRESSION: Bipolar disorder, mixed versus depressed with history of psychotic features; anxiety disorder, unspecified. Rest unchanged. PLAN: We will add the Ativan and hydroxyzine. Melatonin was added 6 mg at bedtime. Maintain Lamictal increased to 125 mg a day. Continue Remeron 15 mg at bedtime, Cymbalta 60 mg a day, Neurontin 300 mg a.m. and 600 at bedtime, Zyprexa p.r.n. MAN Ellis DUARTE MD DR: ROMA/jayro JOB#: [id number] / [id number]
[2019-05-10] MEDS: BENZOCAINE/MENTHOL LOZNGE 18'S BOX. PO PRN ×3 (04:21→21:42)
[2019-05-10] MEDS: LEVOTHYROXINE 175 MCG TABLET PO SCH (05:37)
[2019-05-10 06:12] VITALS: BP 100/61
[2019-05-10] MEDS: ONDANSETRON ODT 4 MG TAB.RAPDIS PO PRN ×4 (07:41→19:52)
[2019-05-10 07:55] LABS: BASO % 1 % (0-3); EOS # 0.2 x10^3/uL (0.0-0.7); EOS % 4 % (0-3); HEMATOCRIT 37.5 % (36.0-47.0); HEMOGLOBIN 12.3 g/dL (12.0-15.5); LYMPH # 2.4 x10^3/uL (1.0-4.8); LYMPH % 50 % (24-48); MEAN CORPUSCULAR HEMOGLOBIN 29 pg (25-35); MEAN CORPUSCULAR HGB CONC 33 g/dL (31-37); MEAN CORPUSCULAR VOLUME 89 fL (79-100); MONO # 0.4 x10^3/uL (0.0-1.1); MONO % 8 % (0-9); NEUT # 1.9 x10^3uL (1.8-7.7); NEUT % 38 % (31-73); PLATELET COUNT 162 x10^3/uL (140-400); RED CELL DISTRIBUTION WIDTH 14.4 % (11.5-14.5); WHITE BLOOD COUNT 4.9 x10^3/uL (4.0-11.0)
[2019-05-10] MEDS: levETIRAcetam 500 MG TABLET PO SCH ×2 (08:00→17:29)
[2019-05-10] MEDS: traMADol 50 MG TABLET PO SCH ×2 (08:00→17:30)
[2019-05-10] MEDS: INSULIN LISPRO 300 UNITS/3 ML VIAL. SQ SCH ×5 (08:00→17:32)
[2019-05-10 08:13] LABS: ALBUMIN/GLOBULIN RATIO 0.9 (1.0-1.7); CALCIUM 8.6 mg/dL (8.5-10.1); CREATININE 0.7 mg/dL (0.6-1.0); GFR 81.6; POTASSIUM 3.6 mmol/L (3.5-5.1); TOTAL BILIRUBIN 0.3 mg/dL (0.2-1.0); TOTAL PROTEIN 6.3 g/dL (6.4-8.2)
[2019-05-10] MEDS: DULoxetine HCL 60 MG CAPSULE.DR PO SCH (09:00)
[2019-05-10] MEDS: GABAPENTIN 300 MG CAPSULE. PO SCH ×3 (09:00→20:00)
[2019-05-10] MEDS: FENOFIBRATE NANOCRYSTALLIZED 145 MG TABLET PO SCH (09:00)
[2019-05-10] MEDS: POLYETHYLENE GLYCOL 3350 17 GM PACKET. PO SCH (09:00)
[2019-05-10] MEDS: LACTOBACILLUS RHAMNOSUS GG 1 CAPSULE. PO SCH (09:00)
[2019-05-10] MEDS: MAGNESIUM OXIDE 400 MG TABLET PO SCH (09:00)
[2019-05-10] MEDS: POLYVINYL ALCOHOL/POVIDONE/PF OPHTH SOLUTION DROPERETTE. OU SCH ×2 (09:00→20:03)
[2019-05-10] MEDS: DICLOFENAC SODIUM 1% TOPICAL GEL 100GM TUBE. TP SCH ×5 (09:00→20:11)
[2019-05-10] MEDS: INSULIN GLARGINE SYRINGE. SQ SCH (10:35)
[2019-05-10] MEDS: rOPINIRole 1 MG TABLET. PO SCH ×2 (13:12→20:00)
[2019-05-10 16:12] VITALS: BP 114/72
[2019-05-10] MEDS: lamoTRIgine 100 MG TABLET. PO SCH (17:30)
[2019-05-10] MEDS: lamoTRIgine 25 MG TABLET. PO SCH (17:30)
[2019-05-10] MEDS: ACETAMINOPHEN 325 MG TABLET PO PRN (19:52)
[2019-05-10] MEDS: MELATONIN 3 MG TABLET PO SCH (19:59)
[2019-05-10] MEDS: MIRTAZAPINE 15 MG TABLET PO SCH (20:00)
[2019-05-10] MEDS: ATORVASTATIN CALCIUM 10 MG TABLET. PO SCH (20:00)
--- NOTE | 2019-05-10 21:21 | PDOC ---
Exam Note: Jens Note: Please also refer to the separate dictated note~for this date of service dictated separately.~Patient seen individually. Discussed the patient with Nursing staff reviewed the chart.~Reviewed interim history and current functioning. Reviewed vital signs,~Labs/ Radiology~and current medications noted below. Continue current treatment with the changes noted in the dictated addendum note Assessment: Vital Signs/I&O: Vital Signs Date Time Temp Pulse Resp B/P (MAP) Pulse Ox O2 Delivery O2 Flow Rate FiO2 05/10/19 18:31 97 05/10/19 16:12 97.6 89 20 114/72 (86) Room Air 05/04/19 16:06 98.0 I & O 05/09/19 05/09/19 05/10/19 14:59 22:59 06:59 Intake Total 480 ml 360 ml 240 ml Balance 480 ml 360 ml 240 ml Labs: Laboratory Tests Test 05/10/19 07:39 White Blood Count 4.9 x10^3/uL (4.0-11.0) Red Blood Count 4.20 x10^6/uL (3.50-5.40) Hemoglobin 12.3 g/dL (12.0-15.5) Hematocrit 37.5 % (36.0-47.0) Mean Corpuscular Volume 89 fL (79-100) Mean Corpuscular Hemoglobin 29 pg (25-35) Mean Corpuscular Hemoglobin Concent 33 g/dL (31-37) Red Cell Distribution Width 14.4 % (11.5-14.5) Platelet Count 162 x10^3/uL (140-400) Neutrophils (%) (Auto) 38 % (31-73) Lymphocytes (%) (Auto) 50 % (24-48) H Monocytes (%) (Auto) 8 % (0-9) Eosinophils (%) (Auto) 4 % (0-3) H Basophils (%) (Auto) 1 % (0-3) Neutrophils # (Auto) 1.9 x10^3uL (1.8-7.7) Lymphocytes # (Auto) 2.4 x10^3/uL (1.0-4.8) Monocytes # (Auto) 0.4 x10^3/uL (0.0-1.1) Eosinophils # (Auto) 0.2 x10^3/uL (0.0-0.7) Basophils # (Auto) 0.0 x10^3/uL (0.0-0.2) Sodium Level 144 mmol/L (136-145) Potassium Level 3.6 mmol/L (3.5-5.1) Chloride Level 109 mmol/L (98-107) H Carbon Dioxide Level 28 mmol/L (21-32) Anion Gap 7 (6-14) Blood Urea Nitrogen 11 mg/dL (7-20) Creatinine 0.7 mg/dL (0.6-1.0) Estimated GFR (Cockcroft-Gault) 81.6 BUN/Creatinine Ratio 16 (6-20) Glucose Level 197 mg/dL (70-99) H Calcium Level 8.6 mg/dL (8.5-10.1) Total Bilirubin 0.3 mg/dL (0.2-1.0) Aspartate Amino Transferase (AST) 30 U/L (15-37) Alanine Aminotransferase (ALT) 34 U/L (14-59) Alkaline Phosphatase 96 U/L (46-116) Total Protein 6.3 g/dL (6.4-8.2) L Albumin 3.0 g/dL (3.4-5.0) L Albumin/Globulin Ratio 0.9 (1.0-1.7) L Lipase 103 U/L (73-393) Current Medications: Meds: Current Medications Medications (Trade) Dose Ordered Sig/Shannan Route PRN Reason Start Time Stop Time Status Last Admin Dose Admin Ondansetron HCl (Zofran Odt) 4 mg PRN Q4HRS PRN PO NAUSEA/VOMITING 05/10/19 06:45 05/10/19 19:52 I have reviewed the current psychotropics carefully including drug interactions. Risk benefit ratio favors no change other than as noted in my dictated progress note. Diagnosis: Problems: (1) Impulse control disorder (2) Bipolar affective, mixed, sev w/ psych (3) Anxiety disorder (4) Major depressive disorder, recurrent episode KURT DUARTE MD May 10, 2019 21:21
--- NOTE | 2019-05-10 23:35 | PN ---
DATE: 05/09/2019 PSYCHIATRIC PROGRESS NOTE This late entry 05/09/2019 covers the elements not covered in my initial note. SUBJECTIVE: I met with the patient in the evening of 05/09/2019. The patient slept 3-3/4 hours previous night per MINGO Martinez. She was irritable at night, then did better, complaining of staff interactions with her. She has been otherwise pleasant during the day on 05/09/2019, complains of some internal voices inside her head, somewhat obsessive. No clear auditory hallucinations, though at times they may masquerade and she talks back to them. REVIEW OF SYSTEMS: Ambulation impaired with walker. No CV, , pulmonary, eye system symptoms on review. MENTAL STATUS EXAM: Reasonably oriented. Speech is coherent, abstraction fair, computation impaired, language function intact. Mood and affect, somewhat anxious, at times labile at times, but improved. No suicidal ideation. LABORATORY DATA: Reviewed. IMPRESSION: Bipolar disorder, mixed with psychotic features; anxiety disorder, unspecified. Rest unchanged. PLAN: Continue current psychotropics. Start Seroquel 25 mg p.o. at bedtime. Rest unchanged for now. MAN Ellis DUARTE MD DR: ROMA/jayro JOB#: [id number] / [id number]
[2019-05-11] MEDS ORDERED: TRAM100T2 PO (01:04)
[2019-05-11] MEDS ORDERED: TRAM50TA PO (01:06)
[2019-05-11] MEDS ORDERED: GABA-586 PO (01:08)
[2019-05-11] MEDS ORDERED: LAMO100T5 PO (01:09)
[2019-05-11] MEDS ORDERED: MIRT15TA PO (01:10)
[2019-05-11] MEDS ORDERED: OLAN5TAB5 PO (01:14)
[2019-05-11] MEDS ORDERED: LORA-254 PO (01:15)
[2019-05-11] MEDS ORDERED: HYDR25TA PO (01:18)
[2019-05-11] MEDS ORDERED: POLY17PO5 PO (01:20)
[2019-05-11] MEDS ORDERED: ONDA4TAB7 PO (01:21)
[2019-05-11] MEDS ORDERED: MELA3TAB56 PO (01:23)
[2019-05-11] MEDS: LEVOTHYROXINE 175 MCG TABLET PO SCH (04:07)
[2019-05-11] MEDS: BENZOCAINE/MENTHOL LOZNGE 18'S BOX. PO PRN (04:08)
[2019-05-11] MEDS: traMADol 50 MG TABLET PO PRN (06:04)
[2019-05-11 06:17] VITALS: BP 104/69
[2019-05-11] MEDS: INSULIN LISPRO 300 UNITS/3 ML VIAL. SQ SCH ×2 (08:00→08:44)
[2019-05-11] MEDS: DULoxetine HCL 60 MG CAPSULE.DR PO SCH (08:40)
[2019-05-11] MEDS: levETIRAcetam 500 MG TABLET PO SCH (08:40)
[2019-05-11] MEDS: MAGNESIUM OXIDE 400 MG TABLET PO SCH (08:40)
[2019-05-11] MEDS: FENOFIBRATE NANOCRYSTALLIZED 145 MG TABLET PO SCH (08:40)
[2019-05-11] MEDS: GABAPENTIN 300 MG CAPSULE. PO SCH (08:40)
[2019-05-11] MEDS: traMADol 50 MG TABLET PO SCH (08:41)
[2019-05-11] MEDS: LACTOBACILLUS RHAMNOSUS GG 1 CAPSULE. PO SCH (08:41)
[2019-05-11] MEDS: INSULIN GLARGINE SYRINGE. SQ SCH (08:44)
[2019-05-11] MEDS: POLYVINYL ALCOHOL/POVIDONE/PF OPHTH SOLUTION DROPERETTE. OU SCH (08:45)
[2019-05-11] MEDS: POLYETHYLENE GLYCOL 3350 17 GM PACKET. PO SCH (08:50)
--- NOTE | 2019-05-11 14:39 | DS ---
DATE OF DISCHARGE: 05/11/2019 DISCHARGE SUMMARY AND PSYCHIATRIC PROGRESS NOTE This note covers elements not covered in my initial note 05/11/2019. IDENTIFYING DATA: The patient is a 74-year-old female referred to us back from the [facility] Emergency Room where she presented from home. Reportedly, the patient attempted suicide on 04/26/2019 by taking 70-80 tramadol. She was hospitalized at [facility], medically stabilized and then referred to us from the inpatient service. She has a long history of bipolar disorder who has been more depressed lately, has been resistive to outpatient interventions and services and reportedly had been hoarding her medications at home for the overdose and intended to do it again. SIGNIFICANT FINDINGS AND CLINICAL COURSE: Following admission, the patient was seen daily individually by myself from a psychiatric standpoint, medical followup with Dr. Ramirez. UA was negative. Adjustments were made in her psychotropics. She seemed to respond to a combination of Cymbalta 60 mg a day, Lamictal adjusted to 125 mg a day, Neurontin 300 mg a.m. and 600 at bedtime, Remeron 15 mg at bedtime, Zyprexa p.r.n., melatonin 6 mg at bedtime, Ativan p.r.n., hydroxyzine p.r.n. She was a little paranoid prior to discharge. We added 25 mg Seroquel at night and after the first dosage, she had some nausea, dizziness that night and early next morning and we stopped it. REVIEW OF SYSTEMS: Prior to discharge on 05/11/2019, ambulation somewhat impaired with walker. No CV, , pulmonary, eye system symptoms on review. MENTAL STATUS EXAM: Reasonably oriented. Speech coherent, abstraction fair, computation impaired, language function intact, attention span short. Mood and affect improved. No suicidal ideation at discharge. CONDITION AT DISCHARGE: Improved. FINAL DIAGNOSES: Bipolar disorder, mixed, severe with psychotic features, in partial remission; anxiety disorder, unspecified; history of major depressive disorder, recurrent episode. Rest unchanged from above plan. DISCHARGE MEDICATIONS: Please refer to the [facility]. DISCHARGE INSTRUCTIONS: Outpatient psychiatric and medical followup as arranged with [facility]. Apparently, several services from the [facility] will be involved with the patient's care. They will maintain all her psychotropics and administer them to the patient during the visits and make sure the patient does not hold her medications and takes them in front of them. Time for discharge day management greater than 30 minutes. KURT DUARTE MD DR: ROMA/jayro JOB#: [id number] / [id number]
--- NOTE | 2019-05-11 16:35 | PN ---
DATE: 05/10/2019 This late entry 05/10/2019 covers elements not covered in my initial note. SUBJECTIVE: I met with the patient evening of 05/10/2019. Per MINGO Martinez, the patient slept 2-3/4 hours previous night. She was up at 3:00 a.m., complained of nausea, dizziness, blurred vision. She ate no breakfast or lunch and was better by the evening. The only change made in her psychotropics has been the addition of Seroquel and this questionably could have contributed to this change and we will go ahead and stop it. REVIEW OF SYSTEMS: Ambulation impaired with walker. No CV, , pulmonary, eye system symptoms on review. MENTAL STATUS EXAM: Reasonably oriented. Speech is coherent, has some latency. Abstraction fair, computation impaired, language function intact. Mood and affect, lability is improved. LABORATORY DATA: Reviewed. IMPRESSION: Unchanged from initial note. PLAN: Stop the Seroquel. Rest unchanged for now. Possible discharge on 05/11/2019 with outpatient services at [facility]. MAN Ellis DUARTE MD DR: ROMA/jayro JOB#: [id number] / [id number]
--- NOTE | 2019-05-11 21:14 | PDOC ---
Exam Note: Jens Note: Please also refer to the separate dictated note~for this date of service dictated separately.~Patient seen individually. Discussed the patient with Nursing staff reviewed the chart.~Reviewed interim history and current functioning. Reviewed vital signs,~Labs/ Radiology~and current medications noted below. Continue current treatment with the changes noted in the dictated addendum note Assessment: Vital Signs/I&O: Vital Signs Date Time Temp Pulse Resp B/P (MAP) Pulse Ox O2 Delivery O2 Flow Rate FiO2 05/11/19 08:41 17 05/11/19 06:17 97.3 68 104/69 (81) 96 05/10/19 16:12 Room Air I & O 05/10/19 05/10/19 05/11/19 15:00 23:00 07:00 Intake Total 0 ml 720 ml Balance 0 ml 720 ml Current Medications: I have reviewed the current psychotropics carefully including drug interactions. Risk benefit ratio favors no change other than as noted in my dictated progress note. Diagnosis: Problems: (1) Impulse control disorder (2) Bipolar affective, mixed, sev w/ psych (3) Anxiety disorder (4) Major depressive disorder, recurrent episode KURT DUARTE MD May 11, 2019 21:14
== END 2019-05-11 10:20 | disposition home or self-care (01) | DRG 885 ==
LOC: GEROPSY 08:51
PROVIDERS: ADMIT Psychiatry & Neurology Psychiatry; ATTEND Psychiatry & Neurology Psychiatry
DX: F31.64 Bipolar disorder, current episode mixed, severe, with psychotic features (principal); F41.9 Anxiety disorder, unspecified; E03.9 Hypothyroidism, unspecified; E11.9 Type 2 diabetes mellitus without complications; E78.5 Hyperlipidemia, unspecified; F60.9 Personality disorder, unspecified; F63.9 Impulse disorder, unspecified; G25.81 Restless legs syndrome; G40.909 Epilepsy, unspecified, not intractable, without status epilepticus; G47.33 Obstructive sleep apnea (adult) (pediatric); G89.29 Other chronic pain; I10 Essential (primary) hypertension; K21.9 Gastro-esophageal reflux disease without esophagitis; M79.7 Fibromyalgia; Z79.4 Long term (current) use of insulin; Z79.899 Other long term (current) drug therapy; Z88.8 Allergy status to other drugs, medicaments and biological substances; Z98.1 Arthrodesis status; Z91.5 Personal history of self-harm; M19.90 Unspecified osteoarthritis, unspecified site
CPT/HCPCS: 36415; 70450; 80053; 80061; 81001; 82306; 82550; 82607; 82947; 83036; 83540; 83550; 83690; 83735; 84436; 84443; 84480; 85025; 86592; 87086; 90471; 90686; 93005; 99285; J1815; Q0162; 97530